=== PATIENT | female | born 1960 | race Hispanic/Latino ===

== ENCOUNTER 2021-04-27 12:52 | Observation (INO) | payer OTHER ==
--- OUTSIDE RECORDS SUMMARY | 2021-04-27 12:55 | XMS REPORT | Continuity of Care Document ---
:1960 Author Organization [facility] t Address [address] [place] [address] Care Team Providers Name Role Phone Asked, Pcp Primary Care Physician Unavailable Gumaro Johnston MD Attending Clinician Pablito MARSH Attending Clinician Problems Condition Condition Condition Status Onset Resolution Last Treating Co mments Source Name Details Category Date Date Treatment Clinician Date Angioedema Angioedema Disease Active 2015-10 [place] 11-03 [facility] 00:00: st 00 Allergic Allergic Disease Active 2015-10 [place] reaction reaction 11-03 Method i 00:00: st 00 Allergies, Adverse Reactions, Alerts Allergy Allergy Status Severity Reaction(s) Onset Inactive Treating Comm ents Source Name Type Date Date Clinician Levoflox Propensi Active Swelling 2015-10 [place] ac[place] ty to 11-03 [facility] adverse 00:00: st reaction 00 s to drug Ciproflo Propensi Active [place] xacin ty to 05-21 [facility] adverse 00:00: st reaction 00 s to drug Social History Social Habit Start Date Stop Date Quantity Comments Source Alcohol intake 2016-12-30 2016-12-30 Current [facility] 00:00:00 00:00:00 non-drinker of alcohol (finding) Sex Ass[birth year] At [birth year] Sree Jessica ethodist 00:00:00 00:00:00 Smoking Status Start Date Stop Date Source Never smoker Sree Methodis t Medications Ordered Filled Start Stop Current Ordering Indication Dosage Frequency Signature Comments Components Source Medication Medication Date Date Medication? Clinician (SIG) Name Name estradiol 2015-10 Yes 2mg QD Take 2 mg [place] (ESTRACE) 1 11-04 by mouth Meth billy MG tablet 16:30: daily. st 22 atorvastati 2015-10 Yes 10mg QD Take 10 mg Balbuena n (LIPITOR) 1-28 by mouth Meth billy 10 MG 16:30: daily. st tablet 22 magnesium 2015-10 Yes 400mg QD Take 400 [place] oxide 1-28 mg by Methodi (MAG-OX) 16:30: mouth st 400 mg 22 daily. tablet sertraline 2015-10 Yes 100mg QD Take 100 [place] (ZOLOFT) 1-28 mg by Methodi 100 MG 16:30: mouth st tablet 22 daily. diphenhydrA 2015-10 Yes 25mg Q6H Take 1 [place] M[place] 1-28 capsule Methodi (BENADRYL) 00:00: ([address] 25 mg 00 total) by capsule mouth every 6 (six) hours as needed for itching for up to 12 doses. diphenhydrA 2015-10 Yes 25mg Q6H Take 1 [place] 1-28 tablet (25 [facility] (BENADRYL) 00:00: mg total) st 25 mg 00 by mouth tablet every 6 (six) hours as needed for sleep for up to 12 doses. diphenhydrA 2015-10 Yes 25mg Q6H Take 1 [place] 1-28 capsule [facility] (DIPHENHIST 00:00: ([address] ) 25 mg 00 total) by capsule mouth every 6 (six) hours as needed for itching for up to 15 doses. glimepiride 2015-10 Yes Maki n (AMARYL) 2 1-25 [facility] MG tablet 00:00: st 00 midodrine 2015-10 Yes Sree (PROAMATINE 0-24 Methodi ) 2.5 MG 00:00: st tablet 00 Procedures This patient has no known procedures. Plan of Care Planned Activity Planned Date Details Comments Source Future Scheduled 2021-05-08 INFLUENZA VACCINE [facility] 00:00:00 [code = INFLUENZA VACCINE] Future Scheduled 2008 BREAST CANCER [facility] Test 00:00:00 SCREENING [code = BREAST CANCER SCREENING] Future Scheduled 2008 COLONOSCOPY SCREENING Ho varsha [facility] 00:00:00 [code = COLONOSCOPY SCREENING] Future Scheduled 2008 SHINGLES VACCINES [facility] 00:00:00 (#1) [code = SHINGLES VACCINES (#1)] Future Scheduled 1979 Screening for [facility] Test 00:00:00 malignant neoplasm of cervix (procedure) [code = 870073325] Future Scheduled 1970 COVID-19 VACCINE (1) Boom diaz [facility] 00:00:00 [code = COVID-19 VACCINE (1)] Encounters Start End Encounter Admission Attending Care Care Encounter Source Date/Time Date/Time Type Type Clinicians Facility Department ID 2021-04-19 2021-04-19 Refill [place], [facility] [id number] 00:00:00 00:00:00 [facility] [id number] [facility] [id number] Professio [phone] [address] 2021-04-19 2021-04-19 Refill [place], [facility] [id number] 00:00:00 00:00:00 [facility] [id number] [place] [id number] Professio [phone] [facility] [address] Building 2021-03-09 2021-03-09 Refill [place], [facility] [id number] 00:00:00 00:00:00 [facility] [id number] [place] [id number] Professio [phone] critical access hospital 220 [facility] Results This patient has no known results.
[2021-04-27 13:48] LABS: Protime INR 1.05
[2021-04-27 13:51] LABS: ALT/SGPT 34 U/L (12-78); AST/SGOT 31 U/L (15-37); Absolute Lymphocytes (CBC) 2.9 K/uL (0.7-4.9); Albumin 3.7 g/dL (3.4-5.0); Alkaline Phosphatase 125 U/L (45-117); BUN Blood Urea Nitrogen 22 mg/dL (7-18); Basophils % 1.1 % (0-1.3); Bicarbonate 27 mmol/L (21-32); Bilirubin Direct 0.1 mg/dL (0-0.2); Bilirubin Total 0.4 mg/dL (0.2-1.0); Glucose Level 92 mg/dL (74-106); Hematocrit 35.5 % (36.0-45.0); Lymphocytes % 34.8 % (15.3-44.8); MPV 7.9 fL (7.6-11.3); Magnesium 2.1 mg/dL (1.8-2.4); NT PRO-BNP 579 pg/mL (<125); Potassium 3.4 mmol/L (3.5-5.1); Protein, Total 7.9 g/dL (6.4-8.2); RBC Red Blood Cell Count 4.52 M/uL (3.86-4.86); Sodium Level 139 mmol/L (136-145); Troponin (Emerg Dept Use Only) < 0.02 ng/mL (0.0-0.045)
[2021-04-27] MEDS ORDERED: NA CHLORIDE 0.9% 1,000 ML ONE (13:53)
[2021-04-27] MEDS ORDERED: ASPIRIN 81 MG CHEWABLE TABLET ONE (13:53)
--- NOTE | 2021-04-27 14:02 | RAD REPORT ---
EXAM DESCRIPTION: CT - Head Brain Wo Cont - 04/27/2021 1:45 pm CLINICAL HISTORY: PAIN COMPARISON: Head Brain Wo Cont dated 09/08/2016; HEAD BRAIN W O CONTRAST dated 04/26/2014 TECHNIQUE: All CT scans are performed using dose optimization technique as appropriate and may inclu de automated exposure control or mA/KV adjustment according to patient size. FINDINGS: No intracranial hemorrhage, hydrocephalus or extra-axial fluid collection.No areas of brai n edema or evidence of midline shift. The paranasal sinuses and mastoids are clear. The calvarium is intact. IMPRESSION: No acute intracranial abnormality.
--- NOTE | 2021-04-27 14:04 | RAD REPORT ---
EXAM DESCRIPTION: RAD - Chest Single View - 04/27/2021 1:42 pm CLINICAL HISTORY: CHEST PAIN COMPARISON: Chest Single View dated 09/08/2016; Chest Single View dated 05/16/2016; CHEST PA AND LAT 2 VIEW dated 08/20/2014; CHEST SINGLE VIEW dated 08/08/2014 FINDINGS: No evidence of edema or pneumonia. The heart size is within normal limits.No acute osseous abnormality. No significant pleural effusions or pneumothorax. IMPRESSION: No acute cardiopulmonary disease.
[2021-04-27] MEDS ORDERED: KETOROLAC 30 MG/ML INJ ONE (14:19)
--- NOTE | 2021-04-27 14:55 | ER ---
Nurse's Notes [facility] Name: Lisa Louis Age: 60 yrs Sex: Female : 1960 Arrival Date: 04/27/2021 Time: 12:53 Bed 5 Private MD: Diagnosis: Chest pain, unspecified Presentation: 04/27 12:58 Chief complaint: Patient states: headache, muscle aches, chest tightness since ca1 yesterday. Denies fever. Denies cough and congestion. Denies N/V/D. Coronavirus screen: Client denies travel out of the [place] in the last 14 days. headache, muscle pain, Client presents with at least one sign or symptom that may indicate coronavirus-19. Standard/surgical mask placed on the client. Provider contacted for isolation considerations. Ebola Screen: Patient negative for fever greater than or equal to 101.5 degrees Fahrenheit, and additional compatible Ebola Virus Disease symptoms Patient denies exposure to infectious person. Patient denies travel to an Ebola-affected area in the 21 days before illness onset. No symptoms or risks identified at this time. Initial Sepsis Screen: Does the patient meet any 2 criteria? No. Patient's initial sepsis screen is negative. Does the patient have a suspected source of infection? No. Patient's initial sepsis screen is negative. Risk Assessment: Do you want to hurt yourself or someone else? Patient reports no desire to harm self or others. Onset of symptoms was April 26, 2021. 12:58 Method Of Arrival: Ambulatory ca1 12:58 Acuity: PATRICE 3 ca1 Historical: - Allergies: 12:59 Cipro; ca1 13:00 Gabapentin; ca1 - PMHx: 12:59 Diabetes - NIDDM; Hyperlipidemia; Hypertension; ca1 - Immunization history:: Client reports receiving the 2nd dose of the Covid vaccine, Client reports receiving the 1st dose of the Covid vaccine, Flu vaccine is up to date. - Social history:: Smoking status: Patient denies any tobacco usage or history of. Patient/guardian denies using alcohol, street drugs, The patient lives with family. - Family history:: not pertinent. Screenin:00 Abuse screen: Denies threats or abuse. Denies injuries from another. Nutritional hb screening: No deficits noted. Tuberculosis screening: No symptoms or risk factors identified. Fall Risk None identified. Assessment: 13:00 General: Appears in no apparent distress. Behavior is calm, cooperative. Pain: Pain hb currently is 10 out of 10 on a pain scale. Neuro: Level of Consciousness is awake, alert, obeys commands, Oriented to person, place, time, situation, Reports headache. Cardiovascular: Reports chest pain, Patient's skin is warm and dry. Respiratory: Respiratory effort is even, unlabored, Respiratory pattern is regular, symmetrical. GI: No signs and/or symptoms were reported involving the gastrointestinal system. : No signs and/or symptoms were reported regarding the genitourinary system. EENT: No signs and/or symptoms were reported regarding the EENT system. Derm: Skin is pink, warm \\T\\ dry. Musculoskeletal: Reports chest pain, body aches, headache. 14:10 Reassessment: Patient appears in no apparent distress at this time. Patient and/or hb family updated on plan of care and expected duration. Pain level reassessed. Patient is alert, oriented x 3, equal unlabored respirations, skin warm/dry/pink. 15:30 Reassessment: Patient appears in no apparent distress at this time. Patient and/or hb family updated on plan of care and expected duration. Pain level reassessed. Patient is alert, oriented x 3, equal unlabored respirations, skin warm/dry/pink. 16:45 Reassessment: Patient appears in no apparent distress at this time. Patient and/or hb family updated on plan of care and expected duration. Pain level reassessed. Patient is alert, oriented x 3, equal unlabored respirations, skin warm/dry/pink. 17:55 Reassessment: Patient appears in no apparent distress at this time. Patient and/or hb family updated on plan of care and expected duration. Pain level reassessed. Patient is alert, oriented x 3, equal unlabored respirations, skin warm/dry/pink. 18:27 Reassessment: Patient appears in no apparent distress at this time. Patient and/or hb family updated on plan of care and expected duration. Pain level reassessed. Patient is alert, oriented x 3, equal unlabored respirations, skin warm/dry/pink. 19:10 Reassessment: Patient and/or family updated on plan of care and expected duration. Pain ad5 level reassessed. Patient is alert, oriented x 3, equal unlabored respirations, skin warm/dry/pink. Pt reports worsening "all over" pain, provided analgesia as ordered. See [email or web address] charting on DEC. Vital Signs: 12:58 BP 137 / 57; Pulse 61; Resp 18 S; Temp 97(TE); Pulse Ox 100% on R/A; Weight 79.38 kg ca1 (R); Height 5 ft. 4 in. (162.56 cm) (R); Pain 10/10; 15:30 BP 126 / 60; Pulse 59; Resp 17; Pulse Ox 99% ; hb 16:45 BP 114 / 58; Pulse 53; Resp 15; Pulse Ox 99% on R/A; hb 17:55 BP 172 / 58; Pulse 52; Resp 14; Pulse Ox 98% ; hb 18:27 BP 150 / 68; Pulse 54; Resp 15; Pulse Ox 98% ; hb 19:43 BP 126 / 54; Pulse 54; Resp 18 S; Pulse Ox 97% on R/A; ad5 12:58 Body Mass Index 30.04 (79.38 kg, 162.56 cm) ca1 ED Course: 12:53 Patient arrived in ED. ds1 12:57 Jarvis Monahan MD is Attending Physician. ma2 12:58 Telma Mercado, ROSENDO is Primary Nurse. hb 12:59 Triage completed. ca1 13:00 Patient has correct armband on for positive identification. Placed in gown. Bed in low hb position. Call light in reach. Side rails up X 1. nuclear monitoring technician on. Pulse ox on. NIBP on. 13:00 Arm band placed on right wrist. ca1 13:00 Patient maintains SpO2 saturation greater than 95% on room air. hb 13:15 Door closed. Noise minimized. Lights dimmed. Warm blanket given. hb 13:42 XRAY Chest (1 view) In Process Unspecified. EDMS 13:44 CT Head Brain wo Cont In Process Unspecified. EDMS 14:54 Neo Daivd DO is Hospitalizing Provider. ma2 16:02 Diet: Patient given water. hb 19:35 No provider procedures requiring assistance completed. Patient admitted, IV remains in ad5 place. Administered Medications: 13:58 Drug: NS 0.9% 1000 ml Route: IV; Rate: 1 bolus; Site: right antecubital; hb 15:03 Follow up: Response: No adverse reaction; IV Status: Completed infusion; IV Intake: hb 1000ml 13:58 Drug: Aspirin Chewable Tablet 324 mg Route: PO; hb 14:40 Follow up: Response: No adverse reaction hb 13:58 Drug: Ketorolac 30 mg Route: IVP; Site: right antecubital; hb 14:40 Follow up: Response: No adverse reaction hb Intake: 15:03 IV: 1000ml; Total: 1000ml. hb Outcome: 14:54 Decision to Hospitalize by Provider. ma2 19:35 Admitted to Med/surg ad5 19:35 Condition: stable 19:35 Instructed on the need for admit. 19:47 Admitted to Med/surg Report called to ROSENDO Finnegan ad5 20:05 Patient left the ED. em Signatures: Dispatcher [employer] Ameya Ruiz RN RN Aarti Lopez Heather, RN RN Jarvis Monahan MD MD ma2 Acob, Cheryl, RN RN [facility] Juan Daniel Victor ad5
--- NOTE | 2021-04-27 14:55 | EDPHYS ---
Physician Documentation [facility] Name: Lisa Louis Age: 60 yrs Sex: Female : 1960 Arrival Date: 04/27/2021 Time: 12:53 Bed 5 Private MD: ED Physician Jarvis Monahan HPI: 04/27 14:14 This 60 yrs old Female presents to ER via Ambulatory with complaints of Chest ma2 Tightness, Headache. 14:14 The patient or guardian reports chest pain that is located primarily in the substernal ma2 area. Onset: gradually. 14:51 Associated signs and symptoms: Pertinent negatives: cough, dizziness, headache, lower ma2 extremity swelling, lightheadedness, nausea, near syncope, shortness of breath, syncope. Severity of pain: At its worst the pain was moderate in the emergency department the pain is unchanged. Historical: - Allergies: 12:59 Cipro; ca1 13:00 Gabapentin; ca1 - PMHx: 12:59 Diabetes - NIDDM; Hyperlipidemia; Hypertension; ca1 - Immunization history:: Client reports receiving the 2nd dose of the Covid vaccine, Client reports receiving the 1st dose of the Covid vaccine, Flu vaccine is up to date. - Social history:: Smoking status: Patient denies any tobacco usage or history of. Patient/guardian denies using alcohol, street drugs, The patient lives with family. - Family history:: not pertinent. ROS: 14:51 Constitutional: Negative for fever, chills, and weight loss. ma2 14:51 All other systems are negative. Exam: 14:51 Constitutional: This is a well developed, well nourished patient who is awake, alert, ma2 and in no acute distress. Head/Face: Normocephalic, atraumatic. Eyes: Pupils equal round and reactive to light, extra-ocular motions intact. Lids and lashes normal. Conjunctiva and sclera are non-icteric and not injected. Cornea within normal limits. Periorbital areas with no swelling, redness, or edema. ENT: Nares patent. No nasal discharge, no septal abnormalities noted. Tympanic membranes are normal and external auditory canals are clear. Oropharynx with no redness, swelling, or masses, exudates, or evidence of obstruction, uvula midline. Mucous membranes moist. Neck: Trachea midline, no thyromegaly or masses palpated, and no cervical lymphadenopathy. Supple, full range of motion without nuchal rigidity, or vertebral point tenderness. No Meningismus. Chest/axilla: Normal chest wall appearance and motion. Nontender with no deformity. No lesions are appreciated. Cardiovascular: Regular rate and rhythm with a normal S1 and S2. No gallops, murmurs, or rubs. Normal PMI, no JVD. No pulse deficits. Respiratory: Lungs have equal breath sounds bilaterally, clear to auscultation and percussion. No rales, rhonchi or wheezes noted. No increased work of breathing, no retractions or nasal flaring. Abdomen/GI: Soft, non-tender, with normal bowel sounds. No distension or tympany. No guarding or rebound. No evidence of tenderness throughout. Skin: Warm, dry with normal turgor. Normal color with no rashes, no lesions, and no evidence of cellulitis. MS/ Extremity: Pulses equal, no cyanosis. Neurovascular intact. Full, normal range of motion. Neuro: Awake and alert, GCS 15, oriented to person, place, time, and situation. Cranial nerves II-XII grossly intact. Motor strength 5/5 in all extremities. Sensory grossly intact. Cerebellar exam normal. Normal gait. Vital Signs: 12:58 BP 137 / 57; Pulse 61; Resp 18 S; Temp 97(TE); Pulse Ox 100% on R/A; Weight 79.38 kg ca1 (R); Height 5 ft. 4 in. (162.56 cm) (R); Pain 10/10; 15:30 BP 126 / 60; Pulse 59; Resp 17; Pulse Ox 99% ; hb 16:45 BP 114 / 58; Pulse 53; Resp 15; Pulse Ox 99% on R/A; hb 17:55 BP 172 / 58; Pulse 52; Resp 14; Pulse Ox 98% ; hb 18:27 BP 150 / 68; Pulse 54; Resp 15; Pulse Ox 98% ; hb 19:43 BP 126 / 54; Pulse 54; Resp 18 S; Pulse Ox 97% on R/A; ad5 12:58 Body Mass Index 30.04 (79.38 kg, 162.56 cm) ca1 MDM: 13:03 Patient medically screened. ma2 14:51 Differential diagnosis: abnormal EKG, anxiety, chest wall pain, gastroesophageal reflux ma2 disease (GERD), pancreatitis, unstable angina. HEART Score: History: Slightly Suspicious (0), ECG: Non specific repolarization disturbance / LBTB / PM (1), Age: > or = 65 years (2), Risk Factors: > or = 3 Risk factors for atherosclerotic disease (2), Troponin: < or = 1 x Normal Limit (0). The patient was given aspirin in the Emergency Department. Data reviewed: vital signs, nurses notes. Counseling: I had a detailed discussion with the patient and/or guardian regarding: the historical points, exam findings, and any diagnostic results supporting the discharge/admit diagnosis, the presence of at least one elevated blood pressure reading (>120/80) during this emergency department visit, the need for outpatient follow up. 04/27 12:57 Order name: Basic Metabolic Panel; Complete Time: 14: mn04/27 12:57 Order name: CBC with Diff; Complete Time: 14: [facility] 04/27 12:57 Order name: LFT's; Complete Time: 14: [facility] 04/27 12:57 Order name: Magnesium; Complete Time: 14: mn04/27 12:57 Order name: NT PRO-BNP; Complete Time: 14: mn04/27 12:57 Order name: PT-INR; Complete Time: 14: mn04/27 12:57 Order name: Troponin (emerg Dept Use Only); Complete Time: 14: mn2 04/27 12:57 Order name: XRAY Chest (1 view); Complete Time: 14: mn2 04/27 13:21 Order name: CT Head Brain wo Cont; Complete Time: 14: mn04/27 17:54 Order name: COVID-19 : Document "Date of Symptom Onset" if Symptomatic. ss 04/27 18:18 Order name: CORONAVIRUS [facility] 04/27 19:15 Order name: SARS-COV-2 RT PCR [facility] 04/27 12:57 Order name: EKG; Complete Time: 12:58 ma2 04/27 12:57 Order name: Cardiac monitoring; Complete Time: 13:27 ma2 04/27 12:57 Order name: EKG - Nurse/Tech; Complete Time: 13:27 mn2 04/27 12:57 Order name: IV Saline Lock; Complete Time: 13:27 ma2 04/27 12:57 Order name: Labs collected and sent; Complete Time: 13:27 [facility] 04/27 12:57 Order name: O2 Per Protocol; Complete Time: 12:59 [facility] 04/27 12:57 Order name: O2 Sat Monitoring; Complete Time: 12:59 [facility] 04/27 16:43 Order name: CONS Physician Consult EDMS Administered Medications: 13:58 Drug: NS 0.9% 1000 ml Route: IV; Rate: 1 bolus; Site: right antecubital; hb 15:03 Follow up: Response: No adverse reaction; IV Status: Completed infusion; IV Intake: hb 1000ml 13:58 Drug: Aspirin Chewable Tablet 324 mg Route: PO; hb 14:40 Follow up: Response: No adverse reaction hb 13:58 Drug: Ketorolac 30 mg Route: IVP; Site: right antecubital; hb 14:40 Follow up: Response: No adverse reaction hb Disposition Summary: 04/27/21 14:54 Hospitalization Ordered Hospitalization Status: Inpatient Admission mn2 Provider: Neo David [facility] Location: Telemetry/MedSurg (observation) ma2 Condition: Stable ma2 Problem: new ma2 Symptoms: are resolved mn2 Bed/Room Type: Standard [facility] Room Assignment: 210(04/27/21 19:27) tl1 Diagnosis - Chest pain, unspecified ma Forms: - Medication Reconciliation Form ma2 - SBAR form mn2 Signatures: Dispatcher [employer] EDMS Zian Hummel RN RN tl1 Telma Mercado RN RN Jarvis Monahan MD MD ma2 Etelvina Cooper RN RN ca1 Corrections: (The following items were deleted from the chart) : 14:54 ma2 tl1
[2021-04-27] MEDS ORDERED: ACETAMINOPHEN 500 MG TAB PO PRN (19:11)
[2021-04-27] MEDS ORDERED: ONDANSETRON 4 MG/2 ML VIAL IV PRN (19:11)
[2021-04-27] MEDS: MORPHINE 2 MG/ML SYR IV PRN (19:15)
--- NOTE | 2021-04-27 19:21 | P.HP ---
Certification for Inpatient Patient admitted to: Observation With expected LOS: <2 Midnights Patient will require the following post-hospital care: None Practitioner: I am a practitioner with admitting privileges, knowledge of patient current condition, hospital course, and medical plan of care. Services: Services provided to patient in accordance with Admission requirements found in Title 42 Section 412.3 of the Code of Federal Regulations Patient History Date of Service: 04/27/21 Primary Care Provider: Dr. Johnston Reason for admission: chest pain History of Present Illness: This is a 60 y/o F with HTN, HLD, IDDM, depression, who presents today for substernal chest pain and muscle aches. Chest pain started suddenly yesterday while she was laying down and pain has been constant. Describes pain as sharp and tightness, denies any radiation. States this chest pain has occurred in the past about a year ago and had a negative stress test. Myalgias and headache started at the same time with no relief from tylenol. Myalgias are worse in the legs. Also c/o SOB and fatigue. Denies any cough, nausea, fever, chills, diarrhea, or fevers. Neg troponin BNP 579 K 3.4 Cr 1.33 CXR: No evidence of edema or pneumonia. The heart size is within normal limits.No acute osseous abnormality. No significant pleural effusions or pneumothorax. IMPRESSION: No acute cardiopulmonary disease. CT: No intracranial hemorrhage, hydrocephalus or extra-axial fluid collection.No areas of brain edema or evidence of midline shift. The paranasal sinuses and mastoids are clear. The calvarium is intact. IMPRESSION: No acute intracranial abnormality. Allergies ciprofloxacin Allergy (Severe, Verified 09/08/16 19:39) Swelling to lips, difficulty swallowing Home Medications: Atorvastatin Calcium [Lipitor*] 10 mg PO BEDTIME 04/25/14 Estradiol 2 mg PO BEDTIME 04/25/14 Glimepiride [Amaryl] 2 mg PO DAILY 04/25/14 Magnesium Oxide [Mag 0X*] 400 mg PO BID 04/25/14 Sertraline HCl 100 mg PO BID 05/16/16 Midodrine HCl 2.5 mg PO TID #90 tablet 09/13/16 - Past Medical/Surgical History Diabetic: Yes -: IDDM -: Htn -: High Cholesterol -: left leg/knee strain -: depression -: Hysterectomy -: Rt carpal tunnel sx -: cholecystectomy Psychosocial/ Personal History: lives at home with and grandkids - Family History Father -: Heart disease, Hypertension mom -: Heart disease, Hypertension Sister -: Cancer (colon) Brother -: Cancer (pancreatic) - Social History Smoking Status: Never smoker Alcohol use: No CD- Drugs: No Caffeine use: Yes Physical Examination - Physical Exam General: Alert, Oriented x3, Cooperative, Mild distress (appears uncomfortable) HEENT: Atraumatic, Normocephalic, EOMI Neck: Supple Respiratory: Clear to auscultation bilaterally, Normal air movement Cardiovascular: No edema, Normal pulses, Normal S1 S2 Capillary refill: <2 Seconds Gastrointestinal: Normal bowel sounds, Soft and benign, Non-distended, No guarding Musculoskeletal: No clubbing, No swelling, No contractures Integumentary: No rashes, No breakdown Neurological: Normal speech, Normal tone, Normal affect Lymphatics: No axilla or inguinal lymphadenopathy - Studies Laboratory Data (last 24 hrs) 04/27/21 13:22: PT 12.1, INR 1.05 04/27/21 13:22: WBC 8.20, Hgb 12.2, Hct 35.5 L, Plt Count 209 04/27/21 13:22: Sodium 139, Potassium 3.4 L, BUN 22 H, Creatinine 1.33 H, Glucose 92, Magnesium 2.1, Total Bilirubin 0.4, AST 31, ALT 34, Alkaline Phosphatase 125 H Assessment and Plan - Plan impression: chest pain IDDM HTN HLD depression plan: chest pain: -pt will be admitted for further observation -initial imaging and labs negative for any acute processes -trend cardiac enzymes -monitor on telemetry -echo ordered -pain control -cardiology has been consulted. await recommendations -anticipate improvement over the next 24h IDDM: accuchecks and SSI. HTN: confirm and restart home meds as appropriate. HLD: confirm and restart home meds as appropriate. depression: confirm and restart home meds as appropriate. VTE: lovenox code: full dispo: anticipate dc home in 24h Discharge Plan: Home Plan to discharge in: 24 Hours - Advance Directives Does patient have a Living Will: No Does patient have a Durable POA for Healthcare: No - Code Status/Comfort Care Code Status Assessed: Yes (full) Time Spent Managing Pts Care (In Minutes): 55
[2021-04-27 20:08] VITALS: BMI 31.6
[2021-04-27] MEDS: INSULIN -REGULAR HUMAN 50 UNIT/0.5 ML ML SQ SCH (21:00)
[2021-04-27 21:08] LABS: CKMB Creatine Kinase MB 1.2 ng/mL (1.0-3.6); Troponin I < 0.02 ng/mL (0.0-0.045)
[2021-04-27] MEDS: TRAMADOL HCL 50 MG TAB PO PRN (21:28)
[2021-04-27 23:49] LABS: Urine Appearance CLOUDY (Clear); Urine Bilirubin NEGATIVE (Negative); Urine Blood TRACE (Negative); Urine Color YELLOW (Yellow); Urine Glucose NEGATIVE (Negative); Urine Protein NEGATIVE (Negative); Urine Urobilinogen 0.2 mg/dL (0.2-1.0)
[2021-04-27 23:51] LABS: Urine Microscopic Reflex ORDER UMIC
[2021-04-28] MEDS: MORPHINE 2 MG/ML SYR IV PRN ×2 (00:22→06:17)
[2021-04-28 01:01] LABS: Urine Bacteria >50 /HPF (<20); Urine RBC <5 /HPF (NONE SEEN); Urine Urothelial Cells <5 /HPF (NONE SEEN)
[2021-04-28 02:10] LABS: CKMB Creatine Kinase MB < 1.0 ng/mL (1.0-3.6); Troponin I < 0.02 ng/mL (0.0-0.045)
--- NOTE | 2021-04-28 06:00 | P.DS ---
Admission Date: 04/27/21 Discharge Date: 04/28/21 Primary Care Provider: Dr. Johnston Disposition: ROUTINE DISCHARGE Discharge Condition: GOOD Reason for Admission: chest pain Consultations: Cardiology-Dr. Angulo Nephrology-Dr. Posada Procedures: COVID: Negative CT Head: COMPARISON: Head Brain Wo Cont dated 09/08/2016; HEAD BRAIN W O CONTRAST dated 04/26/2014 TECHNIQUE: All CT scans are performed using dose optimization technique as appropriate and may include automated exposure control or mA/KV adjustment accor ding to patient size. FINDINGS: No intracranial hemorrhage, hydrocephalus or extra-axial fluid collection.No areas of brain edema or evidence of midline shift. The paranasal sinuses and mastoids are clear. The calvarium is intact. IMPRESSION: No acute intracranial abnormality. CXR: COMPARISON: Chest Single View dated 09/08/2016; Chest Single View dated 05/16/2016; CHEST PA AND LAT 2 VIEW dated 08/20/2014; CHEST SINGLE VIEW dated 08/08/2014 FINDINGS: No evidence of edema or pneumonia. The heart size is within normal limits.No acute osseous abnormality. No significant pleural effusions or pneumothorax. IMPRESSION: No acute cardiopulmonary disease. ECHO 2016: MEASUREMENTS (cm) DIASTOLIC (NORMALS) SYSTOLIC (NORMALS) IVSd 0.9 (0.6-1.2) LA Diam 4.3 (1.9-4.0) LVEF 67% LVIDd 5.1 (3.5-5.7) LVIDs 3.2 (2.0-3.5) %FS 38% LVPWd 0.8 (0.6-1.2) Ao Diam 2.9 (2.0-3.7) 2 DIMENSIONAL ASSESSMENT: RIGHT ATRIUM: DILATED LEFT ATRIUM: DILATED RIGHT VENTRICLE: NORMAL LEFT VENTRICLE: NORMAL TRICUSPID VALVE: NORMAL MITRAL VALVE: NORMAL PULMONIC VALVE: NORMAL AORTIC VALVE: NORMAL PERICARDIAL EFFUSION: NONE AORTIC ROOT: NORMAL LEFT VENTRICULAR WALL MOTION: NORMAL DOPPLER/COLOR FLOW: MILD TRICUSPID REGURGITATION. ESTIMATED RIGHT VENTRICULAR SYSTOLIC PRESSURE 34mmHg ( NORMAL) COMMENTS: NORMAL LEFT VENTRICULAR EJECTION FRACTION. DILATED LEFT AND RIGHT ATRIA. MILD TRICUSPID REGURGITATION. Medical Problem List: Chest pain Chronic renal disease stage III likely related to diabetes Diabetes mellitus type 2 Hyperlipidemia Depression Anemia of chronic disease GERD Sinusitis Cystitis Brief History of Present Illness: 60-year-old female presented with substernal chest pain and muscle aches. She also reported some sinus congestion. Patient was evaluated in the emergency room. Initial cardiac enzymes unremarkable. Patient was admitted for further evaluation and treatment. Hospital Course: Patient presented with chest pain. Cardiac enzymes unremarkable. No significant EKG changes noted. Patient was seen and evaluated by cardiology. No inpatient intervention was required. Cardiology recommends follow-up as an outpatient for cardiac evaluation. Recommend follow-up with cardiology in 1 to 2 weeks to follow-up his hospitalization and to set up cardiac stress test. At discharge patient will continue with aspirin 81 mg daily. Patient with chronic renal disease stage III likely related to diabetes. Nephrology was consulted to establish care. Patient found to have low calcium. Nephrology recommended to continue calcium supplementation. This can be monitored as an outpatient. Future medications would to be renally dosed. Recommend no further nonsteroidal anti-inflammatories. No need for Lasix at this time. Recommend to discontinue Lasix and monitor her urine input and output. Recommend to monitor her weight daily. If she starts gaining weight, noticing increasing edema then Lasix can be used as needed. At discharge patient will continue with vitamin D 5000 units daily. Recommend follow-up with nephrology in 1 to 2 weeks to follow-up hospitalization. Recommend to recheck labBMP and calcium in 1 week to monitor her progress. Patient with cystitis. Urinalysis showed some bacteria. There was also some suspicion for sinusitis. At discharge patient will be sent home with Augmentin 500 mg 1 pill twice daily for 7 days. UTI prevention provided. Education on sinusitis provided. Patient with diabetes mellitus type 2 insulin-dependent. Hemoglobin A1c 8.4. Recommend better control of diabetes. Recommend to maintain blood sugar less than less than 140 fasting or less than 200 after meals. At discharge patient will continue with her Basaglar 40 units daily. If blood sugars remain above 200 she may increase Basaglar by 1 to 2 units for better control. This can be done with the help of her PCP. Recommend to recheck hemoglobin A1c every 3 months to monitor progress. Recommend follow-up with PCP in 1 week to further adjust and monitor her diabetes. Patient with hyperlipidemia. LDL 117. Recommend to recheck fasting lipid panel in 6 to 8 weeks to monitor her progress. If LDL still elevated patient may require medication in the future. This can be further evaluated by her PCP. Patient with depression. At discharge she will continue with her medication Zoloft 50 mg daily. Recommend follow-up with her PCP to further monitor and adjust medication. Patient with GERD. At discharge patient will continue with Protonix 40 mg daily. Patient with anemia of chronic disease. Recommend to continue multivitamin with iron 1 pill daily and Colace 1 pill daily as needed for constipation. Recommend to recheck labCBC in 2 to 4 weeks to monitor progress. Patient would benefit with GI evaluation to further evaluate. Vital Signs/Physical Exam: Temp Pulse Resp BP Pulse Ox 97.5 F 53 16 144/66 H 99 04/27/21 22:18 04/27/21 22:18 04/27/21 22:18 04/27/21 22:18 04/27/21 22:18 General: Alert, In no apparent distress, Oriented x3, Cooperative HEENT: Atraumatic Neck: Supple Respiratory: Clear to auscultation bilaterally, Normal air movement Cardiovascular: Normal pulses, Regular rate/rhythm Gastrointestinal: Normal bowel sounds, No tenderness, No masses, No rebound, No guarding Musculoskeletal: No erythema, No tenderness, No warmth Integumentary: No tenderness/swelling Neurological: Normal speech, Normal strength at 5/5 x4 extr, Normal tone, Normal affect Laboratory Data at Discharge: WBC 8.20 K/uL (4.3-10.9) 04/27/21 13:22 Hgb 12.2 g/dL (12.0-15.0) 04/27/21 13:22 Hct 35.5 % (36.0-45.0) L 04/27/21 13:22 Plt Count 209 K/uL (152-406) 04/27/21 13:22 PT 12.1 SECONDS (9.5-12.5) 04/27/21 13:22 INR 1.05 04/27/21 13:22 Sodium 139 mmol/L (136-145) 04/27/21 13:22 Potassium 3.4 mmol/L (3.5-5.1) L 04/27/21 13:22 BUN 22 mg/dL (7-18) H 04/27/21 13:22 Creatinine 1.33 mg/dL (0.55-1.3) H 04/27/21 13:22 Glucose 92 mg/dL (74-106) 04/27/21 13:22 Magnesium 2.1 mg/dL (1.8-2.4) 04/27/21 13:22 Total Bilirubin 0.4 mg/dL (0.2-1.0) 04/27/21 13:22 AST 31 U/L (15-37) 04/27/21 13:22 ALT 34 U/L (12-78) 04/27/21 13:22 Alkaline Phosphatase 125 U/L (45-117) H 04/27/21 13:22 Troponin I < 0.02 ng/mL (0.0-0.045) 04/28/21 00:52 Home Medications: Sertraline HCl 50 mg PO DAILY 05/16/16 Aspirin [Aspirin EC 81 MG] 81 mg PO DAILY 04/27/21 Insulin Aspart (Niacinamide) [Fiasp 100 Unit/ml Flextouch] 4 - 14 unit SQ TIDWM 04/27/21 Insulin Glargine,Hum.rec.anlog [Basaglar Kwikpen U-100] 40 unit SQ DAILY 04/27/21 Pantoprazole [Protonix Tab*] 40 mg PO DAILY 04/27/21 Amoxicillin/Potassium Clav [Augmentin 500-125 Tablet] 1 each PO BID #14 tablet 04/28/21 Cholecalciferol (Vitamin D3) [Vitamin D 5,000 IU Cap*] 5,000 unit PO DAILY #30 cap 04/28/21 Docusate [Colace Cap*] 100 mg PO DAILY PRN #15 cap 04/28/21 Multivitamin/Iron/Folic Acid [Multi-Day Plus Iron Tablet] 1 each PO DAILY #30 tablet 04/28/21 New Medications: Amoxicillin/Potassium Clav [Augmentin 500-125 Tablet] 1 each PO BID #14 tablet Docusate [Colace Cap*] 100 mg PO DAILY PRN #15 cap PRN Reason: Constipation Multivitamin/Iron/Folic Acid [Multi-Day Plus Iron Tablet] 1 each PO DAILY #30 tablet Cholecalciferol (Vitamin D3) [Vitamin D 5,000 IU Cap*] 5,000 unit PO DAILY #30 cap Physician Discharge Instructions: Patient presented with chest pain. Cardiac enzymes unremarkable. No significant EKG changes noted. Patient was seen and evaluated by cardiology. No inpatient intervention was required. Cardiology recommends follow-up as an outpatient for cardiac evaluation. Recommend follow-up with cardiology in 1 to 2 weeks to follow-up his hospitalization and to set up cardiac stress test. At discharge patient will continue with aspirin 81 mg daily. Patient with chronic renal disease stage III likely related to diabetes. Nephrology was consulted to establish care. Patient found to have low calcium. Nephrology recommended to continue calcium supplementation. This can be monitored as an outpatient. Future medications would to be renally dosed. Recommend no further nonsteroidal anti-inflammatories. No need for Lasix at this time. Recommend to discontinue Lasix and monitor her urine input and output. Recommend to monitor her weight daily. If she starts gaining weight, noticing increasing edema then Lasix can be used as needed. At discharge patient will continue with vitamin D 5000 units daily. Recommend follow-up with nephrology in 1 to 2 weeks to follow-up hospitalization. Recommend to recheck labBMP and calcium in 1 week to monitor her progress. Patient with cystitis. Urinalysis showed some bacteria. There was also some suspicion for sinusitis. At discharge patient will be sent home with Augmentin 500 mg 1 pill twice daily for 7 days. UTI prevention provided. Education on sinusitis provided. Patient with diabetes mellitus type 2 insulin-dependent. Hemoglobin A1c 8.4. Recommend better control of diabetes. Recommend to maintain blood sugar less than less than 140 fasting or less than 200 after meals. At discharge patient will continue with her Basaglar 40 units daily. If blood sugars remain above 200 she may increase Basaglar by 1 to 2 units for better control. This can be done with the help of her PCP. Recommend to recheck hemoglobin A1c every 3 months to monitor progress. Recommend follow-up with PCP in 1 week to further adjust and monitor her diabetes. Patient with hyperlipidemia. LDL 117. Recommend to recheck fasting lipid panel in 6 to 8 weeks to monitor her progress. If LDL still elevated patient may require medication in the future. This can be further evaluated by her PCP. Patient with depression. At discharge she will continue with her medication Zoloft 50 mg daily. Recommend follow-up with her PCP to further monitor and adjust medication. Patient with GERD. At discharge patient will continue with Protonix 40 mg daily. Patient with anemia of chronic disease. Recommend to continue multivitamin with iron 1 pill daily and Colace 1 pill daily as needed for constipation. Recommend to recheck labCBC in 2 to 4 weeks to monitor progress. Patient would benefit with GI evaluation to further evaluate. Diet: ADA Activity: Ad julia Followup: NONE,NONE [Primary Care Provider] - Time spent managing pt's care (in minutes): 55
[2021-04-28 06:32] LABS: Absolute Lymphocytes (CBC) 2.7 K/uL (0.7-4.9); Hematocrit 31.5 % (36.0-45.0); Lymphocytes % 39.3 % (15.3-44.8); MPV 7.7 fL (7.6-11.3); RBC Red Blood Cell Count 3.94 M/uL (3.86-4.86)
[2021-04-28 06:47] LABS: Magnesium 2.1 mg/dL (1.8-2.4); Phosphorus 3.6 mg/dL (2.5-4.9); Potassium 3.5 mmol/L (3.5-5.1)
[2021-04-28 06:48] LABS: Thyroid Stimulating Hormone 4.79 uIU/mL (0.360-3.740)
[2021-04-28] MEDS: INSULIN -REGULAR HUMAN 50 UNIT/0.5 ML ML SQ SCH ×2 (07:30→11:27)
--- NOTE | 2021-04-28 08:54 | P.CNS ---
Date of Consult: 04/28/21 Reason for Consult: CKD/ Hypokalemia Requesting Physician: Neo David Primary Care Provider: Dr. Johnston Chief Complaint: chest pain History of Present Illness: This is a 60 y/o F with HTN, HLD, IDDM, depression, who presents today for substernal chest pain and muscle aches. Chest pain started suddenly yesterday while she was laying down and pain has been constant. Describes pain as sharp and tightness, denies any radiation. States this chest pain has occurred in the past about a year ago and had a negative stress test. Myalgias and headache started at the same time with no relief from tylenol. Myalgias are worse in the legs. Also c/o SOB and fatigue. Denies any cough, nausea, fever, chills, diarrhea, or fevers. 14:14 This 60 yrs old Female presents to ER via Ambulatory with complaints of Chest ma2 Tightness, Headache. 14:14 The patient or guardian reports chest pain that is located primarily in the substernal ma2 area. Onset: gradually. 14:51 Associated signs and symptoms: Pertinent negatives: cough, dizziness, headache, lower ma2 extremity swelling, lightheadedness, nausea, near syncope, shortness of breath, syncope. Severity of pain: At its worst the pain was moderate in the [facility] the pain is unchanged. Allergies ciprofloxacin Allergy (Severe, Verified 09/08/16 19:39) Swelling to lips, difficulty swallowing Home medications list reviewed: Yes Home Medications: Sertraline HCl 50 mg PO DAILY 05/16/16 Aspirin [Aspirin EC 81 MG] 81 mg PO DAILY 04/27/21 Furosemide 40 mg PO DAILY 04/27/21 Insulin Aspart (Niacinamide) [Fiasp 100 Unit/ml Flextouch] 4 - 14 unit SQ TIDWM 04/27/21 Insulin Glargine,Hum.rec.anlog [Basaglar Kwikpen U-100] 40 unit SQ DAILY 04/27/21 Pantoprazole [Protonix Tab] 40 mg PO DAILY 04/27/21 - Past Medical/Surgical History Diabetic: Yes -: IDDM -: Htn -: High Cholesterol -: left leg/knee strain -: depression -: Hysterectomy -: Rt carpal tunnel sx -: cholecystectomy Psychosocial/ Personal History: lives at home with and grandkids - Family History Father Medical History: Heart disease, Hypertension Sister Medical History: Cancer Brother Medical History: Cancer mom Medical History: Heart disease, Hypertension - Social History Smoking Status: Never smoker Alcohol use: No CD- Drugs: No Caffeine use: Yes Place of Residence: Home Review of Systems 10-point ROS is otherwise unremarkable General: Weakness, Malaise Physical Examination Temp Pulse Resp BP Pulse Ox 97.9 F 59 16 119/56 L 96 04/28/21 08:00 04/28/21 08:00 04/28/21 08:00 04/28/21 08:00 04/28/21 08:00 General: Oriented x3, Cooperative HEENT: Atraumatic Neck: Supple Respiratory: Clear to auscultation bilaterally Cardiovascular: No edema, Regular rate/rhythm Gastrointestinal: Soft and benign, Non-distended Musculoskeletal: No clubbing, No contractures Integumentary: No rashes, No cyanosis Neurological: Normal speech Laboratory Data (last 24 hrs) 04/27/21 13:22: PT 12.1, INR 1.05 04/27/21 13:22: WBC 8.20, Hgb 12.2, Hct 35.5 L, Plt Count 209 04/27/21 13:22: Sodium 139, Potassium 3.4 L, BUN 22 H, Creatinine 1.33 H, Glucose 92, Magnesium 2.1, Total Bilirubin 0.4, AST 31, ALT 34, Alkaline Phosphatase 125 H Imagings Data: EXAM DESCRIPTION: RAD - Chest Single View - 04/27/2021 1:42 pm CLINICAL HISTORY: CHEST PAIN COMPARISON: Chest Single View dated 09/08/2016; Chest Single View dated 05/16/2016; CHEST PA AND LAT 2 VIEW dated 08/20/2014; CHEST SINGLE VIEW dated 08/08/2014 FINDINGS: No evidence of edema or pneumonia. The heart size is within normal limits.No acute osseous abnormality. No significant pleural effusions or pneumothorax. IMPRESSION: No acute cardiopulmonary disease. EXAM DESCRIPTION: CT - Head Brain Wo Cont - 04/27/2021 1:45 pm CLINICAL HISTORY: PAIN COMPARISON: Head Brain Wo Cont dated 09/08/2016; HEAD BRAIN W O CONTRAST dated 04/26/2014 TECHNIQUE: All CT scans are performed using dose optimization technique as appropriate and may include automated exposure control or mA/KV adjustment according to patient size. FINDINGS: No intracranial hemorrhage, hydrocephalus or extra-axial fluid collection.No areas of brain edema or evidence of midline shift. The paranasal sinuses and mastoids are clear. The calvarium is intact. IMPRESSION: No acute intracranial abnormality. Conclusions/Impression: CKD III with Proteinuria -No NSAIDs Hypokalemia -Replete with oral potassium Hypocalcemia -Start Vitamin D3 DM II with hyperglycemia & CKD -RISS Anemia in chronic illness -Iron deficiency -Monitor H&H -Start oral iron and colace Acute cystitis -Follow up culture Recommend thyroid supplementation Thank you kindly for the consultation. Case reviewed with Dr. David Critical Care: No
[2021-04-28] MEDS ORDERED: ENOXAPARIN 40 MG/0.4 ML SQ SCH (09:00)
[2021-04-28] MEDS ORDERED: SERTRALINE HCL 100 MG TAB PO SCH (09:00)
[2021-04-28] MEDS ORDERED: ASPIRIN EC 81 MG TAB PO SCH (09:00)
[2021-04-28] MEDS ORDERED: POTASSIUM CL SA 10 MEQ TAB PO ONE (09:00)
--- NOTE | 2021-04-28 11:02 | EKG ---
Test Date: 2021-04-27 Test Time: 13:07:38 [employer] Operator: MEASUREMENT RESULTS: Intervals: Rate: 56 IA: 146 QRSD: 88 QT: 424 QTc: 409 [place]: P: 41 IA: 146 QRS: -11 T: 34 INTERPRETIVE STATEMENTS: Sinus bradycardia Otherwise normal ECG Compared to ECG 09/12/2016 13:25:17 No significant changes Electronically Signed On 04-28-21 10:58:57 CDT by Louie Angulo
[2021-04-28 11:15] VITALS: O2SAT 93
[2021-04-28] MEDS: TRAMADOL HCL 50 MG TAB PO PRN (12:23)
--- NOTE | 2021-04-28 12:31 | RAD REPORT ---
EXAM DESCRIPTION: US - Renal Ultrasound-Complete - 04/28/2021 9:35 am CLINICAL HISTORY: chronic renal disease COMPARISON: Small Bowel Series dated 09/12/2016 FINDINGS: Both renal cortices are thin and echogenic. The right kidney measures 9.6. No hydronephrosis, focal mass or perinephric fluid. The left kidney measures 8.6. No hydronephrosis, focal mass or perinephric fluid. The urinary bladder is incompletely distended without gross abnormality seen. IMPRESSION: Echogenic kidneys bilaterally consistent with medical renal disease. No hydronephrosis.
[2021-04-28 12:36] VITALS: BP 137/64; TEMP 98.7
[2021-04-29] MEDS ORDERED: PANTOPRAZOLE 40MG TABLET PO SCH (07:30)
--- NOTE | 2021-04-29 08:37 | ECHO ---
HEIGHT: 5 ft 4 in WEIGHT: 184 lb 11.2 oz DATE OF STUDY: 04/28/[address]: Grazyna Berrios 2-DIMENSIONAL: YES M.MODE: YES DOPPLER: YES COLOR FLOW: YES TDS: NO PORTABLE: NO DEFINITY: NO BUBBLE STUDY: NO DIAGNOSIS: CHEST PAIN CARDIAC HISTORY: CATHERIZATION: NO SURGERY: NO PROSTHETIC VALVE: NO PACEMAKER: NO MEASUREMENTS (cm) DIASTOLIC (NORMALS) SYSTOLIC (NORMALS) IVSd 1.0 (0.6-1.2) LA Diam 3.5 (1.9-4.0) LVEF 54% LVIDd 4.8 (3.5-5.7) LVIDs 3.4 (2.0-3.5) %FS 28% LVPWd 1.0 (0.6-1.2) Ao Diam 2.9 (2.0-3.7) 2 DIMENSIONAL ASSESSMENT: RIGHT ATRIUM: NORMAL LEFT ATRIUM: NORMAL RIGHT VENTRICLE: NORMAL LEFT VENTRICLE: NORMAL TRICUSPID VALVE: NORMAL MITRAL VALVE: NORMAL PULMONIC VALVE: NORMAL AORTIC VALVE: NORMAL PERICARDIAL EFFUSION: NONE AORTIC ROOT: NORMAL LEFT VENTRICULAR WALL MOTION: NORMAL DOPPLER/COLOR FLOW: NORMAL COMMENTS: NORMAL LEFT VENTRICULAR EJECTION FRACTION 55-60%. NORMAL WALL MOTION. TECHNOLOGIST: Maria Victoria PATEL
[2021-04-29] MEDS ORDERED: VITAMIN D 5,000 UNIT CAP PO SCH (09:00)
[2021-04-29] MEDS ORDERED: FERROUS GLUCONATE 324 MG TAB PO SCH (09:00)
--- NOTE | 2021-04-29 20:17 | CON ---
Date of Consultation: 04/28/2021 Reason For Consultation: Admitted with headache and chest pain on 04/27/[address] David. I saw t he patient on 04/28/2021. History Of Present Illness: Ms. Louis is a 60-year-old woman with history of diabetes, gastroesophag eal reflux disease, dyslipidemia, renal insufficiency, who came in mostly with a headache, had chest pressure in the midepigastric region that has been going on for 2 days without any nausea, vomiting, diaphoresis, PND, orthopnea, pedal edema, palpitation, or syncope. She is already ruled out for CA. Her chest x-ray, BNP, CPKs, MBs and troponin are negative. Her EKG is negative. Allergies: SHE IS ALLERGIC TO CIPRO. Review of Systems: Negative. Social History: Negative. Family History: Noncontributory. Medications: At home include aspirin, Lasix, insulin, Protonix, and sertraline. Physical Examination: Vital Signs: Stable. She was afebrile. HEENT: Negative. Neck: Supple with no bruit. Chest: Clear. Cardiac: Revealed a regular rhythm and rate with S4 gallops. No murmurs or rubs. Abdomen: Benign. Extremities: Revealed no clubbing, cyanosis, or edema. Diagnostic Data: As stated earlier. Also her triglyceride was 295, cholesterol was 205. Impression And Plan: 1.Headache possibly secondary to hypertension. 2.Chest pain possibly secondary to gastroesophageal reflux disease. 3.Diabetes. 4.Dyslipidemia. 5.Gastroesophageal reflux disease. 6.Renal insufficiency. 7.Allergy to Cipro. Her blood pressure controlled. She needs to have her headache treated, maybe g et a CT of her head to make sure we are not missing anything serious. I think her chest pain is very atypical, but she has many risk factors for heart disease and I recommend that we do an outpatient M PI when she goes home, but I am comfortable with her going home whenever it is okay with Dr. David. KING/MARCIEL Voice ID: [id number] Report ID: [id number]
== END 2021-04-28 13:19 | disposition home or self-care (01) ==
LOC: ER 12:52 → ERHOLD 16:32 → 2ND 19:37
PROVIDERS: ADMIT Family Medicine; ATTEND Family Medicine
DX: R07.9 Chest pain, unspecified (principal); I12.9 Hypertensive chronic kidney disease with stage 1 through stage 4 chronic kidney disease, or unspecified chronic kidney disease; E11.65 Type 2 diabetes mellitus with hyperglycemia; E11.22 Type 2 diabetes mellitus with diabetic chronic kidney disease; N18.30 Chronic kidney disease, stage 3 unspecified; D63.1 Anemia in chronic kidney disease; N30.00 Acute cystitis without hematuria; E78.5 Hyperlipidemia, unspecified; E78.00 Pure hypercholesterolemia, unspecified; F32.9 Major depressive disorder, single episode, unspecified; M79.18 Myalgia, other site; K21.9 Gastro-esophageal reflux disease without esophagitis; J32.9 Chronic sinusitis, unspecified; E83.51 Hypocalcemia; E87.6 Hypokalemia; D50.9 Iron deficiency anemia, unspecified; K59.00 Constipation, unspecified; Z20.822 Contact with and (suspected) exposure to COVID-19; Z79.4 Long term (current) use of insulin; Z79.82 Long term (current) use of aspirin; Z79.899 Other long term (current) drug therapy; Z88.3 Allergy status to other anti-infective agents; Z88.6 Allergy status to analgesic agent; Z90.710 Acquired absence of both cervix and uterus; Z90.49 Acquired absence of other specified parts of digestive tract; Z82.49 Family history of ischemic heart disease and other diseases of the circulatory system; Z80.0 Family history of malignant neoplasm of digestive organs
CPT/HCPCS: 96361; 93005; 93306; 87088; 85025 ×2; 87086; 80048 ×2; 36415; 83735 ×2; 82550; 84100; 85610; 80061; 82947 ×3; 80076; 84443; 87077; 87186; 83036; 84484 ×3; 82553 ×2; 84439; 83880; 70450; 71045; 76770; 96374; 99285; U0003; J1650; J2270 ×3; J7030; J2405; G0378 ×3; 81003; 81015

== ENCOUNTER 2023-01-19 14:44 | Inpatient (IN) | payer OTHER ==
--- OUTSIDE RECORDS SUMMARY | 2023-01-19 15:00 | XMS REPORT | Continuity of Care Document ---
:1960 Author Organization [facility] t Address [address] [place] [address] [place] [address] Care Team Providers Name Role Phone Etta Nazario Primary Care Physician Janice Chavarria Attending Clinician Unavailable RUFINA MORA Attending Clinician Unavailable RUFINA MORA Attending Clinician Unavailable CHERIE HUBER Attending Clinician Unavailable CHERIE HUBER Attending Clinician Unavailable ETTA APONTE Attending Clinician Unavailable ERIKA CAMPBELL Attending Clinician Unavailable MARLY RIBEIRO Attending Clinician Unavailable Marly Ribeiro MD Attending Clinician Erika Lott Attending Clinician Marko SANTIAGO, Blanca Attending Clinician Unavailable Margoth Perdue MD Attending Clinician MARGOTH PERDUE Attending Clinician Unavailable CARLOS HORVATH Attending Clinician Unavailable Doctor Unassigned, Fortine Attending Clinician Unavailable Fay CURTIS, Etta Attending Clinician DAVE FERRARO Attending Clinician Unavailable Ronan KENDRICK, Dave Attending Clinician Willy MARSH, Verónica Attending Clinician Matthew Castellanos MD Attending Clinician MATTHEW CASTELLANOS Attending Clinician Unavailable PRAFUL COTA Attending Clinician Unavailable Lionel Adam MD Attending Clinician Antoinette MARSH, Keven Vigil Attending Clinician Praful Cota MD Attending Clinician OGUNFIDENCIO, YUKI A Attending Clinician Unavailable TEODORO WAY Attending Clinician Unavailable Teodoro Way MD Attending Clinician Pool Haas MD Attending Clinician Ainsley Zamudio Attending Clinician Eric VALDIVIA, Yuki A Attending Clinician [phone] KAYLAN KAUR Attending Clinician Unavailable Kaylan Kaur MD Attending Clinician Nurse, [facility] Attending Clinician Unavailable Unknown, Attending Attending Clinician Unavailable Kelli Leija MD Attending Clinician KELLI LEIJA Attending Clinician Unavailable Provider, [facility] Attending Clinician Unavailable UNKNOWN, ATTENDING Attending Clinician Unavailable Lab, Ang - Db Attending Clinician Unavailable Allie MARSH, Aviva Attending Clinician YANNI MARTINEZ Attending Clinician Unavailable Meka Mckeon DO Attending Clinician Nelli Yanez MD Attending Clinician Jeremy MARSH, Gerald Ash Attending Clinician [phone] Julio Gonzalez MD, Nick Attending Clinician [phone] Fidel AMRSH, Nola Longoria Attending Clinician AINSLEY FIGUEROA Attending Clinician Unavailable Zen MARSH, Veronica Galvez Attending Clinician [phone] Graham MARSH, Stan Irene Attending Clinician Sheikh SALMA, Nirmala Attending Clinician Malik Spangler MA Attending Clinician Unavailable Ajith MARSH, Sugey Smith Attending Clinician [phone] Megha Field Attending Clinician Gloira Stevenson Attending Clinician Unavailable NIMA PEDROZA Attending Clinician Unavailable Neil MARSH, Lynn Bertrand Attending Clinician [phone] Sage MARSH, Sena Attending Clinician Gilberto MARSH, Nima Matos Attending Clinician LYNN CUMMINGS Attending Clinician Unavailable Pablito MARSH, Duncan Attending Clinician ISMAEL ROSARIO Attending Clinician Unavailable POOL HAAS Attending Clinician Unavailable DUNCAN KENNEY Attending Clinician Unavailable JACK GUO Attending Clinician Unavailable Jovanna Brewer Attending Clinician Lab, [facility] Pob I Attending Clinician Unavailable Jack uGo MD Attending Clinician Robert Serra MD Attending Clinician Osvaldo He DO Attending Clinician Yash MARSH, Benji Attending Clinician ROBERT SERRA Attending Clinician Unavailable Roxanna Herrmann MD Attending Clinician [phone] KESHIA ROSEN Attending Clinician Unavailable Jewel Hall MD Attending Clinician [phone] Draw, [facility] Lab Attending Clinician Unavailable JEWEL HALL Attending Clinician Unavailable KEVEN CURRY Attending Clinician Unavailable Surinder Jackson MD Attending Clinician Outpt-Denice, Cecilia Attending Clinician Unavailable Nandob, Faustino Lab Main Attending Clinician Unavailable NIMA BANG Attending Clinician Unavailable CHARY KOLB Attending Clinician Unavailable Tyra Curry PA-C Attending Clinician Twin Wilkinson MD Attending Clinician Derian Ott MD Attending Clinician Pee Cummins Attending Clinician MARGOTH PERDUE Admitting Clinician Unavailable Margoth Perdue MD Admitting Clinician DAVE FERRARO Admitting Clinician Unavailable PRAFUL COTA Admitting Clinician Unavailable Praful Cota MD Admitting Clinician MARLY RIBEIRO.HMiguel Admitting Clinician Unavailable KAYLAN KAUR Admitting Clinician Unavailable NELLI YANEZ Admitting Clinician Unavailable NIRMALA KENNEDY Admitting Clinician Unavailable AVIVA KELLEY Admitting Clinician Unavailable NIMA PEDROZA Admitting Clinician Unavailable ISMAEL ROSARIO Admitting Clinician Unavailable Benji Berrios MD Admitting Clinician KEVEN CURRY Admitting Clinician Unavailable BEN STERLING Admitting Clinician Marya vailable CHARY KOLB Admitting Clinician Unavailable Twin Wilkinson MD Admitting Clinician Payers Payer Name Policy Type Policy Number Effective Date Expiration Date S jazmín AETNA O [id number] 2013 00:00:00 AETNA 53 [id number] 2011 [facility] 00:00:00 - [place] AETNA SELECT [id number] 2018 [place] ACCESS 00:00:00 Problems Condition Condition Condition Status Onset Resolution Last Treating Co mments Source Name Details Category Date Date Treatment Clinician Date Morbid Morbid Disease Active 2023-0 Univers obesity obesity 3-16 [place] mass index 00 [place] dical of of Branch 40.0-49.9 40.0-49.9 BRENDA (acute BRENDA (acute Disease Active U [facility] kidney kidney 3-16 ity of injury) injury) 00:00: [place] [facility] Diarrhea, Diarrhea, Disease Active 2021-10 Met hodi unspecifie unspecifie 0-09 st d type d type 00:00: Hospita 00 l Intractabl Intractabl Disease Active M ethodi e e 5-24 st generalize generalize 00:00: Ho spita d d 00 l abdominal abdominal pain pain Unintentio Unintentio Disease Active Overview : Methodi nal weight nal weight 5-[address] loss loss 00:00: g of this Hospita 00 note l might be different from the original. Added automatic ally from request for surgery [id number] Family Family Disease Active Overview: Method i history of history of 5-[address] colon colon 00:00: g of this Hospita cancer cancer 00 note l might be different from the original. Added automatic ally from request for surgery [id number] Non-intrac Non-intrac Disease Active Overview : Methodi table table 5-[address] vomiting vomiting 00:00: g of this Hos maksim 00 note l might be different from the original. Added automatic ally from request for surgery [id number] Hypoglycem Hypoglycem Disease Active M ethodi ia ia 4-14 st 00:00: Hospita 00 l Chest pain Chest pain Disease Active M ethodi 7-27 st 00:00: Hospita 00 l Sinus Sinus Disease Active Univers bradycardi bradycardi 8-15 it y of a a 00:00: [place] [facility] Chest pain Chest pain Disease Active U cole 8-13 ity of 00:00: [place] [facility] Acute Acute Disease Active Methodi exacerbati exacerbati 1-14 st on of CHF on of CHF 00:00: [facility] (congestiv (congestiv 00 l e heart e heart failure) failure) SOB SOB Disease Active Methodi (shortness (shortness 1-14 st of breath) of breath) 00:00: Ho spita 00 l Obesity Obesity Disease Active 2018-10 Univers (BMI (BMI 2-04 ity of 30-39.9) 30-39.9) 00:00: [place] [facility] Other Other Disease Active 2018-10 Univers hyperlipid hyperlipid 2-03 it y of emia emia 00:00: [place] [facility] Stage 3 Stage 3 Disease Active 2018-10 Univers chronic chronic 2-03 ity of kidney kidney 00:00: [place] disease disease 00 Medical Branch Other Other Disease Active 2018-10 Univers chest pain chest pain 2-03 it y of 00:00: [place] [facility] Acute on Acute on Disease Active 2018-10 Metho di chronic chronic 2-03 st diastolic diastolic 00:00: [facility] [place] congestive congestive 00 l heart heart failure failure Essential Essential Disease Active 2018-10 Met hodi hypertensi hypertensi 2- st on on 00:00: Hospita 00 l Dyspnea Dyspnea Disease Active 2018-10 Univers 2-02 ity of 00:00: [place] [facility] Generalize Generalize Disease Active M ethodi d d 911 st abdominal abdominal 00:00: [facility] [place] pain pain 00 l Hypokalemi Hypokalemi Disease Active M ethodi a a 9-11 st 00:00: Hospita 00 l Swelling Swelling Disease Active Unive rs 7-27 ity of 00:00: [place] [facility] Knee pain, Knee pain, Disease Active M ethodi right right 6-01 st anterior anterior 00:00: Hospit a 00 l Angioedema Angioedema Disease Active 2015-[address] 00:00: Hospita 00 l Allergic Allergic Disease Active 2015-10 Metho di reaction reaction 11-03 st 00:00: Hospita 00 l 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 disorder Medical without Center prior episode Allergies, Adverse Reactions, Alerts Allergy Allergy Status Severity Reaction(s) Onset Inactive Treating Comm ents Source Name Type Date Date Clinician Gabapent Propensi Active Swelling Generaliz M ethodi in ty to 05-[address] adverse 00:00: swelling Hospita reaction 00 l s to drug GABAPENT Allergy Active [facility] Gabapent Drug Active Other (See Generaliz C HI [facility] in Allergy Comments), 06-18 [facility] Swelling 00:00: swelling" Medic al 00 blurred Center vision and I walk around like a zombie" GABAPENT DRUG Active High Other-Cmnt Univ ers IN INGREDI 06-18 ity of 00:00: [place] 00 Medical Branch Gabapent Propensi Active Other - See " blurre d Univers in ty to comments 06-18 vision ity of adverse 00:00: and I [place] reaction 00 walk Medical s around Branch like a zombie" LEVOFLOX Allergy Active High Swelling 2015-10 [facility] Levoflox Drug Active Swelling 2015-[address] acin Allergy 11-03 [facility]: swelling Medical 00 Center Levoflox Propensi Active Swelling 2015-10 Generaliz M ethodi acin ty to 11-[address] adverse 00:00: swelling Hospita reaction 00 l s to drug LEVOFLOX DRUG Active High Swelling 2015-10 Univer s ACIN INGREDI 11-03 ity of 00:00: [place] 00 Medical Branch Levoflox Propensi Active Swelling 2015-10 Univ ers acin ty to 11-03 ity of adverse 00:00: [place] reaction 00 Medical s Branch CIPROFLO Allergy Active High Swelling [facility]AC[facility] Ciproflo Drug Active Swelling Generaliz [facility] xacin Allergy 05-21 [facility]: swelling Medical 00 Center Ciproflo Propensi Active Swelling Generaliz M ethodi xacin ty to 05-[address] adverse 00:00: swelling Hospita reaction 00 l s to drug CIPROFLO DRUG Active High Swelling Univer s XACIN INGREDI 05-21 ity of 00:00: [place] 00 Medical Branch Ciproflo Propensi Active Swelling Univ ers xacin ty to 8-14 ity of adverse 00:00: [place] reaction 00 Medical s Branch Family History Family Member Diagnosis Comments Start Date Stop Date Source Natural brother Pancreatic cancer [facility] Natural brother Cancer [facility] Natural father Heart disease [facility] Natural mother Heart disease [facility] Natural mother Stroke [facility] Natural sister Colon cancer [facility] Natural sister Cancer [facility] Natural sister Diabetes [facility] Social History Social Habit Start Date Stop Date Quantity Comments Source History SDOH Social Unive rsity of Connections Get [place] [facility] ical Together Branch History SDOH Social Unive rsity of Connections Religion [place] [facility] History SDOH Social Unive rsity of Connections [place] [facility] Membership [facility] History SDOH Social Unive rsity of Connections [place] [facility] Meet[facility] History of Tobacco [facility] - [facility] Exposure to 2022-12-29 2023-01-08 Not sure University of SARS-CoV-2 (event) 00:00:00 12:55:00 [place] [facility] History SDOH 2022-12-21 2022-12-21 1 University o f Alcohol Frequency 00:00:00 00:00:00 [place] M edical Branch History SDOH 2022-12-21 2022-12-21 0 University o f Alcohol Std Drinks 00:00:00 00:00:00 [place] [facility] History SDOH 2022-12-21 2022-12-21 1 University o f Alcohol Binge 00:00:00 00:00:00 [place] [facility] History SDOH Social 2022-12-21 2022-12-21 5 Unive rsity of Connections Phone 00:00:00 00:00:00 [place] M edical Branch History SDOH Social 2022-12-21 2022-12-21 3 Unive rsity of Connections Living 00:00:00 00:00:00 [place] [facility] History SDOH 2022-12-21 2022-12-21 0 University o f Physical Activity 00:00:00 00:00:00 [place] M edical DPW Branch History SDOH 2022-12-21 2022-12-21 0 University o f Physical Activity 00:00:00 00:00:00 [place] M edical MPS Branch History SDOH 2022-12-21 2022-12-21 4 University o f Financial 00:00:00 00:00:00 [place] [facility] History SDOH Food 2022-12-21 2022-12-21 1 Univers ity of Worry 00:00:00 00:00:00 [place] [facility] History SDOH Food 2022-12-21 2022-12-21 1 Univers ity of Scarcity 00:00:00 00:00:00 [place] [facility] History SDOH 2022-12-21 2022-12-21 2 University o f Transport Med 00:00:00 00:00:00 [place] [facility] al [facility] History SDOH 2022-12-21 2022-12-21 2 University o f Transport Non-Med 00:00:00 00:00:00 [facility] edical Branch Alcohol intake 2022-07-16 2022-07-16 Current [facility] 00:00:00 00:00:00 non-drinker of Hospital alcohol (finding) Tobacco use and 2022-02-20 2022-02-20 Smokeless [facility] exposure 00:00:00 00:00:00 tobacco non-user Hospital Sex Assigned At [birth year] IG[facility]gueta 00:00:00 00:[facility]:00 [facility] Smoking Status Start Date Stop Date Source Never smoked tobacco [facility] Medications Ordered Filled Start Stop Current Ordering Indication Dosage Frequency Signature Comments Components Source Medication Medication Date Date Medication? Clinician (SIG) Name Name amLODIPine Yes [id number] 5mg Take 1 U nivers (NORVASC) 5 3-31 tablet by ity of mg tablet 00[place] the Medical morning. Branch amLODIPine 2022-0 Yes [id number] 5mg Take 1 U nivers (NORVASC) 5 3-31 tablet by ity of mg tablet 00:00[place] the Medical morning. Branch amLODIPine 2022-0 Yes [id number] 5mg Take 1 U nivers (NORVASC) 5 3-31 tablet by ity of mg tablet 00:00[place] the Medical morning. Branch amLODIPine 2022-0 Yes [id number] 5mg Take 1 U nivers (NORVASC) 5 3-31 tablet by ity of mg tablet 00:00[place] the Medical morning. Branch amLODIPine 2022-0 Yes [id number] 5mg Take 1 U nivers (NORVASC) 5 3-31 tablet by ity of mg tablet 00:00[place] the Medical morning. Branch amLODIPine Yes [id number] 5mg Take 1 U nivers (NORVASC) 5 3-31 tablet by ity of mg tablet 00:00[place] the Medical morning. Branch amLODIPine 0 Yes [id number] 5mg Take 1 U nivers (NORVASC) 5 3-31 tablet by ity of mg tablet 00:00[place] the [place] morning. Branch morpHINE (4 2022- No 4mg 4 mg, Slow Univers mg/mL) 01-01 IV Push, ity of injection 4 23:45: 00:02 [place]CE[place] 1 [place] :[place] dose, On Medical Mon [place] [facility] 01/01/23 at 1845, STAT iopamidol 2022- No [id number] 50mL 50 mL, U nivers (ISOVUE 01-01 Intravenou ity o f 370-500 mL) 23:30: 22:45 s, ONCE, 1 [place] injection 00 :00 dose, On Medica l 50 mL [facility] 01/01/23 at 1830, Routine NaCl 0.9% 2022- No 1000mL at 999 Uni vers (NS) bolus 01-01 mL/hr, ity of infusion 22:30: 22:44 1,000 mL, Noel as 1,000 mL 00 :00 IV Medical Infusion, Branch ONCE, 1 dose, On [facility] 01/01/23 at 1730, CHANTALE morpHINE (4 2022- No 4mg 4 mg, Slow Univers mg/mL) 01-01 IV Push, ity of injection 4 22:00: 21:54 [place]CE, 1 [place] mg 00 :[place] dose, On Medical [place] [facility] 01/01/23 at 1700, STAT acetaminoph 2022- Yes [id number] 1{tbl} Take 1 U nivers en-codeine 01-01 tablet by ity of (TYLENOL-CO 00:00: 04:59 [place] DEINE #3) 00 :00 every 4 Medical 300-30 mg (four) Branch tablet hours as needed for Pain (scale 7-10) for up to 5 days. Indication s: acute pain dicyclomine 2022- Yes [id number] 20mg Take 1 Univers 20 mg 3-27 -02 tablet by ity of tablet 00:00: 04:59 mouth 4 [place] 00 :00 (four) Medical times Branch daily for 5 days. acetaminoph 2022- Yes [id number] 1{tbl} Take 1 U nivers en-codeine 3-01 02-02 tablet by ity of (TYLENOL-CO 00:00: 04:59 mouth [place] DEINE #3) 00 :00 every 4 Medical 300-30 mg (four) Branch tablet hours as needed for Pain (scale 7-10) for up to 5 days. Indication s: acute pain dicyclomine 2022- Yes [id number] 20mg Take 1 Univers 20 mg 3-01 02- tablet by ity of tablet 00:00: 04:59 mouth 4 [place] 00 :00 (four) Medical times Branch daily for 5 days. acetaminoph 2022- Yes [id number] 1{tbl} Take 1 U nivers en-codeine 3-01 02-02 tablet by ity of (TYLENOL-CO 00:00: 04:59 mouth [place] DEINE #3) 00 :00 every 4 Medical 300-30 mg (four) Branch tablet hours as needed for Pain (scale 7-10) for up to 5 days. Indication s: acute pain dicyclomine 2022- Yes [id number] 20mg Take 1 Univers 20 mg 3-01 02-02 tablet by ity of tablet 00:00: 04:59 mouth 4 [place] 00 :00 (four) Medical times Branch daily for 5 days. acetaminoph 2022- No [id number] 1{tbl} Take 1 U nivers en-codeine 3-27 -02 tablet by ity of (TYLENOL-CO 00:00: 04:59 mouth [place] DEINE #3) 00 :00 every 4 Medical 300-30 mg (four) Branch tablet hours as needed for Pain (scale 7-10) for up to 5 days. Indication s: acute pain dicyclomine 2022- No [id number] 20mg Take 1 Univers 20 mg 3-27 04-02 tablet by ity of tablet 00:00: 04:59 mouth 4 [place] 00 :00 (four) Medical times Branch daily for 5 days. acetaminoph 2022- No [id number] 1{tbl} Take 1 U nivers en-codeine 01-01 tablet by ity of (TYLENOL-CO 00:00: 04:59 mouth [place] DEINE #3) 00 :00 every 4 Medical 300-30 mg (four) Branch tablet hours as needed for Pain (scale 7-10) for up to 5 days. Indication s: acute pain dicyclomine 2022- No [id number] 20mg Take 1 Univers 20 mg 01-01 tablet by ity of tablet 00:00: 04:59 mouth 4 [place] 00 :00 (four) Medical times Branch daily for 5 days. tc 2022- No [id number] 1mCi 1 Univers 99m-sulfur 12-22 millicurie it y of colloid 19:00: 15:50 , Oral, [place] oral 00 :00 ONCE, 1 Medical solution 1 dose, On Bran h millicurie Sun12/22/22 at 1400, Routine insulin Yes 60U 60 Units, Unive rs glargine 12-22 Subcutaneo ity o f (LANTUS 14:00: us, DAILY, [place] U-100) 00 First dose Medical injection (after Branch 60 Units last modificati on) on Sun12/22/22 at 0900, Until Discontinu ed atorvastati Yes 40mg 40 mg, Univ ers n (LIPITOR) 12-22 Oral, QHS, it y of tablet 40 02:00: First dose [place] mg 00 on [facility] Medical 12/21/22 at Branch 2100, Until Discontinu ed, Routine sucralfate 2022- Yes [id number] 1g Take 1 Univers 1 gram 12-22 tablet by ity of tablet 00:00: 04:59 mouth [place] 00 :00 before Medical meals and Branch at bedtime for 14 days. sucralfate 2022- Yes [id number] 1g Take 1 Univers 1 gram 12-22 tablet by ity of tablet 00:00: 04:59 mouth [place] 00 :00 before Medical meals and Branch at bedtime for 14 days. sucralfate 2022- Yes [id number] 1g Take 1 Univers 1 gram 3-17 04-01 tablet by ity of tablet 00:00: 04:59 mouth [place] 00 :00 before Medical meals and Branch at bedtime for 14 days. sucralfate 2022- Yes [id number] 1g Take 1 Univers 1 gram 3-17 04-01 tablet by ity of tablet 00:00: 04:59 mouth [place] 00 :00 before Medical meals and Branch at bedtime for 14 days. sucralfate 2022- Yes [id number] 1g Take 1 Univers 1 gram 3-17 04-01 tablet by ity of tablet 00:00: 04:59 mouth [place] 00 :00 before Medical meals and Branch at bedtime for 14 days. sucralfate 2022- Yes [id number] 1g Take 1 Univers 1 gram 3-17 04-01 tablet by ity of tablet 00:00: 04:59 mouth [place] 00 :00 before Medical meals and Branch at bedtime for 14 days. sucralfate 2022- Yes [id number] 1g Take 1 Univers 1 gram 3-17 04-01 tablet by ity of tablet 00:00: 04:59 mouth [place] 00 :00 before Medical meals and Branch at bedtime for 14 days. sucralfate 2022- Yes [id number] 1g Take 1 Univers 1 gram 3-17 04-01 tablet by ity of tablet 00:00: 04:59 mouth [place] 00 :00 before Medical meals and Branch at bedtime for 14 days. sucralfate 2022- Yes [id number] 1g Take 1 Univers 1 gram 3-17 04-01 tablet by ity of tablet 00:00: 04:59 mouth [place] 00 :00 before Medical meals and Branch at bedtime for 14 days. sucralfate 2022- Yes [id number] 1g Take 1 Univers 1 gram 3-17 04-01 tablet by ity of tablet 00:00: 04:59 mouth [place] 00 :00 before Medical meals and Branch at bedtime for 14 days. sucralfate 2022- Yes [id number] 1g Take 1 Univers 1 gram 12-22 tablet by ity of tablet 00:00: 04:59 mouth [place] 00 :00 before Medical meals and Branch at bedtime for 14 days. sucralfate 2022- Yes [id number] 1g Take 1 Univers 1 gram 12-22 tablet by ity of tablet 00:00: 04:59 mouth [place] 00 :00 before Medical meals and Branch at bedtime for 14 days. sucralfate 2022- No [id number] 1g Take 1 Univers 1 gram 12-22 tablet by ity of tablet 00:00: 04:59 mouth [place] 00 :00 before Medical meals and Branch at bedtime for 14 days. sucralfate 2022- No [id number] 1g Take 1 Univers 1 gram 12-22 tablet by ity of tablet 00:00: 04:59 mouth [place] 00 :00 before Medical meals and Branch at bedtime for 14 days. morpHINE (4 2022- No 2mg 2 mg, Slow Univers mg/mL) 12-21 03-16 IV Push, ity of injection 2 22:15: 22:25 ONCE, 1 [place] mg 00 :00 dose, On Medical [facility] 12/21/22 at 1715, Routine insulin Yes 10U 10 Units, Unive rs lispro -16 Subcutaneo ity of (human) 17:00: us, TID [place] (HumaLOG 00 MEALS, Medical U-100) First dose Branch injection (after 10 Units last modificati on) on [facility] 12/21/22 at 1200, Until Discontinu ed, Routine Sliding Yes Subcutaneo Univ ers Scale 3-16 us, Q4H, ity of Insulin - 17:00: First dose [place] Lispro 00 (after Medical (HumaLOG) + last Branch Fsbg modificati Testing on) on [facility] 12/21/22 at 1200, Until Discontinu ed, Routine sucralfate 0 Yes 1g 1 g, Oral, U nivers (CARAFATE) 3-16 AC+HS, ity of tablet 1 g 16:30: First dose [place] 00 on [facility] 12/21/22 at Branch 1130, Until Discontinu ed, Routine aspirin EC Yes 81mg 81 mg, Unive rs tablet 81 16 Oral, ity of mg 14:00: DAILY, [place] 00 First dose Medical on [facility] Branch 12/21/22 at 0900, Until Discontinu ed, Routine insulin 2022- No 50U 50 Units, Univ ers glargine 12-21 Subcutaneo ity of (LANTUS 14:00: 14:49 us, DAILY, [place] U-100) 00 :11 First dose Medical injection on [facility] Branch 50 Units 12/21/22 at 0900, Until Discontinu ed pantoprazol Yes 40mg 40 mg, Univ ers e 16 Oral, BID, ity of (PROTONIX) 13:00: First dose [place] EC tablet 00 (after Medical 40 mg last Branch modificati on) on [facility] 12/21/22 at 0800, Until Discontinu ed, Routine dicyclomine Yes 10mg 10 mg, [facility] ers (BENTYL) 16 Oral, QID, ity o f capsule 10 13:00: First dose [place] mg 00 on [facility] Medical 12/21/22 at Branch 0800, Until Discontinu ed, Routine heparin Yes 5000U 5,000 Univers (porcine) 12-21 Units, ity of injection 13:00: Subcutaneo [place] 5,000 Units 00 us, Q12H, Med ical First dose Branch on [facility] 12/21/22 at 0800, Until Discontinu ed, Routine Sliding 2022- No Subcutaneo Uni vers Scale 12-21 us, Q4H, ity of Insulin - 13:00: 13:54 First dose [place] Lispro 00 :20 (after Medical (HumaLOG) + last Branch Fsbg modificati Testing on) on [facility] 12/21/22 at 0800, Until Discontinu ed, Routine dextrose 0 Yes 250mL 250 mL, IV Un ayanna 10% (D10W) 16 Infusion, ity of bolus 08:32: PRN - SEE [place] infusion 28 INSTRUCTIO Medic al 250 mL NS, Branch Administer over 60 Minutes, Other, If blood glucose is < or = 70 mg/dL and patient is unable to swallow or has mental status changes, Starting on Fany 12/21/22 at 0332
If blood glucose is < or = 70 mg/dL and patient is unable to swallow or has mental status changes (Give glucagon order if patient needs fluid restrictio n): IF IV access available: Dextrose 10%. 1. 125 mL (? bag) of D10W IV infusion - equivalent to 12.5 g dextrose 2. Blood glucose - draw blood glucose 15 minutes after D10W Administra tion. 3. If blood glucose is < 80 mg/dL, repeat.
glucagon Yes 1mg 1 mg, [facility] (GLUCAGEN 12-21 Intramuscu ity of DIAGNOSTIC 08:32: lar, PRN, [place] KIT) 25 Starting Medical injection 1 on [place] Branch mg 12/21/22 at 0332, Until Discontinu ed, CHANTALE, Blood Glucose < or = 70 mg/dL and patient is NPO, unable to swallow or has mental changes. lactated 2022- No 500mL at 999 Univ rs ringers IV 12-21-16 mL/hr, 500 it y of infusion 08:15: 08:00 mL, [place] 500 mL 00 :00 Intravenou Medical s, ONCE, 1 Branch dose, On [place] 12/21/22 at 0315, Routine alum-mag Yes 30mL 30 mL, [facility] hydroxide-s 12-21 Oral, ity of imeth 07:26: Q6HPRN, [place] (MAALOX 42 Starting Medical PLUS / on [place] Branch MAG-AL 12/21/22 at PLUS) 0226, 200-200-20 Until mg/5 mL Discontinu suspension ed, 30 mL Routine, Indigestio n acetaminoph 2022- Yes 1{tbl} 1 tablet, [facility] en-codeine 12-2118 Oral, ity of (TYLENOL 07:18: 07:17 Q6HPRN, [place] #3) 300-30 12 :12 Starting Medic al mg tablet 1 on [place] Branch tablet 12/21/22 at 0218, Until 12/23/22 at 0217, Routine, Pain (scale 4-6) acetaminoph Yes 650mg 650 mg, [place] en 12-21 Oral, ity of (TYLENOL) 07:18: Q6HPRN, [place] tablet 650 05 Starting Medic al mg on [place] Branch 12/21/22 at 0218, Until Discontinu ed, Routine, Pain (scale 1-3) morpHINE (4 2022- No 4mg 4 mg, Slow [facility] mg/mL) 12-21 IV Push, ity of injection 4 05:00: 04:54 ONCE, 1 [place] mg 00 :00 dose, On Medical [place] Branch 12/21/22 at 0000, STAT NaCl 0.9% 2022- No 500mL at 999 Univ ers (NS) bolus 12-21 mL/hr, 500 it y of infusion 00:45: 04:37 mL, IV [place] 500 mL 00 :00 Infusion, Medical ONCE, 1 Branch dose, On 12/20/22 at 1945, CHANTALE sodium 2022- No 50meq 50 mEq, Univer s bicarbonate 12-21 Intravenou i ty of 8.4 % (1 00:00: 02:57 s, ONCE, 1 [place] mEq/mL) 00 :00 dose, On Medical injection Wed Branch 50 mEq 12/20/22 at 1900, STAT iopamidol 2022- No [id number] 69mL 69 mL, U nivers (ISOVUE 12-20 Intravenou ity o f 370-500 mL) 21:00: 21:15 s, ONCE, 1 [place] injection 00 :00 dose, On Medica l 69 mL Wed Branch 12/20/22 at 1615, Routine NaCl 0.9% 2022- No 2000mL at 999 Uni vers (NS) bolus 12-20 mL/hr, ity of infusion 20:15: 22:17 2,000 mL, [place] 2,000 mL 00 :00 IV Medical Infusion, Branch ONCE, 1 dose, On 12/20/22 at 1515, CHANTALE morpHINE (4 2022- No 4mg 4 mg, Slow [facility] mg/mL) 12-20 IV Push, ity of injection 4 19:30: 19:49 ONCE, 1 [place] mg 00 :00 dose, On Medical Wed Branch 12/20/22 at 1430, STAT ondansetron 0 2022- No 4mg 4 mg, Slow [facility] (ZOFRAN 12-20 IV Push, ity of (PF)) 19:30: 19:47 ONCE, 1 [place] injection 4 00 :00 dose, On Medi prasanth mg [place] [facility] 12/20/22 at 1430, CHANTALE ASPIRIN 81 2022-0 Yes [id number] TAKE 1 [facility] mg EC 2-20 02 TABLET BY ity of tablet 00:00: MOUTH [place] 00 EVERY DAY Medical Branch ASPIRIN 81 2022-0 Yes [id number] TAKE 1 [facility] mg EC 2-20 02 TABLET BY ity of tablet 00:00: MOUTH [place] 00 EVERY DAY Medical Branch ASPIRIN 81 2022-0 Yes [id number] TAKE 1 [facility] mg EC 2-20 02 TABLET BY ity of tablet 00:00: MOUTH [place] 00 EVERY DAY Medical Branch ASPIRIN 81 2022-0 Yes [id number] TAKE 1 [facility] mg EC 2-20 02 TABLET BY ity of tablet 00:00: MOUTH [place] 00 EVERY DAY Medical Branch ASPIRIN 81 2022-0 Yes [id number] TAKE 1 [facility] mg EC 2-20 02 TABLET BY ity of tablet 00:00: MOUTH [place] 00 EVERY DAY Medical Branch ASPIRIN 81 2022-0 2022- No [id number] TAKE 1 [facility] mg EC 2-20 03-17 02 TABLET BY ity of tablet 00:00: 00:00 MOUTH [place] 00 :00 EVERY DAY Medical Branch MELOXICAM 2022-0 Yes [id number] TAKE 1 Un ay[facility] 7.5 mg 2-16 TABLET BY ity of tablet 00:00: MOUTH [place] 00 EVERY DAY Medical IN THE Branch MORNING MELOXICAM 0 Yes [id number] TAKE 1 [place] 7.5 mg 2-16 TABLET BY ity of tablet 00:00: MOUTH [place] 00 EVERY DAY Medical IN THE Branch MORNING MELOXICAM 0 Yes [id number] TAKE 1 [place] 7.5 mg 2-16 TABLET BY ity of tablet 00:00: MOUTH [place] 00 EVERY DAY Medical IN THE Branch MORNING MELOXICAM 0 Yes [id number] TAKE 1 [place] 7.5 mg 2-16 TABLET BY ity of tablet 00:00: MOUTH [place] 00 EVERY DAY Medical IN THE [place] [facility] MORNING MELOXICAM 0 Yes [id number] TAKE 1 [place] 7.5 mg 2-16 TABLET BY ity of tablet 00:00: MOUTH [place] EVERY DAY Medical IN THE [place] [facility] MORNING MELOXICAM 0 Yes [id number] TAKE 1 [place] 7.5 mg 2-16 TABLET BY ity of tablet 00:00: [facility] EVERY DAY Medical IN THE [place] [facility] MORNING MELOXICAM 2022- No [id number] TAKE 1 U nivers 7.5 mg 2-16 03-17 TABLET BY ity of tablet 00:00: 00:00 MOUTH [place] 00 :00 EVERY DAY Medical IN [facility] MORNING pantoprazol Yes [id number] TAKE 1 Univers e 40 mg EC 1-30 TABLET BY ity of tablet 00:00: [facility] 00 EVERY DAY Medical Branch pantoprazol 0 Yes [id number] TAKE 1 Univers e 40 mg EC 1-30 TABLET BY ity of tablet 00:00: MOUTH [place] 00 EVERY DAY Medical Branch pantoprazol 0 Yes [id number] TAKE 1 Univers e 40 mg EC 1-30 TABLET BY ity of tablet 00:00: MOUTH [place] 00 EVERY DAY Medical Branch pantoprazol 2022-0 Yes [id number] TAKE 1 Univers e 40 mg EC 1-30 TABLET BY ity of tablet 00:00: [facility] 00 EVERY DAY Medical Branch pantoprazol 2022-0 Yes [id number] TAKE 1 Univers e 40 mg EC 1-30 TABLET BY ity of tablet 00:00: MOUTH [place] 00 EVERY DAY Medical Branch pantoprazol 2022-0 Yes [id number] TAKE 1 Univers e 40 mg EC 1-30 TABLET BY ity of tablet 00:00: MOUTH [place] 00 EVERY DAY Medical Branch pantoprazol 2022-0 Yes [id number] TAKE 1 Univers e 40 mg EC 1-30 TABLET BY ity of tablet 00:00: [facility] 00 EVERY DAY Medical Branch pantoprazol 2022-0 Yes [id number] TAKE 1 Univers e 40 mg EC 1-30 TABLET BY ity of tablet 00:00: [facility] 00 EVERY DAY Medical Branch pantoprazol 2022-0 Yes [id number] TAKE 1 Univers e 40 mg EC 1-30 TABLET BY ity of tablet 00:00: MOUTH [place] 00 EVERY DAY Medical Branch pantoprazol 3-0 Yes [id number] TAKE 1 Univers e 40 mg EC 1-30 TABLET BY ity of tablet 00:00: MOUTH [place] 00 EVERY DAY Medical Branch pantoprazol 2022-0 Yes [id number] TAKE 1 Univers e 40 mg EC 1-30 TABLET BY ity of tablet 00:00: [facility] EVERY DAY Medical Branch pantoprazol 2022-0 Yes [id number] TAKE 1 Univers e 40 mg EC 1-30 TABLET BY ity of tablet 00:00: MOUTH [place] 00 EVERY DAY Medical Branch pantoprazol 2022-0 Yes [id number] TAKE 1 Univers e 40 mg EC 1-30 TABLET BY ity of tablet 00:00: [facility] EVERY DAY Medical Branch pantoprazol 2022-0 Yes [id number] TAKE 1 Univers e 40 mg EC 1-30 TABLET BY ity of tablet 00:00: [facility] EVERY DAY Medical Branch pantoprazol 2022-0 Yes [id number] TAKE 1 Univers e 40 mg EC 1-30 TABLET BY ity of tablet 00:00: MOUTH [place] 00 EVERY DAY Medical Branch pantoprazol 2022-0 Yes [id number] TAKE 1 Univers e 40 mg EC 1-30 TABLET BY ity of tablet 00:00: [facility] EVERY DAY Medical Branch pantoprazol 2022-0 Yes [id number] TAKE 1 Univers e 40 mg EC 1-30 TABLET BY ity of tablet 00:00: [facility] EVERY DAY Medical Branch pantoprazol 3-0 Yes [id number] TAKE 1 Univers e 40 mg EC 1-30 TABLET BY ity of tablet 00:00: [facility] 00 EVERY DAY Medical Branch pantoprazol 3-0 Yes [id number] TAKE 1 Univers e 40 mg EC 1-30 TABLET BY ity of tablet 00:00: [facility] 00 EVERY DAY Medical Branch pantoprazol 3-0 Yes [id number] TAKE 1 Univers e 40 mg EC 1-30 TABLET BY ity of tablet 00:00: [facility] EVERY DAY Medical Branch pantoprazol 2022-0 Yes [id number] TAKE 1 Univers e 40 mg EC 1-30 TABLET BY ity of tablet 00:00: [facility] EVERY DAY Medical Branch pantoprazol 2022-0 Yes [id number] TAKE 1 Univers e 40 mg EC 1-30 TABLET BY ity of tablet 00:00: MOUTH [place] 00 EVERY DAY Medical Branch pantoprazol 2022-0 Yes [id number] TAKE 1 Univers e 40 mg EC 1-30 TABLET BY ity of tablet 00:00: MOUTH [place] EVERY DAY Medical Branch pantoprazol 2022-0 Yes [id number] TAKE 1 Univers e 40 mg EC 1-30 TABLET BY ity of tablet 00:00: MOUTH [place] EVERY DAY Medical Branch pantoprazol 2022-0 Yes [id number] TAKE 1 Univers e 40 mg EC 1-30 TABLET BY ity of tablet 00:00: MOUTH [place] 00 EVERY DAY Medical Branch pantoprazol 2022-0 Yes [id number] TAKE 1 Univers e 40 mg EC 1-30 TABLET BY ity of tablet 00:00: MOUTH [place] EVERY DAY Medical Branch pantoprazol 2022-0 Yes [id number] TAKE 1 Univers e 40 mg EC 1-30 TABLET BY ity of tablet 00:00: [facility] EVERY DAY Medical Branch pantoprazol 2022-0 Yes [id number] TAKE 1 Univers e 40 mg EC 1-30 TABLET BY ity of tablet 00:00: MOUTH [place] 00 EVERY DAY Medical Branch pantoprazol 2022-0 Yes [id number] TAKE 1 Univers e 40 mg EC 1-30 TABLET BY ity of tablet 00:00: [facility] 00 EVERY DAY Medical Branch pantoprazol 2022-0 Yes [id number] TAKE 1 Univers e 40 mg EC 1-30 TABLET BY ity of tablet 00:00: [facility] EVERY DAY Medical Branch pantoprazol 2022-0 Yes [id number] TAKE 1 Univers e 40 mg EC 1-30 TABLET BY ity of tablet 00:00: MOUTH [place] 00 EVERY DAY Medical Branch pantoprazol 2022-0 Yes [id number] TAKE 1 Univers e 40 mg EC 1-30 TABLET BY ity of tablet 00:00: [facility] 00 EVERY DAY Medical Branch methylPREDN 2022-0 Yes [id number] Take by Univers ISolone 4 1-25 mouth ity of mg tablets 00:00: SEE-INSTRU [place] 00 CTIONS. Medical follow Branch package directions ondansetron 2022-0 Yes [id number] 4mg Take 1 [facility] 4 mg 1-25 tablet by ity of disintegrat 00:00: mouth [place] ing tablet 00 every 4 Medica l (four) Branch hours as needed for Nausea and Vomiting (N/V). methylPREDN 2023-0 Yes [id number] Take by Univers ISolone 4 1-25 mouth ity of mg tablets 00:00: SEE-INSTRU [place] 00 CTIONS. Medical follow Branch package directions ondansetron 2023-0 Yes [id number] 4mg Take 1 [facility] 4 mg 1-25 tablet by ity of disintegrat 00:00: mouth [place] ing tablet 00 every 4 Medica l (four) Branch hours as needed for Nausea and Vomiting (N/V). methylPREDN 2023-0 Yes [id number] Take by Univers ISolone 4 1-25 mouth ity of mg tablets 00:00: SEE-INSTRU [place] 00 CTIONS. Medical follow Branch package directions ondansetron 2023-0 Yes [id number] 4mg Take 1 [facility] 4 mg 1-25 tablet by ity of disintegrat 00:00: mouth [place] ing tablet 00 every 4 Medica l (four) Branch hours as needed for Nausea and Vomiting (N/V). methylPREDN 2023-0 Yes [id number] Take by Univers ISolone 4 1-25 mouth ity of mg tablets 00:00: SEE-INSTRU [place] 00 CTIONS. Medical follow Branch package directions ondansetron 2023-0 Yes [id number] 4mg Take 1 [facility] 4 mg 1-25 tablet by ity of disintegrat 00:00: mouth [place] ing tablet 00 every 4 Medica l (four) Branch hours as needed for Nausea and Vomiting (N/V). methylPREDN 2023-0 Yes [id number] Take by Univers ISolone 4 1-25 mouth ity of mg tablets 00:00: SEE-INSTRU [place] 00 CTIONS. Medical follow Branch package directions ondansetron 2023-0 Yes [id number] 4mg Take 1 [facility] 4 mg 1-25 tablet by ity of disintegrat 00:00: mouth [place] ing tablet 00 every 4 Medica l (four) Branch hours as needed for Nausea and Vomiting (N/V). methylPREDN 2023-0 Yes [id number] Take by Univers ISolone 4 1-25 mouth ity of mg tablets 00:00: SEE-INSTRU [place] 00 CTIONS. Medical follow Branch package directions ondansetron 2023-0 Yes [id number] 4mg Take 1 [facility] 4 mg 1-25 tablet by ity of disintegrat 00:00: mouth [place] ing tablet 00 every 4 Medica l (four) Branch hours as needed for Nausea and Vomiting (N/V). methylPREDN 2023-0 Yes [id number] Take by Univers ISolone 4 1-25 mouth ity of mg tablets 00:00: SEE-INSTRU [place] 00 CTIONS. Medical follow Branch package directions ondansetron 2023-0 Yes [id number] 4mg Take 1 [facility] 4 mg 1-25 tablet by ity of disintegrat 00:00: mouth [place] ing tablet 00 every 4 Medica l (four) Branch hours as needed for Nausea and Vomiting (N/V). methylPREDN 2023-0 Yes [id number] Take by Univers ISolone 4 1-25 mouth ity of mg tablets 00:00: SEE-INSTRU [place] 00 CTIONS. Medical follow Branch package directions ondansetron 2023-0 Yes [id number] 4mg Take 1 [facility] 4 mg 1-25 tablet by ity of disintegrat 00:00: mouth [place] ing tablet 00 every 4 Medica l (four) Branch hours as needed for Nausea and Vomiting (N/V). ondansetron 2023-0 Yes [id number] 4mg Take 1 [facility] 4 mg 1-25 tablet by ity of disintegrat 00:00: mouth [place] ing tablet 00 every 4 Medica l (four) Branch hours as needed for Nausea and Vomiting (N/V). ondansetron 2023-0 Yes [id number] 4mg Take 1 [facility] 4 mg 1-25 tablet by ity of disintegrat 00:00: mouth [place] ing tablet 00 every 4 Medica l (four) Branch hours as needed for Nausea and Vomiting (N/V). ondansetron 2023-0 Yes [id number] 4mg Take 1 [facility] 4 mg 1-25 tablet by ity of disintegrat 00:00: mouth [place] ing tablet 00 every 4 Medica l (four) Branch hours as needed for Nausea and Vomiting (N/V). ondansetron 2023-0 Yes [id number] 4mg Take 1 [facility] 4 mg 1-25 tablet by ity of disintegrat 00:00: mouth [place] ing tablet 00 every 4 Medica l (four) Branch hours as needed for Nausea and Vomiting (N/V). ondansetron 2023-0 Yes [id number] 4mg Take 1 [facility] 4 mg 1-25 tablet by ity of disintegrat 00:00: mouth [place] ing tablet 00 every 4 Medica l (four) Branch hours as needed for Nausea and Vomiting (N/V). ondansetron 2023-0 Yes [id number] 4mg Take 1 [facility] 4 mg 1-25 tablet by ity of disintegrat 00:00: mouth [place] ing tablet 00 every 4 Medica l (four) Branch hours as needed for Nausea and Vomiting (N/V). ondansetron 2023-0 Yes [id number] 4mg Take 1 [facility] 4 mg 1-25 tablet by ity of disintegrat 00:00: mouth [place] ing tablet 00 every 4 Medica l (four) Branch hours as needed for Nausea and Vomiting (N/V). ondansetron 2023-0 Yes [id number] 4mg Take 1 [facility] 4 mg 1-25 tablet by ity of disintegrat 00:00: mouth [place] ing tablet 00 every 4 Medica l (four) Branch hours as needed for Nausea and Vomiting (N/V). ondansetron 2023-0 Yes [id number] 4mg Take 1 [facility] 4 mg 1-25 tablet by ity of disintegrat 00:00: mouth [place] ing tablet 00 every 4 Medica l (four) Branch hours as needed for Nausea and Vomiting (N/V). ondansetron 2023-0 Yes [id number] 4mg Take 1 [facility] 4 mg 1-25 tablet by ity of disintegrat 00:00: mouth [place] ing tablet 00 every 4 Medica l (four) Branch hours as needed for Nausea and Vomiting (N/V). ondansetron 2023-0 Yes [id number] 4mg Take 1 [facility] 4 mg 1-25 tablet by ity of disintegrat 00:00: mouth [place] ing tablet 00 every 4 Medica l (four) Branch hours as needed for Nausea and Vomiting (N/V). ondansetron 2023-0 Yes [id number] 4mg Take 1 Univers 4 mg 1-25 tablet by ity of disintegrat 00:00: mouth [place] ing tablet 00 every 4 Medica l (four) Branch hours as needed for Nausea and Vomiting (N/V). ondansetron 2023-0 Yes [id number] 4mg Take 1 Univers 4 mg 1-25 tablet by ity of disintegrat 00:00: mouth [place] ing tablet 00 every 4 Medica l (four) Branch hours as needed for Nausea and Vomiting (N/V). ondansetron 2023-0 Yes [id number] 4mg Take 1 [facility] 4 mg 1-25 tablet by ity of disintegrat 00:00: mouth [place] ing tablet 00 every 4 Medica l (four) Branch hours as needed for Nausea and Vomiting (N/V). ondansetron 2023-0 Yes [id number] 4mg Take 1 [facility] 4 mg 1-25 tablet by ity of disintegrat 00:00: mouth [place] ing tablet 00 every 4 Medica l (four) Branch hours as needed for Nausea and Vomiting (N/V). ondansetron 2023-0 Yes [id number] 4mg Take 1 Univers 4 mg 1-25 tablet by ity of disintegrat 00:00: mouth [place] ing tablet 00 every 4 Medica l (four) Branch hours as needed for Nausea and Vomiting (N/V). ondansetron 2023-0 Yes [id number] 4mg Take 1 [facility] 4 mg 1-25 tablet by ity of disintegrat 00:00: mouth [place] ing tablet 00 every 4 Medica l (four) Branch hours as needed for Nausea and Vomiting (N/V). ondansetron 2023-0 Yes [id number] 4mg Take 1 [facility] 4 mg 1-25 tablet by ity of disintegrat 00:00: mouth [place] ing tablet 00 every 4 Medica l (four) Branch hours as needed for Nausea and Vomiting (N/V). ondansetron 2023-0 Yes [id number] 4mg Take 1 [facility] 4 mg 1-25 tablet by ity of disintegrat 00:00: mouth [place] ing tablet 00 every 4 Medica l (four) Branch hours as needed for Nausea and Vomiting (N/V). ondansetron 2023-0 Yes [id number] 4mg Take 1 [facility] 4 mg 1-25 tablet by ity of disintegrat 00:00: mouth [place] ing tablet 00 every 4 Medica l (four) Branch hours as needed for Nausea and Vomiting (N/V). ondansetron 2023-0 Yes [id number] 4mg Take 1 Univers 4 mg 1-25 tablet by ity of disintegrat 00:00: mouth [place] ing tablet 00 every 4 Medica l (four) Branch hours as needed for Nausea and Vomiting (N/V). ondansetron 2023-0 Yes [id number] 4mg Take 1 [facility] 4 mg 1-25 tablet by ity of disintegrat 00:00: mouth [place] ing tablet 00 every 4 Medica l (four) Branch hours as needed for Nausea and Vomiting (N/V). ondansetron 2023-0 Yes [id number] 4mg Take 1 [facility] 4 mg 1-25 tablet by ity of disintegrat 00:00: mouth [place] ing tablet 00 every 4 Medica l (four) Branch hours as needed for Nausea and Vomiting (N/V). ondansetron 2023-0 Yes [id number] 4mg Take 1 [facility] 4 mg 1-25 tablet by ity of disintegrat 00:00: mouth [place] ing tablet 00 every 4 Medica l (four) Branch hours as needed for Nausea and Vomiting (N/V). ondansetron 2023-0 Yes [id number] 4mg Take 1 [facility] 4 mg 1-25 tablet by ity of disintegrat 00:00: mouth [place] ing tablet 00 every 4 Medica l (four) Branch hours as needed for Nausea and Vomiting (N/V). ondansetron 2023-0 Yes [id number] 4mg Take 1 [facility] 4 mg 1-25 tablet by ity of disintegrat 00:00: mouth [place] ing tablet 00 every 4 Medica l (four) Branch hours as needed for Nausea and Vomiting (N/V). ondansetron 2023-0 Yes [id number] 4mg Take 1 [facility] 4 mg 1-25 tablet by ity of disintegrat 00:00: mouth [place] ing tablet 00 every 4 Medica l (four) Branch hours as needed for Nausea and Vomiting (N/V). methylPREDN 2023-0 2023- No [id number] Take by Univers ISolone 4 1-25 02-14 mouth ity of mg tablets 00:00: 00:00 SEE-INSTRU [place] 00 :00 CTIONS. Medical follow Branch package directions methylPREDN 2023-0 3- No [id number] Take by Univers ISolone 4 1-25 02-14 mouth ity of mg tablets 00:00: 00:00 SEE-INSTRU [place] 00 :00 CTIONS. Medical follow Branch package directions HYDROcodone 2022- Yes [id number] 1{tbl} Take 1 U nivers -acetaminop 1-25 02-02 tablet by it y of hen (get2play) 00:00: 05:59 [place] 7.5-325 mg 00 :00 every 8 Medica l per tablet (eight) Branch hours as needed for Pain for up to 7 days. Indication s: acute pain HYDROcodone 2022- Yes [id number] 1{tbl} Take 1 U nivers -acetaminop 1-25 02-02 tablet by it y of hen (get2play) 00:00: 05:59 [place] 7.5-325 mg 00 :00 every 8 Medica l per tablet (eight) Branch hours as needed for Pain for up to 7 days. Indication s: acute pain HYDROcodone 2022- Yes [id number] 1{tbl} Take 1 U nivers -acetaminop 1-25 02-02 tablet by it y of hen (get2play) 00:00: 05:59 mouth [place] 7.5-325 mg 00 :00 every 8 Medica l per tablet (eight) Branch hours as needed for Pain for up to 7 days. Indication s: acute pain HYDROcodone 2022- Yes [id number] 1{tbl} Take 1 U nivers -acetaminop 1-25 02-02 tablet by it y of hen (get2play) 00:00: 05:59 mouth [place] 7.5-325 mg 00 :00 every 8 Medica l per tablet (eight) Branch hours as needed for Pain for up to 7 days. Indication s: acute pain lubiproston Yes [id number] 8ug Take 1 Univers e (AMITIZA) 1-18 capsule by it y of 8 mcg 00:00: mouth [place] capsule 00 daily with Medica l breakfast. Branch lubiproston Yes [id number] 8ug Take 1 Univers e (AMITIZA) 1-18 capsule by it y of 8 mcg 00:00: mouth [place] capsule 00 daily with Medica l breakfast. Branch lubiproston Yes [id number] 8ug Take 1 Univers e (AMITIZA) 1-18 capsule by it y of 8 mcg 00:00: mouth [place] capsule 00 daily with Medica l breakfast. Branch lubiproston Yes [id number] 8ug Take 1 Univers e (AMITIZA) 1-18 capsule by it y of 8 mcg 00:00: mouth [place] capsule 00 daily with Medica l breakfast. Branch lubiproston Yes [id number] 8ug Take 1 Univers e (AMITIZA) 1-18 capsule by it y of 8 mcg 00:00: mouth [place] capsule 00 daily with Medica l breakfast. Branch lubiproston Yes [id number] 8ug Take 1 Univers e (AMITIZA) 1-18 capsule by it y of 8 mcg 00:00: mouth [place] capsule 00 daily with Medica l breakfast. Branch lubiproston Yes [id number] 8ug Take 1 Univers e (AMITIZA) 1-18 capsule by it y of 8 mcg 00:00: mouth [place] capsule 00 daily with Medica l breakfast. Branch lubiproston Yes [id number] 8ug Take 1 Univers e (AMITIZA) 1-18 capsule by it y of 8 mcg 00:00: mouth [place] capsule 00 daily with Medica l breakfast. Branch lubiproston Yes [id number] 8ug Take 1 Univers e (AMITIZA) 1-18 capsule by it y of 8 mcg 00:00: mouth [place] capsule 00 daily with Medica l breakfast. Branch lubiproston Yes [id number] 8ug Take 1 Univers e (AMITIZA) 1-18 capsule by it y of 8 mcg 00:00: mouth [place] capsule 00 daily with Medica l breakfast. Branch lubiproston Yes [id number] 8ug Take 1 Univers e (AMITIZA) 1-18 capsule by it y of 8 mcg 00:00: mouth [place] capsule 00 daily with Medica l breakfast. Branch lubiproston Yes [id number] 8ug Take 1 Univers e (AMITIZA) 1-18 capsule by it y of 8 mcg 00:00: mouth [place] capsule 00 daily with Medica l breakfast. Branch lubiproston Yes [id number] 8ug Take 1 Univers e (AMITIZA) 1-18 capsule by it y of 8 mcg 00:00: mouth [place] capsule 00 daily with Medica l breakfast. Branch lubiproston 2023-0 Yes [id number] 8ug Take 1 Univers e (AMITIZA) 1-18 capsule by it y of 8 mcg 00:00: mouth [place] capsule 00 daily with Medica l breakfast. Branch lubiproston 0 Yes [id number] 8ug Take 1 Univers e (AMITIZA) 1-18 capsule by it y of 8 mcg 00:00: mouth [place] capsule 00 daily with Medica l breakfast. Branch lubiproston 0 Yes [id number] 8ug Take 1 Univers e (AMITIZA) 1-18 capsule by it y of 8 mcg 00:00: mouth [place] capsule 00 daily with Medica l breakfast. Branch lubiproston Yes [id number] 8ug Take 1 Univers e (AMITIZA) 1-18 capsule by it y of 8 mcg 00:00: mouth [place] capsule 00 daily with Medica l breakfast. Branch lubiproston Yes [id number] 8ug Take 1 Univers e (AMITIZA) 1-18 capsule by it y of 8 mcg 00:00: mouth [place] capsule 00 daily with Medica l breakfast. Branch lubiproston Yes [id number] 8ug Take 1 Univers e (AMITIZA) 1-18 capsule by it y of 8 mcg 00:00: mouth [place] capsule 00 daily with Medica l breakfast. Branch lubiproston 0 Yes [id number] 8ug Take 1 Univers e (AMITIZA) 1-18 capsule by it y of 8 mcg 00:00: mouth [place] capsule 00 daily with Medica l breakfast. Branch lubiproston Yes [id number] 8ug Take 1 Univers e (AMITIZA) 1-18 capsule by it y of 8 mcg 00:00: mouth [place] capsule 00 daily with Medica l breakfast. Branch lubiproston 2022- No [id number] 8ug Take 1 Univers e (AMITIZA) 1-18 03-16 capsule by i ty of 8 mcg 00:00: 00:00 mouth [place] capsule 00 :00 daily with Medica l breakfast. Branch Insulin Yes [id number] INJECT Uni vers Glargine -06 UNDER THE ity of (BASAGLAR 00:00: SKIN 60 [place] KWIKPEN 00 UNITS Medical U-100 DAILY Branch INSULIN) 100 unit/mL (3 mL) injection KCL 10 mEq 2023-0 Yes [id number] 10meq Take 1 Univers tablet 1-06 tablet by ity of 00:00: mouth in [place] the Medical morning. Branch Insulin 2022-0 Yes [id number] INJECT Uni vers Glargine 1-06 UNDER THE ity of (BASAGLAR 00:00: SKIN 60 [place] KWIKPEN 00 UNITS Medical U-100 DAILY Branch INSULIN) 100 unit/mL (3 mL) injection KCL 10 mEq 2022-0 Yes [id number] 10meq Take 1 Univers tablet 1-06 tablet by ity of 00:00: mouth in [place] the Medical morning. Branch Insulin 2022-0 Yes [id number] INJECT Uni vers Glargine 1-06 UNDER THE ity of (BASAGLAR 00:00: SKIN 60 [place] KWIKPEN 00 UNITS Medical U-100 DAILY Branch INSULIN) 100 unit/mL (3 mL) injection KCL 10 mEq 2022-0 Yes [id number] 10meq Take 1 Univers tablet 1-06 tablet by ity of 00:00: mouth in [place] the morning. Branch Insulin 2022-0 Yes [id number] INJECT Uni vers Glargine 1-06 UNDER THE ity of (BASAGLAR 00:00: SKIN 60 [place] KWIKPEN 00 UNITS Medical U-100 DAILY Branch INSULIN) 100 unit/mL (3 mL) injection Insulin 2022-0 Yes [id number] INJECT Uni vers Glargine 1-06 UNDER THE ity of (BASAGLAR 00:00: SKIN 60 [place] KWIKPEN 00 UNITS Medical U-100 DAILY Branch INSULIN) 100 unit/mL (3 mL) injection Insulin 2022-0 Yes [id number] INJECT Uni vers Glargine 1-06 UNDER THE ity of (BASAGLAR 00:00: SKIN 60 [place] KWIKPEN 00 UNITS Medical U-100 DAILY Branch INSULIN) 100 unit/mL (3 mL) injection Insulin 2022-0 Yes [id number] INJECT Uni vers Glargine 1-06 UNDER THE ity of ([facility] 00:00: SKIN 60 [place] KWIKPEN 00 UNITS Medical U-100 DAILY Branch INSULIN) 100 unit/mL (3 mL) injection Insulin 2022-0 Yes [id number] INJECT [facility] 1-06 UNDER THE ity of ([facility] 00:00: SKIN 60 [place] KWIKPEN 00 UNITS Medical U-100 DAILY Branch INSULIN) 100 unit/mL (3 mL) injection Insulin 2022-0 Yes [id number] INJECT [facility] [place] 1-06 UNDER THE ity of ([facility] 00:00: SKIN 60 [place] KWIKPEN 00 UNITS Medical U-100 DAILY Branch INSULIN) 100 unit/mL (3 mL) injection Insulin 2022-0 Yes [id number] INJECT [facility] [place] 1-06 UNDER THE ity of ([facility] 00:00: SKIN 60 [place] KWIKPEN 00 UNITS Medical U-100 DAILY Branch INSULIN) 100 unit/mL (3 mL) injection Insulin 2022-0 Yes [id number] INJECT [facility] [place] 1-06 UNDER THE ity of ([facility] 00:00: SKIN 60 [place] KWIKPEN 00 UNITS Medical U-100 DAILY Branch INSULIN) 100 unit/mL (3 mL) injection Insulin 2022-0 Yes [id number] INJECT [facility] [place] 1-06 UNDER THE ity of ([facility] 00:00: SKIN 60 [place] KWIKPEN 00 UNITS Medical U-100 DAILY Branch INSULIN) 100 unit/mL (3 mL) injection Insulin 2022-0 Yes [id number] INJECT [facility] [place] 1-06 UNDER THE ity of ([facility] 00:00: SKIN 60 [place] KWIKPEN 00 UNITS Medical U-100 DAILY Branch INSULIN) 100 unit/mL (3 mL) injection Insulin 2022-0 Yes [id number] INJECT [facility] [place] 1-06 UNDER THE ity of ([facility] 00:00: SKIN 60 [place] KWIKPEN 00 UNITS Medical U-100 DAILY Branch INSULIN) 100 unit/mL (3 mL) injection Insulin 2022-0 Yes [id number] INJECT [facility] [place] 1-06 UNDER THE ity of ([facility] 00:00: SKIN 60 [place] KWIKPEN 00 UNITS Medical U-100 DAILY Branch INSULIN) 100 unit/mL (3 mL) injection Insulin 2022-0 Yes [id number] INJECT [facility] [place] 1-06 UNDER THE ity of ([facility] 00:00: SKIN 60 [place] KWIKPEN 00 UNITS Medical U-100 DAILY Branch INSULIN) 100 unit/mL (3 mL) injection Insulin 2022-0 Yes [id number] INJECT [facility] [place] 1-06 UNDER THE ity of ([facility] 00:00: SKIN 60 [place] KWIKPEN 00 UNITS Medical U-100 DAILY Branch INSULIN) 100 unit/mL (3 mL) injection Insulin 0 Yes [id number] INJECT [facility] [place] 1-06 UNDER THE ity of ([facility] 00:00: SKIN 60 [place] KWIKPEN 00 UNITS Medical U-100 DAILY Branch INSULIN) 100 unit/mL (3 mL) injection Insulin 0 Yes [id number] INJECT [facility] [place] 1-06 UNDER THE ity of ([facility] 00:00: SKIN 60 [place] KWIKPEN 00 UNITS Medical U-100 DAILY Branch INSULIN) 100 unit/mL (3 mL) injection Insulin Yes [id number] INJECT [facility] [place] 1-06 UNDER THE ity of ([facility] 00:00: SKIN 60 [place] KWIKPEN 00 UNITS Medical U-100 DAILY Branch INSULIN) 100 unit/mL (3 mL) injection Insulin 0 Yes [id number] INJECT [facility] [place] 1-06 UNDER THE ity of ([facility] 00:00: SKIN 60 [place] KWIKPEN 00 UNITS Medical U-100 DAILY Branch INSULIN) 100 unit/mL (3 mL) injection Insulin 0 Yes [id number] INJECT [facility] [place] 1-06 UNDER THE ity of ([facility] 00:00: SKIN 60 [place] KWIKPEN 00 UNITS Medical U-100 DAILY Branch INSULIN) 100 unit/mL (3 mL) injection Insulin 2022-0 Yes [id number] INJECT [facility] [place] 1-06 UNDER THE ity of ([facility] 00:00: SKIN 60 [place] KWIKPEN 00 UNITS Medical U-100 DAILY Branch INSULIN) 100 unit/mL (3 mL) injection Insulin 2022-0 Yes [id number] INJECT [facility] [place] 1-06 UNDER THE ity of ([facility] 00:00: SKIN 60 [place] KWIKPEN 00 UNITS Medical U-100 DAILY Branch INSULIN) 100 unit/mL (3 mL) injection Insulin 2022-0 Yes [id number] INJECT [facility] [place] 1-06 UNDER THE ity of ([facility] 00:00: SKIN 60 [place] KWIKPEN 00 UNITS Medical U-100 DAILY Branch INSULIN) 100 unit/mL (3 mL) injection Insulin 2022-0 Yes [id number] INJECT [facility] [place] 1-06 UNDER THE ity of ([facility] 00:00: SKIN 60 [place] KWIKPEN 00 UNITS Medical U-100 DAILY Branch INSULIN) 100 unit/mL (3 mL) injection Insulin 2022-0 Yes [id number] INJECT [facility] [place] 1-06 UNDER THE ity of ([facility] 00:00: SKIN 60 [place] KWIKPEN 00 UNITS Medical U-100 DAILY Branch INSULIN) 100 unit/mL (3 mL) injection Insulin 2022-0 Yes [id number] INJECT [facility] vers [place] 1-06 UNDER THE ity of ([facility] 00:00: SKIN 60 [place] KWIKPEN 00 UNITS Medical U-100 DAILY Branch INSULIN) 100 unit/mL (3 mL) injection Insulin 2022-0 Yes [id number] INJECT [facility] vers [place] 1-06 UNDER THE ity of ([facility] 00:00: SKIN 60 [place] KWIKPEN 00 UNITS Medical U-100 DAILY Branch INSULIN) 100 unit/mL (3 mL) injection Insulin 2022-0 Yes [id number] INJECT [facility] vers [place] 1-06 UNDER THE ity of ([facility] 00:00: SKIN 60 [place] KWIKPEN 00 UNITS Medical U-100 DAILY Branch INSULIN) 100 unit/mL (3 mL) injection Insulin 2022-0 Yes [id number] INJECT [facility] [place] 1-06 UNDER THE ity of ([facility] 00:00: SKIN 60 [place] KWIKPEN 00 UNITS Medical U-100 DAILY Branch INSULIN) 100 unit/mL (3 mL) injection Insulin 2022-0 Yes [id number] INJECT [facility] [place] 1-06 UNDER THE ity of ([facility] 00:00: SKIN 60 [place] KWIKPEN 00 UNITS Medical U-100 DAILY Branch INSULIN) 100 unit/mL (3 mL) injection Insulin 2022-0 Yes [id number] INJECT [facility] vers [place] 1-06 UNDER THE ity of ([facility] 00:00: SKIN 60 [place] KWIKPEN 00 UNITS Medical U-100 DAILY Branch INSULIN) 100 unit/mL (3 mL) injection Insulin 2022-0 Yes [id number] INJECT [facility] vers [place] 1-06 UNDER THE ity of ([facility] 00:00: SKIN 60 [place] KWIKPEN 00 UNITS Medical U-100 DAILY Branch INSULIN) 100 unit/mL (3 mL) injection Insulin 2022-0 Yes [id number] INJECT [facility] vers [place] 1-06 UNDER THE ity of ([facility] 00:00: SKIN 60 [place] KWIKPEN 00 UNITS Medical U-100 DAILY Branch INSULIN) 100 unit/mL (3 mL) injection Insulin 2022-0 Yes [id number] INJECT [facility] [place] 1-06 UNDER THE ity of ([facility] 00:00: SKIN 60 [place] KWIKPEN 00 UNITS Medical U-100 DAILY Branch INSULIN) 100 unit/mL (3 mL) injection Insulin 2022-0 Yes [id number] INJECT [facility] vers [place] 1-06 UNDER THE ity of ([facility] 00:00: SKIN 60 [place] KWIKPEN 00 UNITS Medical U-100 DAILY Branch INSULIN) 100 unit/mL (3 mL) injection Insulin 2022-0 Yes [id number] INJECT [facility] vers [place] 1-06 UNDER THE ity of ([facility] 00:00: SKIN 60 [place] KWIKPEN 00 UNITS Medical U-100 DAILY Branch INSULIN) 100 unit/mL (3 mL) injection Insulin 2022-0 Yes [id number] INJECT [facility] vers [place] 1-06 UNDER THE ity of ([facility] 00:00: SKIN 60 [place] KWIKPEN 00 UNITS Medical U-100 DAILY Branch INSULIN) 100 unit/mL (3 mL) injection Insulin 2022-0 Yes [id number] INJECT [facility] vers [place] 1-06 UNDER THE ity of ([facility] 00:00: SKIN 60 [place] KWIKPEN 00 UNITS Medical U-100 DAILY Branch INSULIN) 100 unit/mL (3 mL) injection Insulin 2022-0 Yes [id number] INJECT [facility] [place] 1-06 UNDER THE ity of ([facility] 00:00: SKIN 60 [place] KWIKPEN 00 UNITS Medical U-100 DAILY Branch INSULIN) 100 unit/mL (3 mL) injection Insulin 2022-0 Yes [id number] INJECT [facility] vers [place] 1-06 UNDER THE ity of ([facility] 00:00: SKIN 60 [place] KWIKPEN 00 UNITS Medical U-100 DAILY Branch INSULIN) 100 unit/mL (3 mL) injection KCL 10 mEq 2022- No [id number] 10meq Take 1 [facility] tablet 10-1324 tablet by ity of 00:00: 00:00 mouth in [place] 00 :00 the Medical morning. Branch KCL 10 mEq 0 2022- No [id number] 10meq Take 1 [facility] tablet 10-1324 tablet by ity of 00:00: 00:00 mouth in [place] 00 :00 the Medical morning. Branch ergocalcife 2021- Yes [id number] Take 1 [facility] rol, 2-08 capsule by ity of vitamin d2, 00:00: mouth [place] 1,250 mcg 00 weekly. Medical (50,000 Branch unit) capsule ergocalcife 2021-10 Yes [id number] Take 1 [facility] rol, 2-08 capsule by ity of vitamin d2, 00:00: mouth [place] 1,250 mcg 00 weekly. Medical (50,000 Branch unit) capsule ergocalcife 2021-10 Yes [id number] Take 1 [facility] rol, 2-08 capsule by ity of vitamin d2, 00:00: mouth [place] 1,250 mcg 00 weekly. Medical (50,000 Branch unit) capsule ergocalcife 2021-10 Yes [id number] Take 1 [facility] rol, 2-08 capsule by ity of vitamin d2, 00:00: mouth [place] 1,250 mcg 00 weekly. Medical (50,000 Branch unit) capsule ergocalcife 2021-10 Yes [id number] Take 1 [facility] rol, 2-08 capsule by ity of vitamin d2, 00:00: mouth [place] 1,250 mcg 00 weekly. Medical (50,000 Branch unit) capsule ergocalcife 2021-10 Yes [id number] Take 1 [facility] rol, 2-08 capsule by ity of vitamin d2, 00:00: mouth [place] 1,250 mcg 00 weekly. Medical (50,000 Branch unit) capsule ergocalcife 2021-10 Yes [id number] Take 1 [facility] rol, 2-08 capsule by ity of vitamin d2, 00:00: mouth [place] 1,250 mcg 00 weekly. Medical (50,000 Branch unit) capsule ergocalcife 2021-10 Yes [id number] Take 1 [facility] rol, 2-08 capsule by ity of vitamin d2, 00:00: mouth [place] 1,250 mcg 00 weekly. Medical (50,000 Branch unit) capsule ergocalcife 2021- Yes [id number] Take 1 [facility] rol, 2-08 capsule by ity of vitamin d2, 00:00: mouth [place] 1,250 mcg 00 weekly. Medical (50,000 Branch unit) capsule ergocalcife 2021- Yes [id number] Take 1 [facility] rol, 2-08 capsule by ity of vitamin d2, 00:00: mouth [place] 1,250 mcg 00 weekly. Medical (50,000 Branch unit) capsule ergocalcife 2021- Yes [id number] Take 1 [facility] rol, 2-08 capsule by ity of vitamin d2, 00:00: mouth [place] 1,250 mcg 00 weekly. Medical (50,000 Branch unit) capsule ergocalcife 2021- Yes [id number] Take 1 [facility] rol, 2-08 capsule by ity of vitamin d2, 00:00: mouth [place] 1,250 mcg 00 weekly. Medical (50,000 Branch unit) capsule ergocalcife 2021- Yes [id number] Take 1 [facility] rol, 2-08 capsule by ity of vitamin d2, 00:00: mouth [place] 1,250 mcg 00 weekly. Medical (50,000 Branch unit) capsule ergocalcife 2021- Yes [id number] Take 1 [facility] rol, 2-08 capsule by ity of vitamin d2, 00:00: mouth [place] 1,250 mcg 00 weekly. Medical (50,000 Branch unit) capsule ergocalcife 2021-1 Yes [id number] Take 1 [facility] rol, 2-08 capsule by ity of vitamin d2, 00:00: mouth [place] 1,250 mcg 00 weekly. Medical (50,000 Branch unit) capsule ergocalcife 2021-1 Yes [id number] Take 1 [facility] rol, 2-08 capsule by ity of vitamin d2, 00:00: mouth [place] 1,250 mcg 00 weekly. Medical (50,000 Branch unit) capsule ergocalcife 2021-1 Yes [id number] Take 1 [facility] rol, 2-08 capsule by ity of vitamin d2, 00:00: mouth [place] 1,250 mcg 00 weekly. Medical (50,000 Branch unit) capsule ergocalcife 2022-1 Yes [id number] Take 1 [facility] rol, 2-08 capsule by ity of vitamin d2, 00:00: mouth [place] 1,250 mcg 00 weekly. Medical (50,000 Branch unit) capsule ergocalcife 2021-10 Yes [id number] Take 1 [facility] rol, 2-08 capsule by ity of vitamin d2, 00:00: mouth [place] 1,250 mcg 00 weekly. Medical (50,000 Branch unit) capsule ergocalcife 2021- Yes [id number] Take 1 [facility] rol, 2-08 capsule by ity of vitamin d2, 00:00: mouth [place] 1,250 mcg 00 weekly. Medical (50,000 Branch unit) capsule ergocalcife 2021- Yes [id number] Take 1 [facility] rol, 2-08 capsule by ity of vitamin d2, 00:00: mouth [place] 1,250 mcg 00 weekly. Medical (50,000 Branch unit) capsule ergocalcife 2021-10 Yes [id number] Take 1 [facility] rol, 2-08 capsule by ity of vitamin d2, 00:00: mouth [place] 1,250 mcg 00 weekly. Medical (50,000 Branch unit) capsule ergocalcife 2021-10 Yes [id number] Take 1 [facility] rol, 2-08 capsule by ity of vitamin d2, 00:00: mouth [place] 1,250 mcg 00 weekly. Medical (50,000 Branch unit) capsule ergocalcife 2021-10 Yes [id number] Take 1 [facility] rol, 2-08 capsule by ity of vitamin d2, 00:00: mouth [place] 1,250 mcg 00 weekly. Medical (50,000 Branch unit) capsule ergocalcife 2021-10 Yes [id number] Take 1 [facility] rol, 2-08 capsule by ity of vitamin d2, 00:00: mouth [place] 1,250 mcg 00 weekly. Medical (50,000 Branch unit) capsule ergocalcife 2021- Yes [id number] Take 1 [facility] rol, 2-08 capsule by ity of vitamin d2, 00:00: mouth [place] 1,250 mcg 00 weekly. Medical (50,000 Branch unit) capsule ergocalcife 2021- Yes [id number] Take 1 [facility] rol, 2-08 capsule by ity of vitamin d2, 00:00: mouth [place] 1,250 mcg 00 weekly. Medical (50,000 Branch unit) capsule ergocalcife 2- Yes [id number] Take 1 [facility] rol, 2-08 capsule by ity of vitamin d2, 00:00: mouth [place] 1,250 mcg 00 weekly. Medical (50,000 Branch unit) capsule ergocalcife 2021- Yes [id number] Take 1 [facility] rol, 2-08 capsule by ity of vitamin d2, 00:00: mouth [place] 1,250 mcg 00 weekly. Medical (50,000 Branch unit) capsule ergocalcife 2021- Yes [id number] Take 1 [facility] rol, 2-08 capsule by ity of vitamin d2, 00:00: mouth [place] 1,250 mcg 00 weekly. Medical (50,000 Branch unit) capsule ergocalcife 2021- Yes [id number] Take 1 [facility] rol, 2-08 capsule by ity of vitamin d2, 00:00: mouth [place] 1,250 mcg 00 weekly. Medical (50,000 Branch unit) capsule ergocalcife 2021- Yes [id number] Take 1 [facility] rol, 2-08 capsule by ity of vitamin d2, 00:00: mouth [place] 1,250 mcg 00 weekly. Medical (50,000 Branch unit) capsule ergocalcife 2021- Yes [id number] Take 1 [facility] rol, 2-08 capsule by ity of vitamin d2, 00:00: mouth [place] 1,250 mcg 00 weekly. Medical (50,000 Branch unit) capsule ergocalcife 2021- Yes [id number] Take 1 [facility] rol, 2-08 capsule by ity of vitamin d2, 00:00: mouth [place] 1,250 mcg 00 weekly. Medical (50,000 Branch unit) capsule ergocalcife 2021- Yes [id number] Take 1 [facility] rol, 2-08 capsule by ity of vitamin d2, 00:00: mouth [place] 1,250 mcg 00 weekly. Medical (50,000 Branch unit) capsule ergocalcife 2-1 Yes [id number] Take 1 [facility] rol, 2-08 capsule by ity of vitamin d2, 00:00: mouth [place] 1,250 mcg 00 weekly. Medical (50,000 Branch unit) capsule ergocalcife 2021-10 Yes [id number] Take 1 [facility] rol, 2-08 capsule by ity of vitamin d2, 00:00: mouth [place] 1,250 mcg 00 weekly. Medical (50,000 Branch unit) capsule ergocalcife 2021-10 Yes [id number] Take 1 [facility] rol, 2-08 capsule by ity of vitamin d2, 00:00: mouth [place] 1,250 mcg 00 weekly. Medical (50,000 Branch unit) capsule ergocalcife 2021-10 Yes [id number] Take 1 [facility] rol, 2-08 capsule by ity of vitamin d2, 00:00: mouth [place] 1,250 mcg 00 weekly. Medical (50,000 Branch unit) capsule ergocalcife 2021-10 Yes [id number] Take 1 [facility] rol, 2-08 capsule by ity of vitamin d2, 00:00: mouth [place] 1,250 mcg 00 weekly. Medical (50,000 Branch unit) capsule ergocalcife 2021-10 Yes [id number] Take 1 [facility] rol, 2-08 capsule by ity of vitamin d2, 00:00: mouth [place] 1,250 mcg 00 weekly. Medical (50,000 Branch unit) capsule ergocalcife 2021-10 Yes [id number] Take 1 [facility] rol, 2-08 capsule by ity of vitamin d2, 00:00: mouth [place] 1,250 mcg 00 weekly. Medical (50,000 Branch unit) capsule ergocalcife 2021-10 Yes [id number] Take 1 [facility] rol, 2-08 capsule by ity of vitamin d2, 00:00: mouth [place] 1,250 mcg 00 weekly. Medical (50,000 Branch unit) capsule metroNIDAZO 2021-10- No [id number] 500mg Take 1 [facility] LE (FLAGYL) 2-08 12-19 tablet by it y of 500 mg 00:00: 05:59 mouth [place] tablet 00 :00 every 12 Medical (twelve) Branch hours for 10 days. lubiproston 2021-10 Yes [id number] 8ug Take 1 [facility] e (AMITIZA) 2-07 capsule by it y of 8 mcg 00:00: mouth [place] capsule 00 daily with Medica l breakfast. Branch lubiproston 2021-10 Yes [id number] 8ug Take 1 [facility] e (AMITIZA) 2-07 capsule by it y of 8 mcg 00:00: mouth [place] capsule 00 daily with Medica l breakfast. Branch lubiproston 2021-10 Yes [id number] 8ug Take 1 [facility] e (AMITIZA) 2-07 capsule by it y of 8 mcg 00:00: mouth [place] capsule 00 daily with Medica l breakfast. Branch lubiproston 2021-10 Yes [id number] 8ug Take 1 [facility] e (AMITIZA) 2-07 capsule by it y of 8 mcg 00:00: mouth [place] capsule 00 daily with Medica l breakfast. Branch lubiproston 2021-10 Yes [id number] 8ug Take 1 [facility] e (AMITIZA) 2-07 capsule by it y of 8 mcg 00:00: mouth [place] capsule 00 daily with Medica l breakfast. [place] [facility] lubiproston 2021-103- No [id number] 8ug Take 1 [facility] e (AMITIZA) 2-07 -18 capsule by i ty of 8 mcg 00:00: 00:00 mouth [place] capsule 00 :00 daily with Medica l breakfast. [place] [facility] lisinopriL 2021-10 Yes [id number] 20mg Take 1 [facility] 20 mg 2-06 tablet by ity of tablet 00:00: mouth in [place] 00 the Medical morning. Branch atorvastati 2021-10 Yes [id number] 40mg Take 1 [facility] n 40 mg 2-06 tablet by ity of tablet 00:00: mouth at [place] 00 bedtime. Medical Branch lisinopriL 2021-10 Yes [id number] 20mg Take 1 [facility] 20 mg 2-06 tablet by ity of tablet 00:00: mouth in [place] 00 the Medical morning. Branch atorvastati 2021-10 Yes [id number] 40mg Take 1 [facility] n 40 mg 2-06 tablet by ity of tablet 00:00: mouth at [place] 00 bedtime. Medical Branch lisinopriL 2021-10 Yes [id number] 20mg Take 1 [facility] 20 mg 2-06 tablet by ity of tablet 00:00: mouth in [place] 00 the Medical morning. Branch atorvastati 2021-10 Yes [id number] 40mg Take 1 [facility] n 40 mg 2-06 tablet by ity of tablet 00:00: mouth at [place] 00 bedtime. Medical Branch lisinopriL 2021-10 Yes [id number] 20mg Take 1 [facility] 20 mg 2-06 tablet by ity of tablet 00:00: mouth in [place] the Medical morning. Branch atorvastati 2021-10 Yes [id number] 40mg Take 1 [facility] n 40 mg 2-06 tablet by ity of tablet 00:00: mouth at [place] [address] bedtime. Medical Branch lisinopriL 2021- Yes [id number] 20mg Take 1 [facility] 20 mg 2-06 tablet by ity of tablet 00:00: mouth in [place] the Medical morning. Branch atorvastati 2021-10 Yes [id number] 40mg Take 1 [facility] n 40 mg 2-06 tablet by ity of tablet 00:00: mouth at [place] 00 bedtime. Medical Branch lisinopriL 2021-10 Yes [id number] 20mg Take 1 [facility] 20 mg 2-06 tablet by ity of tablet 00:00: mouth in [place] the Medical morning. Branch atorvastati 2021-10 Yes [id number] 40mg Take 1 [facility] n 40 mg 2-06 tablet by ity of tablet 00:00: mouth at [place] [address] bedtime. Medical Branch lisinopriL 2021-10 Yes [id number] 20mg Take 1 [facility] 20 mg 2-06 tablet by ity of tablet 00:00: mouth in [place] the Medical morning. Branch atorvastati 2021-10 Yes [id number] 40mg Take 1 [facility] n 40 mg 2-06 tablet by ity of tablet 00:00: mouth at [place] [address] bedtime. Medical Branch lisinopriL 2021- Yes [id number] 20mg Take 1 [facility] 20 mg 2-06 tablet by ity of tablet 00:00: mouth in [place] the Medical morning. Branch atorvastati 2021-10 Yes [id number] 40mg Take 1 [facility] n 40 mg 2-06 tablet by ity of tablet 00:00: mouth at [place] [address] bedtime. Medical Branch lisinopriL 2021-10 Yes [id number] 20mg Take 1 [facility] 20 mg 2-06 tablet by ity of tablet 00:00: mouth in [place] 00 the Medical morning. Branch atorvastati 2021- Yes [id number] 40mg Take 1 [facility] n 40 mg 2-06 tablet by ity of tablet 00:00: mouth at [place] [address] bedtime. Medical Branch lisinopriL 2021-10 Yes [id number] 20mg Take 1 [facility] 20 mg 2-06 tablet by ity of tablet 00:00: mouth in [place] the Medical morning. Branch atorvastati 2021- Yes [id number] 40mg Take 1 [facility] n 40 mg 2-06 tablet by ity of tablet 00:00: mouth at [place] 00 bedtime. Medical Branch lisinopriL 2021- Yes [id number] 20mg Take 1 [facility] 20 mg 2-06 tablet by ity of tablet 00:00: mouth in [place] the Medical morning. Branch atorvastati 2021-10 Yes [id number] 40mg Take 1 [facility] n 40 mg 2-06 tablet by ity of tablet 00:00: mouth at [place] 00 bedtime. Medical Branch lisinopriL 2021- Yes [id number] 20mg Take 1 [facility] 20 mg 2-06 tablet by ity of tablet 00:00: mouth in [place] the Medical morning. Branch atorvastati 2021-10 Yes [id number] 40mg Take 1 [facility] n 40 mg 2-06 tablet by ity of tablet 00:00: mouth at [place] [address] bedtime. Medical Branch lisinopriL 2021-10 Yes [id number] 20mg Take 1 [facility] 20 mg 2-06 tablet by ity of tablet 00:00: mouth in [place] the Medical morning. Branch atorvastati 2021-10 Yes [id number] 40mg Take 1 [facility] n 40 mg 2-06 tablet by ity of tablet 00:00: mouth at [place] [address] bedtime. Medical Branch lisinopriL 2021- Yes [id number] 20mg Take 1 [facility] 20 mg 2-06 tablet by ity of tablet 00:00: mouth in [place] 00 the Medical morning. Branch atorvastati 2021- Yes [id number] 40mg Take 1 [facility] n 40 mg 2-06 tablet by ity of tablet 00:00: mouth at [place] [address] bedtime. Medical Branch lisinopriL 2021- Yes [id number] 20mg Take 1 [facility] 20 mg 2-06 tablet by ity of tablet 00:00: mouth in [place] 00 the Medical morning. Branch atorvastati 2021- Yes [id number] 40mg Take 1 [facility] n 40 mg 2-06 tablet by ity of tablet 00:00: mouth at [place] 00 bedtime. Medical Branch lisinopriL 2021-10 Yes [id number] 20mg Take 1 [facility] 20 mg 2-06 tablet by ity of tablet 00:00: mouth in [place] 00 the Medical morning. Branch atorvastati 2021-10 Yes [id number] 40mg Take 1 [facility] n 40 mg 2-06 tablet by ity of tablet 00:00: mouth at [place] 00 bedtime. Medical Branch lisinopriL 2021-10 Yes [id number] 20mg Take 1 [facility] 20 mg 2-06 tablet by ity of tablet 00:00: mouth in [place] the Medical morning. Branch atorvastati 2021-10 Yes [id number] 40mg Take 1 [facility] n 40 mg 2-06 tablet by ity of tablet 00:00: mouth at [place] 00 bedtime. Medical Branch lisinopriL 2021-10 Yes [id number] 20mg Take 1 [facility] 20 mg 2-06 tablet by ity of tablet 00:00: mouth in [place] the Medical morning. Branch atorvastati 2021-10 Yes [id number] 40mg Take 1 [facility] n 40 mg 2-06 tablet by ity of tablet 00:00: mouth at [place] 00 bedtime. Medical Branch lisinopriL 2021-10 Yes [id number] 20mg Take 1 [facility] 20 mg 2-06 tablet by ity of tablet 00:00: mouth in [place] the Medical morning. Branch atorvastati 2021-10 Yes [id number] 40mg Take 1 [facility] n 40 mg 2-06 tablet by ity of tablet 00:00: mouth at [place] 00 bedtime. Medical Branch lisinopriL 2021-10 Yes [id number] 20mg Take 1 [facility] 20 mg 2-06 tablet by ity of tablet 00:00: mouth in [place] the Medical morning. Branch atorvastati 2021-10 Yes [id number] 40mg Take 1 [facility] n 40 mg 2-06 tablet by ity of tablet 00:00: mouth at [place] [address] bedtime. Medical Branch lisinopriL 2021-10 Yes [id number] 20mg Take 1 [facility] 20 mg 2-06 tablet by ity of tablet 00:00: mouth in [place] 00 the Medical morning. Branch atorvastati 2022-1 Yes [id number] 40mg Take 1 [facility] n 40 mg 2-06 tablet by ity of tablet 00:00: mouth at [place] 00 bedtime. Medical Branch lisinopriL 2021-10 Yes [id number] 20mg Take 1 [facility] 20 mg 2-06 tablet by ity of tablet 00:00: mouth in [place] 00 the Medical morning. Branch atorvastati 2021-10 Yes [id number] 40mg Take 1 [facility] n 40 mg 2-06 tablet by ity of tablet 00:00: mouth at [place] 00 bedtime. Medical Branch lisinopriL 2021-10 Yes [id number] 20mg Take 1 [facility] 20 mg 2-06 tablet by ity of tablet 00:00: mouth in [place] 00 the Medical morning. Branch atorvastati 2021-10 Yes [id number] 40mg Take 1 [facility] n 40 mg 2-06 tablet by ity of tablet 00:00: mouth at [place] 00 bedtime. Medical Branch lisinopriL 2021-10 Yes [id number] 20mg Take 1 [facility] 20 mg 2-06 tablet by ity of tablet 00:00: mouth in [place] the Medical morning. Branch atorvastati 2021-10 Yes [id number] 40mg Take 1 [facility] n 40 mg 2-06 tablet by ity of tablet 00:00: mouth at [place] 00 bedtime. Medical Branch lisinopriL 2021-10 Yes [id number] 20mg Take 1 [facility] 20 mg 2-06 tablet by ity of tablet 00:00: mouth in [place] 00 the Medical morning. Branch atorvastati 2021-10 Yes [id number] 40mg Take 1 [facility] n 40 mg 2-06 tablet by ity of tablet 00:00: mouth at [place] 00 bedtime. Medical Branch lisinopriL 2021-10 Yes [id number] 20mg Take 1 [facility] 20 mg 2-06 tablet by ity of tablet 00:00: mouth in [place] 00 the Medical morning. Branch atorvastati 2021-10 Yes [id number] 40mg Take 1 [facility] n 40 mg 2-06 tablet by ity of tablet 00:00: mouth at [place] 00 bedtime. Medical Branch lisinopriL 2021-10 Yes [id number] 20mg Take 1 [facility] 20 mg 2-06 tablet by ity of tablet 00:00: mouth in [place] 00 the Medical morning. Branch atorvastati 2021-10 Yes [id number] 40mg Take 1 [facility] n 40 mg 2-06 tablet by ity of tablet 00:00: mouth at [place] 00 bedtime. Medical Branch lisinopriL 2021-10 Yes [id number] 20mg Take 1 [facility] 20 mg 2-06 tablet by ity of tablet 00:00: mouth in [place] 00 the Medical morning. Branch atorvastati 2021-10 Yes [id number] 40mg Take 1 [facility] n 40 mg 2-06 tablet by ity of tablet 00:00: mouth at [place] 00 bedtime. Medical Branch lisinopriL 2021-10 Yes [id number] 20mg Take 1 [facility] 20 mg 2-06 tablet by ity of tablet 00:00: mouth in [place] 00 the Medical morning. Branch atorvastati 2021-10 Yes [id number] 40mg Take 1 [facility] n 40 mg 2-06 tablet by ity of tablet 00:00: mouth at [place] 00 bedtime. Medical Branch atorvastati 2021-10 Yes [id number] 40mg Take 1 [facility] n 40 mg 2-06 tablet by ity of tablet 00:00: mouth at [place] 00 bedtime. Medical Branch atorvastati 2021-10 Yes [id number] 40mg Take 1 Univers n 40 mg 2-06 tablet by [facility] tablet 00:00: mouth at [place] 00 bedtime. [facility] Branch atorvastati 2021-10 Yes [id number] 40mg Take 1 [facility] 40 mg 2-06 tablet by [facility] tablet 00:00: mouth at [place] 00 bedtime. [facility] Branch atorvastati 2021-10 Yes [id number] 40mg Take 1 [facility] n 40 mg 2-06 tablet by [facility] of tablet 00:00: mouth at [place] 00 bedtime. [facility] atorvastati 2021-10 Yes [id number] 40mg Take 1 [facility] n 40 mg 2-06 tablet by [facility] of tablet 00:00: mouth at [place] 00 bedtime. [facility] Branch atorvastati 2021-10 Yes [id number] 40mg Take 1 [facility] n 40 mg 2-06 tablet by [facility] of tablet 00:00: mouth at [place] [address] bedtime. [facility] Branch atorvastati 2021-10 Yes [id number] 40mg Take 1 [facility] n 40 mg 2-06 tablet by [facility] of tablet 00:00: mouth at [place] [address] bedtime. Medical Branch atorvasta 2021-10 Yes [id number] 40mg Take 1 [facility] n 40 mg 2-06 tablet by [facility] of tablet 00:00: mouth at [place] [address] bedtime. [facility] Branch atorvasta 2021-10 Yes [id number] 40mg Take 1 [facility] n 40 mg 2-06 tablet by [facility] of tablet 00:00: mouth at [place] [address] bedtime. [facility] Branch atorvasta 2021-10 Yes [id number] 40mg Take 1 [facility] n 40 mg 2-06 tablet by [facility] of tablet 00:00: mouth at [place] [address] bedtime. [facility] Branch atorvasta 2021-10 Yes [id number] 40mg Take 1 [facility] n 40 mg 2-06 tablet by [facility] of tablet 00:00: mouth at [place] [address] bedtime. [facility] Branch atorvasta 2021-10 Yes [id number] 40mg Take 1 [facility] n 40 mg 2-06 tablet by [facility] of tablet 00:00: mouth at [place] [address] bedtime. [facility] Yes [id number] 40mg Take 1 [facility] n 40 mg 2-06 tablet by [facility] of tablet 00:00: mouth at [place] [address] bedtime. [facility] Branch atorvasta 2021-10 Yes [id number] 40mg Take 1 [facility] n 40 mg 2-06 tablet by [facility] of tablet 00:00: mouth at [place] [address] bedtime. [facility] Branch atorvasta 2021-10 Yes [id number] 40mg Take 1 [facility] n 40 mg 2-06 tablet by [facility] of tablet 00:00: mouth at [place] [address] bedtime. [facility] Branch atorvasta 2021-10 Yes [id number] 40mg Take 1 [facility] n 40 mg 2-06 tablet by [facility] of tablet 00:00: mouth at [place] [address] bedtime. [facility] Branch atorvasta 2021-10 Yes [id number] 40mg Take 1 [facility] n 40 mg 2-06 tablet by [facility] of tablet 00:00: mouth at [place] [address] bedtime. [facility] atorvasta 2021-10 Yes [id number] 40mg Take 1 [facility] n 40 mg 2-06 tablet by [facility] of tablet 00:00: mouth at [place] [address] bedtime. [facility] Branch atorvasta 2021-10 Yes [id number] 40mg Take 1 [facility] n 40 mg 11-13 tablet by [facility] of tablet 00:00: mouth at [place] 00 bedtime. [facility] Branch lisinopriL 2021-10- No [id number] 20mg Take 1 [facility] 20 mg 11-13 tablet by [facility] of tablet 00:00: 00:00 mouth in [place] 00 :00 the Medical morning. Branch fluconazole 2021-10- No [id number] 150mg Take 1 [facility] (DIFLUCAN) 11-13 tablet by ity of 150 mg 00:00: 05:59 [place] tablet 00 :00 now for 1 Medical dose. Branch fluconazole 2021-10- No [id number] 150mg Take 1 [facility] (DIFLUCAN) 11-13 tablet by [facility] of 150 mg 00:00: 05:59 mouth [place] tablet 00 :00 now for 1 Medical dose. Branch fluconazole 2021-10- No [id number] 150mg Take 1 [facility] (DIFLUCAN) 11-13 tablet by [facility] of 150 mg 00:00: 05:59 mouth [place] tablet 00 :00 now for 1 Medical dose. Branch fluconazole 2021-10- No [id number] 150mg Take 1 [facility] (DIFLUCAN) 11-13 tablet by [facility]y of 150 mg 00:00: 05:59 mouth [place] tablet 00 :00 now for 1 Medical dose. Branch ASPIRIN 81 2021-10 Yes [id number] TAKE 1 [facility] mg EC 2-05 02 TABLET BY ity of tablet 00:00: MOUTH [place] 00 EVERY DAY Medical Branch ASPIRIN 81 2021-10 Yes [id number] TAKE 1 [facility] mg EC 2-05 02 TABLET BY ity of tablet 00:00: MOUTH [place] 00 EVERY DAY Medical Branch ASPIRIN 81 2021-10 Yes [id number] TAKE 1 [facility] mg EC 2-05 02 TABLET BY ity of tablet 00:00: MOUTH [place] 00 EVERY DAY Medical Branch ASPIRIN 81 2021-10 Yes [id number] TAKE 1 [facility] mg EC 2-05 02 TABLET BY ity of tablet 00:00: MOUTH [place] 00 EVERY DAY Medical Branch ASPIRIN 81 2021-10 Yes [id number] TAKE 1 [facility] mg EC 2-05 02 TABLET BY ity of tablet 00:00: MOUTH [place] 00 EVERY DAY Medical Branch ASPIRIN 81 2021-10 Yes [id number] TAKE 1 [facility] mg EC 2-05 02 TABLET BY ity of tablet 00:00: MOUTH [place] 00 EVERY DAY Medical Branch ASPIRIN 81 2021-10 Yes [id number] TAKE 1 [facility] mg EC 2-05 02 TABLET BY ity of tablet 00:00: MOUTH [place] 00 EVERY DAY Medical Branch ASPIRIN 81 2021-10 Yes [id number] TAKE 1 [facility] mg EC 2-05 02 TABLET BY ity of tablet 00:00: MOUTH [place] 00 EVERY DAY Medical Branch ASPIRIN 81 2021-10 Yes [id number] TAKE 1 [facility] mg EC 2-05 02 TABLET BY ity of tablet 00:00: MOUTH [place] 00 EVERY DAY Medical Branch ASPIRIN 81 2021-10 Yes [id number] TAKE 1 [facility] mg EC 2-05 02 TABLET BY ity of tablet 00:00: MOUTH [place] 00 EVERY DAY Medical Branch ASPIRIN 81 2021-10 Yes [id number] TAKE 1 [facility] mg EC 2-05 02 TABLET BY ity of tablet 00:00: MOUTH [place] 00 EVERY DAY Medical Branch ASPIRIN 81 2021-10 Yes [id number] TAKE 1 [facility] mg EC 2-05 02 TABLET BY ity of tablet 00:00: MOUTH [place] 00 EVERY DAY Medical Branch ASPIRIN 81 2021-10 Yes [id number] TAKE 1 [facility] mg EC 2-05 02 TABLET BY ity of tablet 00:00: MOUTH [place] 00 EVERY DAY Medical Branch ASPIRIN 81 2021-10 Yes [id number] TAKE 1 [facility] mg EC 2-05 02 TABLET BY ity of tablet 00:00: MOUTH [place] 00 EVERY DAY Medical Branch ASPIRIN 81 2021-10 Yes [id number] TAKE 1 [facility] mg EC 2-05 02 TABLET BY ity of tablet 00:00: MOUTH [place] 00 EVERY DAY Medical Branch ASPIRIN 81 2021-10 Yes [id number] TAKE 1 [facility] mg EC 2-05 02 TABLET BY ity of tablet 00:00: MOUTH [place] 00 EVERY DAY Medical Branch ASPIRIN 81 2021-10 Yes [id number] TAKE 1 [facility] mg EC 2-05 02 TABLET BY ity of tablet 00:00: MOUTH [place] 00 EVERY DAY Medical Branch ASPIRIN 81 2021-10 Yes [id number] TAKE 1 [facility] mg EC 2-05 02 TABLET BY ity of tablet 00:00: MOUTH [place] 00 EVERY DAY Medical Branch ASPIRIN 81 2021-10 Yes [id number] TAKE 1 [facility] mg EC 2-05 02 TABLET BY ity of tablet 00:00: MOUTH [place] 00 EVERY DAY Medical Branch ASPIRIN 81 2021-10 Yes [id number] TAKE 1 [facility] mg EC 2-05 02 TABLET BY ity of tablet 00:00: MOUTH [place] 00 EVERY DAY Medical Branch ASPIRIN 81 2021-10 Yes [id number] TAKE 1 [facility] mg EC 2-05 02 TABLET BY ity of tablet 00:00: MOUTH [place] 00 EVERY DAY Medical Branch ASPIRIN 81 2021-10 Yes [id number] TAKE 1 [facility] mg EC 2-05 02 TABLET BY ity of tablet 00:00: MOUTH [place] 00 EVERY DAY Medical Branch ASPIRIN 81 2021-10 Yes [id number] TAKE 1 [facility] mg EC 2-05 02 TABLET BY ity of tablet 00:00: MOUTH [place] 00 EVERY DAY Medical Branch ASPIRIN 81 2021-10 Yes [id number] TAKE 1 [facility] mg EC 2-05 02 TABLET BY ity of tablet 00:00: MOUTH [place] 00 EVERY DAY Medical Branch ASPIRIN 81 2021-10 Yes [id number] TAKE 1 [facility] mg EC 2-05 02 TABLET BY ity of tablet 00:00: MOUTH [place] 00 EVERY DAY Medical Branch ASPIRIN 81 2021-10- No [id number] TAKE 1 [facility] mg EC 2-05 02-20 02 TABLET BY ity of tablet 00:00: 00:00 MOUTH [place] 00 :00 EVERY DAY Medical Branch MELOXICAM 2021-10 Yes [id number] TAKE 1 Un ayanna 7.5 mg 1-29 TABLET BY ity of tablet 00:00: MOUTH [place] 00 EVERY DAY Medical IN THE [place] MORNING MELOXICAM 2021-10 Yes [id number] TAKE 1 Un [place] 7.5 mg 1-29 TABLET BY ity of tablet 00:00: MOUTH [place] 00 EVERY DAY Medical IN THE [place] MORNING MELOXICAM 2021-10 Yes [id number] TAKE 1 Un [place] 7.5 mg 1-29 TABLET BY ity of tablet 00:00: MOUTH [place] 00 EVERY DAY Medical IN THE [place] MORNING MELOXICAM 2021-10 Yes [id number] TAKE 1 Un [place] 7.5 mg 1-29 TABLET BY ity of tablet 00:00: MOUTH [place] 00 EVERY DAY Medical IN THE [place] MORNING MELOXICAM 2021-10 Yes [id number] TAKE 1 Un [place] 7.5 mg 1-29 TABLET BY ity of tablet 00:00: MOUTH [place] 00 EVERY DAY Medical IN THE [facility] MELOXIC 2021-10 Yes [id number] TAKE 1 Un [place] 7.5 mg 1-29 TABLET BY ity of tablet 00:00: MOUTH [place] 00 EVERY DAY Medical IN THE [facility] MELOXIC 2021-10 Yes [id number] TAKE 1 Un [place] 7.5 mg 1-29 TABLET BY ity of tablet 00:00: MOUTH [place] 00 EVERY DAY Medical IN THE [facility] MELOXIC 2021-10 Yes [id number] TAKE 1 Un [place] 7.5 mg 1-29 TABLET BY ity of tablet 00:00: MOUTH [place] 00 EVERY DAY Medical IN THE [facility] MELOXIC 2021-10 Yes [id number] TAKE 1 Un [place] 7.5 mg 1-29 TABLET BY ity of tablet 00:00: MOUTH [place] 00 EVERY DAY Medical IN THE [facility] MELOXIC 2021-10 Yes [id number] TAKE 1 Un [place] 7.5 mg 1-29 TABLET BY ity of tablet 00:00: MOUTH [place] 00 EVERY DAY Medical IN THE [facility] MELOXIC 2021-10 Yes [id number] TAKE 1 Un [place] 7.5 mg 1-29 TABLET BY ity of tablet 00:00: MOUTH [place] 00 EVERY DAY Medical IN THE [facility] MELOXIC 2021-10 Yes [id number] TAKE 1 Un [place] 7.5 mg 1-29 TABLET BY ity of tablet 00:00: MOUTH [place] 00 [facility] [id number] [facility] 1 Un [place] 7.5 mg 1-29 TABLET BY ity of tablet 00:00: MOUTH [place] 00 EVERY DAY Medical IN THE [facility] MELOXIC 2021-10 Yes [id number] TAKE 1 Un [place] 7.5 mg 1-29 TABLET BY ity of tablet 00:00: MOUTH [place] 00 EVERY DAY Medical IN THE [facility] MELOXIC 2021-10 Yes [id number] TAKE 1 Un [place] 7.5 mg 1-29 TABLET BY ity of tablet 00:00: MOUTH [place] 00 EVERY DAY Medical IN THE [facility] MELOXIC 2021-10 Yes [id number] TAKE 1 Un [place] 7.5 mg 1-29 TABLET BY ity of tablet 00:00: MOUTH [place] 00 EVERY DAY Medical IN THE [facility] MELOXICAM 2021-10 Yes [id number] TAKE 1 Un [place] 7.5 mg 1-29 TABLET BY ity of tablet 00:00: MOUTH [place] 00 EVERY DAY Medical IN THE [facility] MELOXICAM 2021-10 Yes [id number] TAKE 1 Un [place] 7.5 mg 1-29 TABLET BY ity of tablet 00:00: MOUTH [place] 00 EVERY DAY Medical IN THE [facility] MELOXICAM 2021-10 Yes [id number] TAKE 1 Un [place] 7.5 mg 1-29 TABLET BY ity of tablet 00:00: MOUTH [place] 00 EVERY DAY Medical IN THE [facility] MELOXICAM 2021-10 Yes [id number] TAKE 1 Un [place] 7.5 mg 1-29 TABLET BY ity of tablet 00:00: MOUTH [place] 00 EVERY DAY Medical IN THE [facility] MELOXICAM 2021-10 Yes [id number] TAKE 1 Un [place] 7.5 mg 1-29 TABLET BY ity of tablet 00:00: MOUTH [place] 00 EVERY DAY Medical IN THE [facility] MELOXIC 2021-10 Yes [id number] TAKE 1 Un [place] 7.5 mg 1-29 TABLET BY ity of tablet 00:00: MOUTH [place] 00 EVERY DAY Medical IN THE [facility] MELOXICAM 2021-10 Yes [id number] TAKE 1 Un [place] 7.5 mg 1-29 TABLET BY ity of tablet 00:00: MOUTH [place] 00 EVERY DAY Medical IN THE [facility] MELOXICAM 2021-10 Yes [id number] TAKE 1 Un [place] 7.5 mg 1-29 TABLET BY ity of tablet 00:00: MOUTH [place] 00 EVERY DAY Medical IN THE [facility] MELOXICAM 2021-10 Yes [id number] TAKE 1 Un [place] 7.5 mg 1-29 TABLET BY ity of tablet 00:00: MOUTH [place] 00 EVERY DAY Medical IN THE [facility] MELOXICAM 2021-10 Yes [id number] TAKE 1 Un [place] 7.5 mg 1-29 TABLET BY ity of tablet 00:00: MOUTH [place] 00 EVERY DAY Medical IN THE [facility] MELOXICAM 2021-10 No [id number] TAKE 1 U nivers 7.5 mg 1-29 02-16 TABLET BY ity of tablet 00:00: 00:00 MOUTH [place] 00 :00 EVERY DAY Medical IN THE [facility] lubiproston 2021-10 Yes [id number] 8ug Take 1 Univers e (AMITIZA) 1-03 capsule by it y of 8 mcg 00:00: mouth [place] capsule 00 daily with Medica l breakfast. Branch lubiproston 2021-10 Yes [id number] 8ug Take 1 Univers e (AMITIZA) 1-03 capsule by it y of 8 mcg 00:00: mouth [place] capsule 00 daily with Medica l breakfast. Branch lubiproston 2021-10 Yes [id number] 8ug Take 1 Univers e (AMITIZA) 1-03 capsule by it y of 8 mcg 00:00: mouth [place] capsule 00 daily with Medica l breakfast. Branch lubiproston 2021-10 Yes [id number] 8ug Take 1 Univers e (AMITIZA) 1-03 capsule by it y of 8 mcg 00:00: mouth [place] capsule 00 daily with Medica l breakfast. Branch lubiproston 2021-10 Yes [id number] 8ug Take 1 Univers e (AMITIZA) 1-03 capsule by it y of 8 mcg 00:00: mouth [place] capsule 00 daily with Medica l breakfast. Branch lubiproston 2021-10- No [id number] 8ug Take 1 Univers e (AMITIZA) 1-03 - capsule by i ty of 8 mcg 00:00: 00:00 mouth [place] capsule 00 :00 daily with Medica l breakfast. Branch lubiproston 2021-10- No [id number] 8ug Take 1 Univers e (AMITIZA) 1-03 09-13 capsule by i ty of 8 mcg 00:00: 00:00 mouth [place] capsule 00 :00 daily with Medica l breakfast. Branch lubiproston 2021-10- No [id number] 8ug Take 1 Univers e (AMITIZA) 1-03 09-13 capsule by i ty of 8 mcg 00:00: 00:00 mouth [place] capsule 00 :00 daily with Medica l breakfast. Branch lisinopriL 2021-10- No 10mg QD Take 10 mg [facility] (PRINIVIL) 0-12 10-[address] 10 mg 20:34: 00:00 [facility]. [facility] tablet 35 :00 l sertraline 2021-10 Yes 150mg QD Take 150 [facility] (ZOLOFT) 50 0-[address] [facility] tablet 20:34: mouth [facility] 32 daily. l aspirin 2021-10 Yes 81mg QD Take 81 mg Meth billy (ECOTRIN) 0-[address] 81 MG 20:34: daily. [facility]ospita enteric 32 l coated tablet atorvastati 2021-10 Yes 80mg QD Take 80 mg [facility] (LIPITOR) 0-[address] 80 MG 20:34: daily. [facility]osp[facility] tablet 32 l blood sugar 2021-10 Yes Three Unive rs diagnostic 0-11 times per ity of (FREESTYLE 00:00: day [place] LITE 00 Medical STRIPS) Branch strip FREESTYLE 2021-10 Yes USE Univer s LITE METER 0-11 INSTRUCTED ity of Kit 00:00: Medical Branch blood sugar 2021-10 Yes Three Unive rs diagnostic 0-11 times per ity of (FREESTYLE 00:00: day [place] LITE 00 Medical STRIPS) Branch strip FREESTYLE 2021-10 Yes USE Univer s LITE METER 0-11 INSTRUCTED ity of Kit 00:00: Medical Branch blood sugar 2021-10 Yes Three Unive rs diagnostic 0-11 times per ity of (FREESTYLE 00:00: day [place] LITE 00 Medical STRIPS) Branch strip FREESTYLE 2021-10 Yes USE Univer s LITE METER 0-11 INSTRUCTED ity of Kit 00:00: Medical Branch blood sugar 2021-10 Yes Three Unive rs diagnostic 0-11 times per ity of (FREESTYLE 00:00: day [place] LITE 00 Medical STRIPS) Branch strip FREESTYLE 2021-10 Yes USE Univer s LITE METER 0-11 INSTRUCTED ity of Kit 00:00: Medical Branch blood sugar 2021-10 Yes Three Unive rs diagnostic 0-11 times per ity of (FREESTYLE 00:00: day [place] LITE 00 Medical STRIPS) Branch strip FREESTYLE 2021-10 Yes USE Univer s LITE METER 0-11 INSTRUCTED ity of Kit 00:00: Medical Branch blood sugar 2021-10 Yes Three Unive rs diagnostic 0-11 times per ity of (FREESTYLE 00:00: day [place] LITE 00 Medical STRIPS) Branch strip FREESTYLE 2021-10 Yes USE Univer s LITE METER 0-11 INSTRUCTED ity of Kit 00:00: [place] 00 Medical Branch blood sugar 2021-10 Yes Three Unive rs diagnostic 0-11 times per ity of (FREESTYLE 00:00: day [place] LITE 00 Medical STRIPS) Branch strip FREESTYLE 2021-10 Yes USE Univer s LITE METER 0-11 INSTRUCTED ity of Kit 00:00: Medical Branch blood sugar 2021-10 Yes Three Unive rs diagnostic 0-11 times per ity of (FREESTYLE 00:00: day [place] LITE 00 Medical STRIPS) Branch strip FREESTYLE 2021-10 Yes USE Univer s LITE METER 0-11 INSTRUCTED ity of Kit 00:00: Medical Branch blood sugar 2021-10 Yes Three Unive rs diagnostic 0-11 times per ity of (FREESTYLE 00:00: day [place] LITE 00 Medical STRIPS) Branch strip FREESTYLE 2021-10 Yes USE Univer s LITE METER 0-11 INSTRUCTED ity of Kit 00:00: Medical Branch blood sugar 2021-10 Yes Three Unive rs diagnostic 0-11 times per ity of (FREESTYLE 00:00: day [place] LITE Medical STRIPS) Branch strip FREESTYLE 2021-10 Yes USE Univer s LITE METER 0-11 INSTRUCTED ity of Kit 00:00: Medical Branch blood sugar 2021-10 Yes Three Unive rs diagnostic 0-11 times per ity of (FREESTYLE 00:00: day [place] LITE 00 Medical STRIPS) Branch strip FREESTYLE 2021-10 Yes USE Univer s LITE METER 0-11 INSTRUCTED ity of Kit 00:00: Medical Branch blood sugar 2021-10 Yes Three Unive rs diagnostic 0-11 times per ity of (FREESTYLE 00:00: day [place] LITE 00 Medical STRIPS) Branch strip FREESTYLE 2021-10 Yes USE Univer s LITE METER 0-11 INSTRUCTED ity of Kit 00:00: Medical Branch blood sugar 2021-10 Yes Three Unive rs diagnostic 0-11 times per ity of (FREESTYLE 00:00: day [place] LITE 00 Medical STRIPS) Branch strip FREESTYLE 2021-10 Yes USE Univer s LITE METER 0-11 INSTRUCTED ity of Kit 00:00: Medical Branch blood sugar 2021-10 Yes Three Unive rs diagnostic 0-11 times per ity of (FREESTYLE 00:00: day [place] LITE 00 Medical STRIPS) Branch strip FREESTYLE 2021-10 Yes USE Univer s LITE METER 0-11 INSTRUCTED ity of Kit 00:00: Medical Branch blood sugar 2021-10 Yes Three Unive rs diagnostic 0-11 times per ity of (FREESTYLE 00:00: day [place] LITE 00 Medical STRIPS) Branch strip FREESTYLE 2021-10 Yes USE Univer s LITE METER 0-11 INSTRUCTED ity of Kit 00:00: Medical Branch blood sugar 2021-10 Yes Three Unive rs diagnostic 0-11 times per ity of (FREESTYLE 00:00: day [place] LITE 00 Medical STRIPS) Branch strip FREESTYLE 2021-10 Yes USE Univer s LITE METER 0-11 INSTRUCTED ity of Kit 00:00: Medical Branch blood sugar 2021-10 Yes Three Unive rs diagnostic 0-11 times per ity of (FREESTYLE 00:00: day [place] LITE 00 Medical STRIPS) Branch strip FREESTYLE 2021-10 Yes USE Univer s LITE METER 0-11 INSTRUCTED ity of Kit 00:00: Medical Branch blood sugar 2021-10 Yes Three Unive rs diagnostic 0-11 times per ity of (FREESTYLE 00:00: day [place] LITE 00 Medical STRIPS) Branch strip FREESTYLE 2021-10 Yes USE Univer s LITE METER 0-11 INSTRUCTED ity of Kit 00:00: Medical Branch blood sugar 2021-10 Yes Three Unive rs diagnostic 0-11 times per ity of (FREESTYLE 00:00: day [place] LITE 00 Medical STRIPS) Branch strip FREESTYLE 2021-10 Yes USE Univer s LITE METER 0-11 INSTRUCTED ity of Kit 00:00: Medical Branch blood sugar 2021-10 Yes Three Unive rs diagnostic 0-11 times per ity of (FREESTYLE 00:00: day [place] LITE 00 Medical STRIPS) Branch strip FREESTYLE 2021-10 Yes USE Univer s LITE METER 0-11 INSTRUCTED ity of Kit 00:00: Medical Branch blood sugar 2021-10 Yes Three Unive rs diagnostic 0-11 times per ity of (FREESTYLE 00:00: day [place] LITE 00 Medical STRIPS) Branch strip FREESTYLE 2021-10 Yes USE Univer s LITE METER 0-11 INSTRUCTED ity of Kit 00:00: 00 Medical Branch blood sugar 2021-10 Yes Three Unive rs diagnostic 0-11 times per ity of (FREESTYLE 00:00: day [place] LITE 00 Medical STRIPS) Branch strip FREESTYLE 2021-10 Yes USE Univer s LITE METER 0-11 INSTRUCTED ity of Kit 00:00: Medical Branch blood sugar 2021-10 Yes Three Unive rs diagnostic 0-11 times per ity of (FREESTYLE 00:00: day [place] LITE 00 Medical STRIPS) Branch strip FREESTYLE 2021-10 Yes USE Univer s LITE METER 0-11 INSTRUCTED ity of Kit 00:00: Medical Branch blood sugar 2021-10 Yes Three Unive rs diagnostic 0-11 times per ity of (FREESTYLE 00:00: day [place] LITE 00 Medical STRIPS) Branch strip FREESTYLE 2021-10 Yes USE Univer s LITE METER 0-11 INSTRUCTED ity of Kit 00:00: Medical Branch blood sugar 2021-10 Yes Three Unive rs diagnostic 0-11 times per ity of (FREESTYLE 00:00: day [place] LITE 00 Medical STRIPS) Branch strip FREESTYLE 2021-10 Yes USE Univer s LITE METER 0-11 INSTRUCTED ity of Kit 00:00: Medical Branch blood sugar 2021-10 Yes Three Unive rs diagnostic 0-11 times per ity of (FREESTYLE 00:00: day [place] LITE 00 Medical STRIPS) Branch strip FREESTYLE 2021-10 Yes USE Univer s LITE METER 0-11 INSTRUCTED ity of Kit 00:00: Medical Branch blood sugar 2021-10 Yes Three Unive rs diagnostic 0-11 times per ity of (FREESTYLE 00:00: day [place] LITE 00 Medical STRIPS) Branch strip FREESTYLE 2021-10 Yes USE Univer s LITE METER 0-11 INSTRUCTED ity of Kit 00:00: Medical Branch blood sugar 2021-10 Yes Three Unive rs diagnostic 0-11 times per ity of (FREESTYLE 00:00: day [place] LITE 00 Medical STRIPS) Branch strip FREESTYLE 2021-10 Yes USE Univer s LITE METER 0-11 INSTRUCTED ity of Kit 00:00: 00 Medical Branch blood sugar 2021-10 Yes Three Unive rs diagnostic 0-11 times per ity of (FREESTYLE 00:00: day [place] LITE 00 Medical STRIPS) Branch strip FREESTYLE 2021-10 Yes USE Univer s LITE METER 0-11 INSTRUCTED ity of Kit 00:00: Medical Branch blood sugar 2021-10 Yes Three Unive rs diagnostic 0-11 times per ity of (FREESTYLE 00:00: day [place] LITE 00 Medical STRIPS) Branch strip FREESTYLE 2021-10 Yes USE Univer s LITE METER 0-11 INSTRUCTED ity of Kit 00:00: Medical Branch blood sugar 2021-10 Yes Three Unive rs diagnostic 0-11 times per ity of (FREESTYLE 00:00: day [place] LITE 00 Medical STRIPS) Branch strip FREESTYLE 2021-10 Yes USE Univer s LITE METER 0-11 INSTRUCTED ity of Kit 00:00: Medical Branch blood sugar 2021-10 Yes Three Unive rs diagnostic 0-11 times per ity of (FREESTYLE 00:00: day [place] LITE 00 Medical STRIPS) Branch strip FREESTYLE 2021-10 Yes USE Univer s LITE METER 0-11 INSTRUCTED ity of Kit 00:00: Medical Branch blood sugar 2021-10 Yes Three Unive rs diagnostic 0-11 times per ity of (FREESTYLE 00:00: day [place] LITE 00 Medical STRIPS) Branch strip FREESTYLE 2021-10 Yes USE Univer s LITE METER 0-11 INSTRUCTED ity of Kit 00:00: Medical Branch blood sugar 2021-10 Yes Three Unive rs diagnostic 0-11 times per ity of (FREESTYLE 00:00: day [place] LITE 00 Medical STRIPS) Branch strip blood sugar 2021-10 Yes Three Unive rs diagnostic 0-11 times per ity of (FREESTYLE 00:00: day [place] LITE 00 Medical STRIPS) Branch strip blood sugar 2021-10 Yes Three Unive rs diagnostic 0-11 times per ity of (FREESTYLE 00:00: day [place] LITE 00 Medical STRIPS) Branch strip blood sugar 2021-10 Yes Three Unive rs diagnostic 0-11 times per ity of (FREESTYLE 00:00: day [place] LITE 00 Medical STRIPS) Branch strip blood sugar 2021-10 Yes Three Unive rs diagnostic 0-11 times per ity of (FREESTYLE 00:00: day [place] LITE 00 Medical STRIPS) Branch strip blood sugar 2021-10 Yes Three Unive rs diagnostic 0-11 times per ity of (FREESTYLE 00:00: day [place] LITE 00 Medical STRIPS) Branch strip blood sugar 2021-10 Yes Three Unive rs diagnostic 0-11 times per ity of (FREESTYLE 00:00: day [place] LITE 00 Medical STRIPS) Branch strip blood sugar 2021-10 Yes Three Unive rs diagnostic 0-11 times per ity of (FREESTYLE 00:00: day [place] LITE 00 Medical STRIPS) Branch strip blood sugar 2021-10 Yes Three Unive rs diagnostic 0-11 times per ity of (FREESTYLE 00:00: day [place] LITE 00 Medical STRIPS) Branch strip insulin 2021-10 Yes 40U QD Inject 0.4 Meth billy GLARGINE 0-11 mL (40 st (Basaglar 00:00: Units [facility] KwikPen 00 total) l U-100 under the Insulin) skin 100 unit/mL daily. injection (pen) insulin 2021-10 Yes 5U [id number] Inject [facility] aspart, 0-11 [id number] 0.05 mL (5 st niacinamide 00:00: 3D Units Hospi ta , (Fiasp 00 total) l FlexTouch under the U-100 skin 3 Insulin) (three) 100 unit/mL times a (3 mL) day. insulin pen blood sugar 2021-10 Yes [id number] Three [facility] diagnostic 0-[address] strips 00:00: day [facility]osp[facility] (FreeStyle 00 l Lite Strips) strip test strips lancets 2021-10 Yes [id number] Three Meth billy (freestyle) 0-[address] 28 gauge 00:00: day [facility]osp[facility] misc 00 l pen needle, 2021-10 Yes 1{appli [id number] 1 [facility] diabetic 0-11 cation} [id number] applicatio st (Comfort EZ 00:00: 3D n 3 Hospit a Pen 00 (three) l [place]) 32 times a gauge x day. 10/11" needle ondansetron 2021-10 Yes 4mg Q8H Take 1 Meth billy ODT 0-11 tablet (4 st (ZOFRAN-ODT 00:00: mg total) H ospita ) 4 MG 00 by mouth l disintegrat every 8 ing tablet (eight) hours as needed for nausea or vomiting. Blood-Gluco 2021-10- No Use as Uni vers se Meter 007-19 instructed ity of Kit 00:00: 04:59 [place] 00 :00 Medical Branch Blood-Gluco 2021-10- No Use as Uni vers se Meter 007-19 instructed ity of Kit 00:00: 04:59 [place] 00 :00 Medical Branch Blood-Gluco 2021-2022- No Use as Uni vers se Meter 007-19 instructed ity of Kit 00:00: 04:59 [place] 00 :00 Medical Branch Blood-Gluco 2021-10- No Use as Uni vers se Meter 007-19 instructed ity of Kit 00:00: 04:59 [place] 00 :00 Medical Branch Blood-Gluco 2021-10- No Use as Uni vers se Meter 007-19 instructed ity of Kit 00:00: 04:59 [place] 00 :00 Medical Branch Blood-Gluco 2021-10- No Use as Uni vers se Meter 007-19 instructed ity of Kit 00:00: 04:59 [place] 00 :00 Medical Branch Blood-Gluco 2021-2022- No Use as Uni vers se Meter 007-19 instructed ity of Kit 00:00: 04:59 [place] 00 :00 Medical Branch Blood-Gluco 2021-2022- No Use as Uni vers se Meter 007-19 instructed ity of Kit 00:00: 04:59 [place] 00 :00 Medical Branch Blood-Gluco 2021-2022- No Use as Uni vers se Meter 011 07-19 instructed ity of Kit 00:00: 04:59 [place] 00 :00 Medical Branch Blood-Gluco 2021-10- No Use as Uni vers se Meter 007-19 instructed ity of Kit 00:00: 04:59 [place] 00 :00 Medical Branch Blood-Gluco 2021-2022- No Use as Uni vers se Meter 007-19 instructed ity of Kit 00:00: 04:59 [place] 00 :00 Medical Branch Blood-Gluco 2021-2022- No Use as Uni vers se Meter 007-19 instructed ity of Kit 00:00: 04:59 [place] 00 :00 Medical Branch Blood-Gluco 2021-2022- No Use as Uni vers se Meter 007-19 instructed ity of Kit 00:00: 04:59 [place] 00 :00 Medical Branch Blood-Gluco 2021-2022- No Use as Uni vers se Meter 007-19 instructed ity of Kit 00:00: 04:59 [place] 00 :00 Medical Branch Blood-Gluco 2021-2022- No Use as Uni vers se Meter 007-19 instructed ity of Kit 00:00: 04:59 [place] 00 :00 Medical Branch Blood-Gluco 2021-10- No Use as Uni vers se Meter 007-19 instructed ity of Kit 00:00: 04:59 [place] 00 :00 Medical Branch Blood-Gluco 2021-10- No Use as Uni vers se Meter 007-19 instructed ity of Kit 00:00: 04:59 [place] 00 :00 Medical Branch Blood-Gluco 2021-10- No Use as Uni vers se Meter 007-19 instructed ity of Kit 00:00: 04:59 [place] 00 :00 Medical Branch Blood-Gluco 2021-2022- No Use as Uni vers se Meter 007-19 instructed ity of Kit 00:00: 04:59 [place] 00 :00 Medical Branch Blood-Gluco 2021-2022- No Use as Uni vers se Meter 007-19 instructed ity of Kit 00:00: 04:59 [place] 00 :00 Medical Branch Blood-Gluco 2021-2022- No Use as Uni vers se Meter 007-19 instructed ity of Kit 00:00: 04:59 [place] 00 :00 Medical Branch Blood-Gluco 2021-2022- No Use as Uni vers se Meter 007-19 instructed ity of Kit 00:00: 04:59 [place] 00 :00 Medical Branch Blood-Gluco 2021-10- No Use as Uni vers se Meter 007-19 instructed ity of Kit 00:00: 04:59 [place] 00 :00 Medical Branch Blood-Gluco 2021-10- No Use as Uni vers se Meter 007-19 instructed ity of Kit 00:00: 04:59 [place] 00 :00 Medical Branch Blood-Gluco 2021-10- No Use as Uni vers se Meter 007-19 instructed ity of Kit 00:00: 04:59 [place] 00 :00 Medical Branch Blood-Gluco 2021-10- No Use as Uni vers se Meter 007-19 instructed ity of Kit 00:00: 04:59 [place] 00 :00 Medical Branch Blood-Gluco 2021-10- No Use as Uni vers se Meter 007-19 instructed ity of Kit 00:00: 04:59 [place] 00 :00 Medical Branch Blood-Gluco 2021-10- No Use as Uni vers se Meter 007-19 instructed ity of Kit 00:00: 04:59 [place] 00 :00 Medical Branch Blood-Gluco 2021-10- No Use as Uni vers se Meter 007-19 instructed ity of Kit 00:00: 04:59 [place] 00 :00 Medical Branch Blood-Gluco 2021-10- No Use as Uni vers se Meter 007-19 instructed ity of Kit 00:00: 04:59 [place] 00 :00 Medical Branch Blood-Gluco 2021-10- No Use as Uni vers se Meter 007-19 instructed ity of Kit 00:00: 04:59 [place] 00 :00 Medical Branch Blood-Gluco 2021-10- No Use as Uni vers se Meter 007-19 instructed ity of Kit 00:00: 04:59 [place] 00 :00 Medical Branch Blood-Gluco 2021-10- No Use as Uni vers se Meter 007-19 instructed ity of Kit 00:00: 04:59 [place] 00 :00 Medical Branch blood-gluco 2021-2022- No [id number] Use as Methodi se meter 07-[address] kit 00:00: 04:59 [facility]osp[facility] 00 :00 l FREESTYLE 2021-10- No USE Unive rs LITE METER 01-05 INSTRUCTED it y of Kit 00:00: 00:00 [place] 00 :00 [facility] Blood-Gluco 2021-10- No Use as Uni vers se Meter 01-05 instructed ity of Kit 00:00: 00:00 [place] 00 :00 Medical Branch FREESTYLE 2021-10- No USE Unive rs LITE METER 01-05 INSTRUCTED it y of Kit 00:00: 00:00 [place] 00 :00 [facility] Blood-Gluco 2021-10- No Use as Uni vers se Meter 01-05 instructed ity of Kit 00:00: 00:00 [place] 00 :00 [facility] Lactobacill 2021-10- No 1{tbl} Q.[id number] Take 1 Methodi us 08-[id number] acidoph-L.b 00:00: 05:59 3D mouth 3 Ho spita ulgar 00 :00 (three) l (FLORANEX) times a 1 million day for 30 cell tablet days. pantoprazol 2021-10 No 40mg QD Take 1 Met hodi e 08-18 tablet (40 st (Protonix) 00:00: 05:59 mg total) H ospita 40 MG EC 00 :00 by mouth l tablet daily for 30 days. acetaminoph 2021-10- No [id number] 1{tbl} Q6H Take 1 Methodi en-codeine 07-[address] (TYLENOL 00:00: 04:59 mouth Hospita WITH 00 :00 every 6 l CODEINE #3) (six) 300-30 mg hours as per tablet needed for severe pain for up to 5 days .acute pain. MELOXICAM 2021-10 Yes [id number] TAKE 1 Un ayanna 7.5 mg 0-06 TABLET BY ity of tablet 00:00: MOUTH [place] 00 EVERY DAY Medical IN THE Branch MORNING MELOXICAM 2021-10 Yes [id number] TAKE 1 Un ayanna 7.5 mg 0-06 TABLET BY ity of tablet 00:00: MOUTH [place] 00 EVERY DAY Medical IN THE [facility] lubiproston 2021-10 Yes [id number] 8ug Take 1 Univers e (AMITIZA) 0-06 capsule by it y of 8 mcg 00:00: mouth [place] capsule 00 daily with Medica l breakfast. [place] [facility] MELOXICAM 2021-10 Yes [id number] TAKE 1 Un ayanna 7.5 mg 0-06 TABLET BY ity of tablet 00:00: MOUTH [place] 00 EVERY DAY Medical IN THE [facility] lubiproston 2021-10 Yes [id number] 8ug Take 1 Univers e (AMITIZA) 0-06 capsule by it y of 8 mcg 00:00: mouth [place] capsule 00 daily with Medica l breakfast. [place] MELOXICAM 2021-10 Yes [id number] TAKE 1 Un ayanna 7.5 mg 0-06 TABLET BY ity of tablet 00:00: MOUTH [place] 00 EVERY DAY Medical IN THE [facility] MELOXICAM 2021-10- No [id number] TAKE 1 U nivers 7.5 mg 0-06 11-29 TABLET BY ity of tablet 00:00: 00:00 MOUTH [place] 00 :00 EVERY DAY Medical IN THE [facility] ondansetron 2021-10- No [id number] 4mg Take 1 Univers (ZOFRAN) 4 0-06 11-06 tablet by ity of mg tablet 00:00: 04:59 mouth [place] 00 :00 every 8 Medical (eight) Branch hours as needed for Nausea and Vomiting (N/V) for up to 30 days. ondansetron 2021-10- No [id number] 4mg Take 1 Univers (ZOFRAN) 4 0-06 11-06 tablet by ity of mg tablet 00:00: 04:59 mouth [place] 00 :00 every 8 Medical (eight) Branch hours as needed for Nausea and Vomiting (N/V) for up to 30 days. ondansetron 2021-10- No [id number] 4mg Take 1 Univers (ZOFRAN) 4 0-06 11-06 tablet by ity of mg tablet 00:00: 04:59 mouth [place] 00 :00 every 8 Medical (eight) Branch hours as needed for Nausea and Vomiting (N/V) for up to 30 days. lubiproston 2021-10- No [id number] 8ug Take 1 Univers e (AMITIZA) 0-06 11- capsule by i ty of 8 mcg 00:00: 00:00 mouth [place] capsule 00 :00 daily with Medica l breakfast. Branch meloxicam Yes [id number] 7.5mg Take 1 U nivers 7.5 mg 8-11 tablet by ity of tablet 00:00: mouth in [place] 00 the Medical morning. Branch meloxicam Yes [id number] 7.5mg Take 1 U nivers 7.5 mg 8-11 tablet by ity of tablet 00:00: mouth in [place] 00 the Medical morning. Branch meloxicam 2021- No [id number] 7.5mg Take 1 Univers 7.5 mg 8-11 - tablet by ity of tablet 00:00: 00:00 mouth in [place] 00 :00 the Medical morning. Branch ASPIRIN 81 0 Yes [id number] TAKE 1 Univers mg EC 8-05 02 TABLET BY ity of tablet 00:00: MOUTH [place] 00 EVERY DAY Medical Branch ASPIRIN 81 0 Yes [id number] TAKE 1 Univers mg EC 8-05 02 TABLET BY ity of tablet 00:00: MOUTH [place] 00 EVERY DAY Medical Branch ASPIRIN 81 2021-0 Yes [id number] TAKE 1 Univers mg EC 8-05 02 TABLET BY ity of tablet 00:00: MOUTH [place] 00 EVERY DAY Medical Branch ASPIRIN 81 2021-0 Yes [id number] TAKE 1 Univers mg EC 8-05 02 TABLET BY ity of tablet 00:00: MOUTH [place] 00 EVERY DAY Medical Branch ASPIRIN 81 2021-0 Yes [id number] TAKE 1 Univers mg EC 8-05 02 TABLET BY ity of tablet 00:00: MOUTH [place] 00 EVERY DAY Medical Branch ASPIRIN 81 2021-0 Yes [id number] TAKE 1 Univers mg EC 8-05 02 TABLET BY ity of tablet 00:00: MOUTH [place] 00 EVERY DAY Medical Branch ASPIRIN 81 2021-0 Yes [id number] TAKE 1 Univers mg EC 8-05 02 TABLET BY ity of tablet 00:00: MOUTH [place] 00 EVERY DAY Medical Branch ASPIRIN 81 2021-0 2021- No [id number] TAKE 1 Univers mg EC 8-05 12-05 02 TABLET BY ity of tablet 00:00: 00:00 MOUTH [place] 00 :00 EVERY DAY Medical Branch flash 0 Yes [id number] 1{each} Q14D 1 each Me thodi glucose 6-[address] sensor 00:00: (fourteen) Hospi ta (FreeStyle 00 days. l Jose 14 Apply new Day Sensor) sensor to kit upper arm once every 14 days Dx: E11.65 nystatin-tr 2022- No [id number] Q.5D Apply Methodi iamcinolone 6- 06-[address] (MYCOLOG) 00:00: 04:59 2 (two) [facility] [place] 100,000-0.1 00 :00 times a l unit/gram-% day. ointment alum-mag Yes 30mL Q.[id number] Take 30 mL Methodi hydroxide-s 5-[id number] mouth [address] imeth 00:00: 3D (three) Hospita (MAALOX 00 times a l PLUS) day as 200-200-20 needed for mg/5 mL heartburn. suspension dicyclomine Yes 20mg Q.40280809 Take 1 Methodi (BENTYL) 20 5-25 [id number] tablet (20 st mg tablet 00:00: 3D mg total) Hos maksim 00 by mouth 3 l (three) times a day as needed (abdominal pain). ondansetron 2021- No 4mg Q8H Take 1 Met hodi (Zofran) 4 5-25 06-25 tablet (4 st MG tablet 00:00: 04:59 mg total) Ho spita 00 :00 by mouth l every 8 (eight) hours as needed for nausea or vomiting for up to 30 days. omeprazole 2021- No 40mg QD Take 1 Meth billy (PriLOSEC) 5-20 07-[address] 40 MG 00:00: 04:59 (40 mg Hospita capsule 00 :00 total) by l mouth daily for 60 days. sodium,pota 2021- No [id number] Drink 1 Methodi ssium,mag 5-17 05-[address] sulfates 00:00: 00:00 dissolved Hos maksim (Suprep 00 :00 in water l Bowel Prep twice a Kit) day as 17.5-3.13-1 directed .6 gram recon soln bisacodyL 2021- No [id number] 20mg Take 4 Methodi (Dulcolax, 02-21-[address] bisacodyl,) 00:00: 04:59 (20 mg Hos maksim 5 mg EC 00 :00 total) by l tablet mouth once for 1 dose. Take at 3 pm day prior to procedure insulin 2021- No Q.[id number] Inject M ethodi aspart, 02-[id number] niacinamide 16:16: 00:00 3D skin 3 Hos maksim , (FIASP 26 :00 (three) l U-100 times a INSULIN day before SUBQ) meals. Use per sliding scale insulin 2021- No 40U QD Inject 40 Meth billy glargine,hu 02-20-[address] .rec.anlog 16:16: 00:00 under the Hospita (BASAGLAR 23 :00 skin every l KWIKPEN morning. U-100 INSULIN SUBQ) furosemide 2021- No 10mg QD Take 0.5 Me thodi (Lasix) 20 02-20-[address] mg tablet 00:00: 00:00 (10 mg Hospi ta 00 :00 total) by l mouth daily. sertraline Yes 150mg Take [address] (ZOLOFT) 4-17 [facility] MG 19:47: mouth. Medical tablet 35 [place] atorvastati Yes 40mg QD Take [address] [facility] [facility] (LIPITOR) 4-17 by mouth Luke [facility] 40 MG 19:47: daily. Medical tablet 35 [place] lisinopriL Yes 10mg QD Take [address] (PRINIVIL,Z 4-17 by mouth Luke s ESTRIL) 10 19:47: daily. Medic al MG tablet 35 [place] furosemide Yes 10mg QD Take [address] (LASIX 4-17 by mouth [facility] ORAL) 19:47: daily. Medical [address] [place] [address] semaglutide 2021- No Inject [facility] (OZEMPIC 4-17 04-17 subcutaneo Luke s SUBQ) 12:23: 00:00 usly. Medical 51 :00 Center insulin 0 2021- No 40U QD Inject [address] glargine -17 04-17 Units [facility] (Basaglar 12:22: 00:00 subcutaneo M edical KwikPen 15 :00 usly Center U-100 daily. Insulin) 100 unit/mL (3 mL) In insulin 2021- No Inject [facility] aspart, -17 04-17 [facility] niacinamide 12:22: 00:00 usly 3 Med ical , (Fiasp 15 :00 (three) Center FlexTouch times U-100 daily as Insulin) needed. 100 unit/mL (3 mL) In semaglutide Yes 1mg Q7D Inject [facility] (Ozempic) 1 -17 0.75 mLs Luke s mg/dose (2 00:00: (1 mg Medica l mg/1.5 mL) 00 total) Center PnIj subcutaneo usly once a week Do NOT take unless blood sugars are persistent ly >160. aspirin 81 2021-0 Yes 81mg Take 1 Unive rs mg EC 3-25 tablet by ity of tablet 00:00: mouth. [address] aspirin 81 2021-0 Yes 81mg Take 1 Unive rs mg EC 3-25 tablet by ity of tablet 00:00: mouth. [address] aspirin 81 2021-0 Yes 81mg Take 1 Unive rs mg EC 3-25 tablet by ity of tablet 00:00: mouth. [address] aspirin 81 2021-0 Yes 81mg Take 1 Unive rs mg EC 3-25 tablet by ity of tablet 00:00: mouth. [address] aspirin 81 2021-0 Yes 81mg Take 1 Unive rs mg EC 3-25 tablet by ity of tablet 00:00: mouth. [address] aspirin 81 2-0 Yes 81mg Take 1 Unive rs mg EC 3-25 tablet by ity of tablet 00:00: mouth. [address] aspirin 81 2-0 Yes 81mg Take 1 Unive rs mg EC 3-25 tablet by ity of tablet 00:00: mouth. [address] aspirin 81 2021-0 Yes 81mg Take 1 Unive rs mg EC 3-25 tablet by ity of tablet 00:00: mouth. [place] [facility] Branch aspirin 81 0 Yes 81mg Take 1 Unive rs mg EC 3-25 tablet by ity of tablet 00:00: mouth. [place] [facility] aspirin 81 2021-0 Yes 81mg Take 1 Unive rs mg EC 3-25 tablet by ity of tablet 00:00: mouth. [place] [facility] aspirin 81 2021-0 Yes 81mg Take 1 Unive rs mg EC 3-25 tablet by ity of tablet 00:00: mouth. [place] [facility] aspirin 81 2021-0 Yes 81mg Take 1 Unive rs mg EC 3-25 tablet by ity of tablet 00:00: mouth. [place] [facility] aspirin 81 2021-0 Yes 81mg Take 1 Unive rs mg EC 3-25 tablet by ity of tablet 00:00: mouth. [place] [facility] Branch aspirin 81 2021-0 Yes 81mg Take 1 Unive rs mg EC 3-25 tablet by ity of tablet 00:00: mouth. [place] [facility] aspirin 81 2021-0 Yes 81mg Take 1 Unive rs mg EC 3-25 tablet by ity of tablet 00:00: mouth. [address] aspirin 81 0 Yes 1{tbl} QD Take [address] MG EC 3-25 tablet by [facility] tablet 00:00: mouth Medical 00 daily. Center potassium Yes 10meq QD Take 10 Meth billy chloride 3-[address] (K-DUR) 10 00:00: mouth Hospit a MEQ CR 00 daily. l tablet with food - Ozempic (1 Ozempic (2021- No Ozempic (1 MG/DOSE) 4 MG/DOSE) 4 3-18 06-16 MG/DOSE) 4 MG/3ML MG/3ML 00:00: 00:00 MG/3ML 00 :00 Ozempic (1 Ozempic (2021- No Ozempic (1 MG/DOSE) 4 MG/DOSE) 4 3-18 06-16 MG/DOSE) 4 MG/3ML MG/3ML 00:00: 00:00 MG/3ML 00 :00 Ozempic 1 2021-2021- No Q7D Inject Metho di mg/dose (4 3-18 05-[address] mg/3 mL) 00:00: 00:00 skin once Hos maksim subcutaneou 00 :00 a week. l s pen PANTOPRAZOL 2021-0 Yes [id number] TAKE 1 Univers E 40 mg EC 2-07 TABLET BY ity of tablet 00:00: MOUTH [place] 00 EVERY DAY Medical Branch PANTOPRAZOL 2021-0 Yes [id number] TAKE 1 Univers E 40 mg EC 2-07 TABLET BY ity of tablet 00:00: MOUTH [place] 00 EVERY DAY Medical Branch PANTOPRAZOL 2021-0 Yes [id number] TAKE 1 Univers E 40 mg EC 2-07 TABLET BY ity of tablet 00:00: MOUTH [place] 00 EVERY DAY Medical Branch PANTOPRAZOL 2021-0 Yes [id number] TAKE 1 Univers E 40 mg EC 2-07 TABLET BY ity of tablet 00:00: MOUTH [place] 00 EVERY DAY Medical Branch PANTOPRAZOL 2021-0 Yes [id number] TAKE 1 Univers E 40 mg EC 2-07 TABLET BY ity of tablet 00:00: MOUTH [place] 00 EVERY DAY Medical Branch PANTOPRAZOL 2021-0 Yes [id number] TAKE 1 Univers E 40 mg EC 2-07 TABLET BY ity of tablet 00:00: MOUTH [place] 00 EVERY DAY Medical Branch PANTOPRAZOL 2021-0 Yes [id number] TAKE 1 Univers E 40 mg EC 2-07 TABLET BY ity of tablet 00:00: MOUTH [place] 00 EVERY DAY Medical Branch PANTOPRAZOL 2021-0 Yes [id number] TAKE 1 Univers E 40 mg EC 2-07 TABLET BY ity of tablet 00:00: MOUTH [place] 00 EVERY DAY Medical Branch PANTOPRAZOL 2021-0 Yes [id number] TAKE 1 Univers E 40 mg EC 2-07 TABLET BY ity of tablet 00:00: MOUTH [place] 00 EVERY DAY Medical Branch PANTOPRAZOL 2021-0 Yes [id number] TAKE 1 Univers E 40 mg EC 2-07 TABLET BY ity of tablet 00:00: MOUTH [place] 00 EVERY DAY Medical Branch PANTOPRAZOL 2021-0 Yes [id number] TAKE 1 Univers E 40 mg EC 2-07 TABLET BY ity of tablet 00:00: MOUTH [place] 00 EVERY DAY Medical Branch PANTOPRAZOL 2021-0 Yes [id number] TAKE 1 Univers E 40 mg EC 2-07 TABLET BY ity of tablet 00:00: MOUTH [place] 00 EVERY DAY Medical Branch PANTOPRAZOL 2022-0 Yes [id number] TAKE 1 Univers E 40 mg EC 2-07 TABLET BY ity of tablet 00:00: MOUTH [place] 00 EVERY DAY Medical Branch PANTOPRAZOL 2021-0 Yes [id number] TAKE 1 Univers E 40 mg EC 2-07 TABLET BY ity of tablet 00:00: MOUTH [place] 00 EVERY DAY Medical Branch PANTOPRAZOL 2021-0 Yes [id number] TAKE 1 Univers E 40 mg EC 2-07 TABLET BY ity of tablet 00:00: MOUTH [place] 00 EVERY DAY Medical Branch PANTOPRAZOL 2021-0 Yes [id number] TAKE 1 Univers E 40 mg EC 2-07 TABLET BY ity of tablet 00:00: MOUTH [place] 00 EVERY DAY Medical Branch PANTOPRAZOL 2021-0 Yes [id number] TAKE 1 Univers E 40 mg EC 2-07 TABLET BY ity of tablet 00:00: MOUTH [place] 00 EVERY DAY Medical Branch PANTOPRAZOL 2021-0 Yes [id number] TAKE 1 Univers E 40 mg EC 2-07 TABLET BY ity of tablet 00:00: MOUTH [place] 00 EVERY DAY Medical Branch PANTOPRAZOL 2021-0 Yes [id number] TAKE 1 Univers E 40 mg EC 2-07 TABLET BY ity of tablet 00:00: MOUTH [place] 00 EVERY DAY Medical Branch PANTOPRAZOL 2021-0 Yes [id number] TAKE 1 Univers E 40 mg EC 2-07 TABLET BY ity of tablet 00:00: MOUTH [place] 00 EVERY DAY Medical Branch PANTOPRAZOL 2021-0 Yes [id number] TAKE 1 Univers E 40 mg EC 2-07 TABLET BY ity of tablet 00:00: MOUTH [place] 00 EVERY DAY Medical Branch PANTOPRAZOL 2-0 Yes [id number] TAKE 1 Univers E 40 mg EC 2-07 TABLET BY ity of tablet 00:00: MOUTH [place] 00 EVERY DAY Medical Branch PANTOPRAZOL 2021-0 Yes [id number] TAKE 1 Univers E 40 mg EC 2-07 TABLET BY ity of tablet 00:00: MOUTH [place] 00 EVERY DAY Medical Branch PANTOPRAZOL 202-0 Yes [id number] TAKE 1 Univers E 40 mg EC 2-07 TABLET BY ity of tablet 00:00: MOUTH [place] 00 EVERY DAY Medical Branch PANTOPRAZOL 2021-0 Yes [id number] TAKE 1 Univers E 40 mg EC 2-07 TABLET BY ity of tablet 00:00: MOUTH [place] 00 EVERY DAY Medical Branch pantoprazol 0 Yes 1{tbl} QD Take [address] e 2-07 tablet by Luis (PROTONIX) 00:00: mouth Medica l 40 MG 00 daily. Center tablet PANTOPRAZOL 0 2023- No [id number] TAKE 1 Univers E 40 mg EC 2-07 01-30 TABLET BY ity of tablet 00:00: 00:00 MOUTH [place] 00 :00 EVERY DAY Medical Branch FREESTYLE 1 Yes [id number] USE 1 KIT Univers JOSE 2 0-04 EVERY 14 ity of SENSOR Kit 00:00: DAY [place] [facility] FREESTYLE 2020-10 Yes [id number] USE 1 KIT Univers JOSE 2 0-04 EVERY 14 ity of SENSOR Kit 00:00: DAY [place] [facility] FREESTYLE 1 Yes [id number] USE 1 KIT Univers JOSE 2 0-04 EVERY 14 ity of SENSOR Kit 00:00: DAY [place] [facility] FREESTYLE 2020-1 Yes [id number] USE 1 KIT Univers JOSE 2 0-04 EVERY 14 ity of SENSOR Kit 00:00: DAY [place] [facility] FREESTYLE 1 Yes [id number] USE 1 KIT Univers JOSE 2 0-04 EVERY 14 ity of SENSOR Kit 00:00: DAY [place] [facility] FREESTYLE 1 Yes [id number] USE 1 KIT Univers JOSE 2 0-04 EVERY 14 ity of SENSOR Kit 00:00: DAY [place] [facility] FREESTYLE 2020-1 Yes [id number] USE 1 KIT Univers JOSE 2 0-04 EVERY 14 ity of SENSOR Kit 00:00: DAY [place] [facility] FREESTYLE 2020-1 Yes [id number] USE 1 KIT Univers JOSE 2 0-04 EVERY 14 ity of SENSOR Kit 00:00: DAY [place] [facility] FREESTYLE 2020-1 Yes [id number] USE 1 KIT Univers JOSE 2 0-04 EVERY 14 ity of SENSOR Kit 00:00: DAY [place] [facility] FREESTYLE 2020-1 Yes [id number] USE 1 KIT Univers JOSE 2 0-04 EVERY 14 ity of SENSOR Kit 00:00: DAY [place] 00 Medical Branch FREESTYLE 2020-10 Yes [id number] USE 1 KIT Univers JOSE 2 0-04 EVERY 14 ity of SENSOR Kit 00:00: DAY Medical Branch FREESTYLE 2020-10 Yes [id number] USE 1 KIT Univers JOSE 2 0-04 EVERY 14 ity of SENSOR Kit 00:00: DAY Medical Branch FREESTYLE 2020-10 Yes [id number] USE 1 KIT Univers JOSE 2 0-04 EVERY 14 ity of SENSOR Kit 00:00: DAY Medical Branch FREESTYLE 2020-10 Yes [id number] USE 1 KIT Univers JOSE 2 0-04 EVERY 14 ity of SENSOR Kit 00:00: DAY [place] [facility] FREESTYLE 2020-10 Yes [id number] USE 1 KIT Univers JOSE 2 0-04 EVERY 14 ity of SENSOR Kit 00:00: DAY [place] [facility] FREESTYLE 2020-2022- No [id number] USE 1 KIT Univers JOSE 2 0-04 01-06 EVERY 14 ity of SENSOR Kit 00:00: 00:00 DAY [place] 00 :00 Medical Branch FREESTYLE 2020-10- No [id number] USE 1 KIT Univers JOSE 2 0-04 01-06 EVERY 14 ity of SENSOR Kit 00:00: 00:00 DAY [place] 00 :00 Medical Branch BASAGLAR 0 Yes [id number] INJECT Un ayanna KWIKPEN 7-14 UNDER THE ity of U-100 00:00: SKIN 40 [place] INSULIN 100 00 UNITS Medical unit/mL (3 DAILY Branch mL) injection BASAGLAR 0 Yes [id number] INJECT Un ayanna KWIKPEN 7-14 UNDER THE ity of U-100 00:00: SKIN 40 [place] INSULIN 100 00 UNITS Medical unit/mL (3 DAILY Branch mL) injection BASAGLAR Yes [id number] INJECT Un ayanna KWIKPEN 7-14 UNDER THE ity of U-100 00:00: SKIN 40 [place] INSULIN 100 00 UNITS Medical unit/mL (3 DAILY Branch mL) injection BASAGLAR Yes [id number] INJECT Un ayanna KWIKPEN 7-14 UNDER THE ity of U-100 00:00: SKIN 40 [place] INSULIN 100 00 UNITS Medical unit/mL (3 DAILY Branch mL) injection BASAGLAR Yes [id number] INJECT Un ayanna KWIKPEN 7-14 UNDER THE ity of U-100 00:00: SKIN 40 [place] INSULIN 100 00 UNITS Medical unit/mL (3 DAILY Branch mL) injection BASAGLAR Yes [id number] INJECT Un ayanna KWIKPEN 7-14 UNDER THE ity of U-100 00:00: SKIN 40 [place] INSULIN 100 00 UNITS Medical unit/mL (3 DAILY Branch mL) injection BASAGLAR Yes [id number] INJECT Un ayanna KWIKPEN 7-14 UNDER THE ity of U-100 00:00: SKIN 40 [place] INSULIN 100 00 UNITS Medical unit/mL (3 DAILY Branch mL) injection BASAGLAR Yes [id number] INJECT Un ayanna KWIKPEN 7-14 UNDER THE ity of U-100 00:00: SKIN 40 [place] INSULIN 100 00 UNITS Medical unit/mL (3 DAILY Branch mL) injection BASAGLAR Yes [id number] INJECT Un ayanna KWIKPEN 7-14 UNDER THE ity of U-100 00:00: SKIN 40 [place] INSULIN 100 00 UNITS Medical unit/mL (3 DAILY Branch mL) injection BASAGLAR Yes [id number] INJECT Un ayanna KWIKPEN 7-14 UNDER THE ity of U-100 00:00: SKIN 40 [place] INSULIN 100 00 UNITS Medical unit/mL (3 DAILY Branch mL) injection BASAGLAR Yes [id number] INJECT Un ayanna KWIKPEN 7-14 UNDER THE ity of U-100 00:00: SKIN 40 [place] INSULIN 100 00 UNITS Medical unit/mL (3 DAILY Branch mL) injection BASAGLAR Yes [id number] INJECT Un ayanna KWIKPEN 7-14 UNDER THE ity of U-100 00:00: SKIN 40 [place] INSULIN 100 00 UNITS Medical unit/mL (3 DAILY Branch mL) injection BASAGLAR Yes [id number] INJECT Un ayanna KWIKPEN 7-14 UNDER THE ity of U-100 00:00: SKIN 40 [place] INSULIN 100 00 UNITS Medical unit/mL (3 DAILY Branch mL) injection BASAGLAR Yes [id number] INJECT Un ayanna KWIKPEN 7-14 UNDER THE ity of U-100 00:00: SKIN 40 [place] INSULIN 100 00 UNITS Medical unit/mL (3 DAILY Branch mL) injection BASAGLAR Yes [id number] INJECT Un ayanna KWIKPEN 7-14 UNDER THE ity of U-100 00:00: SKIN 40 [place] INSULIN 100 00 UNITS Medical unit/mL (3 DAILY Branch mL) injection BASAGLAR 3- No [id number] INJECT U nivers KWIKPEN 7-14 10-13 UNDER THE ity of U-100 00:00: 00:00 SKIN 40 [place] INSULIN 100 00 :00 UNITS Medical unit/mL (3 DAILY Branch mL) injection BASAGLAR 2022- No [id number] INJECT U nivers KWIKPEN 7-14 10-13 UNDER THE ity of U-100 00:00: 00:00 SKIN 40 [place] INSULIN 100 00 :00 UNITS Medical unit/mL (3 DAILY Branch mL) injection FIASP Yes [id number] 4U INJECT Unive rs FLEXTOUCH 6-03 4-14 UNITS ity of U-100 00:00: UNDER THE [place] INSULIN 100 00 SKIN 3 Medica l unit/mL (3 (THREE) Branch mL) InPn TIMES DAILY BEFORE MEALS. FIASP Yes [id number] 4U INJECT Unive rs FLEXTOUCH 6-03 4-14 UNITS ity of U-100 00:00: UNDER THE [place] INSULIN 100 00 SKIN 3 Medica l unit/mL (3 (THREE) Branch mL) InPn TIMES DAILY BEFORE MEALS. FIASP Yes [id number] 4U INJECT Unive rs FLEXTOUCH 6-03 4-14 UNITS ity of U-100 00:00: UNDER THE [place] INSULIN 100 00 SKIN 3 Medica l unit/mL (3 (THREE) Branch mL) InPn TIMES DAILY BEFORE MEALS. FIASP Yes [id number] 4U INJECT Unive rs FLEXTOUCH 6-03 4-14 UNITS ity of U-100 00:00: UNDER THE [place] INSULIN 100 00 SKIN 3 Medica l unit/mL (3 (THREE) Branch mL) InPn TIMES DAILY BEFORE MEALS. FIASP Yes [id number] 4U INJECT Unive rs FLEXTOUCH 6-03 4-14 UNITS ity of U-100 00:00: UNDER THE [place] INSULIN 100 00 SKIN 3 Medica l unit/mL (3 (THREE) Branch mL) InPn TIMES DAILY BEFORE MEALS. FIASP Yes [id number] 4U INJECT Unive rs FLEXTOUCH 6-03 4-14 UNITS ity of U-100 00:00: UNDER THE [place] INSULIN 100 00 SKIN 3 Medica l unit/mL (3 (THREE) Branch mL) InPn TIMES DAILY BEFORE MEALS. FIASP Yes [id number] 4U INJECT Unive rs FLEXTOUCH 6-03 4-14 UNITS ity of U-100 00:00: UNDER THE [place] INSULIN 100 00 SKIN 3 Medica l unit/mL (3 (THREE) Branch mL) InPn TIMES DAILY BEFORE MEALS. FIASP Yes [id number] 4U INJECT Unive rs FLEXTOUCH 6-03 4-14 UNITS ity of U-100 00:00: UNDER THE [place] INSULIN 100 00 SKIN 3 Medica l unit/mL (3 (THREE) Branch mL) InPn TIMES DAILY BEFORE MEALS. FIASP Yes [id number] 4U INJECT Unive rs FLEXTOUCH 6-03 4-14 UNITS ity of U-100 00:00: UNDER THE [place] INSULIN 100 00 SKIN 3 Medica l unit/mL (3 (THREE) Branch mL) InPn TIMES DAILY BEFORE MEALS. FIASP Yes [id number] 4U INJECT Unive rs FLEXTOUCH 6-03 4-14 UNITS ity of U-100 00:00: UNDER THE [place] INSULIN 100 00 SKIN 3 Medica l unit/mL (3 (THREE) Branch mL) InPn TIMES DAILY BEFORE MEALS. FIASP Yes [id number] 4U INJECT Unive rs FLEXTOUCH 6-03 4-14 UNITS ity of U-100 00:00: UNDER THE [place] INSULIN 100 00 SKIN 3 Medica l unit/mL (3 (THREE) Branch mL) InPn TIMES DAILY BEFORE MEALS. FIASP Yes [id number] 4U INJECT Unive rs FLEXTOUCH 6-03 4-14 UNITS ity of U-100 00:00: UNDER THE [place] INSULIN 100 00 SKIN 3 Medica l unit/mL (3 (THREE) Branch mL) InPn TIMES DAILY BEFORE MEALS. FIASP Yes [id number] 4U INJECT Unive rs FLEXTOUCH 6-03 4-14 UNITS ity of U-100 00:00: UNDER THE [place] INSULIN 100 00 SKIN 3 Medica l unit/mL (3 (THREE) Branch mL) InPn TIMES DAILY BEFORE MEALS. FIASP Yes [id number] 4U INJECT Unive rs FLEXTOUCH 6-03 4-14 UNITS ity of U-100 00:00: UNDER THE [place] INSULIN 100 00 SKIN 3 Medica l unit/mL (3 (THREE) Branch mL) InPn TIMES DAILY BEFORE MEALS. FIASP Yes [id number] 4U INJECT Unive rs FLEXTOUCH 6-03 4-14 UNITS ity of U-100 00:00: UNDER THE [place] INSULIN 100 00 SKIN 3 Medica l unit/mL (3 (THREE) Branch mL) InPn TIMES DAILY BEFORE MEALS. FIASP Yes [id number] 4U INJECT Unive rs FLEXTOUCH 6-03 4-14 UNITS ity of U-100 00:00: UNDER THE [place] INSULIN 100 00 SKIN 3 Medica l unit/mL (3 (THREE) Branch mL) InPn TIMES DAILY BEFORE MEALS. FIASP Yes [id number] 4U INJECT Unive rs FLEXTOUCH 6-03 4-14 UNITS ity of U-100 00:00: UNDER THE [place] INSULIN 100 00 SKIN 3 Medica l unit/mL (3 (THREE) Branch mL) InPn TIMES DAILY BEFORE MEALS. FIASP Yes [id number] 4U INJECT Unive rs FLEXTOUCH 6-03 4-14 UNITS ity of U-100 00:00: UNDER THE [place] INSULIN 100 00 SKIN 3 Medica l unit/mL (3 (THREE) Branch mL) InPn TIMES DAILY BEFORE MEALS. FIASP Yes [id number] 4U INJECT Unive rs FLEXTOUCH 6-03 4-14 UNITS ity of U-100 00:00: UNDER THE [place] INSULIN 100 00 SKIN 3 Medica l unit/mL (3 (THREE) Branch mL) InPn TIMES DAILY BEFORE MEALS. FIASP Yes [id number] 4U INJECT Unive rs FLEXTOUCH 6-03 4-14 UNITS ity of U-100 00:00: UNDER THE [place] INSULIN 100 00 SKIN 3 Medica l unit/mL (3 (THREE) Branch mL) InPn TIMES DAILY BEFORE MEALS. FIASP Yes [id number] 4U INJECT Unive rs FLEXTOUCH 6-03 4-14 UNITS ity of U-100 00:00: UNDER THE [place] INSULIN 100 00 SKIN 3 Medica l unit/mL (3 (THREE) Branch mL) InPn TIMES DAILY BEFORE MEALS. FIASP Yes [id number] 4U INJECT Unive rs FLEXTOUCH 6-03 4-14 UNITS ity of U-100 00:00: UNDER THE [place] INSULIN 100 00 SKIN 3 Medica l unit/mL (3 (THREE) Branch mL) InPn TIMES DAILY BEFORE MEALS. FIASP Yes [id number] 4U INJECT Unive rs FLEXTOUCH 6-03 4-14 UNITS ity of U-100 00:00: UNDER THE [place] INSULIN 100 00 SKIN 3 Medica l unit/mL (3 (THREE) Branch mL) InPn TIMES DAILY BEFORE MEALS. FIASP Yes [id number] 4U INJECT Unive rs FLEXTOUCH 6-03 4-14 UNITS ity of U-100 00:00: UNDER THE [place] INSULIN 100 00 SKIN 3 Medica l unit/mL (3 (THREE) Branch mL) InPn TIMES DAILY BEFORE MEALS. FIASP Yes [id number] 4U INJECT Unive rs FLEXTOUCH 6-03 4-14 UNITS ity of U-100 00:00: UNDER THE [place] INSULIN 100 00 SKIN 3 Medica l unit/mL (3 (THREE) Branch mL) InPn TIMES DAILY BEFORE MEALS. FIASP Yes [id number] 4U INJECT Unive rs FLEXTOUCH 6-03 4-14 UNITS ity of U-100 00:00: UNDER THE [place] INSULIN 100 00 SKIN 3 Medica l unit/mL (3 (THREE) Branch mL) InPn TIMES DAILY BEFORE MEALS. FIASP Yes [id number] 4U INJECT Unive rs FLEXTOUCH 6-03 4-14 UNITS ity of U-100 00:00: UNDER THE [place] INSULIN 100 00 SKIN 3 Medica l unit/mL (3 (THREE) Branch mL) InPn TIMES DAILY BEFORE MEALS. FIASP Yes [id number] 4U INJECT Unive rs FLEXTOUCH 6-03 4-14 UNITS ity of U-100 00:00: UNDER THE [place] INSULIN 100 00 SKIN 3 Medica l unit/mL (3 (THREE) Branch mL) InPn TIMES DAILY BEFORE MEALS. FIASP Yes [id number] 4U INJECT Unive rs FLEXTOUCH 6-03 4-14 UNITS ity of U-100 00:00: UNDER THE [place] INSULIN 100 00 SKIN 3 Medica l unit/mL (3 (THREE) Branch mL) InPn TIMES DAILY BEFORE MEALS. FIASP Yes [id number] 4U INJECT Unive rs FLEXTOUCH 6-03 4-14 UNITS ity of U-100 00:00: UNDER THE [place] INSULIN 100 00 SKIN 3 Medica l unit/mL (3 (THREE) Branch mL) InPn TIMES DAILY BEFORE MEALS. FIASP Yes [id number] 4U INJECT Unive rs FLEXTOUCH 6-03 4-14 UNITS ity of U-100 00:00: UNDER THE [place] INSULIN 100 00 SKIN 3 Medica l unit/mL (3 (THREE) Branch mL) InPn TIMES DAILY BEFORE MEALS. FIASP Yes [id number] 4U INJECT Unive rs FLEXTOUCH 6-03 4-14 UNITS ity of U-100 00:00: UNDER THE [place] INSULIN 100 00 SKIN 3 Medica l unit/mL (3 (THREE) Branch mL) InPn TIMES DAILY BEFORE MEALS. FIASP Yes [id number] 4U INJECT Unive rs FLEXTOUCH 6-03 4-14 UNITS ity of U-100 00:00: UNDER THE [place] INSULIN 100 00 SKIN 3 Medica l unit/mL (3 (THREE) Branch mL) InPn TIMES DAILY BEFORE MEALS. FIASP Yes [id number] 4U INJECT Unive rs FLEXTOUCH 6-03 4-14 UNITS ity of U-100 00:00: UNDER THE [place] INSULIN 100 00 SKIN 3 Medica l unit/mL (3 (THREE) Branch mL) InPn TIMES DAILY BEFORE MEALS. FIASP Yes [id number] 4U INJECT Unive rs FLEXTOUCH 6-03 4-14 UNITS ity of U-100 00:00: UNDER THE [place] INSULIN 100 00 SKIN 3 Medica l unit/mL (3 (THREE) Branch mL) InPn TIMES DAILY BEFORE MEALS. FIASP Yes [id number] 4U INJECT Unive rs FLEXTOUCH 6-03 4-14 UNITS ity of U-100 00:00: UNDER THE [place] INSULIN 100 00 SKIN 3 Medica l unit/mL (3 (THREE) Branch mL) InPn TIMES DAILY BEFORE MEALS. FIASP Yes [id number] 4U INJECT Unive rs FLEXTOUCH 6-03 4-14 UNITS ity of U-100 00:00: UNDER THE [place] INSULIN 100 00 SKIN 3 Medica l unit/mL (3 (THREE) Branch mL) InPn TIMES DAILY BEFORE MEALS. FIASP Yes [id number] 4U INJECT Unive rs FLEXTOUCH 6-03 4-14 UNITS ity of U-100 00:00: UNDER THE [place] INSULIN 100 00 SKIN 3 Medica l unit/mL (3 (THREE) Branch mL) InPn TIMES DAILY BEFORE MEALS. FIASP Yes [id number] 4U INJECT Unive rs FLEXTOUCH 6-03 4-14 UNITS ity of U-100 00:00: UNDER THE [place] INSULIN 100 00 SKIN 3 Medica l unit/mL (3 (THREE) Branch mL) InPn TIMES DAILY BEFORE MEALS. FIASP Yes [id number] 4U INJECT Unive rs FLEXTOUCH 6-03 4-14 UNITS ity of U-100 00:00: UNDER THE [place] INSULIN 100 00 SKIN 3 Medica l unit/mL (3 (THREE) Branch mL) InPn TIMES DAILY BEFORE MEALS. FIASP Yes [id number] 4U INJECT Unive rs FLEXTOUCH 6-03 4-14 UNITS ity of U-100 00:00: UNDER THE [place] INSULIN 100 00 SKIN 3 Medica l unit/mL (3 (THREE) Branch mL) InPn TIMES DAILY BEFORE MEALS. FIASP Yes [id number] 4U INJECT Unive rs FLEXTOUCH 6-03 4-14 UNITS ity of U-100 00:00: UNDER THE [place] INSULIN 100 00 SKIN 3 Medica l unit/mL (3 (THREE) Branch mL) InPn TIMES DAILY BEFORE MEALS. FIASP Yes [id number] 4U INJECT Unive rs FLEXTOUCH 6-03 4-14 UNITS ity of U-100 00:00: UNDER THE [place] INSULIN 100 00 SKIN 3 Medica l unit/mL (3 (THREE) Branch mL) InPn TIMES DAILY BEFORE MEALS. FIASP Yes [id number] 4U INJECT Unive rs FLEXTOUCH 6-03 4-14 UNITS ity of U-100 00:00: UNDER THE [place] INSULIN 100 00 SKIN 3 Medica l unit/mL (3 (THREE) Branch mL) InPn TIMES DAILY BEFORE MEALS. FIASP Yes [id number] 4U INJECT Unive rs FLEXTOUCH 6-03 4-14 UNITS ity of U-100 00:00: UNDER THE [place] INSULIN 100 00 SKIN 3 Medica l unit/mL (3 (THREE) Branch mL) InPn TIMES DAILY BEFORE MEALS. FIASP Yes [id number] 4U INJECT Unive rs FLEXTOUCH 6-03 4-14 UNITS ity of U-100 00:00: UNDER THE [place] INSULIN 100 00 SKIN 3 Medica l unit/mL (3 (THREE) Branch mL) InPn TIMES DAILY BEFORE MEALS. FIASP Yes [id number] 4U INJECT Unive rs FLEXTOUCH 6-03 4-14 UNITS ity of U-100 00:00: UNDER THE [place] INSULIN 100 00 SKIN 3 Medica l unit/mL (3 (THREE) Branch mL) InPn TIMES DAILY BEFORE MEALS. FIASP Yes [id number] 4U INJECT Unive rs FLEXTOUCH 6-03 4-14 UNITS ity of U-100 00:00: UNDER THE [place] INSULIN 100 00 SKIN 3 Medica l unit/mL (3 (THREE) Branch mL) InPn TIMES DAILY BEFORE MEALS. FIASP Yes [id number] 4U INJECT Unive rs FLEXTOUCH 6-03 4-14 UNITS ity of U-100 00:00: UNDER THE [place] INSULIN 100 00 SKIN 3 Medica l unit/mL (3 (THREE) Branch mL) InPn TIMES DAILY BEFORE MEALS. FIASP Yes [id number] 4U INJECT Unive rs FLEXTOUCH 6-03 4-14 UNITS ity of U-100 00:00: UNDER THE [place] INSULIN 100 00 SKIN 3 Medica l unit/mL (3 (THREE) Branch mL) InPn TIMES DAILY BEFORE MEALS. FIASP Yes [id number] 4U INJECT Unive rs FLEXTOUCH 6-03 4-14 UNITS ity of U-100 00:00: UNDER THE [place] INSULIN 100 00 SKIN 3 Medica l unit/mL (3 (THREE) Branch mL) InPn TIMES DAILY BEFORE MEALS. FIASP Yes [id number] 4U INJECT Unive rs FLEXTOUCH 6-03 4-14 UNITS ity of U-100 00:00: UNDER THE [place] INSULIN 100 00 SKIN 3 Medica l unit/mL (3 (THREE) Branch mL) InPn TIMES DAILY BEFORE MEALS. FIASP Yes [id number] 4U INJECT Unive rs FLEXTOUCH 6-03 4-14 UNITS ity of U-100 00:00: UNDER THE [place] INSULIN 100 00 SKIN 3 Medica l unit/mL (3 (THREE) Branch mL) InPn TIMES DAILY BEFORE MEALS. FIASP Yes [id number] 4U INJECT Unive rs FLEXTOUCH 6-03 4-14 UNITS ity of U-100 00:00: UNDER THE [place] INSULIN 100 00 SKIN 3 Medica l unit/mL (3 (THREE) Branch mL) InPn TIMES DAILY BEFORE MEALS. FIASP Yes [id number] 4U INJECT Unive rs FLEXTOUCH 6-03 4-14 UNITS ity of U-100 00:00: UNDER THE [place] INSULIN 100 00 SKIN 3 Medica l unit/mL (3 (THREE) Branch mL) InPn TIMES DAILY BEFORE MEALS. FIASP Yes [id number] 4U INJECT Unive rs FLEXTOUCH 6-03 4-14 UNITS ity of U-100 00:00: UNDER THE [place] INSULIN 100 00 SKIN 3 Medica l unit/mL (3 (THREE) Branch mL) InPn TIMES DAILY BEFORE MEALS. FIASP Yes [id number] 4U INJECT Unive rs FLEXTOUCH 6-03 4-14 UNITS ity of U-100 00:00: UNDER THE [place] INSULIN 100 00 SKIN 3 Medica l unit/mL (3 (THREE) Branch mL) InPn TIMES DAILY BEFORE MEALS. KCL 10 mEq Yes [id number] TAKE 1 [facility] tablet 3-29 02 TABLET BY ity of 00:00: MOUTH [place] 00 EVERY DAY Medical Branch KCL 10 mEq 2021-0 Yes [id number] TAKE 1 [facility] tablet 01-03 TABLET BY ity of 00:00: MOUTH [place] 00 EVERY DAY Medical [facility] KCL 10 mEq 2020-0 Yes [id number] TAKE 1 [facility] tablet 01-03 TABLET BY ity of 00:00: MOUTH [place] 00 EVERY DAY Medical [facility] KCL 10 mEq 1-0 Yes [id number] TAKE 1 [facility] tablet 3 TABLET BY ity of 00:00: MOUTH [place] 00 EVERY DAY Medical Branch KCL 10 mEq 1-0 Yes [id number] TAKE 1 [facility] tablet 01-03 TABLET BY ity of 00:00: MOUTH [place] 00 EVERY DAY Medical [facility] KCL 10 mEq 1-0 Yes [id number] TAKE 1 [facility] tablet 01-03 TABLET BY ity of 00:00: MOUTH [place] 00 EVERY DAY Medical [facility] KCL 10 mEq 1-0 Yes [id number] TAKE 1 [facility] tablet 01-03 TABLET BY ity of 00:00: MOUTH [place] 00 EVERY DAY [facility] KCL 10 mEq 1-0 Yes [id number] TAKE 1 [facility] tablet 01-03 TABLET BY ity of 00:00: MOUTH [place] 00 EVERY DAY Medical [facility] KCL 10 mEq 2021-0 2022- No [id number] TAKE 1 [facility] tablet 01-03 TABLET BY ity of 00:00: 00:00 MOUTH [place] 00 :00 EVERY DAY Medical [facility] KCL 10 mEq 2021-0 2022- No [id number] TAKE 1 [facility] tablet 01-03 TABLET BY ity of 00:00: 00:00 MOUTH [place] 00 :00 EVERY DAY Medical [facility] KCL 10 mEq 2021-0 2022- No [id number] TAKE 1 [facility] tablet 01-03 TABLET BY ity of 00:00: 00:00 MOUTH [place] 00 :00 EVERY DAY Medical [facility] KCL 10 mEq 2021-0 2022- No [id number] TAKE 1 [facility] tablet 01-03 TABLET BY ity of 00:00: 00:00 MOUTH [place] 00 :00 EVERY DAY Medical [facility] KCL 10 mEq 2021-0 2022- No [id number] TAKE 1 [facility] tablet 01-03 TABLET BY ity of 00:00: 00:00 MOUTH [place] 00 :00 EVERY DAY [facility] furosemide 2021-0 Yes [id number] 40mg Take 1 [facility] (LASIX) 40 3-11 02 tablet by ity of mg tablet 00:00: mouth [place] 00 daily. [facility] SERTraline Yes [id number] 150mg Take 3 [facility] 50 mg 3-11 tablets by ity of tablet 00:00: mouth [place] 00 daily. [facility] atorvastati Yes [id number] 40mg Take 1 [facility] n 40 mg 3-11 tablet by ity of tablet 00:00: mouth at [place] 00 bedtime. [facility] furosemide Yes [id number] 40mg Take 1 [facility] (LASIX) 40 3-11 02 tablet by ity of mg tablet 00:00: mouth [place] 00 daily. [facility] SERTraline Yes [id number] 150mg Take 3 [facility] 50 mg 3-11 tablets by ity of tablet 00:00: mouth [place] 00 daily. [facility] atorvastati Yes [id number] 40mg Take 1 [facility] n 40 mg 3-11 tablet by ity of tablet 00:00: mouth at [place] 00 bedtime. [facility] furosemide Yes [id number] 40mg Take 1 [facility] (LASIX) 40 3-11 02 tablet by ity of mg tablet 00:00: mouth [place] 00 daily. [facility] SERTraline Yes [id number] 150mg Take 3 [facility] 50 mg 3-11 tablets by ity of tablet 00:00: mouth [place] 00 daily. [facility] atorvastati Yes [id number] 40mg Take 1 [facility] n 40 mg 3-11 tablet by ity of tablet 00:00: mouth at [place] 00 bedtime. [facility] furosemide Yes [id number] 40mg Take 1 [facility] (LASIX) 40 3-11 02 tablet by ity of mg tablet 00:00: mouth [place] 00 daily. [facility] SERTraline Yes [id number] 150mg Take 3 [facility] 50 mg 3-11 tablets by ity of tablet 00:00: mouth [place] 00 daily. [facility] atorvastati Yes [id number] 40mg Take 1 [facility] n 40 mg 3-11 tablet by ity of tablet 00:00: mouth at [place] 00 bedtime. [facility] furosemide Yes [id number] 40mg Take 1 [facility] (LASIX) 40 3-11 02 tablet by ity of mg tablet 00:00: mouth [place] 00 daily. [facility] SERTraline Yes [id number] 150mg Take 3 [facility] 50 mg 3-11 tablets by ity of tablet 00:00: mouth [place] 00 daily. [facility] atorvastati Yes [id number] 40mg Take 1 [facility] n 40 mg 3-11 tablet by ity of tablet 00:00: mouth at [place] 00 bedtime. [facility] furosemide Yes [id number] 40mg Take 1 [facility] (LASIX) 40 3-11 02 tablet by ity of mg tablet 00:00: mouth [place] 00 daily. [facility] SERTraline Yes [id number] 150mg Take 3 [facility] 50 mg 3-11 tablets by ity of tablet 00:00: mouth [place] 00 daily. [facility] atorvastati Yes [id number] 40mg Take 1 [facility] n 40 mg 3-11 tablet by ity of tablet 00:00: mouth at [place] 00 bedtime. [facility] furosemide Yes [id number] 40mg Take 1 [facility] (LASIX) 40 3-11 02 tablet by ity of mg tablet 00:00: mouth [place] 00 daily. [facility] SERTraline Yes [id number] 150mg Take 3 [facility] 50 mg 3-11 tablets by ity of tablet 00:00: mouth [place] 00 daily. [facility] atorvastati Yes [id number] 40mg Take 1 [facility] n 40 mg 3-11 tablet by ity of tablet 00:00: mouth at [place] 00 bedtime. [facility] furosemide Yes [id number] 40mg Take 1 [facility] (LASIX) 40 3-11 02 tablet by ity of mg tablet 00:00: mouth [place] 00 daily. [facility] SERTraline Yes [id number] 150mg Take 3 [facility] 50 mg 3-11 tablets by ity of tablet 00:00: mouth [place] 00 daily. [facility] atorvastati Yes [id number] 40mg Take 1 [facility] n 40 mg 3-11 tablet by ity of tablet 00:00: mouth at [place] 00 bedtime. [facility] SERTraline Yes [id number] 150mg Take 3 [facility] 50 mg 3-11 tablets by ity of tablet 00:00: mouth [place] 00 daily. [facility] SERTraline 0 Yes [id number] 150mg Take 3 [facility] 50 mg 3-11 tablets by ity of tablet 00:00: mouth [place] 00 daily. [facility] SERTraline 0 Yes [id number] 150mg Take 3 [facility] 50 mg 3-11 tablets by ity of tablet 00:00: mouth [place] 00 daily. [facility] SERTraline 0 Yes [id number] 150mg Take 3 [facility] 50 mg 3-11 tablets by ity of tablet 00:00: mouth [place] 00 daily. [facility] SERTraline 0 Yes [id number] 150mg Take 3 [facility] 50 mg 3-11 tablets by ity of tablet 00:00: mouth [place] 00 daily. [facility] SERTraline 0 Yes [id number] 150mg Take 3 [facility] 50 mg 3-11 tablets by ity of tablet 00:00: mouth [place] 00 daily. [facility] SERTraline 0 Yes [id number] 150mg Take 3 [facility] 50 mg 3-11 tablets by ity of tablet 00:00: mouth [place] 00 daily. [facility] SERTraline 0 Yes [id number] 150mg Take 3 [facility] 50 mg 3-11 tablets by ity of tablet 00:00: mouth [place] 00 daily. [facility] SERTraline 0 Yes [id number] 150mg Take 3 [facility] 50 mg 3-11 tablets by ity of tablet 00:00: mouth [place] 00 daily. [facility] SERTraline 0 Yes [id number] 150mg Take 3 [facility] 50 mg 3-11 tablets by ity of tablet 00:00: mouth [place] 00 daily. [facility] SERTraline 0 Yes [id number] 150mg Take 3 [facility] 50 mg 3-11 tablets by ity of tablet 00:00: mouth [place] 00 daily. [facility] SERTraline 0 Yes [id number] 150mg Take 3 [facility] 50 mg 3-11 tablets by ity of tablet 00:00: mouth [place] 00 daily. [facility] SERTraline 0 Yes [id number] 150mg Take 3 [facility] 50 mg 3-11 tablets by ity of tablet 00:00: mouth [place] 00 daily. [facility] SERTraline 0 Yes [id number] 150mg Take 3 [facility] 50 mg 3-11 tablets by ity of tablet 00:00: mouth [place] 00 daily. [facility] SERTraline 2020-0 Yes [id number] 150mg Take 3 [facility] 50 mg 3-11 tablets by ity of tablet 00:00: mouth [place] 00 daily. [facility] SERTraline 2020-0 Yes [id number] 150mg Take 3 [facility] 50 mg 3-11 tablets by ity of tablet 00:00: mouth [place] 00 daily. [facility] SERTraline 0 Yes [id number] 150mg Take 3 [facility] 50 mg 3-11 tablets by ity of tablet 00:00: mouth [place] 00 daily. [facility] SERTraline 0 Yes [id number] 150mg Take 3 [facility] 50 mg 3-11 tablets by ity of tablet 00:00: mouth [place] 00 daily. [facility] SERTraline 0 Yes [id number] 150mg Take 3 [facility] 50 mg 3-11 tablets by ity of tablet 00:00: mouth [place] 00 daily. [facility] SERTraline 0 Yes [id number] 150mg Take 3 [facility] 50 mg 3-11 tablets by ity of tablet 00:00: mouth [place] 00 daily. [facility] SERTraline 0 Yes [id number] 150mg Take 3 [facility] 50 mg 3-11 tablets by ity of tablet 00:00: mouth [place] 00 daily. [facility] SERTraline 0 Yes [id number] 150mg Take 3 [facility] 50 mg 3-11 tablets by ity of tablet 00:00: mouth [place] 00 daily. [facility] SERTraline 0 Yes [id number] 150mg Take 3 [facility] 50 mg 3-11 tablets by ity of tablet 00:00: mouth [place] 00 daily. [facility] SERTraline 0 Yes [id number] 150mg Take 3 [facility] 50 mg 3-11 tablets by ity of tablet 00:00: mouth [place] 00 daily. [facility] SERTraline 2020-0 Yes [id number] 150mg Take 3 [facility] 50 mg 3-11 tablets by ity of tablet 00:00: mouth [place] 00 daily. [facility] SERTraline 2020-0 Yes [id number] 150mg Take 3 [facility] 50 mg 3-11 tablets by ity of tablet 00:00: mouth [place] 00 daily. [facility] SERTraline 2020-0 Yes [id number] 150mg Take 3 [facility] 50 mg 3-11 tablets by ity of tablet 00:00: mouth [place] 00 daily. [facility] SERTraline Yes [id number] 150mg Take 3 [facility] 50 mg 3-11 tablets by ity of tablet 00:00: mouth [place] 00 daily. [facility] SERTraline Yes [id number] 150mg Take 3 [facility] 50 mg 3-11 tablets by ity of tablet 00:00: mouth [place] 00 daily. [facility] SERTraline Yes [id number] 150mg Take 3 [facility] 50 mg 3-11 tablets by ity of tablet 00:00: mouth [place] 00 daily. [facility] SERTraline 2022- No [id number] 150mg Take 3 [facility] 50 mg 3-11 03-16 tablets by ity of tablet 00:00: 00:00 mouth [place] 00 :00 daily. [facility] furosemide 2021- No [id number] 40mg Take 1 [facility] (LASIX) 40 -09-12 02 tablet by ity of mg tablet 00:00: 00:00 mouth [place] 00 :00 daily. [facility] atorvastati 2021- No [id number] 40mg Take 1 [facility] n 40 mg -09-12 tablet by ity of tablet 00:00: 00:00 mouth at [place] 00 :00 bedtime. [facility] furosemide 2021- No [id number] 40mg Take 1 [facility] (LASIX) 40 -09-12 02 tablet by ity of mg tablet 00:00: 00:00 mouth [place] 00 :00 daily. [facility] atorvastati 2021- No [id number] 40mg Take 1 [facility] n 40 mg -08 19-06 tablet by ity of tablet 00:00: 00:00 mouth at [place] 00 :00 bedtime. [facility] furosemide 2021- No [id number] 40mg Take 1 [facility] (LASIX) 40 -09-12 02 tablet by ity of mg tablet 00:00: 00:00 mouth [place] 00 :00 daily. [facility] atorvastati 2021- No [id number] 40mg Take 1 [facility] n 40 mg 3-11 -06 tablet by ity of tablet 00:00: 00:00 mouth at [place] 00 :00 bedtime. [facility] furosemide 2021- No [id number] 40mg Take 1 [facility] (LASIX) 40 3-11 12- 02 tablet by ity of mg tablet 00:00: 00:00 mouth [place] 00 :00 daily. [facility] atorvastati 2021- No [id number] 40mg Take 1 [facility] n 40 mg 3-11 12-06 tablet by ity of tablet 00:00: 00:00 mouth at [place] 00 :00 bedtime. [facility] furosemide 2021- No [id number] 40mg Take 1 [facility] (LASIX) 40 3-11 12- 02 tablet by ity of mg tablet 00:00: 00:00 mouth [place] 00 :00 daily. [facility] atorvastati 2021- No [id number] 40mg Take 1 [facility] n 40 mg 3-08 19-06 tablet by ity of tablet 00:00: 00:00 mouth at [place] 00 :00 bedtime. [facility] furosemide 2021- No 1{tbl} QD Take 1 [facility] (LASIX) [facility] 3- 05-[address] mg tablet 00:00: [facility] :[facility] daily. l FREESTYLE 2020-1 Yes [id number] 1{each} 1 Each [facility] JOSE 2 2-01 daily. ity of READER Misc 00:00: [place] 00 [facility] FREESTYLE 2020-1 Yes [id number] 1{each} 1 Each [facility] JOSE 2 2-01 daily. ity of READER Misc 00:00: [place] [facility] FREESTYLE 2020-1 Yes [id number] 1{each} 1 Each [facility] JOSE 2 2-01 daily. ity of READER Misc 00:00: [place] 00 [facility] FREESTYLE 2020-1 Yes [id number] 1{each} 1 Each [facility] JOSE 2 2-01 daily. ity of READER Misc 00:00: [place] 00 [facility] FREESTYLE 2020-1 Yes [id number] 1{each} 1 Each [facility] JOSE 2 2-01 daily. ity of READER Misc 00:00: [place] 00 [facility] FREESTYLE 2020-1 Yes [id number] 1{each} 1 Each [facility] JOSE 2 2-01 daily. ity of READER Misc 00:00: [place] 00 [facility] FREESTYLE 2020- Yes [id number] 1{each} 1 Each [facility] JOSE 2 2- daily. ity of READER Misc 00:00: [place] 00 [facility] FREESTYLE 2020- Yes [id number] 1{each} 1 Each [facility] JOSE 2 2- daily. ity of READER Misc 00:00: [place] 00 [facility] FREESTYLE 2020-2021- No [id number] 1{each} 1 Each [facility] JOSE 2 2- 12-06 daily. ity of READER Misc 00:00: 00:00 [place] 00 :00 Medical Branch FREESTYLE 2020-2021- No [id number] 1{each} 1 Each [facility] JOSE 2 2- 12- daily. ity of READER Misc 00:00: 00:00 [place] 00 :00 Medical Branch FREESTYLE 2020-2021- No [id number] 1{each} 1 Each [facility] JOSE 2 2- 12- daily. ity of READER Misc 00:00: 00:00 [place] 00 :00 Medical Branch FREESTYLE 2019-2021- No [id number] 1{each} 1 Each [facility] JOSE 2 - 12- daily. ity of READER Misc 00:00: 00:00 [place] 00 :00 Medical Branch FREESTYLE 2019-2021- No [id number] 1{each} 1 Each [facility] JOSE 2 - 12- daily. ity of READER Misc 00:00: 00:00 [place] 00 :00 Medical Branch flash 2019-2021- No 1{each} 1 each by [facility] glucose - [address] scanning 00:00: 00:00 route. Hospit a reader 00 :00 l (FreeStyle Jose 2 Mcdonald) misc Pantoprazol Pantoprazol No Pantoprazo e Sodium 40 e Sodium 40 le Sodium MG MG 40 MG FreeStyle FreeStyle No FreeStyle Jose 2 Jose 2 Jose 2 Sensor - Sensor - Sensor - Fiasp Fiasp No Fiasp FlexTouch FlexTouch FlexTouch 100 UNIT/ML 100 UNIT/ML 100 UNIT/ML Basaglar Basaglar No QD Basaglar KwikPen 100 KwikPen 100 KwikPen UNIT/ML UNIT/ML 100 UNIT/ML Lisinopril Lisinopril No Lisinopril 10 MG 10 MG 10 MG Lasix 40 MG Lasix 40 MG No 1{table QD Lasix 40 t} MG Atorvastati Atorvastati No 1{table QD Atorvastat n Calcium n Calcium t} in Calcium 80 MG 80 MG 80 MG Aspirin 81 Aspirin 81 No 1{table QD Aspirin 81 81 MG 81 MG t} 81 MG Lisinopril Lisinopril No 1{table QD Lisinopril 10 MG 10 MG t} 10 MG Sertraline Sertraline No 3{table QD Sertraline HCl 50 MG HCl 50 MG t} HCl 50 MG Pantoprazol Pantoprazol No Pantoprazo e Sodium 40 e Sodium 40 le Sodium MG MG 40 MG FreeStyle FreeStyle No FreeStyle Jose 2 Jose 2 Jose 2 Sensor - Sensor - Sensor - Fiasp Fiasp No Fiasp FlexTouch FlexTouch FlexTouch 100 UNIT/ML 100 UNIT/ML 100 UNIT/ML Basaglar Basaglar No QD Basaglar KwikPen 100 KwikPen 100 KwikPen UNIT/ML UNIT/ML 100 UNIT/ML Lisinopril Lisinopril No Lisinopril 10 MG 10 MG 10 MG Lasix 40 MG Lasix 40 MG No 1{table QD Lasix 40 t} MG Atorvastati Atorvastati No 1{table QD Atorvastat n Calcium n Calcium t} in Calcium 80 MG 80 MG 80 MG Aspirin 81 Aspirin 81 No 1{table QD Aspirin 81 81 MG 81 MG t} 81 MG Lisinopril Lisinopril No 1{table QD Lisinopril 10 MG 10 MG t} 10 MG Sertraline Sertraline No 3{table QD Sertraline HCl 50 MG HCl 50 MG t} HCl 50 MG FreeStyle FreeStyle No FreeStyle Jose 2 Jose 2 Jose 2 Sensor - Sensor - Sensor - Aspirin 81 Aspirin 81 No 1{table QD Aspirin 81 81 MG 81 MG t} 81 MG Atorvastati Atorvastati No 1{table QD Atorvastat n Calcium n Calcium t} in Calcium 80 MG 80 MG 80 MG Lasix 40 MG Lasix 40 MG No 1{table QD Lasix 40 t} MG Ozempic (1 Ozempic (1 No Ozempic (1 MG/DOSE) 4 MG/DOSE) 4 MG/DOSE) 4 MG/3ML MG/3ML MG/3ML Potassium Potassium No 1{table QD Potassium Chloride Chloride t_with_ Chloride [place] [facility] 10 [place] [facility] 10 food} [place] [facility] 10 MEQ MEQ MEQ Pantoprazol Pantoprazol No Pantoprazo e Sodium 40 e Sodium 40 le Sodium MG MG 40 MG Lisinopril Lisinopril No 1{table QD Lisinopril 10 MG 10 MG t} 10 MG Sertraline Sertraline No 3{table QD Sertraline HCl 50 MG HCl 50 MG t} HCl 50 MG Potassium Potassium No 1{table QD Potassium Chloride Chloride 06-21 t_with_ Chloride [place] [facility] 10 [place] ER 10 00:00 food} [place] [facility] 10 MEQ MEQ :00 MEQ Potassium Potassium No 1{table QD Potassium Chloride Chloride 06-21 t_with_ Chloride [place] [facility] 10 [place] ER 10 00:00 food} [place] [facility] 10 MEQ MEQ :00 MEQ Immunizations Ordered Filled Immunization Date Status Comments Sourc e Immunization Name Name Pneumococcal 2022-09-12 Completed [facility] Con[facility]ate, PCV20 00:00:00 [facility] dical (Prevnar 20) Branch SARS-COV-2 COVID-19 2022-09-12 Completed Unive rsity of VACCINE 12 YRS+, 00:00:00 [place] [facility] BIVALENT 0.5ML, IM, Branc h (MODERNA BOOSTER) Pneumococcal 2022-09-12 Completed [facility] Conjugate, PCV20 00:00:00 [facility] dical (Prevnar 20) Branch SARS-COV-2 COVID-19 2022-09-12 Completed [facility]ive rsity of VACCINE 12 YRS+, 00:00:00 [place] [facility] BIVALENT 0.5ML, IM, Branc h (MODERNA BOOSTER) Pneumococcal 20 2022-09-12 Completed [facility] Conjugate, PCV20 00:00:00 [place] [facility] (Prevnar 20) Branch SARS-COV-2 COVID-19 2022-09-12 Completed [facility] of VACCINE 12 YRS+, 00:00:00 [place] [facility] BIVALENT 0.5ML, IM, Branc h (MODERNA BOOSTER) Pneumococcal 20 2022-09-12 Completed [facility] Conjugate, PCV20 00:00:00 [place] [facility] (Prevnar 20) Branch SARS-COV-2 COVID-19 2022-09-12 Completed [facility] of VACCINE 12 YRS+, 00:00:00 [place] [facility] BIVALENT 0.5ML, IM, Branc h (MODERNA BOOSTER) Pneumococcal 20 2022-09-12 Completed [facility] Conjugate, PCV20 00:00:00 [place] [facility] (Prevnar 20) Branch SARS-COV-2 COVID-19 2022-09-12 Completed [facility] of VACCINE 12 YRS+, 00:00:00 [place] [facility] BIVALENT 0.5ML, IM, Branc h (MODERNA BOOSTER) Pneumococcal 20 2022-09-12 Completed [facility] Conjugate, PCV20 00:00:00 [place] [facility] (Prevnar 20) Branch SARS-COV-2 COVID-19 2022-09-12 Completed [facility] of VACCINE 12 YRS+, 00:00:00 [place] [facility] BIVALENT 0.5ML, IM, Branc h (MODERNA BOOSTER) Pneumococcal 20 2022-09-12 Completed [facility] Conjugate, PCV20 00:00:00 [place] [facility] (Prevnar 20) Branch SARS-COV-2 COVID-19 2022-09-12 Completed [facility] of VACCINE 12 YRS+, 00:00:00 [place] [facility] BIVALENT 0.5ML, IM, Branc h (MODERNA BOOSTER) Pneumococcal 20 2022-09-12 Completed [facility] Conjugate, PCV20 00:00:00 [place] [facility] (Prevnar 20) Branch SARS-COV-2 COVID-19 2022-09-12 Completed [facility] of VACCINE 12 YRS+, 00:00:00 [place] [facility] BIVALENT 0.5ML, IM, Branc h (MODERNA BOOSTER) Pneumococcal 20 2022-09-12 Completed [facility] Conjugate, PCV20 00:00:00 [place] [facility] (Prevnar 20) Branch SARS-COV-2 COVID-19 2022-09-12 Completed [facility] of VACCINE 12 YRS+, 00:00:00 [place] [facility] BIVALENT 0.5ML, IM, Branc h (MODERNA BOOSTER) Pneumococcal 20 2022-09-12 Completed [facility] Conjugate, PCV20 00:00:00 [place] [facility] (Prevnar 20) Branch SARS-COV-2 COVID-19 2022-09-12 Completed [facility] of VACCINE 12 YRS+, 00:00:00 [place] [facility] BIVALENT 0.5ML, IM, Branc h (MODERNA BOOSTER) Pneumococcal 20 2022-09-12 Completed [facility] Conjugate, PCV20 00:00:00 [place] [facility] (Prevnar 20) Branch SARS-COV-2 COVID-19 2022-09-12 Completed [facility] of VACCINE 12 YRS+, 00:00:00 [place] [facility] BIVALENT 0.5ML, IM, Branc h (MODERNA BOOSTER) Pneumococcal 20 2022-09-12 Completed [facility] Conjugate, PCV20 00:00:00 [place] [facility] (Prevnar 20) Branch SARS-COV-2 COVID-19 2022-09-12 Completed [facility] of VACCINE 12 YRS+, 00:00:00 [place] [facility] BIVALENT 0.5ML, IM, Branc h (MODERNA BOOSTER) Pneumococcal 20 2022-09-12 Completed [facility] Conjugate, PCV20 00:00:00 [place] [facility] (Prevnar 20) Branch SARS-COV-2 COVID-19 2022-09-12 Completed [facility] of VACCINE 12 YRS+, 00:00:00 [place] [facility] BIVALENT 0.5ML, IM, Branc h (MODERNA BOOSTER) Pneumococcal 20 2022-09-12 Completed [facility] Conjugate, PCV20 00:00:00 [place] [facility] (Prevnar 20) Branch SARS-COV-2 COVID-19 2022-09-12 Completed [facility] of VACCINE 12 YRS+, 00:00:00 [place] [facility] BIVALENT 0.5ML, IM, Branc h (MODERNA BOOSTER) Pneumococcal 20 2022-09-12 Completed [facility] Conjugate, PCV20 00:00:00 [place] [facility] (Prevnar 20) Branch SARS-COV-2 COVID-19 2022-09-12 Completed [facility] of VACCINE 12 YRS+, 00:00:00 [place] [facility] BIVALENT 0.5ML, IM, Branc h (MODERNA BOOSTER) Pneumococcal 20 2022-09-12 Completed [facility] Conjugate, PCV20 00:00:[facility] [place] [facility] [facility] (Pre[facility] 20) Branch SARS-COV-2 COVID-19 2022-09-12 Completed [facility] of VACCINE 12 YRS+, 00:00:00 [place] [facility] BIVALENT 0.5ML, IM, Branc h (MODERNA BOOSTER) Pneumococcal 20 2022-09-12 Completed [facility] Conjugate, PCV20 00:00:00 [place] [facility] (Prevnar 20) Branch SARS-COV-2 COVID-19 2022-09-12 Completed [facility] of VACCINE 12 YRS+, 00:00:00 [place] [facility] BIVALENT 0.5ML, IM, Branc h (MODERNA BOOSTER) Pneumococcal 20 2022-09-12 Completed [facility] Conjugate, PCV20 00:00:00 [place] [facility] (Prevnar 20) Branch SARS-COV-2 COVID-19 2022-09-12 Completed [facility] of VACCINE 12 YRS+, 00:00:00 [place] [facility] BIVALENT 0.5ML, IM, Branc h (MODERNA BOOSTER) Pneumococcal 20 2022-09-12 Completed [facility] Conjugate, PCV20 00:00:00 [place] [facility] [facility] (Pre[facility] 20) Branch SARS-COV-2 COVID-19 2022-09-12 Completed [facility] of VACCINE 12 YRS+, 00:00:00 [place] [facility] BIVALENT 0.5ML, IM, Branc h (MODERNA BOOSTER) Pneumococcal 20 2022-09-12 Completed [facility] Conjugate, PCV20 00:00:00 [place] [facility] (Prevnar 20) Branch SARS-COV-2 COVID-19 2022-09-12 Completed [facility] of VACCINE 12 YRS+, 00:00:00 [place] [facility] BIVALENT 0.5ML, IM, Branc h (MODERNA BOOSTER) Pneumococcal 20 2022-09-12 Completed [facility] Conjugate, PCV20 00:00:00 [place] [facility] (Prevnar 20) Branch SARS-COV-2 COVID-19 2022-09-12 Completed [facility] of VACCINE 12 YRS+, 00:00:00 [place] [facility] BIVALENT 0.5ML, IM, Branc h (MODERNA BOOSTER) Pneumococcal 20 2022-09-12 Completed [facility] Conjugate, PCV20 00:00:00 [place] [facility] [facility] (Prevn[facility] 20) Branch SARS-COV-2 COVID-19 2022-09-12 Completed [facility] of VACCINE 12 YRS+, 00:00:00 [place] [facility] BIVALENT 0.5ML, IM, Branc h (MODERNA BOOSTER) Pneumococcal 20 2022-09-12 Completed [facility] Conjugate, PCV20 00:00:00 [place] [facility] (Prevnar 20) Branch SARS-COV-2 COVID-19 2022-09-12 Completed [facility] of VACCINE 12 YRS+, 00:00:00 [place] [facility] BIVALENT 0.5ML, IM, Branc h (MODERNA BOOSTER) Pneumococcal 20 2022-09-12 Completed [facility] Conjugate, PCV20 00:00:00 [place] [facility] (Prevnar 20) Branch SARS-COV-2 COVID-19 2022-09-12 Completed [facility] of VACCINE 12 YRS+, 00:00:00 [place] [facility] BIVALENT 0.5ML, IM, Branc h (MODERNA BOOSTER) Pneumococcal 20 2022-09-12 Completed [facility] Conjugate, PCV20 00:00:00 [place] [facility] (Prevnar 20) Branch SARS-COV-2 COVID-19 2022-09-12 Completed [facility] rs[facility] of VACCINE 12 YRS+, 00:00:00 [place] [facility] BIVALENT 0.5ML, IM, Branc h (MODERNA BOOSTER) Pneumococcal 20 2022-09-12 Completed [facility] Conjugate, PCV20 00:00:00 [place] [facility] (Prevnar 20) Branch SARS-COV-2 COVID-19 2022-09-12 Completed [facility]ive rsity of VACCINE 12 YRS+, 00:00:00 [place] [facility] BIVALENT 0.5ML, IM, Branc h (MODERNA BOOSTER) Pneumococcal 20 2022-09-12 Completed [facility] Conjugate, PCV20 00:00:00 [place] [facility] (Prevnar 20) Branch SARS-COV-2 COVID-19 2022-09-12 Completed [facility] of VACCINE 12 YRS+, 00:00:00 [place] [facility] BIVALENT 0.5ML, IM, Branc h (MODERNA BOOSTER) Pneumococcal 20 2022-09-12 Completed [facility] Conjugate, PCV20 00:00:00 [place] [facility] (Prevnar 20) Branch SARS-COV-2 COVID-19 2022-09-12 Completed [facility] rs[facility] of VACCINE 12 YRS+, 00:00:00 [place] [facility] BIVALENT 0.5ML, IM, Branc h (MODERNA BOOSTER) Pneumococcal 20 2022-09-12 Completed [facility] Conjugate, PCV20 00:00:00 [place] [facility] (Prevnar 20) Branch SARS-COV-2 COVID-19 2022-09-12 Completed [facility] rs[facility] of VACCINE 12 YRS+, 00:00:00 [place] [facility] BIVALENT 0.5ML, IM, Branc h (MODERNA BOOSTER) Pneumococcal 20 2022-09-12 Completed [facility] Conjugate, PCV20 00:00:00 [place] [facility] (Prevnar 20) Branch SARS-COV-2 COVID-19 2022-09-12 Completed [facility] of VACCINE 12 YRS+, 00:00:00 [place] [facility] BIVALENT 0.5ML, IM, Branc h (MODERNA BOOSTER) Pneumococcal 20 2022-09-12 Completed [facility] Conjugate, PCV20 00:00:00 [place] [facility] (Prevnar 20) Branch SARS-COV-2 COVID-19 2022-09-12 Completed [facility] of VACCINE 12 YRS+, 00:00:00 [place] [facility] BIVALENT 0.5ML, IM, Branc h (MODERNA BOOSTER) Pneumococcal 20 2022-09-12 Completed [facility] Conjugate, PCV20 00:00:00 [place] [facility] (Prevnar 20) Branch SARS-COV-2 COVID-19 2022-09-12 Completed [facility] of VACCINE 12 YRS+, 00:00:00 [place] [facility] BIVALENT 0.5ML, IM, Branc h (MODERNA BOOSTER) Pneumococcal 20 2022-09-12 Completed [facility] Conjugate, PCV20 00:00:00 [place] [facility] (Prevnar 20) Branch SARS-COV-2 COVID-19 2022-09-12 Completed [facility] rs[facility] of VACCINE 12 YRS+, 00:00:00 [place] [facility] BIVALENT 0.5ML, IM, Branc h (MODERNA BOOSTER) Pneumococcal 20 2022-09-12 Completed [facility] Conjugate, PCV20 00:00:00 [place] [facility] (Prevnar 20) Branch SARS-COV-2 COVID-19 2022-09-12 Completed [facility] rs[facility] of VACCINE 12 YRS+, 00:00:00 [place] [facility] BIVALENT 0.5ML, IM, Branc h (MODERNA BOOSTER) Pneumococcal 20 2022-09-12 Completed [facility] Conjugate, PCV20 00:00:00 [place] [facility] (Prevnar 20) Branch SARS-COV-2 COVID-19 2022-09-12 Completed [facility] rs[facility] of VACCINE 12 YRS+, 00:00:00 [place] [facility] BIVALENT 0.5ML, IM, Branc h (MODERNA BOOSTER) Pneumococcal 20 2022-09-12 Completed [facility] Conjugate, PCV20 00:00:00 [place] [facility] (Prevnar 20) Branch SARS-COV-2 COVID-19 2022-09-12 Completed [facility] rs[facility] of VACCINE 12 YRS+, 00:00:00 [place] [facility] BIVALENT 0.5ML, IM, Branc h (MODERNA BOOSTER) Pneumococcal 20 2022-09-12 Completed [facility] Conjugate, PCV20 00:00:00 [place] [facility] (Prevnar 20) Branch SARS-COV-2 COVID-19 2022-09-12 Completed [facility]ive rsity of VACCINE 12 YRS+, 00:00:00 [place] [facility] BIVALENT 0.5ML, IM, Branc h (MODERNA BOOSTER) Pneumococcal 20 2022-09-12 Completed [facility] Conjugate, PCV20 00:00:00 [place] [facility] (Prevnar 20) Branch SARS-COV-2 COVID-19 2022-09-12 Completed [facility] rs[facility] of VACCINE 12 YRS+, 00:00:00 [place] [facility] BIVALENT 0.5ML, IM, Branc h (MODERNA BOOSTER) Pneumococcal 20 2022-09-12 Completed [facility] Conjugate, PCV20 00:00:00 [place] [facility] (Prevnar 20) Branch SARS-COV-2 COVID-19 2022-09-12 Completed [facility] rs[facility] of VACCINE 12 YRS+, 00:00:00 [place] [facility] BIVALENT 0.5ML, IM, Branc h (MODERNA BOOSTER) Pneumococcal 20 2022-09-12 Completed [facility] Conjugate, PCV20 00:00:00 [place] [facility] (Prevnar 20) Branch SARS-COV-2 COVID-19 2022-09-12 Completed [facility] of VACCINE 12 YRS+, 00:00:00 [place] [facility] BIVALENT 0.5ML, IM, Branc h (MODERNA BOOSTER) Pneumococcal 20 2022-09-12 Completed [facility] Conjugate, PCV20 00:00:00 [place] [facility] (Prevnar 20) Branch SARS-COV-2 COVID-19 2022-09-12 Completed [facility] of VACCINE 12 YRS+, 00:00:00 [place] [facility] BIVALENT 0.5ML, IM, Branc h (MODERNA BOOSTER) Pneumococcal 20 2022-09-12 Completed [facility] Conjugate, PCV20 00:00:00 [place] [facility] (Prevnar 20) Branch SARS-COV-2 COVID-19 2022-09-12 Completed [facility] of VACCINE 12 YRS+, 00:00:00 [place] [facility] BIVALENT 0.5ML, IM, Branc h (MODERNA BOOSTER) Pneumococcal 20 2022-09-12 Completed [facility] Conjugate, PCV20 00:00:00 [place] [facility] (Prevnar 20) Branch SARS-COV-2 COVID-19 2022-09-12 Completed [facility] of VACCINE 12 YRS+, 00:00:00 [place] [facility] BIVALENT 0.5ML, IM, Branc h (MODERNA BOOSTER) Pneumococcal 20 2022-09-12 Completed [facility] Conjugate, PCV20 00:00:00 [place] [facility] (Prevnar 20) Branch SARS-COV-2 COVID-19 2022-09-12 Completed [facility] of VACCINE 12 YRS+, 00:00:00 [place] [facility] BIVALENT 0.5ML, IM, Branc h (MODERNA BOOSTER) Pneumococcal 20 2022-09-12 Completed [facility] Conjugate, PCV20 00:00:00 [place] [facility] (Prevnar 20) Branch SARS-COV-2 COVID-19 2022-09-12 Completed [facility] of VACCINE 12 YRS+, 00:00:00 [place] [facility] BIVALENT 0.5ML, IM, Branc h (MODERNA BOOSTER) Pneumococcal 20 2022-09-12 Completed [facility] Conjugate, PCV20 00:00:00 [place] [facility] (Prevnar 20) Branch SARS-COV-2 COVID-19 2022-09-12 Completed [facility] of VACCINE 12 YRS+, 00:00:00 [place] [facility] BIVALENT 0.5ML, IM, Branc h (MODERNA BOOSTER) Pneumococcal 20 2022-09-12 Completed [facility] Conjugate, PCV20 00:00:00 [place] [facility] (Prevnar 20) Branch SARS-COV-2 COVID-19 2022-09-12 Completed [facility] of VACCINE 12 YRS+, 00:00:00 [place] [facility] BIVALENT 0.5ML, IM, Branc h (MODERNA BOOSTER) Pneumococcal 20 2022-09-12 Completed [facility] Conjugate, PCV20 00:00:00 [place] [facility] (Prevnar 20) Branch SARS-COV-2 COVID-19 2022-09-12 Completed [facility] of VACCINE 12 YRS+, 00:00:00 [place] [facility] BIVALENT 0.5ML, IM, Branc h (MODERNA BOOSTER) Influenza Virus 2022-07-18 Completed [facility] Vaccine Quad IM, 00:00:00 [place] [facility] Preserv and ABX Branch Free 6 MO-64 YRS Influenza Virus 2022-07-18 Completed [facility] Vaccine Quad IM, 00:00:00 [place] [facility] Preserv and ABX Branch Free 6 MO-64 YRS Influenza Virus 2022-07-18 Completed [facility] Vaccine Quad IM, 00:00:00 [place] [facility] Preserv and ABX Branch Free 6 MO-64 YRS Influenza Virus 2022-07-18 Completed [facility] Vaccine Quad IM, 00:00:00 [place] [facility] Preserv and ABX Branch Free 6 MO-64 YRS Influenza Virus 2022-07-18 Completed [facility] Vaccine Quad IM, 00:00:00 [place] [facility] Preserv and ABX Branch Free 6 MO-64 YRS Influenza Virus 2022-07-18 Completed [facility] Vaccine Quad IM, 00:00:00 [place] [facility] Preserv and ABX Branch Free 6 MO-64 YRS Influenza Virus 2022-07-18 Completed [facility] Vaccine Quad IM, 00:00:00 [place] [facility] Preserv and ABX Branch Free 6 MO-64 YRS Influenza Virus 2022-07-18 Completed [facility] Vaccine Quad IM, 00:00:00 [place] [facility] Preserv and ABX Branch Free 6 MO-64 YRS Influenza Virus 2022-07-18 Completed [facility] Vaccine Quad IM, 00:00:00 [place] [facility] Preserv and ABX Branch Free 6 MO-64 YRS Influenza Virus 2022-07-18 Completed [facility] Vaccine Quad IM, 00:00:00 [place] [facility] Preserv and ABX Branch Free 6 MO-64 YRS Influenza Virus 2022-07-18 Completed [facility] Vaccine Quad IM, 00:00:00 [place] [facility] Preserv and ABX Branch Free 6 MO-64 YRS Influenza Virus 2022-07-18 Completed [facility] Vaccine Quad IM, 00:00:00 [place] [facility] Preserv and ABX Branch Free 6 MO-64 YRS Influenza Virus 2022-07-18 Completed [facility] Vaccine Quad IM, 00:00:00 [place] [facility] Preserv and ABX Branch Free 6 MO-64 YRS Influenza Virus 2022-07-18 Completed [facility] Vaccine Quad IM, 00:00:00 [place] [facility] Preserv and ABX Branch Free 6 MO-64 YRS Influenza Virus 2022-07-18 Completed [facility] Vaccine Quad IM, 00:00:00 [place] [facility] Preserv and ABX Branch Free 6 MO-64 YRS Influenza Virus 2022-07-18 Completed [facility] Vaccine Quad IM, 00:00:00 [place] [facility] Preserv and ABX Branch Free 6 MO-64 YRS Influenza Virus 2022-07-18 Completed [facility] Vaccine Quad IM, 00:00:00 [place] [facility] Preserv and ABX Branch Free 6 MO-64 YRS Influenza Virus 2022-07-18 Completed [facility] Vaccine Quad IM, 00:00:00 [place] [facility] Preserv and ABX Branch Free 6 MO-64 YRS Influenza Virus 2022-07-18 Completed [facility] Vaccine Quad IM, 00:00:00 [place] [facility] Preserv and ABX Branch Free 6 MO-64 YRS Influenza Virus 2022-07-18 Completed [facility] Vaccine Quad IM, 00:00:00 [place] [facility] Preserv and ABX Branch Free 6 MO-64 YRS Influenza Virus 2022-07-18 Completed [facility] Vaccine Quad IM, 00:00:00 [place] [facility] Preserv and ABX Branch Free 6 MO-64 YRS Influenza Virus 2022-07-18 Completed [facility] Vaccine Quad IM, 00:00:00 [place] [facility] Preserv and ABX Branch Free 6 MO-64 YRS Influenza Virus 2022-07-18 Completed [facility] Vaccine Quad IM, 00:00:00 [place] [facility] Preserv and ABX Branch Free 6 MO-64 YRS Influenza Virus 2022-07-18 Completed [facility] Vaccine Quad IM, 00:00:00 [place] [facility] Preserv and ABX Branch Free 6 MO-64 YRS Influenza Virus 2022-07-18 Completed [facility] Vaccine Quad IM, 00:00:00 [place] [facility] Preserv and ABX Branch Free 6 MO-64 YRS Influenza Virus 2022-07-18 Completed [facility] Vaccine Quad IM, 00:00:00 [place] [facility] Preserv and ABX Branch Free 6 MO-64 YRS Influenza Virus 2022-07-18 Completed [facility] Vaccine Quad IM, 00:00:00 [place] [facility] Preserv and ABX Branch Free 6 MO-64 YRS Influenza Virus 2022-07-18 Completed [facility] Vaccine Quad IM, 00:00:00 [place] [facility] Preserv and ABX Branch Free 6 MO-64 YRS Influenza Virus 2022-07-18 Completed [facility] Vaccine Quad IM, 00:00:00 [place] [facility] Preserv and ABX Branch Free 6 MO-64 YRS Influenza Virus 2022-07-18 Completed [facility] Vaccine Quad IM, 00:00:00 [place] [facility] Preserv and ABX Branch Free 6 MO-64 YRS Influenza Virus 2022-07-18 Completed [facility] Vaccine Quad IM, 00:00:00 [place] [facility] Preserv and ABX Branch Free 6 MO-64 YRS Influenza Virus 2022-07-18 Completed [facility] Vaccine Quad IM, 00:00:00 [place] [facility] Preserv and ABX Branch Free 6 MO-64 YRS Influenza Virus 2022-07-18 Completed [facility] Vaccine Quad IM, 00:00:00 [place] [facility] Preserv and ABX Branch Free 6 MO-64 YRS Influenza Virus 2022-07-18 Completed [facility] Vaccine Quad IM, 00:00:00 [place] [facility] Preserv and ABX Branch Free 6 MO-64 YRS Influenza Virus 2022-07-18 Completed [facility] Vaccine Quad IM, 00:00:00 [place] [facility] Preserv and ABX Branch Free 6 MO-64 YRS Influenza Virus 2022-07-18 Completed [facility] Vaccine Quad IM, 00:00:00 [place] [facility] Preserv and ABX Branch Free 6 MO-64 YRS Influenza Virus 2022-07-18 Completed [facility] Vaccine Quad IM, 00:00:00 [place] [facility] Preserv and ABX Branch Free 6 MO-64 YRS Influenza Virus 2022-07-18 Completed [facility] Vaccine Quad IM, 00:00:00 [place] [facility] Preserv and ABX Branch Free 6 MO-64 YRS Influenza Virus 2022-07-18 Completed [facility] Vaccine Quad IM, 00:00:00 [place] [facility] Preserv and ABX Branch Free 6 MO-64 YRS Influenza Virus 2022-07-18 Completed [facility] Vaccine Quad IM, 00:00:00 [place] [facility] Preserv and ABX Branch Free 6 MO-64 YRS Influenza Virus 2022-07-18 Completed [facility] Vaccine Quad IM, 00:00:00 [place] [facility] Preserv and ABX Branch Free 6 MO-64 YRS Influenza Virus 2022-07-18 Completed [facility] Vaccine Quad IM, 00:00:00 [place] [facility] Preserv and ABX Branch Free 6 MO-64 YRS FLUCELVAX QUAD PF 2022-07-[address] 00:00:00 [facility] MODERNA COVID-19 2021-09-09 Completed [facility] MRNA VACCINATION 00:00:00 [facility] Flucelvax - Flucelvax - 2021-07-12 Completed [facility] - multidose vial multidose vial 15:17:00 [facility] Flucelvax - Flucelvax - 2021-07-12 Completed [facility] - multidose vial multidose vial 15:17:00 [facility] Flucelvax - Flucelvax - 2021-07-12 Completed [facility] - multidose vial multidose vial 15:17:00 [facility] Influenza High Dose 2021-07-12 Completed [facility] of 00:00:00 [facility] Influenza High Dose 2021-07-12 Completed [facility] of 00:00:00 [facility] Influenza High Dose 2021-07-12 Completed [facility] of 00:00:00 [facility] Influenza High Dose 2021-07-12 Completed [facility] of 00:00:00 [facility] Influenza High Dose 2021-07-12 Completed [facility] of 00:00:00 [facility] Influenza High Dose 2021-07-12 Completed [facility] of 00:00:00 [facility] Influenza High Dose 2021-07-12 Completed [facility] of 00:00:00 [facility] Influenza High Dose 2021-07-12 Completed [facility] of 00:00:00 [facility] Influenza High Dose 2021-07-12 Completed [facility] of 00:00:00 [facility] Influenza High Dose 2021-07-12 Completed [facility] of 00:00:00 [facility] Influenza High Dose 2021-07-12 Completed [facility] of 00:00:00 [facility] Influenza High Dose 2021-07-12 Completed [facility] of 00:00:00 [facility] Influenza High Dose 2021-07-12 Completed [facility] of 00:00:00 [facility] Influenza High Dose 2021-07-12 Completed [facility] of 00:00:00 [facility] Influenza High Dose 2021-07-12 Completed [facility] of 00:00:00 [facility] Influenza High Dose 2021-07-12 Completed [facility] of 00:00:00 [facility] Influenza High Dose 2021-07-12 Completed [facility] of 00:00:00 [facility] Influenza High Dose 2021-07-12 Completed [facility] of 00:00:00 [facility] Influenza High Dose 2021-07-12 Completed [facility] of 00:00:00 [facility] Influenza High Dose 2021-07-12 Completed [facility] of 00:00:00 [facility] Influenza High Dose 2021-07-12 Completed [facility] of 00:00:00 [facility] Influenza High Dose 2021-07-12 Completed [facility] of 00:00:00 [facility] Influenza High Dose 2021-07-12 Completed [facility] of 00:00:00 [facility] Influenza High Dose 2021-07-12 Completed [facility] of 00:00:00 [facility] Influenza High Dose 2021-07-12 Completed [facility] of 00:00:00 [facility] Influenza High Dose 2021-07-12 Completed [facility] of 00:00:00 [facility] Influenza High Dose 2021-07-12 Completed [facility] of 00:00:00 [facility] Influenza High Dose 2021-07-12 Completed [facility] of 00:00:00 [facility] Influenza High Dose 2021-07-12 Completed [facility] of 00:00:00 [facility] Influenza High Dose 2021-07-12 Completed [facility] of 00:00:00 [facility] Influenza High Dose 2021-07-12 Completed [facility] of 00:00:00 [facility] Influenza High Dose 2021-07-12 Completed [facility] of 00:00:00 [facility] Influenza High Dose 2021-07-12 Completed [facility] of 00:00:00 [facility] Influenza High Dose 2021-07-12 Completed [facility] of 00:00:00 [facility] Influenza High Dose 2021-07-12 Completed [facility] of 00:00:00 [facility] Influenza High Dose 2021-07-12 Completed [facility] of 00:00:00 [facility] Influenza High Dose 2021-07-12 Completed [facility] of 00:00:00 [facility] Influenza High Dose 2021-07-12 Completed [facility] of 00:00:00 [facility] Influenza High Dose 2021-07-12 Completed [facility] of 00:00:00 [facility] Influenza High Dose 2021-07-12 Completed [facility] of 00:00:00 [facility] Influenza High Dose 2021-07-12 Completed [facility] of 00:00:00 [facility] Influenza High Dose 2021-07-12 Completed [facility] of 00:00:00 [facility] Influenza High Dose 2021-07-12 Completed [facility] of 00:00:00 [facility] Influenza High Dose 2021-07-12 Completed [facility] of 00:00:00 [facility] Influenza High Dose 2021-07-12 Completed [facility] of 00:00:00 [facility] Influenza High Dose 2021-07-12 Completed [facility] of 00:00:00 [facility] Influenza High Dose 2021-07-12 Completed [facility] 00:00:00 [facility] Influenza High Dose 2021-07-12 Completed [facility] 00:00:00 [facility] Influenza High Dose 2021-07-12 Completed [facility] 00:00:00 [facility] FLUZONE HIGH-DOSE 2021-07-[address] [facility] 00:00:00 [facility] Influenza Virus 2021-07-11 Completed [facility] Vaccine (3[facility] yrs) 00:00:00 [facility] Influenza Virus 2021-07-11 Completed [facility] Vaccine (3+ yrs) 00:00:00 [facility] Influenza Virus 2021-07-11 Completed [facility] Vaccine (3+ yrs) 00:00:00 [facility] Influenza Virus 2021-07-11 Completed [facility] Vaccine (3+ yrs) 00:00:00 [facility] Influenza Virus 2021-07-11 Completed [facility] (3[facility] yrs) 00:00:00 [facility] Influenza Virus 2021-07-11 Completed [facility] Vaccine (3+ yrs) 00:00:00 [facility] Influenza Virus 2021-07-11 Completed [facility] Vaccine (3+ yrs) 00:00:00 [facility] Influenza Virus 2021-07-11 Completed [facility] Vaccine (3+ yrs) 00:00:00 [facility] Influenza Virus 2021-07-11 Completed [facility] Vaccine 00:00:00 [facility] Influenza Virus 2021-07-11 Completed [facility] Vaccine (3+ yrs) 00:00:00 [facility] Influenza Virus 2021-07-11 Completed [facility] Vaccine 00:00:00 [facility] Influenza Virus 2021-07-11 Completed [facility] Vaccine (3+ yrs) 00:00:00 [facility] Influenza Virus 2021-07-11 Completed [facility] Vaccine 00:00:00 [facility] Influenza Virus 2021-07-11 Completed [facility] Vaccine (3+ yrs) 00:00:00 [facility] Influenza Virus 2021-07-11 Completed [facility] Vaccine 00:00:00 [facility] Influenza Virus 2021-07-11 Completed [facility] Vaccine (3+ yrs) 00:00:00 [facility] Influenza Virus 2021-07-11 Completed [facility] Vaccine 00:00:00 [facility] Influenza Virus 2021-07-11 Completed [facility] Vaccine (3+ yrs) 00:00:00 [facility] Influenza Virus 2021-07-11 Completed [facility] Vaccine 00:00:00 [facility] Influenza Virus 2021-07-11 Completed [facility] Vaccine (3+ yrs) 00:00:00 [facility] Influenza Virus 2021-07-11 Completed [facility] Vaccine 00:00:00 [facility] Influenza Virus 2021-07-11 Completed [facility] Vaccine (3+ yrs) 00:00:00 [facility] Influenza Virus 2021-07-11 Completed [facility] Vaccine 00:00:00 [facility] Influenza Virus 2021-07-11 Completed [facility] Vaccine (3+ yrs) 00:00:00 [facility] Influenza Virus 2021-07-11 Completed [facility] Vaccine 00:00:00 [facility] Influenza Virus 2021-07-11 Completed [facility] Vaccine (3+ yrs) 00:00:00 [facility] Influenza Virus 2021-07-11 Completed [facility] Vaccine 00:00:00 [facility] Influenza Virus 2021-07-11 Completed [facility] Vaccine (3+ yrs) 00:00:00 [facility] Influenza Virus 2021-07-11 Completed [facility] Vaccine 00:00:00 [facility] Influenza Virus 2021-07-11 Completed [facility] Vaccine (3+ yrs) 00:00:00 [facility] Influenza Virus 2021-07-11 Completed [facility] Vaccine 00:00:00 [facility] Influenza Virus 2021-07-11 Completed [facility] Vaccine (3+ yrs) 00:00:00 [facility] Influenza Virus 2021-07-11 Completed [facility] Vaccine 00:00:00 [facility] Influenza Virus 2021-07-11 Completed [facility] Vaccine (3+ yrs) 00:00:00 [facility] Influenza Virus 2021-07-11 Completed [facility] Vaccine 00:00:00 [facility] Influenza Virus 2021-07-11 Completed [facility] Vaccine (3+ yrs) 00:00:00 [facility] Influenza Virus 2021-07-11 Completed [facility] Vaccine 00:00:00 [facility] Influenza Virus 2021-07-11 Completed [facility] Vaccine (3+ yrs) 00:00:00 [facility] Influenza Virus 2021-07-11 Completed [facility] Vaccine 00:00:00 [facility] Influenza Virus 2021-07-11 Completed [facility] Vaccine (3+ yrs) 00:00:00 [facility] Influenza Virus 2021-07-11 Completed [facility] Vaccine 00:00:00 [facility] Influenza Virus 2021-07-11 Completed [facility] Vaccine (3+ yrs) 00:00:00 [facility] Influenza Virus 2021-07-11 Completed [facility] Vaccine 00:00:00 [facility] Influenza Virus 2021-07-11 Completed [facility] Vaccine (3+ yrs) 00:00:00 [facility] Influenza Virus 2021-07-11 Completed [facility] Vaccine 00:00:00 [facility] Influenza Virus 2021-07-11 Completed [facility] Vaccine (3+ yrs) 00:00:00 [facility] Influenza Virus 2021-07-11 Completed [facility] Vaccine 00:00:00 [facility] Influenza Virus 2021-07-11 Completed [facility] Vaccine (3+ yrs) 00:00:00 [facility] Influenza Virus 2021-07-11 Completed [facility] Vaccine 00:00:00 [facility] Influenza Virus 2021-07-11 Completed [facility] Vaccine (3+ yrs) 00:00:00 [facility] Influenza Virus 2021-07-11 Completed [facility] Vaccine 00:00:00 [facility] Influenza Virus 2021-07-11 Completed [facility] Vaccine (3+ yrs) 00:00:00 [facility] Influenza Virus 2021-07-11 Completed [facility] Vaccine 00:00:00 [facility] Influenza Virus 2021-07-11 Completed [facility] Vaccine (3+ yrs) 00:00:00 [facility] Influenza Virus 2021-07-11 Completed [facility] Vaccine 00:00:00 [facility] Influenza Virus 2021-07-11 Completed [facility] Vaccine (3+ yrs) 00:00:00 [facility] Influenza Virus 2021-07-11 Completed [facility] Vaccine 00:00:00 [facility] Influenza Virus 2021-07-11 Completed [facility] Vaccine (3+ yrs) 00:00:00 [facility] Influenza Virus 2021-07-11 Completed [facility] Vaccine 00:00:00 [facility] Influenza Virus 2021-07-11 Completed [facility] Vaccine (3+ yrs) 00:00:00 [facility] Influenza Virus 2021-07-11 Completed [facility] Vaccine 00:00:00 [facility] Influenza Virus 2021-07-11 Completed [facility] Vaccine (3+ yrs) 00:00:00 [facility] Influenza Virus 2021-07-11 Completed [facility] Vaccine 00:00:00 [facility] Influenza Virus 2021-07-11 Completed [facility] Vaccine (3+ yrs) 00:00:00 [facility] Influenza Virus 2021-07-11 Completed [facility] Vaccine 00:00:00 [facility] Influenza Virus 2021-07-11 Completed [facility] Vaccine (3+ yrs) 00:00:00 [facility] Influenza Virus 2021-07-11 Completed [facility] Vaccine 00:00:00 [facility] Influenza Virus 2021-07-11 Completed [facility] Vaccine (3+ yrs) 00:00:00 [facility] Influenza Virus 2021-07-11 Completed [facility] Vaccine 00:00:00 [facility] Influenza Virus 2021-07-11 Completed [facility] Vaccine (3+ yrs) 00:00:00 [facility] Influenza Virus 2021-07-11 Completed [facility] Vaccine 00:00:00 [facility] Influenza Virus 2021-07-11 Completed [facility] Vaccine (3+ yrs) 00:00:00 [facility] Influenza Virus 2021-07-11 Completed [facility] Vaccine 00:00:00 [facility] Influenza Virus 2021-07-11 Completed [facility] Vaccine (3+ yrs) 00:00:00 [facility] Influenza Virus 2021-07-11 Completed [facility] Vaccine 00:00:00 [facility] Influenza Virus 2021-07-11 Completed [facility] Vaccine (3+ yrs) 00:00:00 [facility] Influenza Virus 2021-07-11 Completed [facility] Vaccine 00:00:00 [facility] Influenza Virus 2021-07-11 Completed [facility] Vaccine (3+ yrs) 00:00:00 [facility] Influenza Virus 2021-07-11 Completed [facility] Vaccine 00:00:00 [facility] Influenza Virus 2021-07-11 Completed [facility] Vaccine (3+ yrs) 00:00:00 [facility] Influenza Virus 2021-07-11 Completed [facility] Vaccine 00:00:00 [facility] Influenza Virus 2021-07-11 Completed [facility] Vaccine (3+ yrs) 00:00:00 [facility] Influenza Virus 2021-07-11 Completed [facility] Vaccine 00:00:00 [facility] Influenza Virus 2021-07-11 Completed [facility] Vaccine (3+ yrs) 00:00:00 [facility] Influenza Virus 2021-07-11 Completed [facility] Vaccine 00:00:00 [facility] Influenza Virus 2021-07-11 Completed [facility] Vaccine (3+ yrs) 00:00:00 [facility] Influenza Virus 2021-07-11 Completed [facility] Vaccine 00:00:00 [facility] Influenza Virus 2021-07-11 Completed [facility] Vaccine (3+ yrs) 00:00:00 [facility] Influenza Virus 2021-07-11 Completed [facility] Vaccine 00:00:00 [facility] Influenza Virus 2021-07-11 Completed [facility] Vaccine (3+ yrs) 00:00:00 [facility] Influenza Virus 2021-07-11 Completed [facility] Vaccine 00:00:00 [facility] FLUCELVAX QUAD PF 2021-07-[address] 00:00:00 [facility] SARS-COV-2 COVID-19 2021-02-04 Completed [facility] PFIZER VACCINE 00:00:00 [facility] SARS-COV-2 COVID-19 2021-02-04 Completed [facility] of PFIZER VACCINE 00:00:00 [facility] SARS-COV-2 COVID-19 2021-02-04 Completed [facility] of PFIZER VACCINE 00:00:00 [facility] SARS-COV-2 COVID-19 2021-02-04 Completed [facility] of PFIZER VACCINE 00:00:00 [facility] SARS-COV-2 COVID-19 2021-02-04 Completed [facility] of PFIZER VACCINE 00:00:00 [facility] SARS-COV-2 COVID-19 2021-02-04 Completed [facility] of PFIZER VACCINE 00:00:00 [facility] SARS-COV-2 COVID-19 2021-02-04 Completed [facility] of PFIZER VACCINE 00:00:00 [facility] SARS-COV-2 COVID-19 2021-02-04 Completed [facility] of PFIZER VACCINE 00:00:00 [facility] SARS-COV-2 COVID-19 2021-02-04 Completed [facility] of PFIZER VACCINE 00:00:00 [facility] SARS-COV-2 COVID-19 2021-02-04 Completed [facility] of PFIZER VACCINE 00:00:00 [facility] SARS-COV-2 COVID-19 2021-02-04 Completed [facility] of PFIZER VACCINE 00:00:00 [facility] SARS-COV-2 COVID-19 2021-02-04 Completed [facility] of PFIZER VACCINE 00:00:00 [facility] SARS-COV-2 COVID-19 2021-02-04 Completed [facility] of PFIZER VACCINE 00:00:00 [facility] SARS-COV-2 COVID-19 2021-02-04 Completed [facility] of PFIZER VACCINE 00:00:00 [facility] SARS-COV-2 COVID-19 2021-02-04 Completed [facility] of PFIZER VACCINE 00:00:00 [facility] SARS-COV-2 COVID-19 2021-02-04 Completed [facility] of PFIZER VACCINE 00:00:00 [facility] SARS-COV-2 COVID-19 2021-02-04 Completed [facility] of PFIZER VACCINE 00:00:00 [facility] SARS-COV-2 COVID-19 2021-02-04 Completed [facility] PFIZER VACCINE 00:00:00 [facility] SARS-COV-2 COVID-19 2021-02-04 Completed [facility] of PFIZER VACCINE 00:00:00 [facility] SARS-COV-2 COVID-19 2021-02-04 Completed [facility] PFIZER VACCINE 00:00:00 [facility] SARS-COV-2 COVID-19 2021-02-04 Completed [facility] PFIZER VACCINE 00:00:00 [facility] SARS-COV-2 COVID-19 2021-02-04 Completed [facility] of PFIZER VACCINE 00:00:00 [facility] SARS-COV-2 COVID-19 2021-02-04 Completed [facility] of PFIZER VACCINE 00:00:00 [facility] SARS-COV-2 COVID-19 2021-02-04 Completed [facility] of PFIZER VACCINE 00:00:00 [facility] SARS-COV-2 COVID-19 2021-02-04 Completed [facility] of PFIZER VACCINE 00:00:00 [facility] SARS-COV-2 COVID-19 2021-02-04 Completed [facility] of PFIZER VACCINE 00:00:00 [facility] SARS-COV-2 COVID-19 2021-02-04 Completed [facility] of PFIZER VACCINE 00:00:00 [facility] SARS-COV-2 COVID-19 2021-02-04 Completed [facility] PFIZER VACCINE 00:00:00 [facility] SARS-COV-2 COVID-19 2021-02-04 Completed [facility] PFIZER VACCINE 00:00:00 [facility] SARS-COV-2 COVID-19 2021-02-04 Completed [facility] of PFIZER VACCINE 00:00:00 [facility] SARS-COV-2 COVID-19 2021-02-04 Completed [facility] of PFIZER VACCINE 00:00:00 [facility] SARS-COV-2 COVID-19 2021-02-04 Completed [facility] PFIZER VACCINE 00:00:00 [facility] SARS-COV-2 COVID-19 2021-02-04 Completed [facility] PFIZER VACCINE 00:00:00 [facility] SARS-COV-2 COVID-19 2021-02-04 Completed [facility] PFIZER VACCINE 00:00:00 [facility] SARS-COV-2 COVID-19 2021-02-04 Completed [facility] of PFIZER VACCINE 00:00:00 [facility] SARS-COV-2 COVID-19 2021-02-04 Completed [facility] PFIZER VACCINE 00:00:00 [facility] SARS-COV-2 COVID-19 2021-02-04 Completed [facility] PFIZER VACCINE 00:00:00 [facility] SARS-COV-2 COVID-19 2021-02-04 Completed [facility] PFIZER VACCINE 00:00:00 [facility] SARS-COV-2 COVID-19 2021-02-04 Completed [facility] PFIZER VACCINE 00:00:00 [facility] SARS-COV-2 COVID-19 2021-02-04 Completed [facility] of PFIZER VACCINE 00:00:00 [facility] SARS-COV-2 COVID-19 2021-02-04 Completed [facility] PFIZER VACCINE 00:00:00 [facility] SARS-COV-2 COVID-19 2021-02-04 Completed [facility] PFIZER VACCINE 00:00:00 [facility] PFIZER COVID-19 2021-02-04 Completed [facility] VACCINATION 00:00:00 [facility] SARS-COV-2 COVID-19 2021-01-14 Completed [facility] of PFIZER VACCINE 00:00:00 [facility] SARS-COV-2 COVID-19 2021-01-14 Completed [facility] PFIZER VACCINE 00:00:00 [facility] SARS-COV-2 COVID-19 2021-01-14 Completed [facility] PFIZER VACCINE 00:00:00 [facility] SARS-COV-2 COVID-19 2021-01-14 Completed [facility] PFIZER VACCINE 00:00:00 [facility] SARS-COV-2 COVID-19 2021-01-14 Completed [facility] PFIZER VACCINE 00:00:00 [facility] SARS-COV-2 COVID-19 2021-01-14 Completed [facility] PFIZER VACCINE 00:00:00 [facility] SARS-COV-2 COVID-19 2021-01-14 Completed [facility] of PFIZER VACCINE 00:00:00 [facility] SARS-COV-2 COVID-19 2021-01-14 Completed [facility] of PFIZER VACCINE 00:00:00 [facility] SARS-COV-2 COVID-19 2021-01-14 Completed [facility] of PFIZER VACCINE 00:00:00 [facility] SARS-COV-2 COVID-19 2021-01-14 Completed [facility] of PFIZER VACCINE 00:00:00 [facility] SARS-COV-2 COVID-19 2021-01-14 Completed [facility] PFIZER VACCINE 00:00:00 [facility] SARS-COV-2 COVID-19 2021-01-14 Completed [facility] of PFIZER VACCINE 00:00:00 [facility] SARS-COV-2 COVID-19 2021-01-14 Completed [facility] of PFIZER VACCINE 00:00:00 [facility] SARS-COV-2 COVID-19 2021-01-14 Completed [facility] of PFIZER VACCINE 00:00:00 [facility] SARS-COV-2 COVID-19 2021-01-14 Completed [facility] PFIZER VACCINE 00:00:00 [facility] SARS-COV-2 COVID-19 2021-01-14 Completed [facility] PFIZER VACCINE 00:00:00 [facility] SARS-COV-2 COVID-19 2021-01-14 Completed [facility] of PFIZER VACCINE 00:00:00 [facility] SARS-COV-2 COVID-19 2021-01-14 Completed [facility] of PFIZER VACCINE 00:00:00 [facility] SARS-COV-2 COVID-19 2021-01-14 Completed [facility] PFIZER VACCINE 00:00:00 [facility] SARS-COV-2 COVID-19 2021-01-14 Completed [facility] of PFIZER VACCINE 00:00:00 [facility] SARS-COV-2 COVID-19 2021-01-14 Completed [facility] of PFIZER VACCINE 00:00:00 [facility] SARS-COV-2 COVID-19 2021-01-14 Completed [facility] of PFIZER VACCINE 00:00:00 [facility] SARS-COV-2 COVID-19 2021-01-14 Completed [facility] of PFIZER VACCINE 00:00:00 [facility] SARS-COV-2 COVID-19 2021-01-14 Completed [facility] of PFIZER VACCINE 00:00:00 [facility] SARS-COV-2 COVID-19 2021-01-14 Completed [facility] of PFIZER VACCINE 00:00:00 [facility] SARS-COV-2 COVID-19 2021-01-14 Completed [facility] of PFIZER VACCINE 00:00:00 [facility] SARS-COV-2 COVID-19 2021-01-14 Completed [facility] of PFIZER VACCINE 00:00:00 [facility] SARS-COV-2 COVID-19 2021-01-14 Completed [facility] PFIZER VACCINE 00:00:00 [facility] SARS-COV-2 COVID-19 2021-01-14 Completed [facility] PFIZER VACCINE 00:00:00 [facility] SARS-COV-2 COVID-19 2021-01-14 Completed [facility] PFIZER VACCINE 00:00:00 [facility] SARS-COV-2 COVID-19 2021-01-14 Completed [facility] of PFIZER VACCINE 00:00:00 [facility] SARS-COV-2 COVID-19 2021-01-14 Completed [facility] of PFIZER VACCINE 00:00:00 [facility] SARS-COV-2 COVID-19 2021-01-14 Completed [facility] of PFIZER VACCINE 00:00:00 [facility] SARS-COV-2 COVID-19 2021-01-14 Completed [facility] PFIZER VACCINE 00:00:00 [facility] SARS-COV-2 COVID-19 2021-01-14 Completed [facility] PFIZER VACCINE 00:00:00 [facility] SARS-COV-2 COVID-19 2021-01-14 Completed [facility] PFIZER VACCINE 00:00:00 [facility] SARS-COV-2 COVID-19 2021-01-14 Completed [facility] PFIZER VACCINE 00:00:00 [facility] SARS-COV-2 COVID-19 2021-01-14 Completed [facility] PFIZER VACCINE 00:00:00 [facility] SARS-COV-2 COVID-19 2021-01-14 Completed [facility] PFIZER VACCINE 00:00:00 [facility] SARS-COV-2 COVID-19 2021-01-14 Completed [facility] PFIZER VACCINE 00:00:00 [facility] SARS-COV-2 COVID-19 2021-01-14 Completed [facility] PFIZER VACCINE 00:00:00 [facility] SARS-COV-2 COVID-19 2021-01-14 Completed [facility] PFIZER VACCINE 00:00:00 [facility] PFIZER COVID-19 2021-01-14 Completed [facility] VACCINATION 00:00:00 [facility] Influenza Virus 2020-07-22 Completed [facility] Vaccine 00:00:00 [facility] Influenza Virus 2020-07-22 Completed [facility] Vaccine 00:00:00 [facility] Influenza Virus 2020-07-22 Completed [facility] Vaccine 00:00:00 [facility] Influenza Virus 2020-07-22 Completed [facility] Vaccine 00:00:00 [facility] Influenza Virus 2020-07-22 Completed [facility] Vaccine 00:00:00 [facility] Influenza Virus 2020-07-22 Completed [facility] Vaccine 00:00:00 [facility] Influenza Virus 2020-07-22 Completed [facility] Vaccine 00:00:00 [facility] Influenza Virus 2020-07-22 Completed [facility] Vaccine 00:00:00 [facility] Influenza Virus 2020-07-22 Completed [facility] Vaccine 00:00:00 [facility] Influenza Virus 2020-07-22 Completed [facility] Vaccine 00:00:00 [facility] Influenza Virus 2020-07-22 Completed [facility] Vaccine 00:00:00 [facility] Influenza Virus 2020-07-22 Completed [facility] Vaccine 00:00:00 [facility] Influenza Virus 2020-07-22 Completed [facility] Vaccine 00:00:00 [facility] Influenza Virus 2020-07-22 Completed [facility] Vaccine 00:00:00 [facility] Influenza Virus 2020-07-22 Completed [facility] Vaccine 00:00:00 [facility] Influenza Virus 2020-07-22 Completed [facility] Vaccine 00:00:00 [facility] Influenza Virus 2020-07-22 Completed [facility] Vaccine 00:00:00 [facility] Influenza Virus 2020-07-22 Completed [facility] Vaccine 00:00:00 [facility] Influenza Virus 2020-07-22 Completed [facility] Vaccine 00:00:00 [facility] Influenza Virus 2020-07-22 Completed [facility] Vaccine 00:00:00 [facility] Influenza Virus 2020-07-22 Completed [facility] Vaccine 00:00:00 [facility] Influenza Virus 2020-07-22 Completed [facility] Vaccine 00:00:00 [facility] Influenza Virus 2020-07-22 Completed [facility] Vaccine 00:00:00 [facility] Influenza Virus 2020-07-22 Completed [facility] Vaccine 00:00:00 [facility] Influenza Virus 2020-07-22 Completed [facility] Vaccine 00:00:00 [facility] Influenza Virus 2020-07-22 Completed [facility] Vaccine 00:00:00 [facility] Influenza Virus 2020-07-22 Completed [facility] Vaccine 00:00:00 [facility] Influenza Virus 2020-07-22 Completed [facility] Vaccine 00:00:00 [facility] Influenza Virus 2020-07-22 Completed [facility] Vaccine 00:00:00 [facility] Influenza Virus 2020-07-22 Completed [facility] Vaccine 00:00:00 [facility] Influenza Virus 2020-07-22 Completed [facility] Vaccine 00:00:00 [facility] Influenza Virus 2020-07-22 Completed [facility] Vaccine 00:00:00 [facility] Influenza Virus 2020-07-22 Completed [facility] Vaccine 00:00:00 [facility] Influenza Virus 2020-07-22 Completed [facility] Vaccine 00:00:00 [facility] Influenza Virus 2020-07-22 Completed [facility] Vaccine 00:00:00 [facility] Influenza Virus 2020-07-22 Completed [facility] Vaccine 00:00:00 [facility] Influenza Virus 2020-07-22 Completed [facility] Vaccine 00:00:00 [facility] Influenza Virus 2020-07-22 Completed [facility] Vaccine 00:00:00 [facility] Influenza Virus 2020-07-22 Completed [facility] Vaccine 00:00:00 [facility] Influenza Virus 2020-07-22 Completed [facility] Vaccine 00:00:00 [facility] Influenza Virus 2020-07-22 Completed [facility] Vaccine 00:00:00 [facility] Influenza Virus 2020-07-22 Completed [facility] Vaccine 00:00:00 [facility] Influenza Virus 2020-07-22 Completed [facility] Vaccine 00:00:00 [facility] Influenza Virus 2020-07-22 Completed [facility] Vaccine 00:00:00 [facility] Influenza Virus 2020-07-22 Completed [facility] Vaccine 00:00:00 [facility] Influenza Virus 2020-07-22 Completed [facility] Vaccine 00:00:00 [facility] Influenza Virus 2020-07-22 Completed [facility] Vaccine 00:00:00 [facility] Influenza Virus 2020-07-22 Completed [facility] Vaccine 00:00:00 [facility] Influenza Virus 2020-07-22 Completed [facility] Vaccine 00:00:00 [facility] Influenza Virus 2020-07-22 Completed [facility] Vaccine 00:00:00 [facility] Influenza Virus 2020-07-22 Completed [facility] Vaccine 00:00:00 [facility] Influenza Virus 2020-07-22 Completed [facility] Vaccine 00:00:00 [facility] Influenza Virus 2020-07-22 Completed [facility] Vaccine 00:00:00 [facility] Influenza Virus 2020-07-22 Completed [facility] Vaccine 00:00:00 [facility] Influenza Virus 2020-07-22 Completed [facility] Vaccine 00:00:00 [facility] Influenza Virus 2020-07-22 Completed [facility] Vaccine 00:00:00 [facility] Influenza Virus 2020-07-22 Completed [facility] Vaccine 00:00:00 [facility] Influenza, 2020-07-22 Completed [facility] Un[facility] 00:00:00 [facility] Influenza Virus 2019-07-15 Completed [facility] Vaccine Quad .5 mL 00:00:00 [facility] [place] [facility] Influenza Virus 2019-07-15 Completed [facility] Vaccine Quad .5 mL 00:00:00 [facility] IM [facility] Influenza Virus 2019-07-15 Completed [facility] .5 mL 00:00:00 [facility] Influenza Virus 2019-07-15 Completed [facility] .5 mL 00:00:00 [facility] Influenza Virus 2019-07-15 Completed [facility] .5 mL 00:00:00 [facility] Influenza Virus 2019-07-15 Completed [facility] .5 mL 00:00:00 [facility] Influenza Virus 2019-07-15 Completed [facility] .5 mL 00:00:00 [facility] Influenza Virus 2019-07-15 Completed [facility] .5 mL 00:00:00 [facility] Influenza Virus 2019-07-15 Completed [facility] .5 mL 00:00:00 [facility] Influenza Virus 2019-07-15 Completed [facility] .5 mL 00:00:00 [facility] Influenza Virus 2019-07-15 Completed [facility] .5 mL 00:00:00 [facility] Influenza Virus 2019-07-15 Completed [facility] .5 mL 00:00:00 [facility] Influenza Virus 2019-07-15 Completed [facility] .5 mL 00:00:00 [facility] Influenza Virus 2019-07-15 Completed [facility] .5 mL 00:00:00 [facility] Influenza Virus 2019-07-15 Completed [facility] .5 mL 00:00:00 [facility] Influenza Virus 2019-07-15 Completed [facility] .5 mL 00:00:00 [facility] Influenza Virus 2019-07-15 Completed [facility] .5 mL 00:00:00 [facility] Influenza Virus 2019-07-15 Completed [facility] .5 mL 00:00:00 [facility] Influenza Virus 2019-07-15 Completed [facility] .5 mL 00:00:00 [facility] Influenza Virus 2019-07-15 Completed [facility] .5 mL 00:00:00 [facility] Influenza Virus 2019-07-15 Completed [facility] .5 mL 00:00:00 [facility] Influenza Virus 2019-07-15 Completed [facility] .5 mL 00:00:00 [facility] Influenza Virus 2019-07-15 Completed [facility] .5 mL 00:00:00 [facility] Influenza Virus 2019-07-15 Completed [facility] .5 mL 00:00:00 [facility] Influenza Virus 2019-07-15 Completed [facility] .5 mL 00:00:00 [facility] Influenza Virus 2019-07-15 Completed [facility] .5 mL 00:00:00 [facility] Influenza Virus 2019-07-15 Completed [facility] .5 mL 00:00:00 [facility] Influenza Virus 2019-07-15 Completed [facility] .5 mL 00:00:00 [facility] Influenza Virus 2019-07-15 Completed [facility] .5 mL 00:00:00 [facility] Influenza Virus 2019-07-15 Completed [facility] .5 mL 00:00:00 [facility] Influenza Virus 2019-07-15 Completed [facility] .5 mL 00:00:00 [facility] Influenza Virus 2019-07-15 Completed [facility] .5 mL 00:00:00 [facility] Influenza Virus 2019-07-15 Completed [facility] .5 mL 00:00:00 [facility] Influenza Virus 2019-07-15 Completed [facility] .5 mL 00:00:00 [facility] Influenza Virus 2019-07-15 Completed [facility] .5 mL 00:00:00 [facility] Influenza Virus 2019-07-15 Completed [facility] .5 mL 00:00:00 [facility] Influenza Virus 2019-07-15 Completed [facility] .5 mL 00:00:00 [facility] Influenza Virus 2019-07-15 Completed [facility] .5 mL 00:00:00 [facility] Influenza Virus 2019-07-15 Completed [facility] .5 mL 00:00:00 [facility] Influenza Virus 2019-07-15 Completed [facility] .5 mL 00:00:00 [facility] Influenza Virus 2019-07-15 Completed [facility] .5 mL 00:00:00 [facility] Influenza Virus 2019-07-15 Completed [facility] .5 mL 00:00:00 [facility] Influenza Virus 2019-07-15 Completed [facility] .5 mL 00:00:00 [facility] Influenza Virus 2019-07-15 Completed [facility] .5 mL 00:00:00 [facility] Influenza Virus 2019-07-15 Completed [facility] .5 mL 00:00:00 [facility] Influenza Virus 2019-07-15 Completed [facility] .5 mL 00:00:00 [facility] Influenza Virus 2019-07-15 Completed [facility] .5 mL 00:00:00 [facility] Influenza Virus 2019-07-15 Completed [facility] .5 mL 00:00:00 [facility] Influenza Virus 2019-07-15 Completed [facility] .5 mL 00:00:00 [facility] Influenza Virus 2019-07-15 Completed [facility] .5 mL 00:00:00 [facility] Influenza Virus 2019-07-15 Completed [facility] .5 mL 00:00:00 [facility] Influenza Virus 2019-07-15 Completed [facility] .5 mL 00:00:00 [facility] Influenza Virus 2019-07-15 Completed [facility] .5 mL 00:00:00 [facility] Influenza Virus 2019-07-15 Completed [facility] .5 mL 00:00:00 [facility] Influenza Virus 2019-07-15 Completed [facility] .5 mL 00:00:00 [facility] Influenza Virus 2019-07-15 Completed [facility] .5 mL 00:00:00 [facility] Influenza Virus 2019-07-15 Completed [facility] .5 mL 00:00:00 [facility] 6[facility] MO [facility] FLUZONE QUAD PF 2019-07-15 Completed [facility] 00:00:00 [facility] TDAP 2017-08-12 Completed [facility] 00:00:00 [facility] Influenza Virus 2017-08-12 Completed [facility] IM 3+ 00:00:00 [facility] TDAP 2017-08-12 Completed [facility] 00:00:00 [facility] Influenza Virus 2017-08-12 Completed [facility] IM 3+ 00:00:00 [facility] TDAP 2017-08-12 Completed [facility] 00:00:00 [facility] Influenza Virus 2017-08-12 Completed [facility] IM 3+ 00:00:00 [facility] TDAP 2017-08-12 Completed [facility] 00:00:00 [facility] Influenza Virus 2017-08-12 Completed [facility] IM 3+ 00:00:00 [facility] TDAP 2017-08-12 Completed [facility] 00:00:00 [facility] Influenza Virus 2017-08-12 Completed [facility] IM 3+ 00:00:00 [facility] TDAP 2017-08-12 Completed [facility] 00:00:00 [facility] Influenza Virus 2017-08-12 Completed [facility] IM 3+ 00:00:00 [facility] TDAP 2017-08-12 Completed [facility] 00:00:00 [facility] Influenza Virus 2017-08-12 Completed [facility] IM 3+ 00:00:00 [facility] TDAP 2017-08-12 Completed [facility] of 00:00:00 [facility] Influenza Virus 2017-08-12 Completed [facility] IM 3+ 00:00:00 [facility] TDAP 2017-08-12 Completed [facility] 00:00:00 [facility] Influenza Virus 2017-08-12 Completed [facility] IM 3+ 00:00:00 [facility] TDAP 2017-08-12 Completed [facility] 00:00:00 [facility] Influenza Virus 2017-08-12 Completed [facility] IM 3+ 00:00:00 [facility] TDAP 2017-08-12 Completed [facility] 00:00:00 [facility] Influenza Virus 2017-08-12 Completed [facility] IM 3+ 00:00:00 [facility] TDAP 2017-08-12 Completed [facility] 00:00:00 [facility] Influenza Virus 2017-08-12 Completed [facility] IM 3+ 00:00:00 [facility] TDAP 2017-08-12 Completed [facility] 00:00:00 [facility] Influenza Virus 2017-08-12 Completed [facility] IM 3+ 00:00:00 [facility] TDAP 2017-08-12 Completed [facility] 00:00:00 [facility] Influenza Virus 2017-08-12 Completed [facility] IM 3+ 00:00:00 [facility] TDAP 2017-08-12 Completed [facility] 00:00:00 [facility] Influenza Virus 2017-08-12 Completed [facility] IM 3+ 00:00:00 [facility] TDAP 2017-08-12 Completed [facility] 00:00:00 [facility] Influenza Virus 2017-08-12 Completed [facility] IM 3+ 00:00:00 [facility] TDAP 2017-08-12 Completed [facility] of 00:00:00 [facility] Influenza Virus 2017-08-12 Completed [facility] IM 3+ 00:00:00 [facility] TDAP 2017-08-12 Completed [facility] of 00:00:00 [facility] Influenza Virus 2017-08-12 Completed [facility] IM 3+ 00:00:00 [facility] TDAP 2017-08-12 Completed [facility] of 00:00:00 [facility] Influenza Virus 2017-08-12 Completed [facility] IM 3+ 00:00:00 [facility] TDAP 2017-08-12 Completed [facility] 00:00:00 [facility] Influenza Virus 2017-08-12 Completed [facility] IM 3+ 00:00:00 [facility] TDAP 2017-08-12 Completed [facility] of 00:00:00 [facility] Influenza Virus 2017-08-12 Completed [facility] IM 3+ 00:00:00 [facility] TDAP 2017-08-12 Completed [facility] of 00:00:00 [facility] Influenza Virus 2017-08-12 Completed [facility] IM 3+ 00:00:00 [facility] TDAP 2017-08-12 Completed [facility] of 00:00:00 [facility] Influenza Virus 2017-08-12 Completed [facility] IM 3+ 00:00:00 [facility] TDAP 2017-08-12 Completed [facility] 00:00:00 [facility] Influenza Virus 2017-08-12 Completed [facility] IM 3+ 00:00:00 [facility] TDAP 2017-08-12 Completed [facility] 00:00:00 [facility] Influenza Virus 2017-08-12 Completed [facility] IM 3+ 00:00:00 [facility] TDAP 2017-08-12 Completed [facility] 00:00:00 [facility] Influenza Virus 2017-08-12 Completed [facility] IM 3+ 00:00:00 [facility] TDAP 2017-08-12 Completed [facility] of 00:00:00 [facility] Influenza Virus 2017-08-12 Completed [facility] IM 3+ 00:00:00 [facility] TDAP 2017-08-12 Completed [facility] 00:00:00 [facility] Influenza Virus 2017-08-12 Completed [facility] IM 3+ 00:00:00 [facility] TDAP 2017-08-12 Completed [facility] 00:00:00 [facility] Influenza Virus 2017-08-12 Completed [facility] IM 3+ 00:00:00 [facility] TDAP 2017-08-12 Completed [facility] of 00:00:00 [facility] Influenza Virus 2017-08-12 Completed [facility] IM 3+ 00:00:00 [facility] TDAP 2017-08-12 Completed [facility] of 00:00:00 [facility] Influenza Virus 2017-08-12 Completed [facility] IM 3+ 00:00:00 [facility] TDAP 2017-08-12 Completed [facility] of 00:00:00 [facility] Influenza Virus 2017-08-12 Completed [facility] IM 3+ 00:00:00 [facility] TDAP 2017-08-12 Completed [facility] 00:00:00 [facility] Influenza Virus 2017-08-12 Completed [facility] IM 3+ 00:00:00 [facility] TDAP 2017-08-12 Completed [facility] of 00:00:00 [facility] Influenza Virus 2017-08-12 Completed [facility] IM 3+ 00:00:00 [facility] TDAP 2017-08-12 Completed [facility] of 00:00:00 [facility] Influenza Virus 2017-08-12 Completed [facility] IM 3+ 00:00:00 [facility] TDAP 2017-08-12 Completed [facility] of 00:00:00 [facility] Influenza Virus 2017-08-12 Completed [facility] IM 3+ 00:00:00 [facility] TDAP 2017-08-12 Completed [facility] of 00:00:00 [facility] Influenza Virus 2017-08-12 Completed [facility] IM 3+ 00:00:00 [facility] TDAP 2017-08-12 Completed [facility] of 00:00:00 [facility] Influenza Virus 2017-08-12 Completed [facility] IM 3+ 00:00:00 [facility] TDAP 2017-08-12 Completed [facility] of 00:00:00 [facility] Influenza Virus 2017-08-12 Completed [facility] IM 3+ 00:00:00 [facility] TDAP 2017-08-12 Completed [facility] of 00:00:00 [facility] Influenza Virus 2017-08-12 Completed [facility] IM 3+ 00:00:00 [facility] TDAP 2017-08-12 Completed [facility] of 00:00:00 [facility] Influenza Virus 2017-08-12 Completed [facility] IM 3+ 00:00:00 [facility] TDAP 2017-08-12 Completed [facility] 00:00:00 [facility] Influenza Virus 2017-08-12 Completed [facility] IM 3+ 00:00:00 [facility] TDAP 2017-08-12 Completed [facility] 00:00:00 [facility] Influenza Virus 2017-08-12 Completed [facility] IM 3+ 00:00:00 [facility] TDAP 2017-08-12 Completed [facility] 00:00:00 [facility] Influenza Virus 2017-08-12 Completed [facility] IM 3+ 00:00:00 [facility] TDAP 2017-08-12 Completed [facility] 00:00:00 [facility] Influenza Virus 2017-08-12 Completed [facility] IM 3+ 00:00:00 [facility] TDAP 2017-08-12 Completed [facility] 00:00:00 [facility] Influenza Virus 2017-08-12 Completed [facility] IM 3+ 00:00:00 [facility] TDAP 2017-08-12 Completed [facility] 00:00:00 [facility] Influenza Virus 2017-08-12 Completed [facility] IM 3+ 00:00:00 [facility] TDAP 2017-08-12 Completed [facility] 00:00:00 [facility] Influenza Virus 2017-08-12 Completed [facility] IM 3+ 00:00:00 [facility] TDAP 2017-08-12 Completed [facility] 00:00:00 [facility] Influenza Virus 2017-08-12 Completed [facility] IM 3+ 00:00:00 [facility] TDAP 2017-08-12 Completed [facility] of 00:00:00 [facility] Influenza Virus 2017-08-12 Completed [facility] IM 3+ 00:00:00 [facility] TDAP 2017-08-12 Completed [facility] 00:00:00 [facility] Influenza Virus 2017-08-12 Completed [facility] IM 3+ 00:00:00 [facility] TDAP 2017-08-12 Completed [facility] of 00:00:00 [facility] Influenza Virus 2017-08-12 Completed [facility] IM 3+ 00:00:00 [facility] TDAP 2017-08-12 Completed [facility] of 00:00:00 [facility] Influenza Virus 2017-08-12 Completed [facility] IM 3+ 00:00:00 [facility] TDAP 2017-08-12 Completed [facility] of 00:00:00 [facility] Influenza Virus 2017-08-12 Completed [facility] IM 3+ 00:00:00 [facility] TDAP 2017-08-12 Completed [facility] of 00:00:00 [facility] Influenza Virus 2017-08-12 Completed [facility] IM 3+ 00:00:00 [facility] TDAP 2017-08-12 Completed [facility] 00:00:00 [facility] Influenza Virus 2017-08-12 Completed [facility] IM 3+ 00:00:00 [facility] TDAP 2017-08-12 Completed [facility] of 00:00:00 [facility] Influenza Virus 2017-08-12 Completed [facility] IM 3+ 00:00:00 [facility] FLUZONE QUAD PF 2017-08-12 Completed [facility]00 [facility] Tdap 2017-08-12 Completed [facility] 00:[facility]00 [facility] Vital Signs Vital Name Observation Time Observation Value Comments Source Systolic blood 2023-01-08 19:13:00 140 mm[Hg] Univer [facility]ity of pressure [facility] Diastolic blood 2023-01-08 19:13:00 63 mm[Hg] Unive rsity of [facility] Heart rate 2023-01-08 19:13:00 60 /min [facility] Respiratory rate 2023-01-08 19:13:00 18 /min [facility] 2023-01-08 19:13:00 100 /min [facility] Arterial blood by [facility] Pulse oximetry Branch Body temperature 2023-01-08 18:43:00 36.28 Janet [facility] Body height 2023-01-08 18:04:00 162.6 cm [facility] Body weight 2023-01-08 18:04:00 79.289 kg [facility] BMI 2023-01-08 18:04:00 30.00 kg/m2 [facility] Systolic blood 2023-01-08 19:13:00 140 mm[Hg] Univer sity of pressure [facility] Diastolic blood 2023-01-08 19:13:00 63 mm[Hg] Unive rsity of pressure [facility] Heart rate 2023-01-08 19:13:00 60 /min [facility] Respiratory rate 2023-01-08 19:13:00 18 /min [facility] 2023-01-08 19:13:00 100 /min [facility] Arterial blood by [facility] Pulse oximetry [facility] Body temperature 2023-01-08 18:43:00 36.28 Janet [facility] Body height 2023-01-08 18:04:00 162.6 cm [facility] Body weight 2023-01-08 18:04:00 79.289 kg [facility] BMI 2023-01-08 18:04:00 30.00 kg/m2 [facility] Systolic blood 2023-01-05 16:17:00 169 mm[Hg] [facility]iver [facility]ity of pressure [facility] Diastolic blood 2023-01-05 16:17:00 74 mm[Hg] Un[facility]ity of pressure [facility] Heart rate 2023-01-05 16:10:00 65 /min [facility] Body height 2023-01-05 16:10:00 162.6 cm [facility] Body weight 2023-01-05 16:10:00 80.559 kg [facility] BMI 2023-01-05 16:10:00 30.48 kg/m2 [facility] Oxygen saturation in 2023-01-05 16:10:00 99 /min [facility] Arterial blood by [facility] Pulse oximetry [facility] Systolic blood 2023-01-01 22:52:00 155 mm[Hg] Univer [facility]ity of pressure [facility] Diastolic blood 2023-01-01 22:52:00 72 mm[Hg] [facility] rsity of pressure [facility] Heart rate 2023-01-01 22:52:00 66 /min [facility] Respiratory rate 2023-01-01 22:52:00 17 /min Univ ers[facility] Oxygen saturation in 2023-01-01 22:52:00 100 /min [facility] of Arterial blood by [facility] Pulse oximetry Branch Body temperature 2023-01-01 20:39:00 36.39 Janet [facility] Body height 2023-01-01 20:38:00 162.6 cm [facility] Body weight 2023-01-01 20:38:00 76.204 kg [facility] BMI 2023-01-01 20:38:00 28.84 kg/m2 [facility] Systolic blood 2023-01-01 19:24:00 142 mm[Hg] [facility]ity of pressure [facility] Diastolic blood 2023-01-01 19:24:00 81 mm[Hg] [facility] rsity of pressure [facility] Heart rate 2023-01-01 19:24:00 76 /min [facility] Body temperature 2023-01-01 19:24:00 35.17 Janet [facility] Body height 2023-01-01 19:24:00 162.6 cm [facility] Body weight 2023-01-01 19:24:00 76.204 kg [facility] BMI 2023-01-01 19:24:00 28.84 kg/m2 [facility] Oxygen saturation in 2023-01-01 19:24:00 93 /min [facility] Arterial blood by [facility] Pulse oximetry [facility] Systolic blood 2022-12-22 21:36:00 134 mm[Hg] Univer sity of pressure [facility] Diastolic blood 2022-12-22 21:36:00 74 mm[Hg] Unive rsity of pressure [facility] Heart rate 2022-12-22 21:36:00 65 /min [facility] Body temperature 2022-12-22 21:36:00 36.78 Janet [facility] Respiratory rate 2022-12-22 21:36:00 20 /min Univ ers[facility] Oxygen saturation in 2022-12-22 21:36:00 97 /min [facility] of Arterial blood by [facility] Pulse oximetry Branch Body height 2022-12-21 07:41:00 162 cm [facility] Body weight 2022-12-21 07:41:00 81.194 kg [facility] BMI 2022-12-21 07:41:00 30.94 kg/m2 [facility] Systolic blood 2022-12-08 17:17:00 131 mm[Hg] Un[facility]ity of pressure [facility] Diastolic blood 2022-12-08 17:17:00 79 mm[Hg] Unive rsity of pressure [facility] Heart rate 2022-12-08 17:17:00 93 /min [facility] Body height 2022-12-08 17:17:00 137.2 cm [facility] Body weight 2022-12-08 17:17:00 81.375 kg [facility] BMI 2022-12-08 17:17:00 43.26 kg/m2 [facility] Systolic blood 2022-11-20 22:26:00 162 mm[Hg] [facility]ity of pressure [facility] Diastolic blood 2022-11-20 22:26:00 75 mm[Hg] Unive rsity of pressure [facility] Heart rate 2022-11-20 22:19:00 86 /min [facility] Body weight 2022-11-20 22:19:00 78.608 kg [facility] BMI 2022-11-20 22:19:00 29.75 kg/m2 [facility] Oxygen saturation in 2022-11-20 22:19:00 98 /min [facility] Arterial blood by [facility] Pulse oximetry Branch Body temperature 2022-11-14 21:43:00 36.61 Janet [facility] Body weight 2022-11-14 21:43:00 76.613 kg [facility] BMI 2022-11-14 21:43:00 28.99 kg/m2 [facility] Systolic blood 2022-11-01 18:41:00 134 mm[Hg] Un[facility]ity of pressure [facility] Diastolic blood 2022-11-01 18:41:00 70 mm[Hg] Unive rsity of pressure [facility] Heart rate 2022-11-01 18:41:00 72 /min [facility] Body temperature 2022-11-01 18:41:00 36.83 Janet [facility] Respiratory rate 2022-11-01 18:41:00 16 /min Univ [facility] Oxygen saturation in 2022-11-01 18:41:00 98 /min [facility] Arterial blood by [facility] Pulse oximetry Branch Body weight 2022-11-01 16:30:00 78.019 kg [facility] BMI 2022-11-01 16:30:00 29.52 kg/m2 [facility] Systolic blood 2022-11-01 15:50:00 148 mm[Hg] Un[facility]ity of pressure [facility] Diastolic blood 2022-11-01 15:50:00 74 mm[Hg] Unive rsity of pressure [facility] Respiratory rate 2022-11-01 15:50:00 20 /min Univ ers[facility] Body height 2022-11-01 15:50:00 162.6 cm [facility] Body weight 2022-11-01 15:50:00 78.019 kg [facility] BMI 2022-11-01 15:50:00 29.52 kg/m2 [facility] Systolic blood 2022-11-01 15:52:00 136 mm[Hg] Univer sity of pressure [facility] Diastolic blood 2022-11-01 15:52:00 80 mm[Hg] Unive rsity of pressure [facility] Heart rate 2022-11-01 15:52:00 75 /min [facility] Body temperature 2022-11-01 15:52:00 36.78 Janet Univ ersity of [facility] Respiratory rate 2022-11-01 15:52:00 16 /min Univ ersity of [facility] Body height 2022-11-01 15:52:00 162.6 cm [facility] Body weight 2022-11-01 15:52:00 78.019 kg [facility] BMI 2022-11-01 15:52:00 29.52 kg/m2 [facility] Oxygen saturation in 2022-11-01 15:52:00 98 /min University Arterial blood by [facility] Pulse oximetry Branch Systolic blood 2022-10-31 15:04:00 163 mm[Hg] Univer sity of pressure [facility] Diastolic blood 2022-10-31 15:04:00 78 mm[Hg] Unive rsity of pressure [facility] Heart rate 2022-10-31 15:04:00 58 /min [facility] Body height 2022-10-31 15:04:00 162.6 cm [facility] Body weight 2022-10-31 15:04:00 79.969 kg [facility] BMI 2022-10-31 15:04:00 30.26 kg/m2 [facility] Oxygen saturation in 2022-10-31 15:04:00 97 /min [facility] of [facility] P[facility]xim[facility] Body temperature 2022-10-31 15:01:00 36.67 Janet Univ ers[facility] Systolic blood 2022-10-13 21:01:00 134 mm[Hg] Univer sity of [facility] Diastolic blood 2022-10-13 21:01:00 71 mm[Hg] Unive rsity of pressure [facility] Heart rate 2022-10-13 20:55:00 75 /min [facility] Body height 2022-10-13 20:55:00 162.6 cm [facility] Body weight 2022-10-13 20:55:00 77.61 kg [facility] BMI 2022-10-13 20:55:00 29.37 kg/m2 [facility] Oxygen saturation in 2022-10-13 20:55:00 97 /min University of [facility]ial blood by [facility] P[facility]xim[facility] Branch Systolic blood 2022-09-12 20:04:00 174 mm[Hg] Univer sity of pressure [facility] Diastolic blood 2022-09-12 20:04:00 78 mm[Hg] Unive rsity of [facility] Heart rate 2022-09-12 19:55:00 78 /min [facility] Body height 2022-09-12 19:55:00 162.6 cm [facility] Body weight 2022-09-12 19:55:00 78.019 kg [facility] BMI 2022-09-12 19:55:00 29.52 kg/m2 [facility] Oxygen saturation in 2022-09-12 19:55:00 99 /min University of [facility]terial blood by [facility] Systolic blood 2022-07-13 18:03:00 118 mm[Hg] Univer sity of [facility] Diastolic blood 2022-07-13 18:03:00 72 mm[Hg] Unive rsity of pressure [facility] Heart rate 2022-07-13 18:03:00 104 /min [facility] Body height 2022-07-13 18:03:00 162.6 cm [facility] Body weight 2022-07-13 18:03:00 74.753 kg [facility] BMI 2022-07-13 18:03:00 28.29 kg/m2 Universi ty of [facility] Oxygen saturation in 2022-07-13 18:03:00 98 /min University of Arterial blood by [facility] P[facility] oxim[facility] Branch Systolic blood 2022-05-25 20:52:00 136 mm[Hg] Univer sity of pressure [facility] Diastolic blood 2022-05-25 20:52:00 74 mm[Hg] Unive rsity of pressure [facility] Heart rate 2022-05-25 20:52:00 60 /min Universi ty of [facility] Body height 2022-05-25 20:52:00 162.6 cm [facility] Body weight 2022-05-25 20:52:00 76.204 kg [facility] BMI 2022-05-25 20:52:00 28.84 kg/m2 Universi ty of [facility] Oxygen saturation in 2022-05-25 20:52:00 98 /min University of Arterial blood by [facility] Branch WEIGHT 2022-01-19 08:30:00 77.656 kg HEIGHT 2022-01-19 08:30:00 162.6 cm WEIGHT 2022-01-19 08:30:00 77.656 kg HEIGHT 2022-01-19 08:30:00 162.6 cm WEIGHT 2022-01-19 08:30:00 77.656 kg HEIGHT 2022-01-19 08:30:00 162.6 cm height 2021-12-23 14:20:00 64 [in_i] [facility] weight 2021-12-23 14:20:00 177 [lb_av] [facility] temperature 2021-12-23 14:20:00 97.3 [degF] [facility] bmi 2021-12-23 14:20:00 30.38 kg/m2 [facility] oximetry 2021-12-23 14:20:00 97 % [facility] respiratory rate 2021-12-23 14:20:00 16 /min [facility] blood pressure 2021-12-23 14:20:00 122 mm[Hg] [facility] [place] blood pressure 2021-12-23 14:20:00 58 mm[Hg] [facility] - diastolic [place] Systolic blood 2022-07-20 00:14:09 121 mm[Hg] [facility] pressure Diastolic blood 2022-07-20 00:14:09 61 mm[Hg] [facility] pressure Heart rate 2022-07-20 00:14:09 67 /min [facility] Body temperature 2022-07-20 00:14:[address] [facility] Respiratory rate 2022-07-20 00:14:09 16 /min [facility] Oxygen saturation in 2022-07-20 00:14:09 99 /min [facility] Arterial blood by Pulse oximetry Body weight 2022-07-19 08:02:22 74.753 kg [facility] BMI 2022-07-19 08:02:22 28.29 kg/m2 [facility] Body height 2022-07-17 04:55:00 162.6 cm [facility] Systolic blood 2022-01-22 11:51:00 146 mm[Hg] [facility] Diastolic blood 2022-01-22 11:51:00 72 mm[Hg] [facility] Heart rate 2022-01-22 11:51:00 69 /min [facility] Body temperature 2022-01-22 11:51:00 35.83 Janet [facility] Respiratory rate 2022-01-22 11:51:00 18 /min [facility] Oxygen saturation in 2022-01-22 11:51:00 100 /min [facility] Arterial blood by Medical Ce nter Pulse oximetry Body height 2022-01-19 08:30:00 162.6 cm [facility] Body weight 2022-01-19 08:30:00 77.656 kg [facility] BMI 2022-01-19 08:30:00 29.39 kg/m2 [facility] Procedures Procedure Date / Time Performing Clinician Source Performed EGD (ENDO) 2023-01-08 [facility] of 18:16:54 [facility] EGD (ENDO) 2023-01-08 [facility] of 18:16:54 [facility] ESOPHAGOGASTRODUODENOSCOPY 2023-01-08 Margoth Perdue [facility] rsity of 18:12:00 [facility] POCT GLUCOSE (AUTOMATED) 2023-01-08 Margoth Perdue [facility] ity of 18:06:00 [facility] ASSIGNMENT OF BENEFITS 2023-01-08 Doctor Tiffanie [facility] sity of 17:44:46 [facility] DISCLOSURE AND CONSENT, MEDICAL 2023-01-02 Doctor Julissa friedman, [facility] AND SURGICAL PROCEDURES 05:01:00 [facility] DISCLOSURE AND CONSENT, [facility] 2023-01-02 Doctor Julissa friedman, [facility] AND SURGICAL PROCEDURES 05:01:00 [facility] CT ABDOMEN PELVIS W CONTRAST 2023-01-01 Dave Ferraro Uni versity of 22:50:07 [facility] URINALYSIS 2023-01-01 Kaila Grider [place] of 21:54:00 [facility] LIPASE 2023-01-01 Cheo Kaila [place] of 21:38:00 [facility] COMP. METABOLIC PANEL (73077) 2023-01-01 Kaila Grider U niversity of 21:38:00 [facility] CBC WITH DIFF 2023-01-01 Kaila Grider [place] of 21:38:00 [facility] LACTIC ACID WHOLE BLOOD 2023-01-01 Dave Ferraroi ty of 21:38:00 [facility] CONSENT/REFUSAL FOR DIAGNOSIS AND 2023-01-01 Doctor Bobby candelaria [place] of [facility] 20:09:57 [facility] POCT GLUCOSE (AUTOMATED) 2022-12-22 Praful Cota Un iversity of 21:40:00 [facility] POCT GLUCOSE (AUTOMATED) 2022-12-22 [place] [place] Un iversity of 13:27:00 [facility] MAGNESIUM 2022-12-22 [facility] of 08:32:00 [facility] BASIC METABOLIC PANEL (NA, K, CL, 2022-12-22 [facility] of CO2, GLUCOSE, BUN, CREATININE, 08:32:00 [facility]) Branch CBC WITH DIFF 2022-12-22 [facility] of 08:32:00 [facility] POCT GLUCOSE (AUTOMATED) 2022-12-22 [place] [place] Un iversity of 05:02:00 [facility] POCT GLUCOSE (AUTOMATED) 2022-12-22 [place] [place] Un iversity of 01:34:00 [facility] POCT GLUCOSE (AUTOMATED) 2022-12-21 [place] [place] Un iversity of 22:41:00 [facility] POCT GLUCOSE (AUTOMATED) 2022-12-21 [place] [place] Un iversity of 18:29:00 [facility] POCT GLUCOSE (AUTOMATED) 2022-12-21 [place] Un iversity of 13:25:00 [facility] MAGNESIUM 2022-12-21 Cory [facility] of 07:54:00 [facility] BASIC METABOLIC PANEL (NA, K, CL, 2022-12-21 [facility] of CO2, GLUCOSE, BUN, CREATININE, 07:54:00 T [facility]) Branch CBC WITH DIFF 2022-12-21 Cory [facility] of 07:54:00 [facility] GLYCOSYLATED HEMOGLOBIN (A1C) 2022-12-21 Lidia Ray Un iversity of 07:54:00 [facility] ACUTE CARE ARTERIAL BLOOD GAS 2022-12-21 Keven Curry U niversity of 03:58:00 [facility] PROTEIN CREAT RATIO URINE RANDOM 2022-12-21 Cory [facility] of 02:12:00 [facility] SODIUM, URINE RANDOM 2022-12-21 ScottLidia rangel of 02:12:00 [facility] ACUTE CARE VENOUS BLOOD GAS 2022-12-[address] [facility] of 23:35:00 [facility] URINALYSIS 2022-12-20 [facility] of 21:51:[address] [facility] [address] ABDOMEN PELVIS W CONTRAST 2022-12-20 Lionel Adam Un iversity of 21:02:00 [facility] ACUTE CARE VENOUS BLOOD GAS 2022-12-20 Kia, Lionel Uni versity of 20:36:00 [facility] XR CHEST 1 VW 2022-12-20 [facility] of 20:27:23 [facility] HB ECG ROUTINE & RHYTHM STRIP 2022-12-20 Lionel Adam U niversity of 19:57:16 [facility] LACTIC ACID WHOLE BLOOD 2022-12-20 Kia [facility] ity of 19:36:00 [facility] PHOSPHORUS 2022-12-20 [facility] of 19:34:00 [facility] CREATINE KINASE 2022-12-20 Kia [facility] of 19:34:00 [facility] LIPASE 2022-12-20 [facility] of 19:34:00 [facility] MAGNESIUM 2022-12-[address] [facility] of 19:34:00 [facility] TROPONIN I 2022-12-20 [facility] of 19:34:00 [facility] THYROID STIMULATING HORMONE 2022-12-20 [facility] versity of 19:34:00 [facility] COMP. METABOLIC PANEL ([id number]) 2022-12-20 Lionel Adam U niversity of 19:34:00 [facility] CBC WITH DIFF 2022-12-20 Kia [facility] of 19:34:00 [facility] RAPID INFLUENZA A/B 2022-12-20 Kia, [facility] of 19:34:00 [facility] N-TERMINAL PRO-BNP 2022-12-20 [facility] o f 19:34:00 [facility] COVID-19 (ID NOW RAPID TESTING) 2022-12-20 Kia [facility] of 19:34:00 [facility] LAB ONLY COVID INTERPRETATION 2022-12-20 Lionel Adam U niversity of 19:34:00 [facility] CONSENT/REFUSAL FOR DIAGNOSIS AND 2022-12-20 Doctor Bobby candelaria [facility] 18:37:12 [place] HOSPITAL ADMISSION 2022-12-20 Doctor Moreno [place] of 05:01:00 [place] [facility] PATIENT FINANCIAL POLICY 2022-12-08 Doctor Maryassrobert [place] of 17:09:28 [facility] XR ANKLE 3+ VW LEFT 2022-11-14 Yuki Reyes [facility] ity of 22:01:38 A [facility] XR HIPS 2 VW RIGHT 2022-11-01 Kaylan Kaur [place] of 17:33:41 [facility] CONSENT/REFUSAL FOR DIAGNOSIS AND 2022-11-01 Doctor Bobby candelaria [facility] 16:26:11 [place] POCT HEMOGLOBIN A1C TEST 2022-10-13 Etta Aponte ity of 00:00:00 [facility] THYROID STIMULATING HORMONE 2022-09-14 Etta Aponte [facility] ersity of 15:13:00 [facility] LIPID PANEL ([id number])(TOTAL 2022-09-14 Etta Aponte [facility] sity of CHOLESTEROL, TRIGLYCERIDES, HDL) 15:13:00 [facility] GLYCOSYLATED HEMOGLOBIN (A1C) 2022-09-14 Etta Aponte iversity of 15:13:00 [facility] VITAMIN D, 25-OH 2022-09-14 [facility] of 15:13:00 [facility] COMP. METABOLIC PANEL ([id number]) 2022-09-14 Etta Aponte iversity of 15:13:00 [facility] CBC WITH DIFF 2022-09-14 Etta Aponte [place] of 15:13:00 [facility] URINE CULTURE 2022-09-12 [facility] 20:57:00 [facility] GALV ONLY - VAGINAL PATHOGENS BY 2022-09-12 [facility] of NUCLEIC ACID TESTING 20:57:00 [facility] SARS-COV-2 COVID-19 VACCINE 12 2022-09-12 Etta Aponte U niversity of YRS+, BIVALENT 0.5ML, IM (MODERNA 20:47:31 [facility]) Branch PNEUMOCOCCAL 20 CONJUGATE 2022-09-12 Etta Aponte [facility] of (PREVNAR 20) VACCINE 20:41:25 [facility] POCT URINALYSIS 2022-09-12 Etta Aponte [facility] 20:00:00 [facility] POC GLUCOSE 2022-07-19 Laeeq, Nola Long[facility] 22:14:00 Hospital POC GLUCOSE 2022-07-19 Laeeq, Nola [facility] 18:09:00 Hospital POC GLUCOSE 2022-07-19 Laeeq, Nola [facility] 13:20:00 Hospital CBC WITH PLATELET AND 2022-07-19 Laeeq, Nola wSansonis t DIFFERENTIAL 09:49:00 Hospital COMPREHENSIVE METABOLIC PANEL 2022-07-19 Laeeq, Nolaalex Longoria [facility] 09:49:00 Hospital MAGNESIUM LEVEL 2022-07-19 Laeeq, Nola [facility] 09:49:00 Hospital PHOSPHORUS LEVEL 2022-07-19 Laeeq, Nola [facility] 09:49:00 Hospital ESTIMATED GFR 2022-07-19 Laeeq, Nola [facility] 09:49:00 Hospital POC GLUCOSE 2022-07-19 Laeeq, Nola [facility] 00:05:00 Hospital POC GLUCOSE 2022-07-18 Laeeq, Nola [facility] 21:30:00 Hospital POC GLUCOSE 2022-07-18 Laeeq, Nola [facility] 17:08:00 Hospital POC GLUCOSE 2022-07-18 Laeeq, Nolaalex Daniela [facility] 13:05:00 Hospital CBC WITH PLATELET AND 2022-07-18 [facility] DIFFERENTIAL 09:30:00 [facility] COMPREHENSIVE METABOLIC PANEL 2022-07-18 [facility] Tejeda 09:30:00 [facility] ESTIMATED GFR 2022-07-18 Marcy Corcoran 09:30:00 [facility] POC GLUCOSE 2022-07-17 Marcy Corcoran 21:18:00 [facility] ENTERIC BACTERIAL PANEL 2022-07-17 Gerald Luna t 21:16:00 [facility] ENTERIC VIRAL PANEL 2022-07-17 Gerald Luna 21:16:00 [facility] POC GLUCOSE 2022-07-17 [facility] 16:28:00 [facility] POC [facility]COSE 2022-07-17 [facility] Gonzalez 12:47:00 [facility] URINE CULTURE 2022-07-17 Gerald Luna 09:10:00 [facility] CBC WITH PLATELET AND 2022-07-17 Gerald Luna DIFFERENTIAL 09:10:00 [facility] COMPREHENSIVE METABOLIC PANEL 2022-07-17 Gerald Luna Me thodist 09:10:00 [facility] URINALYSIS SCREEN AND MICROSCOPY, 2022-07-17 Shad Luna WITH REFLEX TO CULTURE 09:10:00 [facility] ESTIMATED GFR 2022-07-17 Gerald Lunaist 09:10:00 [facility] VENOUS BLOOD GAS 2022-07-17 Gerald Luna [facility] 07:30:00 [facility] PROCALCITONIN 2022-07-17 Gerald Luna [facility] 05:33:00 [facility] HEMOGLOBIN A1C 2022-07-17 Gerald Lunaist 05:33:00 [facility] CREATINE KINASE, TOTAL (CPK) 2022-07-17 Gerald Luna hodist 05:33:00 [facility] LACTIC ACID LEVEL 2022-07-17 Gerald Luna [facility] 05:33:00 [facility] BETA HYDROXYBUTYRATE 2022-07-17 Gerald Luna [facility] 05:33:00 [facility] POC GLUCOSE 2022-07-17 Gerald Luna [facility] 02:04:00 [facility] POC GLUCOSE 2022-07-17 Gerald Luna 00:39:00 [facility] COVID-19 QUALITATIVE RT-PCR 2022-07-16 Meka Mckeon Meth odist 23:50:[address] [facility] [address] ABDOMEN PELVIS WO CONTRAST 2022-07-16 Meka Mckeon Me thodist 23:27:00 [facility] CBC WITH PLATELET AND 2022-07-16 Meka Mckeon [facility] DIFFERENTIAL 22:46:00 Hospital COMPREHENSIVE METABOLIC PANEL 2022-07-16 Mantena, Meka Me thodist 22:46:00 Hospital ESTIMATED GFR 2022-07-16 Meka Mckeon [facility] 22:46:00 Hospital MRI ABDOMEN W WO CONTRAST 2022-03-01 Hussein Garibay ist 22:28:31 [facility] CANCER ANTIGEN 19-9 2022-03-01 Hussein Garibayist 17:45:00 [facility] CBC WITH PLATELET AND 2022-03-01 Nirmala Kennedy [facility] DIFFERENTIAL 10:06:00 Hospital COMPREHENSIVE METABOLIC PANEL 2022-03-01 Nirmala Kennedy Nj thodist 10:06:00 Hospital LIPASE LEVEL 2022-03-01 KennedyNirmala [facility] 10:06:00 Hospital LIPID PANEL 2022-03-01 Nirmala Kennedy [facility] 10:06:00 Hospital ESTIMATED GFR 2022-03-01 Nirmala Kennedy [facility] 10:06:00 Hospital LACTIC ACID LEVEL 2022-03-01 KennedyNirmala [facility] 03:39:00 Hospital COVID-19 QUALITATIVE RT-PCR 2022-03-01 Stan Stevenson 00:18:00 Hospital LACTIC ACID LEVEL, SEPSIS - NOW 2022-03-01 Stan Stevenson AND REPEAT 2X EVERY 3 HOURS 00:18:00 Hosp ital URINE CULTURE 2022-02-28 Stan Stevenson 20:42:00 [facility] URINALYSIS SCREEN AND MICROSCOPY, 2022-02-28 Helena Stevenson WITH REFLEX TO CULTURE 20:42:[address] ABDOMEN PELVIS WO CONTRAST 2022-02-28 Stan Stevenson 20:38:36 [facility] CBC WITH PLATELET AND 2022-02-28 Stan Stevenson ist DIFFERENTIAL 20:26:00 Hospital COMPREHENSIVE METABOLIC PANEL 2022-02-28 Stan Stevenson 20:26:00 Hospital MAGNESIUM LEVEL 2022-02-28 Stan Stevenson 20:26:00 Hospital LACTIC ACID LEVEL, SEPSIS - NOW 2022-02-28 Stan Stevenson AND REPEAT 2X EVERY 3 HOURS 20:26:00 Hosp [facility] ESTIMATED GFR 2022-02-28 Stan Stevenson 20:26:00 Hospital SURGICAL PATHOLOGY REQUEST 2022-02-24 Allie, Aviva [facility] dist 19:37:00 Hospital ESOPHAGOGASTRODUODENOSCOPY (EGD) 2022-02-24 Universal, Aviva [facility] 16:47:00 Hospital COLONOSCOPY 2022-02-24 Allie, Aviva [facility] 16:47:00 Hospital POC GLUCOSE 2022-02-24 Universal, Aviva [facility] 16:29:00 [facility] INSULIN, RANDOM 2022-02-20 Veronica Zaldivar 21:38:00 [facility] HEMOGLOBIN A1C 2022-02-20 Veronica Zaldivar 21:38:00 [facility] COMPREHENSIVE METABOLIC PANEL 2022-02-20 Veronica Zaldivar thodist 21:38:00 [facility] ESTIMATED GFR 2022-02-20 Veronica Zaldivar 21:38:00 [facility] POCT-GLUCOSE METER 2022-01-22 Gilberto, Nima [facility] 12[facility] POCT-GLUCOSE METER 2022-01-22 Gilberto, Ahmed [facility] 07:04:00 [facility] BASIC METABOLIC PANEL 2022-01-22 Gilberto, Carsonmed Nasif [facility] 05:07:00 Medical Center POCT-GLUCOSE METER 2022-01-22 Gilberto, Ahmed [facility] 05:01:00 [facility] POCT-GLUCOSE METER 2022-01-22 Gilberto, Ahmed [facility] 01:03:00 [facility] Center POCT-GLUCOSE METER 2022-01-21 Gilberto, Ahmed [facility] 20:37:00 [facility] Center POCT-GLUCOSE METER 2022-01-21 Gilberto, Ahmed [facility] 17:01:00 [facility] Center POCT-GLUCOSE METER 2022-01-21 Gilberto, Ahmed [facility] 12:10:00 Medical Center POCT-GLUCOSE METER 2022-01-21 Gilberto, Ahmed [facility] 07:06:00 Medical Center POCT-GLUCOSE METER 2022-01-21 Gilberto, Ahmed [facility] 05:23:00 [facility] BASIC METABOLIC PANEL 2022-01-21 Gilberto, Carsonmed Nasif [facility] 05:22:00 [facility] POCT-GLUCOSE METER 2022-01-20 Gilberto, Carsonmed Baljinderif [facility] 22:59:00 [facility] POCT-GLUCOSE METER 2022-01-20 Gilberto, med Nasif [facility] 17:18:00 [facility] Center URINALYSIS W/ MICROSCOPIC 2022-01-20 Gilberto, Nima [facility]if [facility] 16:39:00 [facility] POCT-GLUCOSE METER 2022-01-20 Haj-Ismail, Sena [facility] 07:17:00 [facility] CBC W/PLT COUNT & AUTO 2022-01-20 Haj-Ismail, Sena [facility] DIFFERENTIAL 05:11:00 [facility] BASIC METABOLIC PANEL 2022-01-20 Haj-Ismail, Sena [facility] 05:11:00 [facility] MAGNESIUM 2022-01-20 Haj-Ismail, Sena [facility] 05:11:00 [facility] PHOSPHORUS 2022-01-20 Haj-Ismail, Sena [facility] 05:11:00 Medical Center CBC W/PLT COUNT & AUTO 2022-01-20 Haj-Ismail, Sena [facility] DIFFERENTIAL 05:11:00 [facility] POCT-GLUCOSE METER 2022-01-20 Haj-Ismail, [facility]a [facility] 02:18:00 Medical Center URINALYSIS W/ MICROSCOPIC 2022-01-19 Haj-Ismail, Sena [facility] 22:15:00 Medical Center SODIUM, RANDOM URINE 2022-01-19 Haj-Ismail, [facility] 22:15:00 [facility] Center CREATININE, RANDOM URINE 2022-01-19 [facility]aj[facility] 22:15[facility] UREA NITROGEN, RANDOM URINE 2022-01-19 Haj-Ismail, Sena [facility] 22:15:00 Medical Center CHLORIDE, RANDOM URINE 2022-01-19 Haj-Ismail, Sena [facility] 22:15:00 Medical Center PROTEIN, RANDOM URINE 2022-01-19 Haj-Ismail, Sena [facility] 22:15:00 Medical Center POCT-GLUCOSE METER 2022-01-19 Haj-Ismail, [facility]a [facility] 22:10:00 Medical Center POCT-GLUCOSE METER 2022-01-19 Haj-Ismail, Sena [facility] 17:37:00 Medical Center POCT-GLUCOSE METER 2022-01-19 Haj-Ismail, Sena [facility] 12:24:00 Medical Center POCT-GLUCOSE METER 2022-01-19 Haj-Ismail, Sena [facility] 11:34:00 [facility] HEMOGLOBIN A1C 2022-01-19 Haj-Ismail, Sena [facility] 09:46:00 [facility] MAGNESIUM 2022-01-19 Haj-Ismail, Sena [facility] 09:46:00 Medical Center PHOSPHORUS 2022-01-19 Haj-Ismail, Sena [facility] 09:46:00 [facility] COMPREHENSIVE METABOLIC PANEL 2022-01-19 Haj-Ismail, Sena [facility] 09:46:00 [facility] POCT-GLUCOSE METER 2022-01-[address] [facility] 08:16:00 [facility] Plan of Care Planned Activity Planned Date Details Comments Source Future Scheduled 2027-08-12 DTAP/TDAP/TD VACCINES [facility] 00:00:00 (2 - Td or Tdap) [code Medic tn Center = DTAP/TDAP/TD VACCINES (2 - Td or Tdap)] Future Scheduled 2024-05-[address] [facility] 00:00:00 (procedure) [code = Medical Center [id number]] Future Scheduled 2023-06-[address] [facility] Test 00:00:00 (Season Ended) [code = [facility] INFLUENZA VACCINE (Season Ended)] Future Scheduled 2023-01-19 Pneumococcal Vaccine: [facility] Test 11:24:56 Pediatrics (0 to 5 Years) and At-Risk Patients (6 to 64 Years) (1 - PCV) [code = Pneumococcal Vaccine: Pediatrics (0 to 5 Years) and At-Risk Patients (6 to 64 Years) (1 - PCV)] Future Scheduled 2023-01-19 DIABETES: RETINAL EYE [facility] Test 11:24:56 EXAM [code = DIABETES: RETINAL EYE EXAM] Future Scheduled 2023-01-19 DIABETIC FOOT EXAM [facility] Test 11:24:56 [code = DIABETIC FOOT EXAM] Future Scheduled 2023-01-19 Hepatitis C screening [facility] Test 11:24:56 (procedure) [code = 868222050] Future Scheduled 2023-01-19 SHINGLES VACCINES (1 Met [facility] Test 11:24:56 of 2) [code = SHINGLES VACCINES (1 of 2)] Future Scheduled 2023-01-19 Screening for [facility] Test 11:24:56 malignant neoplasm of cervix (procedure) [code = 319192262] Future Scheduled 2023-01-19 BREAST CANCER [facility] Test 11:24:56 SCREENING [code = BREAST CANCER SCREENING] Future Scheduled 2023-01-19 COLONOSCOPY SCREENING [facility] Test 11:24:56 [code = COLONOSCOPY SCREENING] Future Scheduled 2023-01-19 COVID-19 VACCINE (4 - [facility] Test 11:24:56 Booster for Pfizer series) [code = COVID-19 VACCINE (4 - Booster for Pfizer series)] Future Scheduled 2023-01-19 INFLUENZA VACCINE [facility] Test 11:24:56 [code = INFLUENZA VACCINE] Future Scheduled 2023-01-[address] [facility] Test 00:00:00 Counseling and Medical Cente r Screening (12+) [code = Tobacco Cessation Counseling and Screening (12+)] Future Scheduled 2022-01-[address] [facility] Test 00:00:00 [facility] Center (procedure) [code = 48417099] Future Scheduled 2021-04-01 COVID-19 VACCINE (3 - [facility] Test 00:00:00 Booster for Pfizer Medical C enter series) [code = COVID-19 VACCINE (3 - Booster for Pfizer series)] Future Scheduled 2008 SHINGLES VACCINES ([address] [facility] Test 00:00:00 of 2) [code = SHINGLES Medic al Center VACCINES (1 of 2)] Future Scheduled [address] [facility] Test 00:00:00 malignant neoplasm of Medica l Center cervix (procedure) [code = 513234086] Future Scheduled 1976 HEPATITIS C SCREENING [facility] Test 00:00:00 [code = HEPATITIS C Medical Center SCREENING] Future Scheduled 1968 DIABETIC EYE EXAM [facility] Test 00:00:00 [code = DIABETIC EYE Medical Center EXAM] Future Scheduled [address] [facility] Test 00:00:00 examination Medical Center (regime/therapy) [code = 485429954] Future Scheduled 1968 Urine screening for [facility] Test 00:00:00 protein (procedure) Medical Center [code = 119455528] Future Scheduled [address] [facility] Test 00:00:00 0-64 YRS (1 - PCV) Medical C enter [code = PNEUMOCOCCAL VACCINE 0-64 YRS (1 - PCV)] Future Scheduled [address] [facility] Test 00:00:00 malignant neoplasm of Medica l Center breast (procedure) [code = 786577882] Future Scheduled [address] [facility] Test 00:00:00 (combo) [code = CT Medical C enter Colonography (combo)] Future Scheduled [address] [facility] Test 00:00:00 malignant neoplasm of Medica l Center colon (procedure) [code = 564566598] Future Scheduled [address] [facility] Test 00:00:00 malignant neoplasm of Medica l Center colon (procedure) [code = 349348412] Future Scheduled [address] [facility] Test 00:00:00 malignant neoplasm of Medica l Center colon (procedure) [code = 500970742] Future Scheduled [address] [facility] Test 00:00:00 malignant neoplasm of Medica l Center colon (procedure) [code = 602717148] Future Scheduled 1960 Sigmoidoscopy [code = [facility] Test 00:[facility] Sigmoidoscopy] Medical Cente r Encounters Start End Encounter Admission Attending Care Care Encounter Source Date/Time Date/Time Type Type Clinicians Facility Department ID 2021-12-23 Outpatient GABRIELA Chavarria STLMLC [id number] Common 14:34:00 Janice [id number] [facility] 2021-08-06 Emergency [facility] [id number] Univers 12:00:58 ity [facility] 2021-08-05 Emergency [facility] [id number] Univers 12:21:04 ity [facility] 2023-03-28 2023-03-28 Outpatient R RUFINA MORA [facility] [id number] Univers 13:30:00 13:30:00 RUFINA MORA ity [facility] 2023-02-05 2023-02-05 Outpatient [facility] [id number] Univers 16:00:00 16:00:00 [facility] 2023-01-25 2023-01-25 [facility]patient [facility] [id number] Univers 13:30:00 13:30:00 ERIKA itsofia [facility] 2023-01-22 2023-01-22 Outpatient [facility] [id number] Univers 15:45:00 15:45:00 [facility] 2023-01-19 2023-01-19 [facility]phone [facility] 1.2.446.812 [id number] Univers 00:00:00 00:00:00 Marly CROWLEY 350.1.13.10 ity of [place] 4.2.7.2.686 [facility] PROFESSIO [phone] [place] 918229 [facility] 2023-01-18 2023-01-18 Telephone [facility] 1.2.840.114 [id number] Univers 00:00:00 00:00:00 Erika MATHEWPEC 350.1.13.10 ity of IAL[place] 4.2.7.2.686 [facility] [place]ANE [place] [phone] Daniel rader AND ST[facility] [address] [facility] 2023-01-17 2023-01-17 Telephone Marko 1.2.840.1 [id number] Methodi 00:00:00 00:00:[address] 3.430.2.7 Hospit a .3.563130 l .8 2023-01-12 2023-01-12 [facility] 1.2.840.114 1 [id number] Univers 00:00:00 00:00:00 Margoth Y HEALTH 350.1.13.10 i ty of [place] CLINICS [place].2.7.2.[place] [id number] [facility] [address] 2023-01-08 2023-01-08 Surgery [facility] 1.2.840.114 101 [id number] Univers 14:15:00 14:45:00 Margoth ICAL 350.1.13.10 it y of MayaSnapAppointments 4.2.7.2.686 Noel as BLDG [phone] [facility] [address] 2023-01-08 2023-01-08 Outpatient [facility] [id number] Univers 12:51:00 14:45:00 MARGOTH itsofia [facility] 2023-01-08 2023-01-08 Hospital [facility] 1.2.840.114 10 [id number] Univers 12:51:00 14:45:00 Encounter Margoth CHAMPIONL 350.1.13.10 ity of [place] 4.2.7.2.686 Noel as BLDG [id number] [facility] [address] 2023-01-08 2023-01-08 Orders Doctor GONZALEZ 1.2.840.114 [id number] Univers 00:00:00 00:00:00 Only Unassigned, JOY 350.1.13.10 ity of [place] [facility] 4.2.7.2.686 Noel as [id number] [facility] [address] 2023-01-05 2023-01-05 Outpatient [facility] [id number] Univers 11:00:00 11:34:45 ETTA chandler [facility] 2023-01-05 2023-01-05 Office [facility] 1.2.840.114 [id number] Univers 11:00:00 11:34:45 Visit [facility] 350.1.13.10 it y of [place] 4.2.7.2.686 Noel as KJ?BLEA [phone] Nj gómez BRADEN [address] [place] [address] MEDICAL OFFICE BUILDING 2023-01-01 2023-01-01 Emergency X RONAN [facility] ERT [id number] Univers 15:42:00 20:07:00 DAVE chandler [facility] 2023-01-01 2023-01-01 Emergency [facility] 1.2.878.292 [id number] Univers 15:42:00 20:07:00 Dave HEALTH 350.1.13.10 it y of [place].2.7.2.686 [place] [facility] [phone] [address] ([facility]) 2023-01-01 2023-01-01 Office Verónica Aguilera [facility] 1.2.840.114 1 [id number] Univers 14:30:00 15:00:00 Visit Matthew Castellanos SPECIALTY 350.1.13 .10 ity of C[place] 4.2.7.2.686 [place] CENTER AT [phone] Nj gómez DOHERTY [address] [place] [address] 2023-01-01 2023-01-01 Outpatient R JASMIN [facility] [id number] Univers 14:30:00 14:30:00 MATTHEW [facility] 2023-01-01 2023-01-01 Outpatient R GEMA [facility] [id number] Univers 14:00:00 14:00:00 SENDIL [facility] 2023-01-01 2023-01-01 Telephone Willy SCVERN 1.2.089.356 [id number] Univers 00:00:00 00:00:00 Verónica SPECIALTY 350.1.13.10 ity of C[place] 4.2.7.2.686 [place] CENTER AT [phone] Nj gómez DOHERTY [address] [place] [address] 2022-12-31 2022-12-31 Telephone ROBI Huber 1.2.840.114 10 [id number] Univers 00:00:00 00:00:00 Cherie Sofia HEALTH 350.1.13.10 i ty of CLINICS 4.2.7.2.[place] [phone] [address] 2022-12-282022-12-28 Telephone [facility] 1.2.990.976 [id number] Univers 00:00:00 00:00:00 Etta HEALTH 350.1.13.10 it y of [place] 4.2.7.2.686 Noel as KJ?BLEA [phone] [address] MEDICAL OFFICE [facility] 2022-12-20 2022-12-22 Outpatient [facility] [id number] Univers 13:43:00 19:40:00 PRAFUL ity [facility] 2022-12-20 2022-12-22 Emergency Lionel Adam 1.2.840 .114 [id number] Univers 13:43:00 19:40:00 Keven Curry 350.1.13.10 ity of [facility] 4.2.7.2.68 6 [place] [phone] [place] [address] 2022-12-20 2022-12-20 Patient [facility] 1.2.840.114 [id number] Univers 00:00:00 00:00:00 Secure Msg Etta CROWLEY 350.1.13.10 ity of [place] 4.2.7.2.686 Noela s ESSIO [phone] Nj josé miguel[address] 2022-12-15 2022-12-15 Outpatient R [facility] [id number] Univers 15:30:00 15:30:00 [facility]A [facility] 2022-12-12 2022-12-12 Outpatient R OGYASMIN [facility] [id number] Univers 16:45:00 16:45:00 YUKI ity [facility] 2022-12-08 2022-12-08 Outpatient [facility] [id number] Univers 11:25:00 23:59:00 TEODORO ity [facility] 2022-12-08 2022-12-08 Office [facility] 1.2.444.836 [id number] Univers 11:15:00 12:39:18 Visit Teodoro GUERRERO 350.1.13.10 it y of [place] 4.2.7.2.686 Noel as KJ?BLEA [phone] Me dical ASIYA [address] MEDICAL OFFICE [facility] 2022-12-08 2022-12-08 Orders Doctor CARLOS 1.2.840.114 [id number] Univers 00:00:00 00:00:00 Only Unassigned, JOY 350.1.13.10 ity of [place] [facility] 4.2.7.2.686 Noel as [phone] [address] 2022-11-27 2022-11-27 Outpatient R [facility] [id number] Univers 16:00:00 16:00:00 ETTA y [facility] 2022-11-25 2022-11-25 Refjuancarlos HaasPRESBYTERIAN [facility] 1.2.840.114 [id number] Univers 00:00:00 00:00:00 Pool [facility] 350.1.13.10 it y [facility] 4.2.7.2.686 [place] CHUCK [phone] Nj dicdenzel [address] 2022-11-23 2022-11-23 Refselect [facility] 1.2.840.114 [id number] Univers 00:00:00 00:00:00 Ainsley S [facility] 350.1.13.10 it y of [place] 4.2.7.2.686 Noel as KJ?BLEA [phone] Me dicdenzel BRADEN [address] MEDICAL OFFICE [facility] 2022-11-20 2022-11-20 Outpatient R RUFINA MORA [facility] [id number] Univers 16:30:00 17:20:58 RUFINA MORA ity [facility] 2022-11-20 2022-11-20 Office Avani [facility] 1.2.840.114 [id number] Univers 16:30:00 17:20:58 Visit HEALTH 350.1.13.10 it y of [place] 4.2.7.2.686 Noel as KJ?BLEA [phone] Me dical ASIYA [address] MEDICAL OFFICE [facility] 2022-11-14 2022-11-14 [facility] 1.2.840.114 [id number] Univers 15:50:42 23:59:00 Encounter Yuki PRIMARY 350.1.13.10 ity of A CARE 4.2.7.2.686 [place] PAV[place] [phone] Nj dical [address] 2022-11-14 2022-11-14 Outpatient [facility] [id number] Univers 15:30:00 16:17:35 YUKI ity of [facility] 2022-11-14 2022-11-14 Office [facility] 1.2.398.979 [id number] Univers 15:30:00 16:17:35 Visit Yuki PRIMARY 350.1.13.10 ity of A CARE 4.2.7.2.686 [place]AV[place] [id number] Nj dical [address] 2022-11-14 2022-11-14 Paul [facility]PRESBYTER[facility] 1.2.972.996 [id number] [id number] Univers 00:00:00 00:00:00 Sendil Bernadette CROWLEY 350.1.13.10 ity of [place] 4.2.7.2.686 [place] PROFESS[place] [phone] Nj dical NAL 059 [facility] 2022-11-13 2022-11-13 Outpatient R FAY [facility] [id number] Univers 15:30:00 15:30:00 ETTA ity [facility] 2022-11-09 2022-11-09 Outpatient [facility] [id number] Univers 14:40:16 23:59:00 SENDIL ity of [facility] 2022-11-04 2022-11-04 Srikanth [facility] 1.2.840.114 [id number] Univers 00:00:00 00:00:00 Pool PRIMARY 350.1.13.10 it y of [place] CARE 4.2.7.2.686 [place]AV[place] [phone] Nj dical [address] 2022-11-01 2022-11-01 Emergency X [facility] ERT [id number] Univers 10:32:00 12:45:00 KAYLAN ity of [facility] 2022-11-01 2022-11-01 Emergency [facility] 1.2.023.805 [id number] Univers 10:32:00 12:45:00 Kaylan [place] 350.1.13.10 i ty dieter [place] 4.2.7.2.686 [place] [facility] [id number] [facility] [address] 2022-11-01 2022-11-01 Outpatient R RUFINA MORA [facility] [id number] Univers 12:30:00 12:30:00 [facility] 2022-11-01 2022-11-01 Nurse Nurse, [facility] 1.2.840.114 [id number] Univers 10:00:00 10:20:00 Visit Unknown, Attending [facility] 350.1.13.10 [facility] Heladio Kelli [place] 4.2.7.2.686 [place] KJ?BLEA [phone] Nj gómez BRADEN [address] [facility] OFFICE [facility] 2022-11-01 2022-11-01 Outpatient R HELADIO [facility] [id number] Univers 10:00:00 10:00:00 KELLI [facility] 2022-11-01 2022-11-01 Urgent Provider, [facility] 1.2.840.114 [id number] Univers 09:40:00 10:00:00 Care Unknown, [facility] 350.1.13.10 [facility] 4.2.7.2.686 Noel as KJ?BLEA [phone] Nj gómez BRADEN [address] MEDICAL OFFICE [facility] 2022-11-01 2022-11-01 Outpatient R SHIRLEY, [facility] [id number] Univers 09:40:00 09:40:00 ATTENDING [facility] 2022-11-01 2022-11-01 Patient Fay [facility] 1.2.840.114 [id number] Univers 00:00:00 00:00:00 [facility] 350.1.13.10 [facility] 4.2.7.2.686 Noel as KJ?BLEA [phone] Nj gómez ESQUEDA [address] [facility] OFFICE [facility] 2022-10-31 2022-10-31 Outpatient R [facility] [id number] Univers 09:00:00 09:19:46 SENDIL itsofia [facility] 2022-10-31 2022-10-31 Office [facility] 1.2.840.114 [id number] Univers 09:00:00 09:19:46 Visit aMrly Fleming KEO 350.1.13.10 ity of [place].2.7.2.686 [place] [phone] Nj dical NAL 059 [facility] 2022-10-25 2022-10-25 Refill [facility] 1.2.840.114 [id number] Univers 00:00:00 00:00:00 Etta HEALTH 350.1.13.10 it y of [place] 4.2.7.2.686 Noel as KJ?BLEA [phone] [facility] [address] [facility] OFFICE [facility] 2022-10-20 2022-10-20 Outpatient R [facility] RAD [id number] Univers 10:40:00 10:40:00 ETTA chandler [facility] 2022-10-13 2022-10-13 Outpatient [facility] [id number] Univers 15:48:39 23:59:00 ETTAJUSTIN chandler [facility] 2022-10-13 2022-10-13 Office [facility] 1.2.840.114 [id number] Univers 15:00:00 15:39:33 [facility] 350.1.13.10 it y of [place] 4.2.7.2.686 Noel as KJ?BLEA [id number] Nj dicdenzel BRADEN [address] [facility] OFFICE [facility] 2022-09-14 2022-09-14 Insurance Auditor Lab, Ang - Db [facility] 1.2.840.1 14 [id number] Univers 09:00:00 09:48:04 Visit Etta Aponte HEALTH 350.1.13.10 ity of [place] 4.2.7.2.686 Noel as KJ?BLEA [id number] Nj dical DHEERAJEY [address] [facility] OFFICE [facility] 2022-09-14 2022-09-14 Outpatient R ANENE, [facility] [id number] Univers 09:00:00 09:00:00 ETTA chandler [facility] 2022-09-12 2022-09-12 Outpatient [facility] [id number] Univers 14:00:00 15:09:26 ETTA chandler [facility] 2022-09-12 2022-09-12 Office [facility] 1.2.840.114 [id number] Univers 14:00:00 15:09:26 Visit Etta [facility] 350.1.13.10 it y of [place] 4.2.7.2.686 Noel as KJ?BLEA [id number] [address] OFFICE [facility] 2022-09-11 2022-09-11 Refill [facility] Kelley 1.2.840.1 [id number] [id number] Methodi 00:00:00 00:00:[address] 3.430.2.7 Hospit a .3.310655 l .8 2022-09-11 2022-09-11 Refill Samina [facility] 1.2.840.114 [id number] Univers 00:00:00 00:00:00 Pool PRIMARY 350.1.13.10 it y of [place] CARE 4.2.7.2.686 [place] ALEXEION [id number] [address] 2022-09-11 2022-09-11 Refjuancarlos ApontePRESBYTERIAN [facility] 1.2.840.114 [id number] Univers 00:00:00 00:00:00 Etta HEALTH 350.1.13.10 it y of [place] 4.2.7.2.686 Noel as KJ?BLEA [id number] [facility] [address] [facility] OFFICE [facility] 2022-09-05 2022-09-05 Refjuancarlos Figueroa [facility] 1.2.840.114 [id number] Univers 00:00:00 00:00:00 Ainsley S HEALTH 350.1.13.10 it y of [place] 4.2.7.2.686 Noel as KJ?BLEA [id number] [facility] [address] MEDICAL OFFICE [facility] 2022-08-10 2022-08-10 Refill Fay [facility] 1.2.840.114 [id number] 05 Univers 00:00:00 00:00:00 [facility] 350.1.13.10 it y of [place] 4.2.7.2.686 Noel as KJ?BLEA [id number] [address] OFFICE [facility] 2022-07-16 2022-07-19 [facility] 1.2.840.1 [id number] Methodi 16:53:00 20:34:00 Encounter AshleyNelli 75032.1.1 040 [facility] 3.430.2.7 [facility] Galeano .3.780399 l LaeNola guevara .8 2022-07-16 2022-07-19 Inpatient [facility] 064 [id number] 46 [place] 00:00:00 00:00:00 [place] [address] 2022-07-18 2022-07-18 Refill [facility] Kelley 1.2.840.1 [id number] 690 [id number] Methodi 00:00:00 00:00:[address] 3.430.2.7 Hospit a .3.631119 l .8 2022-07-16 2022-07-16 Travel 1.2.840.1 1.2.336.833 9957 [id number] Methodi 00:00:00 00:00:[address] 3.430.2.7 0.2.7.3.698 Ho spita .3.601857 084.8 l .8 2022-07-13 2022-07-13 Office Fay [facility] 1.2.840.114 [id number] Univers 13:00:00 13:30:00 Visit Etta IEMO 350.1.13.10 it y of [place] 4.2.7.2.686 Noel as KJ?BLEA [id number] [address] OFFICE [facility] 2022-07-13 2022-07-13 Outpatient R FAY [facility] [id number] Univers 13:00:00 13:00:00 ETTA chandler [facility] 2022-07-13 2022-07-13 Refill [facility] 1.2.840.114 [id number] Univers 00:00:00 00:00:00 [facility] 350.1.13.10 it y of [place] 4.2.7.2.686 Noel as KJ?BLEA [id number] Nj gómez BRADEN [address] [facility] OFFICE [facility] 2022-05-25 2022-05-25 Office [facility] 1.2.840.114 [id number] Univers 16:00:00 16:15:00 Visit [facility] 350.1.13.10 it y of [place] 4.2.7.2.686 Noel as KJ?BLEA [phone] Nj gómez BRADEN 198 [facility] 2022-05-25 2022-05-25 Outpatient Marj [facility] [id number] Univers 16:00:00 16:00:00 AINSLEY sofia [facility] 2022-05-18 2022-05-18 Insurance Auditor Lab, [facility] 1.2.840.1 14 [id number] Univers 16:30:00 16:45:00 Visit Ainsley Figueroa [facility] 350.1.13.10 ity of [place] 4.2.7.2.686 Noel as KJ?BLEA [phone] Nj josé migueldenzel BRADEN 353 [facility] 2022-05-18 2022-05-18 Outpatient Marj FIGUEROA [facility] [id number] Univers 16:00:00 16:32:13 AINSLEY sofia [facility] 2022-05-18 2022-05-18 Office [facility] 1.2.840.114 [id number] Univers 16:00:00 16:30:00 Visit [facility] 350.1.13.10 it y of [place] 4.2.7.2.686 Noel as KJ?BLEA [phone] Nj josé migueldenzel BRADEN 198 [facility] 2022-05-18 2022-05-18 Outpatient Marj [facility] [id number] Univers 16:00:00 16:00:00 AINSLEY dianesofia [facility] 2022-05-18 2022-05-18 Refill Allie, [facility] 1.2.840.1 [id number] [id number] Methodi 00:00:00 00:00:[address] 3.430.2.7 Hospit a .3.850622 l .8 2022-05-11 2022-05-11 Refill Universal, [facility] 1.2.840.1 [id number] 471 [id number] Methodi 00:00:00 00:00:[address] 3.430.2.7 Hospit a .3.284662 l .8 2022-05-11 2022-05-11 Refill [facility] 1.2.840.114 [id number] 059 Univers 00:00:00 00:00:00 Pool PRIMARY 350.1.13.10 it y of [place].2.[place] 259.4186835 Nj dical [address] 2022-04-21 2022-04-21 Refill Universal, [facility] 1.2.840.1 [id number] 556 [id number] Methodi 00:00:00 00:00:[address] 3.430.2.7 Hospit a .3.417966 l .8 2022-03-28 2022-03-28 Refill [facility] 1.2.840.114 00565 888 Univers 00:00:00 00:00:00 Pool PRIMARY 350.1.13.10 [place] 494.7555092 [place] [address] 2022-03-19 2022-03-19 Refill [facility], [facility] 1.2.840.1 [id number] 828 [id number] Methodi 00:00:00 00:00:[address] 3.430.2.7 Hospit a .3.078664 l .8 2022-03-09 2022-03-09 Office Zen, 1.2.840.1 [id number] 407925 5872 Methodi 08:30:00 08:59:06 Visit Veronica 28825.1.[address] [place] 3.430.2.7 Hospit a .3.724961 l .8 2022-03-09 2022-03-09 Outpatient [facility] [id number] [address] [place] 00:00:00 00:00:[address] VERONICA [address] 2022-03-09 2022-03-09 Travel 1.2.840.1 1.2.604.612 7387 [id number] Methodi 00:00:00 00:00:[address] 3.430.2.7 0.2.7.3.698 Ho spita .3.090732 084.8 l .8 2022-02-28 2022-03-01 Emergency Stan Stevenson 1.2.840.1 10 [id number] Methodi 14:50:00 20:23:00 Nirmala Kennedy 44367.1.[address] 3.430.2.7 Hospit a .3.262215 l .8 2022-02-28 2022-03-01 Outpatient [facility] 680 [id number] [address] [place] 00:00:00 00:00:00 NIRMALA [address] 2022-02-27 2022-02-27 Telephone Aníbal 1.2.840.1 [id number] 645 [id number] Methodi 00:00:00 00:00:[address] 3.430.2.7 Hospit a .3.603127 l .8 2022-02-24 2022-02-24 [facility] Kelley 1.2.840.1 [id number] 21 [id number] Methodi 11:14:00 13:23:[address] 3.430.2.7 Hospit a .3.863785 l .8 2022-02-24 2022-02-24 Anesthesia Sugey Canseco 1.2.840. 1 [id number] Methodi 11:50:00 12:32:00 Event Megha Urrutia 87759.1.[address] 3.430.2.7 Hospit a .3.155648 l .8 2022-02-24 2022-02-24 Surgery Allie, [facility] 1.2.840.1 [id number] 825 [id number] Methodi 11:19:00 11:59:[address] 3.430.2.7 Hospit a .3.683043 l .8 2022-02-24 2022-02-24 Outpatient ALLIE, [facility] 2099 [id number] [place] 00:00:00 00:00:[address] 2022-02-23 2022-02-23 Travel 1.2.840.1 1.2.256.149 9137 [id number] Methodi 00:00:00 00:00:[address] 3.430.2.7 0.2.7.3.698 Ho spita .3.060810 084.8 l .8 2022-02-21 2022-02-21 Hospital [facility] 1.2.840.1 [id number] 21 [id number] Methodi 14:02:40 23:59:[address] 3.430.2.7 Hospit a .3.456839 l .8 2022-02-21 2022-02-21 Office Allie, [facility] 1.2.840.1 [id number] Methodi 10:00:00 11:13:[address] 3.430.2.7 Hospit a .3.804450 l .8 2022-02-21 2022-02-21 Outpatient ALLIE, AVIVA [facility] 2100 [id number] [place] 00:00:00 00:00:[address] 2022-02-21 2022-02-21 [facility] 20[facility] [id number] [place] 00:00:00 00:00:[address] 2022-02-21 2022-02-21 Telephone Zen, 1.2.840.1 [id number] 2100 782411 Methodi 00:00:00 00:00:[address] [place] 3.430.2.7 Hospit a .3.657292 l .8 2022-02-21 2022-02-21 Prep for Graham, 1.2.840.1 [id number] 150 1034183 Methodi 00:00:00 00:00:00 Surgery Gloria M 13257.1.1 279 s t 3.430.2.7 Hospit a .3.207304 l .8 2022-02-21 2022-02-21 Orders Zen, 1.2.840.1 [id number] 082161 0780 Methodi 00:00:00 00:00:00 Only Quintondejayat 58463.1.[address] [place] 3.430.2.7 Hospit a .3.172652 l .8 2022-02-20 2022-02-20 Lab Zen, 1.2.840.1 [id number] 645033 9225 Methodi 16:30:00 16:35:[address] [place] 3.430.2.7 Hospit a .3.717780 l .8 2022-02-20 2022-02-20 Office Zen, 1.2.840.1 [id number] 864668 7852 Methodi 15:45:00 16:23:49 Visit Rudejayat 60667.1.[address] [place] 3.430.2.7 Hospit a .3.451971 l .8 2022-02-20 2022-02-20 Outpatient ZEN, [facility] [id number] 772 [place] 00:00:00 00:00:00 MARIOYAT [address] 2022-02-20 2022-02-20 Outpatient RACHEALNIRAV, [facility] [id number] 274 [place] 00:00:00 00:00:[address] RU[address] 2022-02-20 2022-02-20 Travel 1.2.840.1 1.2.589.593 3859 174091 Methodi 00:00:00 00:00:[address] 3.430.2.7 0.2.7.3.698 Ho spita .3.105129 084.8 l .8 2022-02-14 2022-02-14 (TEL) [facility] [id number] [place] 00:00:00 00:00:00 [facility] 2022-01-19 2022-01-22 Inpatient ER [facility] [id number] [facility] 07:55:00 18:47:00 [facility] 2022-01-19 2022-01-22 [facility] [id number] [facility] 07:55:00 18:47:00 Encounter Sena Cazares [facility], [facility] 2022-01-19 2022-01-19 Travel [facility] [id number] [facility] 00:[facility] 00:00:00 [facility] 2022-01-02 2022-01-02 (TEL) [facility] [id number] Co mmon 00:00:00 00:00:00 [facility] 2021-12-30 2021-12-30 Refill [facility] [place] [facility] 1.2.840.114 [id number] Univers 00:00:00 00:00:00 [facility] 350.1.13.10 it y of Edward CARE 4.2.7.2.686 Ruben WOODS [phone] Nj dical [address] 2021-12-23 2021-12-23 OFFICE [facility] [id number] Co mmon 00:00:00 00:00:00 VISIT EST Spir it PT LEVEL 3 - [facility] 2021-11-14 2021-11-14 Refill [facility] [place] [facility] 1.2.840.114 [id number] 484 Univers 00:00:00 00:00:00 [facility] 350.1.13.10 it y of [place] 4.2.7.2.686 Noel as PROFESSIO [phone] Nj dical NAL [address] OFFICE BUILDING ONE 2021-09-21 2021-09-21 Refjuancarlos Haas, [facility] 1.2.840.114 [id number] 509 Univers 00:00:00 00:00:00 Pool PRIMARY 350.1.13.10 it y of Edward [facility] 4.2.7.2.[place] [phone] Nj dical [address] 2021-09-21 2021-09-21 Refill Pablito, [facility] 1.2.840.114 [id number] 08 Univers 00:00:00 00:00:00 Savanahong [facility] 350.1.13.10 i ty of [facility] 4.2.7.2.[place] PROFESS[place] [phone] Nj dical NAL 220 [facility] 2021-09-19 2021-09-19 Refjuancarlos Kenney, [facility] 1.2.840.114 [id number] 72 Univers 00:00:00 00:00:00 Savanahong SUSSEX 350.1.13.10 i ty of [facility] 4.2.7.2.[place] PROFESS[place] [phone] Nj dical NAL [address] [facility] 2021-08-10 2021-08-10 Refjuancarlos Kenney, [facility] 1.2.840.114 [id number] 16 Univers 00:00:00 00:00:00 Savanahong SUSSEX 350.1.13.10 i ty of [facility] 4.2.7.2.686 [place] PROFESS[place] [phone] Nj dical NAL [address] [facility] 2021-07-06 2021-07-06 Refill Pablito, [facility] 1.2.840.114 [id number] 01 Univers 00:00:00 00:00:00 Wentong [place] 350.1.13.10 i ty [place] 4.2.7.2.[place] [phone] Nj dical nal [address] [facility] 2021-05-03 2021-05-05 Outpatient BLUFF[facility] [id number] 199 [place] 00:00:00 00:00:[address] [facility] 2021-05-03 2021-05-03 Outpatient FORCE, [facility] [id number] 235 [place] 00:00:00 00:00:[address] [facility] 2021-04-19 2021-04-19 [facility] 1.2.840.114 [id number] 820 Univers 00:00:00 00:00:00 [facility] 350.1.13.10 it y of [place] 4.2.7.2.686 Noel as Professio [phone] [address] Office [facility] One 2021-04-19 2021-04-19 [facility] 1.2.840.[id number] [place] [address] 00:00:00 00:00:00 Savanahong [place] 350.1.13.10 [place] 4.2.7.2.[place] [phone] [address] 2021-04-19 2021-04-19 [facility] 1.2.840.114 [id number] 820 00:00:00 00:00:00 [facility] 350.1.13.10 [place] 4.2.7.2.686 Professio [phone] [place] [address] Office [facility] 2021-04-19 2021-04-19 [facility] 1.2.840.114 [id number] 17 00:00:00 00:00:00 Savanahong [place] 350.1.13.10 [place] 4.2.7.2.686 Professio [phone] [address] 2021-03-21 2021-03-21 Outpatient R SAMINA [facility] [id number] Univers 13:00:00 13:00:00 POOL chandler [facility] 2021-03-09 2021-03-09 Srikanth Kenney [facility] 1.2.840.114 [id number] 97 Univers 00:00:00 00:00:00 Savanahong [place] 350.1.13.10 i [place] 4.2.7.2.686 [place] [phone] [address] 2021-03-09 2021-03-09 Refill Kenney, [facility] 1.2.840.114 [id number] 97 00:00:00 00:00:00 Duncan [place] 350.1.13.10 [place] 4.2.7.2.686 Professio [phone] critical access hospital 220 [facility] 2021-01-07 2021-01-07 Refill Pablito, [facility] 1.2.840.114 [id number] 78 Univers 00:00:00 00:00:00 Savanahcl [place] 350.1.13.10 i ty [place] 4.2.7.2.686 [place] Profess[place] [phone] [facility] 220 [facility] 2021-01-04 2021-01-04 Office Pablito, [facility] 1.2.840.114 [id number] 81 Univers 14:31:51 15:12:03 Visit Duncan Saraviaton 350.1.13.10 i ty [place] 4.2.7.2.686 [place] [phone] [address] 2021-01-04 2021-01-04 Outpatient R PABLITO [facility] [id number] Univers 14:30:00 14:30:00 DUNCAN chandler [facility] 2021-01-03 2021-01-03 Refill Samina, [facility] 1.2.840.114 [id number] 767 Univers 00:00:00 00:00:00 Pool PRIMARY 350.1.13.10 it y of [facility] 4.2.7.2.686 [place] [phone] [address] 2020-12-20 2020-12-20 Refill Pablito, [facility] 1.2.840.114 [id number] 90 Univers 00:00:00 00:00:00 Duncan [place] 350.1.13.10 i [place] 4.2.7.2.686 [place] [phone] [facility] 220 [facility] 2020-12-15 2020-12-15 Refill Pablito, [facility] 1.2.840.114 [id number] 84 Univers 00:00:00 00:00:00 Duncan Crowley 350.1.13.10 i ty of [place] 4.2.7.2.686 [place] [phone] Nj dical nal 220 [facility] 2020-12-15 2020-12-15 Refill Pablito, [facility] 1.2.840.114 [id number] 20 Univers 00:00:00 00:00:00 Duncan Crowley 350.1.13.10 i ty of [place] 4.2.7.2.686 [place] [phone] Nj dical nal 220 [facility] 2020-12-15 2020-12-15 Refill Doctor [facility] 1.2.840.114 [id number] 65 Univers 00:00:00 00:00:00 Unassigned, PRIMARY 350.1.13.10 ity of [place] CARE 4.2.7.2.686 [place] [phone] Nj dical [address] 2020-12-15 2020-12-15 Refill Doctor [facility] 1.2.840.114 [id number] 66 Univers 00:00:00 00:00:00 Unassigned, PRIMARY 350.1.13.10 ity of [place] CARE 4.2.7.2.686 [place] [phone] Nj dical [address] 2020-12-15 2020-12-15 Refill [facility] [place] [facility] 1.2.840.114 [id number] 967 Univers 00:00:00 00:00:00 Pool PRIMARY 350.1.13.10 it y of [place] CARE 4.2.7.2.686 [place] [phone] Nj dical [address] 2020-12-14 2020-12-14 [facility] 1.2.069.435 1110 0626 Univers 13:38:27 23:59:00 Encounter Pool Crowley 350.1.13.10 ity of [place] 4.2.7.2.686 [place] [phone] [facility] [address] 2020-12-14 2020-12-14 Office [facility] [place] [facility] 1.2.840.114 [id number] Univers 12:50:34 13:25:00 Visit [facility] 350.1.13.10 it y of [place] 4.2.7.2.686 Noel as Professio [phone] [address] Office [facility] One 2020-12-14 2020-12-14 Outpatient R [facility] [id number] Univers 13:00:00 13:00:00 POOL ity of [facility] 2020-12-14 2020-12-14 Orders Doctor CARLOS 1.2.840.114 [id number] Univers 00:00:00 00:00:00 Only Unassigned, JOY 350.1.13.10 ity of [place] [facility] 4.2.7.2.686 Noel as [phone] [address] 2020-12-14 2020-12-14 Telephone [facility] [place] [facility] 1.2.840.114 [id number] Univers 00:00:00 00:00:00 [facility] 350.1.13.10 it y of [place] 4.2.7.2.686 Noel as Professio [phone] [address] One 2020-12-08 2020-12-08 Outpatient R NINA [facility] [id number] Univers 11:00:00 11:00:00 JACK ity o f [facility] 2020-12-04 2020-12-04 Outpatient [facility] [id number] Univers 10:00:00 10:00:00 ity of [facility] 2020-11-19 2020-11-19 [facility] 1.2.840.114 [id number] 696 Univers 00:00:00 00:00:00 [facility] 350.1.13.10 it y of [place] 4.2.7.2.686 Noel as Professio [phone] [address] One 2020-11-09 2020-11-09 [facility] 1.2.840.114 [id number] 181 Univers 00:00:00 00:00:00 [facility] 350.1.13.10 it y of [place] 4.2.7.2.686 Noel as Professio [phone] Nj dical nal [address] Office Building One 2020-10-13 2020-10-13 [facility] 1.2.840.114 [id number] 128 Univers 00:00:00 00:00:00 [facility] 350.1.13.10 it y of [place] 4.2.7.2.686 Noel as Professio [phone] Nj dical nal [address] Office Building One 2020-10-05 2020-10-05 Refill Doctor [facility] 1.2.840.114 [id number] 77 Univers 00:00:00 00:00:00 Unassigned, PRIMARY 350.1.13.10 ity of [place] C[place] 4.2.7.2.[place] [phone] [facility] [address] 2020-09-23 2020-09-23 Emergency [facility] 1.2.452.960 4061 1926 Univers 18:51:00 21:46:00 Jovanna R [place] 350.1.13.10 i ty [place] 4.2.7.2.686 [place] [phone] [facility] [address] 2020-09-23 2020-09-23 Outpatient R [facility] [id number] Univers 16:40:00 16:40:00 ity of [facility] 2020-09-23 2020-09-23 Telephone [facility] [place] [facility] 1.2.840.114 [id number] Univers 00:00:00 00:00:00 [facility] 350.1.13.10 it y of [place] 4.2.7.2.686 Noel as Professio [phone] Nj dical nal [address] Building One 2020-09-21 2020-09-21 Insurance Auditor Lab, Adc Fam Pob I [facility] 1.2. 840.114 [id number] Univers 15:29:16 15:49:16 Visit Pool Haas [facility] 350.1.13 .10 ity of [place] 4.2.7.2.686 Noel as Professio [phone] Nj dical nal [address] Office Building One 2020-09-21 2020-09-21 Office [facility] 1.2.840.114 [id number] 723 Univers 15:08:59 15:23:59 Visit [facility] 350.1.13.10 it y of [place] 4.2.7.2.686 Noel as Professio [phone] Nj dical nal 044 [facility] One 2020-09-21 2020-09-21 Outpatient R SAMINA [facility] [id number] Univers 15:00:00 15:00:00 POOL ity [facility] 2020-09-07 2020-09-07 Office [facility] 1.2.840.114 [id number] 52 Univers 14:39:20 17:19:46 Visit Duncan [place] 350.1.13.10 i ty [place] 4[place]2.7.2.[place] [phone] Nj dical nal 220 [facility] 2020-09-07 2020-09-07 Outpatient R PABLITO [facility] [id number] Univers 14:30:00 14:30:00 DUNCAN ity [facility] 2020-08-10 2020-08-10 Office [facility] 1.2.840.114 [id number] Univers 10:00:15 10:42:32 Visit Jack [place] 350.1.13.10 it[place] of [place] 4.2.7.2.[place] [phone] Nj dical nal 059 [facility] 2020-08-10 2020-08-10 Outpatient R NINA [facility] [id number] Univers 10:00:00 10:00:00 JACK chandler o f [facility] 2020-08-06 2020-08-06 Orders Doctor CARLOS 1.2.840.114 [id number] Univers 00:00:00 00:00:00 Only Unassigned, JOY 350.1.13.10 ity of [place] [facility] 4.2.7.2.686 Noel as [phone] [address] 2020-07-28 2020-07-28 Telephone [facility] 1.2.840.114 [id number] Univers 00:00:00 00:00:00 [facility] 350.1.13.10 it y of [place] 4.2.7.2.686 Noel as Professio [phone] Nj dictn nal [address] Office [facility] One 2020-07-27 2020-07-27 Orders Doctor CARLOS 1.2.840.114 [id number] Univers 00:00:00 00:00:00 Only Unassigned, JOY 350.1.13.10 ity of [place] HOSPITAL 4.2.7.2.686 Noel as [phone] [address] 2020-07-19 2020-07-19 [facility] 1.2.840.114 [id number] 986 Univers 00:00:00 00:00:00 Pool PRIMARY 350.1.13.10 it y of [place] CARE 4.2.7.2.[place] [phone] [facility] [address] 2020-07-13 2020-07-13 Outpatient R [facility] [id number] Univers 13:40:00 13:40:00 JACK chandler o f [facility] 2020-07-05 2020-07-05 Orders Doctor CARLOS 1.2.840.114 [id number] Univers 00:00:00 00:00:00 Only Unassigned, JOY 350.1.13.10 ity of [place] HOSPITAL 4.2.7.2.686 Noel as [phone] [address] 2020-06-28 2020-06-28 [facility] Robert Serra [facility] 1.2.840.114 [id number] Univers 00:00:00 00:00:00 Sesung PRIMARY 350.1.13.10 it y of CARE 4.2.7.2.[place] [phone] [facility] [address] 2020-06-08 2020-06-08 Office [facility] 1.2.840.114 [id number] Univers 15:20:56 15:46:59 Visit Pool Keo 350.1.13.10 i ty of [place] 4.2.7.2.686 [place] [phone] Nj dictn nal 044 [facility] 2020-06-08 2020-06-08 Outpatient R [facility] [id number] Univers 15:30:00 15:30:00 POOL ity [facility] 2020-05-20 2020-05-22 Emergency Osvaldo He [facility] 1.2.840. 114 [id number] Univers 13:37:00 13:43:00 Benji Berrios 350.1.13.10 ity of [place].2.686 [place] [phone] [address] 2020-05-18 2020-05-18 Outpatient R SHIRLEY [facility] [id number] Univers 13:30:00 13:30:00 ATTENDING ity [facility] 2020-04-23 2020-04-23 RefRobert Champagne [facility] 1.2.840.114 [id number] Univers 00:00:00 00:00:00 Sesung PRIMARY 350.1.13.10 it y of CARE 4.2.7.2.686 [place] [phone] Nj dical [address] 2020-04-01 2020-04-01 Refill Doctor [facility] 1.2.840.114 [id number] Univers 00:00:00 00:00:00 Unassigned, PRIMARY 350.1.13.10 ity of [place] CARE 4.2.7.2.[place] [phone] Nj dical [address] 2020-03-30 2020-03-30 Outpatient R MARYSE ROBERT [facility] [id number] Univers 15:10:00 15:10:00 ity [facility] 2020-03-02 2020-03-02 Telephone Montez [facility] 1.2.840.114 [id number] Univers 00:00:00 00:00:00 Roxanna PRIMARY 350.1.13.10 it y of [place] CARE 4.2.7.2.686 [place] [phone] Nj dical [address] 2020-03-02 2020-03-02 Orders Doctor CARLOS 1.2.840.114 [id number] Univers 00:00:00 00:00:00 Only Unassigned, JOY 350.1.13.10 ity of [place] HOSPITAL 4.2.7.2.686 Noel as [phone] [facility] [address] 2019-12-30 2020-02-24 Telemedici Roxanna Herrmann [facility] 1.2.840.114 [id number] Univers 13:31:28 13:21:55 ne Visit Unknown, Attending PRIMARY 350.1.13.1 0 ity of Robert Serra CARE 4.2.7.2.686 [place] PAVILLION [phone] [facility] [address] 2020-02-23 2020-02-23 Outpatient R SILAS [facility] [id number] Univers 10:00:00 10:00:00 KESHIA [facility] 2020-02-20 2020-02-20 Telephone Montez [facility] 1.2.840.114 [id number] Univers 00:00:00 00:00:00 Roxanna PRIMARY 350.1.13.10 it y of [place] C[place] 4.2.7.2.[place] [phone] [facility] [address] 2020-02-10 2020-02-10 [facility]medici [facility] 1.2.840.114 [id number] Univers 08:55:31 16:51:57 ne Visit [facility] 350.1.13.10 i ty of [place]2.7.2.[place] [phone] [facility] [address] Office Building 2020-02-10 2020-02-10 Insurance Auditor Draw, Clc-Bls Lab [facility] 1.2.8 40.114 [id number] Univers 15:01:27 15:16:27 Visit HarpreetjackelineAlfonzo vanmaritza [facility] 350.1. 13.10 ity of [place] 4.2.7.2.686 [place] [phone] [facility] [address] Office Building 2020-02-10 2020-02-10 Outpatient R RAFAEL [facility] [id number] Univers 15:00:00 15:00:00 [facility] 2020-02-04 2020-02-04 Telephone [facility] 1.2.840.114 [id number] Univers 00:00:00 00:00:00 Roxanna PRIMARY 350.1.13.10 it y of [place] CARE 4.2.7.2.[place] [phone] Nj dical [address] 2020-01-28 2020-01-28 [facility] 1.2.840.114 [id number] Univers 00:00:00 00:00:00 Roxanna PRIMARY 350.1.13.10 it y of [place] CARE 4.2.7.2.[place] [phone] Nj dical [address] 2019-12-30 2019-12-30 Outpatient R [facility] [id number] Univers 16:20:00 16:20:00 ATTENDING ity [facility] 2019-12-24 2019-12-24 Emergency X [facility] ERT [id number] Univers 19:33:43 23:11:00 WAJULIALI ity [facility] 2019-12-24 2019-12-24 Emergency Critical access hospital 1.2.185.757 [id number] Univers 19:33:43 23:11:00 Keven Saraviaton 350.1.13.10 ity of [place] 4.2.7.2.686 [place] [phone] [facility] [address] 2019-12-23 2019-12-23 Outpatient R [facility] [id number] Univers 16:30:00 16:30:00 [facility] ity [facility] 2019-12-22 2019-12-22 Telephone ROBI Hall 1.2.840.114 [id number] Univers 00:00:00 00:00:00 [facility] 350.1.13.10 i ty of [facility] 4.2.7.2.686 [place] [phone] [facility] [address] 2019-11-25 2019-11-25 [facility] 1 .2.840.114 [id number] Univers 06:47:00 23:59:00 Encounter Surinder Jackson 350.1.1 3.10 ity of [facility] 4.2.7.2.686 [place] [phone] [address] 2019-11-18 2019-11-18 Insurance Auditor Ray, Adc Lab Main [facility] 1.2.8 40.114 [id number] Univers 16:26:17 16:41:17 Visit Jewel Hall [place] 350.1 .13.10 ity of [place] 4.2.7.2.686 [place] Profess[place] [phone] Nj dical nal 353 [facility] 2019-11-18 2019-11-18 Telephone Aretha Hall 1.2.840.114 [id number] Univers 00:00:00 00:00:00 Wissam Joy 350.1.13.10 it y of [facility] 4.2.7.2.686 Noel as [phone] [address] 2019-11-12 2019-11-12 Telephone Montez [facility] 1.2.840.114 [id number] Univers 00:00:00 00:00:00 Roxanna PRIMARY 350.1.13.10 it y of [place] CARE 4.2.7.2.[place] [phone] Nj dical [address] 2019-11-12 2019-11-12 Telephone Aretha [facility] 1.2.840.114 [id number] Univers 00:00:00 00:00:00 Alfonzosam [place] 350.1.13.10 it y of [facility] 4.2.7.2.686 Noel as [phone] [address] 2019-11-12 2019-11-12 Telephone Aretha Hall 1.2.840.114 [id number] Univers 00:00:00 00:00:00 Alfonzosam Joy 350.1.13.10 it y of [facility] 4.2.7.2.686 Noel as [phone] [address] 2019-11-11 2019-11-11 Office Rafael [facility] 1.2.840.114 [id number] Univers 15:56:31 17:14:23 Visit [facility] 350.1.13.10 it y of [facility] 4.2.7.2.[place] [phone] [facility] [address] Office Building 2019-11-10 2019-11-10 Telephone Rafael [facility] 1.2.840.114 [id number] Univers 00:00:00 00:00:00 [facility] 350.1.13.10 it [facility] 4.2.7.2.686 [facility] [phone] [facility] Primary & [address] Specialty Care 2019-10-21 2019-10-24 Outpatient X [facility] [id number] Univers 16:06:56 12:00:00 NIMA ity of [facility] 2019-10-21 2019-10-22 Office Roxanna Herrmann [facility] 1.2.840.114 [id number] Univers 14:39:43 22:59:04 Visit Unknown, Attending PRIMARY 350.1.13.10 ity of [facility] 4.2.7.2.686 [facility] [phone] [place] [address] [address] 2019-10-21 2019-10-21 Outpatient R ROBERT SERRA [facility] [id number] Univers 14:30:00 14:30:00 ity of [facility] 2019-09-29 2019-09-29 Orders Doctor GONZALEZ 1.2.840.114 [id number] Univers 00:00:00 00:00:00 Only Unassigned, JOY 350.1.13.10 ity of [place] [facility] 4.2.7.2.686 Noel as [phone] [place] [address] Branch 2019-09-08 2019-09-10 Inpatient X ESTELITAANALISA [facility] [id number] Univers 16:52:03 12:30:00 MERCY ity of [facility] 2019-06-26 2019-06-26 Orders Doctor GONZALEZ 1.2.840.114 [id number] Univers 00:00:00 00:00:00 Only Unassigned, JOY 350.1.13.10 ity of [place] [facility] 4.2.7.2.686 Noel as [phone] [place] [address] Branch 2019-06-18 2019-06-19 Emergency Tyra Curry [facility] 1.2.840. 114 [id number] Univers 01:00:22 18:25:00 [place] 350.1.13.10 [place] [phone] [facility] 081 Branch 2019-06-03 2019-06-03 Patient Doctor [facility] 1.2.840.114 [id number] Univers 00:00:00 00:00:00 Secure Msg Unassigned, PRIMARY [id number] ity [place] [phone] [place] Branch 2019-06-01 2019-06-01 Urgent TruDerian [facility] 1.2.840.11 [id number] Univers 12:10:02 12:25:02 Care Unknown, Attending Health [id number] ity of Surgical 4.2.7.2.686 Noel as Specialti [phone] [place] 370 [facility] 2019-05-13 2019-05-13 Hospital Robert Serra 1.2.840.114 [id number] Univers 14:41:40 23:59:00 Encounter [facility] 350.1.13.10 ity [place] [id number] [facility] 800 Branch 2019-05-06 2019-05-11 Office Roxanna Herrmann [facility] 1.2.840.114 [id number] Univers 15:04:24 05:37:23 Visit Unknown, Attending PRIMARY [id number] ity of Robert Serra CARE 4.2.7.2.686 [place] [facility] [id number] [place] Branch 2019-05-05 2019-05-05 Patient Christians, [facility] 1.2.840.114 [id number] Univers 00:00:00 00:00:00 Secure Msg Roxanna PRIMARY [id number] ity [place] [phone] [place] 388 Branch 2019-04-29 2019-05-01 Office Roxanna Herrmann [facility] 1.2.840.114 [id number] [facility] 16:14:15 15:40:09 Visit Unknown, Attending PRIMARY 350.1.13.10 ity of Maryse Robert Saeed CARE 4.2.7.2.686 [place] [facility] [phone] [place]ical [address] 2019-04-29 2019-04-29 Office [place], [facility] [id number] Univers 13:51:38 14:38:07 Visit Pee PRIMARY 350.1.13.10 it [place] [facility] [phone] [place]ical [address] 2019-04-29 2019-04-29 [facility].2.[facility]114 [id number] Univers 00:00:00 00:00:00 [place] PRIMARY 350.1.13.10 it y of [place] 4[place] [facility] [phone] [facility] [address] Results Test Description Test Time Test Comments Results Result Comments Source POCT GLUCOSE (AUTOMATED) 2023-01-08 20:15:49 Test Item Value Reference Range Interpretation Comme nts POCT GLU (test code = 2053054778) 140 mg/dL 70-110 H Lab Interpretation (test code = 97872-3) Abnormal [facility]. METABOLIC PANEL (39140)2023-01-01 22:34:45 Test Item Value Reference Range Interpretation Comments NA (test code = 138 mmol/L 135-145 1491691531) K (test code = 3.4 mmol/L 3.5-5.0 L 9912658397) CL (test code = 106 mmol/L 98-108 2742076279) CO2 TOTAL (test code = 21 mmol/L 23-31 L 4029051712) AGAP (test code = 11 2-16 6380858478) BUN (test code = 29 mg/dL 7-23 H 7498329834) GLUCOSE (test code = 95 mg/dL 70-110 8530884575) CREATININE (test code = 1.70 mg/dL 0.50-1.04 H 9629805046) TOTAL BILI (test code = 0.7 mg/dL 0.1-1.3 5295652955) CALCIUM (test code = 9.6 mg/dL 8.6-10.6 2802688183) T PROTEIN (test code = 8.2 g/dL 6.3-8.2 9975730211) ALBUMIN (test code = 4.7 g/dL 3.5-5.0 1282774590) ALK PHOS (test code = 79 U/L 34-122 3181811959) ALTv (test code = 20 U/L 5-35 1742-6) AST(SGOT) (test code = 27 U/L 13-40 1415267825) eGFR (test code = 30.3 mL/min/1.73m2 7350960990) TYLER (test code = TYLER) Association of Glomerular Filtration Rate (GFR) and Staging of Kidney Disease* + --+ --+ ------+| GFR (mL/min/1.73 m2) ?| With Kidney Damage ?| ?Without Kidney Damage+ --------+ --------+ +| ?>90 ?| ?Stage one ?| ? Normal ?+ ---+ ---+ -------+| ?60-89 ?| ?Stage two ?| ? Decreased GFR ? + --+ --+ ------+| ?30-59 ?| ?Stage three ?| ? Stage three ? + --+ --+ ------+| ?15-29 ?| ?Stage four ? | ? Stage four ?+ ---+ ---+ -------+| ?<15 (or dialysis) ? ?| ?Stage five ? | ? Stage five ?+ ---+ ---+ -------+ *Each stage assumes the associated GFR level has been in effect for at least three months. ?Stages 1 to 5, with or without kidney disease, indicate chronic kidney disease. Notes: Determination of stages one and two (with eGFR >59mL/min/1.73 m2) requires estimation of kidney damage for at least three months as defined by structural or functional abnormalities of the kidney, manifested by either:Pathological abnormalities or Markers of kidney damage (including abnormalities in the composition of the blood or urine or abnormalities in imaging tests). Lab Interpretation Abnormal (test code = 18285-4) [facility] 22[facility]32[facility]06 Test Item Value Reference Range Interpretation Comments LIPASE (test code = 4777694950) 133 U/L 0-220 Lab Interpretation (test code = Normal 85806-4) [facility] WITH [id number] 21:46:54 Test Item Value Reference Range Interpretation Comments WBC (test code = 9.18 See_Comment [Automated 6690-2) message] The sy stem which generated this result transmitted reference range : 4.30 - 11.10 10*3/?L. The reference range was not used to interpret this result as normal/abnormal . RBC (test code = 5.08 See_Comment [Automated 789-8) message] The sy stem which generated this result transmitted reference range : 3.93 - 5.25 10*6/?L. The reference range was not used to interpret this result as normal/abnormal . HGB (test code = 13.3 g/dL 11.6-15.0 718-7) HCT (test code = 40.7 % 35.7-45.2 4544-3) MCV (test code = 80.1 fL 80.6-95.5 L 787-2) MCH (test code = 26.2 pg 25.9-32.8 785-6) MCHC (test code = 32.7 g/dL 31.6-35.1 786-4) RDW-SD (test code = 38.7 fL 39.0-49.9 L 85873-1) RDW-CV (test code = 13.3 % 12.0-15.5 788-0) PLT (test code = 202 See_Comment [Automated 777-3) message] The sy stem which generated this result transmitted reference range : 166 - 358 10*3/ ?L. The reference r mazin was not used to interpret this result as normal/abnormal . MPV (test code = 9.4 fL 9.5-12.9 L 69349-2) NRBC/100 WBC (test 0.0 See_Comment [Automat ed code = 5720924489) message] The system which generated this result transmitted reference range : 0.0 - 10.0 /100 WBCs. The refer ence range was not u sed to interpret th is result as normal/abnormal . NRBC x10^3 (test code See_Comment [Auto mated = 8892731158) message] The s m0um0utem which generated this result transmitted reference range : 10*3/?L. The reference range was not used to interpret this result as normal/abnormal . GRAN MAT (NEUT) % 57.9 % (test code = 770-8) IMM GRAN % (test code 0.20 % = 5807177966) LYMPH % (test code = 34.6 % 736-9) MONO % (test code = 4.4 % 5905-5) EOS % (test code = 2.2 % 713-8) BASO % (test code = 0.7 % 706-2) GRAN MAT x10^3(ANC) 5.32 10*3/uL 1.88-7.09 (test code = 5144331026) IMM GRAN x10^3 (test 0.00-0.06 code = 6745233723) LYMPH x10^3 (test code 3.18 10*3/uL 1.32-3.29 = 731-0) MONO x10^3 (test code 0.40 10*3/uL 0.33-0.92 = 742-7) EOS x10^3 (test code = 0.20 10*3/uL 0.03-0.39 711-2) BASO x10^3 (test code 0.06 10*3/uL 0.01-0.07 = 704-7) Lab Interpretation Abnormal (test code = 58574-1) [facility] Whole [id number] 21:46:49 Test Item Value Reference Range Interpretation Comments LACTIC ACID (test code = 0.88 mmol/L 0.50-2.20 5491836843) Lab Interpretation (test code = Normal 63410-4) [facility] GLUCOSE (AUTOMATED)2022-12-22 21:42:11 Test Item Value Reference Range Interpretation Comments POCT GLU (test code = 3231095805) 177 mg/dL 70-110 H Lab Interpretation (test code = Abnormal 82895-3) [facility] GLUCOSE (AUTOMATED)2022-12-22 13:28:24 Test Item Value Reference Range Interpretation Comments POCT GLU (test code = 4470272969) 227 mg/dL 70-110 H Lab Interpretation (test code = Abnormal 93524-3) [facility] GLUCOSE (AUTOMATED)2022-12-22 05:05:14 Test Item Value Reference Range Interpretation Comments POCT GLU (test code = 2671472642) 219 mg/dL 70-110 H Lab Interpretation (test code = Abnormal 68195-9) [facility] GLUCOSE (AUTOMATED)2022-12-22 01:35:53 Test Item Value Reference Range Interpretation Comments POCT GLU (test code = 0017507316) 210 mg/dL 70-110 H Lab Interpretation (test code = Abnormal 72924-7) [facility] GLUCOSE (AUTOMATED)2022-12-21 22:42:12 Test Item Value Reference Range Interpretation Comments POCT GLU (test code = 2212657797) 116 mg/dL 70-110 H Lab Interpretation (test code = Abnormal 16017-4) [facility] GLUCOSE (AUTOMATED)2022-12-21 18:30:32 Test Item Value Reference Range Interpretation Comments POCT GLU (test code = 8966417485) 388 mg/dL 70-110 H Lab Interpretation (test code = Abnormal 87274-6) [facility] GLUCOSE (AUTOMATED)2022-12-21 13:26:28 Test Item Value Reference Range Interpretation Comments POCT GLU (test code = 2748656866) 475 mg/dL 70-110 HH Lab Interpretation (test code = Abnormal 58076-7) [facility] VENOUS BLOOD [id number] 23:51:35 Test Item Value Reference Range Interpretation Comments PH (test code = 7.24 7.32-7.42 L 1883726793) PCO2 NIMCO (test code = 41 See_Comment [Auto mated message] 5939355120) The system [employer] generated this result transmitted ref erence range: 41 - 51 mmHg. The reference r mazin was not used to interpret this result as normal/abnor mal. PO2 NIMCO (test code = 22 See_Comment L [Autom ated message] 0502973154) The system [employer] generated this result transmitted ref erence range: 25 - 40 mmHg. The reference r mazin was not used to interpret this result as normal/abnor mal. HCO3 NIMCO (test code = 17 See_Comment L [Auto mated message] 5360663301) The system [employer] generated this result transmitted ref erence range: 24 - 28 mEq/L. The reference r mazin was not used to interpret this result as normal/abnor mal. AC VBE(BEAKER) (test -9.5 mEq/L code = 2695550216) Lab Interpretation (test Abnormal code = 86699-6) [facility]CREAT[facility] [id number] 21:31:24 Test Item Value Reference Range Interpretation Comments CK (test code = 5027597822) 111 U/L 33-194 Lab Interpretation (test code = Normal 32952-1) [facility] CenterTHYROID STIMULATING [id number] 20:55:03 Test Item Value Reference Range Interpretation Comments TSH (test code = 4.24 See_Comment [Automated message] 1917972524) The system [employer] generated this result transmitted ref erence range: 0.45 - 4 .70 mIU/L. The refe rence range was not u sed to interpret this result as normal/abnor mal. Lab Interpretation (test Normal code = 45255-9) [facility] CARE VENOUS BLOOD [id number] 20:46:27 Test Item Value Reference Range Interpretation Comments PH (test code = 7.23 7.32-7.42 L 8836722574) PCO2 NIMCO (test code = 45 See_Comment [Auto mated message] 4722876500) The system [employer] generated this result transmitted ref erence range: 41 - 51 mmHg. The reference r mazin was not used to interpret this result as normal/abnor mal. PO2 NIMCO (test code = 34 See_Comment [Autom ated message] 2852838941) The system [employer] generated this result transmitted ref erence range: 25 - 40 mmHg. The reference r mazin was not used to interpret this result as normal/abnor mal. HCO3 NIMCO (test code = 19 See_Comment L [Auto mated message] 2442154020) The system [employer] generated this result transmitted ref erence range: 24 - 28 mEq/L. The reference r mazin was not used to interpret this result as normal/abnor mal. AC VBE(BEAKER) (test -8.8 mEq/L code = 9017404677) Lab Interpretation (test Abnormal code = 74024-4) [facility] CenterTROP[facility]IN [id number] 20:36:38 Test Item Value Reference Range Interpretation Comments TROPONIN I (test code = 0.010 ng/mL <=0.034 5002846260) TYLER (test code = TYLER) Reference (Normal) Range (defined by the 99th percentile reference limit): <= 0.034 ng/mL Note: Cardiac troponin begins to rise 3-4 hours after the onset of ischemia. Repeat in 4-6 hours if the sample was drawn within 3-4 hours of the onset of the symptom and found normal. Diagnosis of myocardial injury is made with acute changes in cTn concentrations with at least one serial sample above the 99th percentile upper reference limit (URL), taken together with the patient's clinical presentation. Biotin has been reported to cause a negative bias, interpret results relative to patient's use of biotin. Lab Interpretation Normal (test code = 20831-1) [facility] CenterN-TERMINAL [id number] 20:36:02 Test Item Value Reference Range Interpretation Comments NT-proBNP (test code = 416 pg/mL <=125 H 0979986777) TYLER (test code = TYLER) Biotin has been reported to cause a negative bias, interpret results relative to patient's use of biotin. Lab Interpretation (test Abnormal code = 50200-5) [facility] CenterMAGNESIUM2023-03-15 20:24:34 Test Item Value Reference Range Interpretation Comments MAGNESIUM (test code = 1190084612) 1.9 mg/dL 1.7-2.4 Lab Interpretation (test code = Normal 17176-1) [facility] CenterCOMP. METABOLIC PANEL (61554)2022-12-20 20:24:33 Test Item Value Reference Range Interpretation Comments NA (test code = 136 mmol/L 135-145 6381891867) K (test code = 4.3 mmol/L 3.5-5.0 2319488143) CL (test code = 99 mmol/L 98-108 5312617872) CO2 TOTAL (test code = 19 mmol/L 23-31 L 4639273185) AGAP (test code = 18 2-16 H 6783072800) BUN (test code = 52 mg/dL 7-23 H 6565563561) GLUCOSE (test code = 137 mg/dL 70-110 H 8622573519) CREATININE (test code = 2.68 mg/dL 0.50-1.04 H 8348595886) TOTAL BILI (test code = 0.7 mg/dL 0.1-1.0 8541792084) CALCIUM (test code = 10.2 mg/dL 8.6-10.6 7572710436) T PROTEIN (test code = 9.1 g/dL 6.3-8.2 H 9085694715) ALBUMIN (test code = 5.3 g/dL 3.5-5.0 H 4598291537) ALK PHOS (test code = 98 U/L 34-122 0700945267) ALTv (test code = 19 U/L 5-35 1742-6) AST(SGOT) (test code = 21 U/L 13-40 0456278437) eGFR (test code = 17.9 mL/min/1.73m2 4504692532) TYLER (test code = TYLER) Association of Glomerular Filtration Rate (GFR) and Staging of Kidney Disease* + --+ --+ ------+| GFR (mL/min/1.73 m2) ?| With Kidney Damage ?| ?Without Kidney Damage+ --------+ --------+ +| ?>90 ?| ?Stage one ?| ? Normal ?+ ---+ ---+ -------+| ?60-89 ?| ?Stage two ?| ? Decreased GFR ? + --+ --+ ------+| ?30-59 ?| ?Stage three ?| ? Stage three ? + --+ --+ ------+| ?15-29 ?| ?Stage four ? | ? Stage four ?+ ---+ ---+ -------+| ?<15 (or dialysis) ? ?| ?Stage five ? | ? Stage five ?+ ---+ ---+ -------+ *Each stage assumes the associated GFR level has been in effect for at least three months. ?Stages 1 to 5, with or without kidney disease, indicate chronic kidney disease. Notes: Determination of stages one and two (with eGFR >59mL/min/1.73 m2) requires estimation of kidney damage for at least three months as defined by structural or functional abnormalities of the kidney, manifested by either:Pathological abnormalities or Markers of kidney damage (including abnormalities in the composition of the blood or urine or abnormalities in imaging tests). Lab Interpretation Abnormal (test code = 85556-1) [facility] 20:24:13 Test Item Value Reference Range Interpretation Comments LIPASE (test code = 9382552353) 331 U/L 0-220 H Lab Interpretation (test code = Abnormal 73194-0) [facility] CenterPHOSPHORUS2023-03-15 20:24:13 Test Item Value Reference Range Interpretation Comments PHOSPHORUS (test code = 2877096797) 4.1 mg/dL 2.5-5.0 Lab Interpretation (test code = Normal 30490-6) [facility] CenterCB WITH [id number] 20:11:11 Test Item Value Reference Range Interpretation Comments WBC (test code = 17.38 See_Comment H [Automated 8232-2) message] The system which generated this result transmit papo reference range : 4.30 - 11.10 10*3/?L. The reference range was not used to interpret this result as normal/abnormal . RBC (test code = 5.63 See_Comment H [Automated 497-8) message] The system which generated this result transmit papo reference range : 3.93 - 5.25 10*6/?L. The reference range was not used to interpret this result as normal/abnormal . HGB (test code = 14.9 g/dL 11.6-15.0 718-7) HCT (test code = 43.4 % 35.7-45.2 4544-3) MCV (test code = 77.1 fL 80.6-95.5 L 787-2) MCH (test code = 26.5 pg 25.9-32.8 785-6) MCHC (test code = 34.3 g/dL 31.6-35.1 786-4) RDW-SD (test code = 36.9 fL 39.0-49.9 L 59290-3) RDW-CV (test code = 13.2 % 12.0-15.5 788-0) PLT (test code = 336 See_Comment [Automated 707-3) message] The system which generated this result transmit papo reference range : 166 - 358 10*3/ ?L. The reference range was not u sed to interpret th is result as normal/abnormal . MPV (test code = 10.0 fL 9.5-12.9 31887-7) NRBC/100 WBC (test 0.0 See_Comment [Automat ed code = 9982217764) message] The system which generated this result transmit papo reference range : 0.0 - 10.0 /100 WBCs. The reference range was not used to interpret this result as normal/abnormal . NRBC x10^3 (test code See_Comment [Auto mated = 1007132214) message] The system which generated this result transmit papo reference range : 10*3/?L. The reference range was not used to interpret this result as normal/abnormal . GRAN MAT (NEUT) % 73.5 % (test code = 770-8) IMM GRAN % (test code 0.60 % = 5102344821) LYMPH % (test code = 19.1 % 736-9) MONO % (test code = 5.5 % 5905-5) EOS % (test code = 0.6 % 713-8) BASO % (test code = 0.7 % 706-2) GRAN MAT x10^3(ANC) 12.76 10*3/uL 1.88-7.09 H (test code = 9668367077) IMM GRAN x10^3 (test 0.11 10*3/uL 0.00-0.06 H code = 6268743535) LYMPH x10^3 (test code 3.32 10*3/uL 1.32-3.29 H = 731-0) MONO x10^3 (test code 0.95 10*3/uL 0.33-0.92 H = 742-7) EOS x10^3 (test code = 0.11 10*3/uL 0.03-0.39 711-2) BASO x10^3 (test code 0.13 10*3/uL 0.01-0.07 H = 704-7) Lab Interpretation Abnormal (test code = 13419-7) [facility] CenterL[facility] Acid Whole [id number] 19:43:36 Test Item Value Reference Range Interpretation Comments LACTIC ACID (test code = 1.60 mmol/L 0.50-2.20 1507422117) Lab Interpretation (test code = Normal 34236-1) [facility] HEMOGLOBIN A1C [id number] 21:24:00 Test Item Value Reference Range Interpretation Comments POCT HBA1C (test code = 4548-4) 11.2 % 4-6 A Lab Interpretation (test code = Abnormal 38613-8) [facility] HEMOGLOBIN A1C [id number] 21:24:00 Test Item Value Reference Range Interpretation Comments POCT HBA1C (test code = 4548-4) 11.2 % 4-6 A Lab Interpretation (test code = Abnormal 19196-9) [facility] CenterVITAMIN D, [id number] 22:17:08 Test Item Value Reference Range Interpretation Comments VIT D 25OH (test code = 17 ng/mL 25-80 L 73271-2) TYLER (test code = TYLER) Deficiency: <20 ng/mLInsufficiency: 20-24 ng/mLOptimal: 25-80 ng/mL Lab Interpretation (test Abnormal code = 28783-8) [facility] CenterGLYCOSYLATED HEMOGLOBIN (A1C)2022-09-14 21:17:28 Test Item Value Reference Range Interpretation Comments HGB A1C (test code = 11.1 % 4.0-5.7 H 4548-4) TYLER (test code = TYLER) Reference RangesNormal: <5.7%Prediabetes: 5.7 - 6.4%Diabetes: > 6.5% Lab Interpretation (test Abnormal code = 72914-2) [facility] CenterTHYROID STIMULATING [id number] 21:11:17 Test Item Value Reference Range Interpretation Comments TSH (test code = See_Comment [Automated message] 6067681834) The system [employer] generated this result transmitted ref erence range: 0.45 - 4 .70 mIU/L. The refe rence range was not u sed to interpret this result as normal/abnor mal. Lab Interpretation (test Normal code = 07434-6) [facility] CenterLIPID PANEL (23087)(TOTAL CHOLESTEROL, TRIGLYCERIDES, HDL)2022-09-14 20:54:14 Test Item Value Reference Range Interpretation Comments CHOL (test code = 283 mg/dL 120-200 H 2541077828) HDL (test code = 42 mg/dL See_Comment L [Automated message] 0657852760) The system [employer] generated this result transmit papo reference range : >=50. The refer ence range was not u sed to interpret th is result as normal/abnormal . HDLC RATIO (test code = See_Comment H [Au tomated message] 5471127766) The system [employer] generated this result transmit papo reference range : <=4.5. The refe rence range was not u sed to interpret th is result as normal/abnormal . TRIG (test code = 241 mg/dL 30-170 H 1002364469) LDL CHOL (test code = 193 mg/dL See_Comment H [Auto mated message] 55007-9) The system [employer] generated this result transmit papo reference range : <=160. The refe rence range was not u sed to interpret th is result as normal/abnormal . VLDL (test code = 48 mg/dL 5-60 6597859938) Lab Interpretation (test Abnormal code = 41453-9) [facility]. METABOLIC PANEL (04866)2022-09-14 20:54:14 Test Item Value Reference Range Interpretation Comments NA (test code = 140 mmol/L 135-145 2898263531) K (test code = 4.1 mmol/L 3.5-5.0 1079541048) CL (test code = 106 mmol/L 98-108 4576676307) CO2 TOTAL (test code = 26 mmol/L 23-31 6486141106) AGAP (test code = 2-16 9077944178) BUN (test code = 21 mg/dL 7-23 6101750409) GLUCOSE (test code = 212 mg/dL 70-110 H 5502064464) CREATININE (test code = 1.51 mg/dL 0.50-1.04 H 0179624835) TOTAL BILI (test code = 0.5 mg/dL 0.1-1.1 9645443382) CALCIUM (test code = 9.3 mg/dL 8.6-10.6 9874035869) T PROTEIN (test code = 7.3 g/dL 6.3-8.2 2394076463) ALBUMIN (test code = 4.2 g/dL 3.5-5.0 1538556950) ALK PHOS (test code = 106 U/L 34-122 6168664452) ALTv (test code = 18 U/L 1742-6) AST(SGOT) (test code = 21 U/L 13-40 3306934961) eGFR (test code = mL/min/1.73m2 2931016240) TYLER (test code = TYLER) Association of Glomerular Filtration Rate (GFR) and Staging of Kidney Disease* + --+ --+ ------+| GFR (mL/min/1.73 m2) ?| With Kidney Damage ?| ?Without Kidney Damage+ --------+ --------+ +| ?>90 ?| ?Stage one ?| ? Normal ?+ ---+ ---+ -------+| ?60-89 ?| ?Stage two ?| ? Decreased GFR ? + --+ --+ ------+| ?30-59 ?| ?Stage three ?| ? Stage three ? + --+ --+ ------+| ?15-29 ?| ?Stage four ? | ? Stage four ?+ ---+ ---+ -------+| ?<15 (or dialysis) ? ?| ?Stage five ? | ? Stage five ?+ ---+ ---+ -------+ *Each stage assumes the associated GFR level has been in effect for at least three months. ?Stages 1 to 5, with or without kidney disease, indicate chronic kidney disease. Notes: Determination of stages one and two (with eGFR >59mL/min/1.73 m2) requires estimation of kidney damage for at least three months as defined by structural or functional abnormalities of the kidney, manifested by either:Pathological abnormalities or Markers of kidney damage (including abnormalities in the composition of the blood or urine or abnormalities in imaging tests). Lab Interpretation Abnormal (test code = 31033-8) [facility] WITH [id number] 20:24:06 Test Item Value Reference Range Interpretation Comments WBC (test code = See_Comment [Automated 2390-2) message] The sy stem which generated this result transmitted reference range : 4.30 - 11.10 10*3/?L. The reference range was not used to interpret this result as normal/abnormal . RBC (test code = See_Comment [Automated 749-8) message] The sy stem which generated this result transmitted reference range : 3.93 - 5.25 10*6/?L. The reference range was not used to interpret this result as normal/abnormal . HGB (test code = 10.8 g/dL 11.6-15.0 L 718-7) HCT (test code = 33.1 % 35.7-45.2 L 4544-3) MCV (test code = 82.3 fL 80.6-95.5 787-2) MCH (test code = 26.9 pg 25.9-32.8 785-6) MCHC (test code = 32.6 g/dL 31.6-35.1 786-4) RDW-SD (test code = 40.0 fL 39.0-49.9 11983-9) RDW-CV (test code = 13.4 % 12.0-15.5 788-0) PLT (test code = See_Comment [Automated 777-3) message] The sy stem which generated this result transmitted reference range : 166 - 358 10*3/ ?L. The reference r mazin was not used to interpret this result as normal/abnormal . MPV (test code = 10.6 fL 9.5-12.9 76606-9) NRBC/100 WBC (test See_Comment [Automat ed code = 7595539527) message] The system which generated this result transmitted reference range : 0.0 - 10.0 /100 WBCs. The refer ence range was not u sed to interpret th is result as normal/abnormal . NRBC x10^3 (test code See_Comment [Auto mated = 7523102596) message] The s ystem which generated this result transmitted reference range : 10*3/?L. The reference range was not used to interpret this result as normal/abnormal . GRAN MAT (NEUT) % 68.1 % (test code = 770-8) IMM GRAN % (test code 0.30 % = 8355312079) LYMPH % (test code = 21.0 % 736-9) MONO % (test code = 4.8 % 5905-5) EOS % (test code = 5.3 % 713-8) BASO % (test code = 0.5 % 706-2) GRAN MAT x10^3(ANC) 4.97 10*3/uL 1.88-7.09 (test code = 5170693944) IMM GRAN x10^3 (test 0.00-0.06 code = 8237581882) LYMPH x10^3 (test code 1.53 10*3/uL 1.32-3.29 = 731-0) MONO x10^3 (test code 0.35 10*3/uL 0.33-0.92 = 742-7) EOS x10^3 (test code = 0.39 10*3/uL 0.03-0.39 711-2) BASO x10^3 (test code 0.04 10*3/uL 0.01-0.07 = 704-7) Lab Interpretation Abnormal (test code = 77477-1) [facility] URINALYSIS W SPECIFIC [id number] 20:12:00 Test Item Value Reference Range Interpretation Comments POCT U SP GRAV (test code = 1.015 mg/dl 1.005-1.025 3255) POCT PH U (test code = 3254) 5 mg/dl 5-8 POCT U LEUK EST (test code = Negative Negative - Negative 3) POCT U NIT (test code = Negative Negative - Negative 2) POCT U PROT (test code = Negative Negative - Negative 9) POCT U GLU (test code = Negative - Negative 6) POCT U KETONE (test code = Negative Negative - Negative 8) POCT U UROBILI (test code = Normal 0.2-1 0) POCT U BILI (test code = Negative Negative - Negative 1) POCT U BLD (test code = Negative Negative - Negative 7) POCT U COLOR (test code = Light Yellow 6) POCT U APPEAR (test code = Clear 7) [facility] URINALYSIS W SPECIFIC [id number] 20:12:00 Test Item Value Reference Range Interpretation Comments POCT U SP GRAV (test code = 1.015 mg/dl 1.005-1.025 3255) POCT PH U (test code = 3254) 5 mg/dl 5-8 POCT U LEUK EST (test code = Negative Negative - Negative 3263) POCT U NIT (test code = Negative Negative - Negative 3262) POCT U PROT (test code = Negative Negative - Negative 3259) POCT U GLU (test code = Negative - Negative 3256) POCT U KETONE (test code = Negative Negative - Negative 3258) POCT U UROBILI (test code = Normal 0.2-1 3260) POCT U BILI (test code = Negative Negative - Negative 3261) POCT U BLD (test code = Negative Negative - Negative 3257) POCT U COLOR (test code = Light Yellow 3266) POCT U APPEAR (test code = Clear 3267) [facility] URINALYSIS W SPECIFIC [id number] 20:12:00 Test Item Value Reference Range Interpretation Comments POCT U SP GRAV (test code = 1.015 mg/dl 1.005-1.025 3255) POCT PH U (test code = 3254) 5 mg/dl 5-8 POCT U LEUK EST (test code = Negative Negative - Negative 3263) POCT U NIT (test code = Negative Negative - Negative 3262) POCT U PROT (test code = Negative Negative - Negative 3258) POCT U GLU (test code = Negative - Negative 6) POCT U KETONE (test code = Negative Negative - Negative 3258) POCT U UROBILI (test code = Normal 0.2-1 3260) POCT U BILI (test code = Negative Negative - Negative 1) POCT U BLD (test code = Negative Negative - Negative 3257) POCT U COLOR (test code = Light Yellow 3266) POCT U APPEAR (test code = Clear 3267) [facility] URINALYSIS W SPECIFIC [id number] 20:12:00 Test Item Value Reference Range Interpretation Comments POCT U SP GRAV (test code = 1.015 mg/dl 1.005-1.025 3255) POCT PH U (test code = 3254) 5 mg/dl 5-8 POCT U LEUK EST (test code = Negative Negative - Negative 3263) POCT U NIT (test code = Negative Negative - Negative 3262) POCT U PROT (test code = Negative Negative - Negative 3259) POCT U GLU (test code = Negative - Negative 3256) POCT U KETONE (test code = Negative Negative - Negative 3258) POCT U UROBILI (test code = Normal 0.2-1 3260) POCT U BILI (test code = Negative Negative - Negative 3261) POCT U BLD (test code = Negative Negative - Negative 3257) POCT U COLOR (test code = Light Yellow 3266) POCT U APPEAR (test code = Clear 3267) [facility] [id number] 22:15:00 Test Item Value Reference Range Interpretation Comments POC glucose (test code 167 mg/dL 65-99 H Opera tor Name: = [id number]) Frieda Caldwell ID : [id number] able: RN Notified Lab Interpretation Abnormal (test code = 84742-9) [facility] [id number] 10:54:00 Test Item Value Reference Range Interpretation Comments Urine culture (test SEE COMMENT Bacteriu faustina screen code = 8004112) negative. [facility] RNA [Presence] in Respiratory specimen by LORIE with probe [id number] 19:17:25 Test Item Value Reference Range Interpretation Comments SARS-CoV-2 (COVID-19) RNA Not detected [Presence] in Respiratory specimen by LORIE with probe detection (test code = 13169-1) Whether patient is employed in a Unknown healthcare setting (test code = 89958-1) Whether the patient has symptoms Unknown related to condition of interest (test code = 64413-1) Whether the patient was Unknown hospitalized for condition of interest (test code = 20323-9) Whether the patient was admitted Unknown to intensive care unit (ICU) for condition of interest (test code = 91961-5) Whether patient resides in a Unknown congregate care setting (test code = 34215-8) status (test code = Unknown 72359-2) Date and time of symptom onset Unknown (test code = 07679-1) [facility] RNA [Presence] in Respiratory specimen by LORIE with probe [id number] 00:53:08 Test Item Value Reference Range Interpretation Comments SARS-CoV-2 (COVID-19) RNA Not detected [Presence] in Respiratory specimen by LORIE with probe detection (test code = 14180-1) Whether patient is employed in a Unknown healthcare setting (test code = 41113-5) Whether the patient has symptoms Unknown related to condition of interest (test code = 39918-3) Whether the patient was Unknown hospitalized for condition of interest (test code = 54159-8) Whether the patient was admitted Unknown to intensive care unit (ICU) for condition of interest (test code = 09843-7) Whether patient resides in a Unknown congregate care setting (test code = 39005-7) status (test code = Unknown 55112-9) Date and time of symptom onset Unknown (test code = 08417-0) [facility] [id number] 22:19:52 Test Item Value Reference Range Interpretation Comments Case number (test code = [id number]) Surgical pathology See link below for report (test code = PDF Lab Report 2255) Result status (test code This is Final Report = [id number]) [id number] [facility] [id number] 12:29:49 Test Item Value Reference Range Interpretation Comments POC-Glucose Meter (test 162 mg/dL 70-110 H : No tified RN/MD: code = 1538) Pt. refused rpt tst: TESTED AT [place] [address] 30: Engraver Letter/Techni paresh ID = [id number] for SrinivasKelli mcleod Lab Interpretation (test Abnormal code = 07760-0) [facility] [id number] 12:29:49 Test Item Value Reference Range Interpretation Comments POC-GLUCOSE METER 162 mg/dL 70-110 H : Notified RN/MD: Pt. (GERALD) (test code = refuse d rpt tst: TESTED 1538) AT [place] [address]: Engraver Letter/Techni paresh ID = [id number] for Pe rry, Kelli POCT-GLUCOSE [id number] 07:15:15 Test Item Value Reference Range Interpretation Comments POC-GLUCOSE METER 135 mg/dL 70-110 H : Notified RN/MD: Pt. (GERALD) (test code = refuse d rpt tst: TESTED 1538) AT [place] [address]: Engraver Letter/Techni paresh ID = [id number] for Pe rry, Kelli BASIC METABOLIC [id number] 06:23:00 Test Item Value Reference Range Interpretation Comments SODIUM (BEAKER) (test 140 meq/L 136-145 code = 381) POTASSIUM (BEAKER) 3.8 meq/L 3.5-5.1 (test code = 379) CHLORIDE (BEAKER) 110 meq/L 98-107 H (test code = 382) CO2 (BEAKER) (test 23 meq/L 22-29 code = 355) BLOOD UREA NITROGEN 16 mg/dL 7-21 (BEAKER) (test code = 354) CREATININE (BEAKER) 1.21 mg/dL 0.57-1.25 (test code = 358) GLUCOSE RANDOM 110 mg/dL 70-105 H (BEAKER) (test code = 652) CALCIUM (BEAKER) 8.7 mg/dL 8.4-10.2 (test code = 697) EGFR (BEAKER) (test INSUFFIC IENT CLINICAL code = 1092) DATA TO CALCULA TE ESTIMATED GFR. Engraver Letter ID - JESSICA GPOCT-GLUCOSE [id number] 05:12:39 Test Item Value Reference Range Interpretation Comments POC-GLUCOSE METER 100 mg/dL 70-110 : TESTED A T [facility] 6720 (BEAKER) (test code = [facility], 1538) [address]: Engraver Letter/Techni paresh ID = [id number] for An calvin, Danny POCT-GLUCOSE [id number] 01:14:46 Test Item Value Reference Range Interpretation Comments POC-GLUCOSE METER 72 mg/dL 70-110 : [facility] T [facility] 67[facility] (test code = [facility], 1538) [address]: Engraver Letter/Techni paresh ID = [id number] for Anek e, Danny POCT-GLUCOSE [id number] 20:48:23 Test Item Value Reference Range Interpretation Comments POC-GLUCOSE METER 154 mg/dL 70-110 H : TESTED A T [facility] 6720 (BEAKER) (test code = [facility], 1538) [address]: Engraver Letter/Techni paresh ID = [id number] for An calvin, Danny POCT-GLUCOSE [id number] 17:13:02 Test Item Value Reference Range Interpretation Comments POC-GLUCOSE METER 152 mg/dL 70-110 H : Notified RN/MD: [facility] (test code = refuse d rpt tst: TESTED 1538) AT [place] [address] [facility], 770 30: Engraver Letter/Techni paresh ID = [id number] for Pe rry, Kelli POCT-GLUCOSE [id number] 12:22:09 Test Item Value Reference Range Interpretation Comments POC-GLUCOSE METER 135 mg/dL 70-110 H : Notified RN/MD: Pt. (GERALD) (test code = refuse d rpt tst: TESTED 1538) [place] [address] [facility], 770 30: Engraver Letter/Techni paresh ID = [id number] for Pe rry, Kelli POCT-GLUCOSE [id number] 07:18:15 Test Item Value Reference Range Interpretation Comments POC-GLUCOSE METER 146 mg/dL 70-110 H : Notified RN/MD: Pt. (GERALD) (test code = refuse d rpt tst: TESTED 1538) AT [place] [address] [facility], 770 30: Engraver Letter/Techni paresh ID = [id number] for Pe rry, Kelli BASIC METABOLIC [id number] 06:06:17 Test Item Value Reference Range Interpretation Comments SODIUM (BEAKER) (test 141 meq/L 136-145 code = 381) POTASSIUM (BEAKER) 3.8 meq/L 3.5-5.1 (test code = 379) CHLORIDE (BEAKER) 110 meq/L 98-107 H (test code = 382) CO2 (BEAKER) (test 24 meq/L 22-29 code = 355) BLOOD UREA NITROGEN 19 mg/dL 7-21 (BEAKER) (test code = 354) CREATININE (BEAKER) 1.34 mg/dL 0.57-1.25 H (test code = 358) GLUCOSE RANDOM 135 mg/dL 70-105 H (BEAKER) (test code = 652) CALCIUM (BEAKER) 8.8 mg/dL 8.4-10.2 (test code = 697) EGFR (BEAKER) (test INSUFFIC IENT CLINICAL code = 1092) DATA TO CALCULA TE ESTIMATED GFR. Engraver Letter ID - MILLA MPOCT-GLUCOSE [id number] 05:35:19 Test Item Value Reference Range Interpretation Comments POC-GLUCOSE METER 124 mg/dL 70-110 H : TESTED A T [facility] 6720 (BEAKER) (test code = [facility], 1538) [address]: Engraver Letter/Techni paresh ID = [id number] for An calvin, Danny POCT-GLUCOSE [id number] 23:11:21 Test Item Value Reference Range Interpretation Comments POC-GLUCOSE METER 140 mg/dL 70-110 H : TESTED A T [facility] (BEAKER) (test code = [facility], 1538) [address]: Engraver Letter/Techni paresh ID = [id number] for An calvin, Danny Urinalysis w/[id number] 18:45:43 Test Item Value Reference Range Interpretation Comments Color, UA (test code = Yellow 5778-6) Clarity, UA (test code = Clear 5767-9) Specific [place], UA 1.015 1.005-1.030 (test code = 5811-5) pH, UA (test code = 6.0 5.0-9.0 5803-2) Protein, UA (test code = Negative Negative 74956-4) Glucose, UA (test code = 500 mg/dL Negative A 365) Ketones, UA (test code = Negative Negative 2514-8) Bilirubin, UA (test code Negative Negative = 60859-2) Blood, UA (test code = Negative Negative 63155-2) Nitrite, UA (test code = Negative Negative 5802-4) Leukocytes, UA (test Negative Negative code = 5799-2) Urobilinogen, UA (test 0.2 mg/dL 0.2-1.0 code = 87661-8) RBC, UA (test code = See_Comment [Autom ated message] 48544-3) The system [employer] generated this result transmit papo reference range : /HPF. The refer ence range was not u sed to interpret th is result as normal/abnormal . WBC, UA (test code = See_Comment [Autom ated message] 5821-4) The system [employer] generated this result transmit papo reference range : /HPF. The refer ence range was not u sed to interpret th is result as normal/abnormal . Bacteria, UA (test code Rare = 15374-9) Specimen Source (test code = 2795) Lab Interpretation (test Abnormal code = 03606-3) [facility] [id number] 18:45:43 Test Item Value Reference Range Interpretation Comments COLOR (BEAKER) (test code = 470) Yellow CLARITY (BEAKER) (test code = 469) Clear SPECIFIC GRAVITY UA (BEAKER) (test 1.015 1.005-1.030 code = 468) PH UA (BEAKER) (test code = 467) 6.0 5.0-9.0 PROTEIN UA (BEAKER) (test code = Negative Negative 464) GLUCOSE UA (BEAKER) (test code = 500 mg/dL Negative A 365) KETONES UA (BEAKER) (test code = Negative Negative 371) BILIRUBIN UA (BEAKER) (test code = Negative Negative 462) BLOOD UA (BEAKER) (test code = 461) Negative Negative NITRITE UA (BEAKER) (test code = Negative Negative 465) LEUKOCYTE ESTERASE UA (BEAKER) Negative Negative (test code = 466) UROBILINOGEN UA (BEAKER) (test code 0.2 mg/dL 0.2-1.0 = 463) RBC UA (BEAKER) (test code = 519) < /HPF WBC UA (BEAKER) (test code = 520) < /HPF BACTERIA (BEAKER) (test code = 517) Rare SOURCE(BEAKER) (test code = 2795) POCT-GLUCOSE [id number] 17:29:52 Test Item Value Reference Range Interpretation Comments POC-GLUCOSE METER 85 mg/dL 70-110 : Notified RN/MD: Pt. (BEAKER) (test code = refuse d rpt tst: TESTED 1538) AT [facility] [address] [facility], [facility] 30: Engraver Letter/Techni paresh ID = [id number] for Kelli Ruiz URINALYSIS W/ [id number] 15:02:54 Test Item Value Reference Range Interpretation Comments COLOR (BEAKER) (test Light Yellow Recolle ction code = 470) requested.This is a corrected resul t. Previous result was Light Yellow on 01/20/2022 at 01 05 CDT CLARITY (BEAKER) Clear Recollectio n (test code = 469) requested. This is a corrected resul t. Previous result was Clear on 022 at 0105 CDT SPECIFIC GRAVITY UA 1.012 1.001-1.035 Recollec tion (BEAKER) (test code = reques papo.This is a 468) corrected resul t. Previous result was 1.012 on 022 at 0105 CDT PH UA (BEAKER) (test 5.5 5.0-8.0 Recolle ction code = 467) requested.This is a corrected resul t. Previous result was 5.5 on 2 at 0105 CDT PROTEIN UA (BEAKER) Negative Negative Recollec tion (test code = 464) requested. This is a corrected resul t. Previous result was Negative on 01/20/2022 at 01 05 CDT GLUCOSE UA (BEAKER) 100 mg/dL Negative A Recollec tion (test code = 365) requested. This is a corrected resul t. Previous result was 100 mg/dL on 01/20/2022 at 01 05 CDT KETONES UA (BEAKER) Negative Negative Recollec tion (test code = 371) requested. This is a corrected resul t. Previous result was Negative on 01/20/2022 at 01 05 CDT BILIRUBIN UA (BEAKER) Negative Negative Recoll ection (test code = 462) requested. This is a corrected resul t. Previous result was Negative on 01/20/2022 at 01 05 CDT BLOOD UA (BEAKER) Negative Negative Recollecti on (test code = 461) requested. This is a corrected resul t. Previous result was Negative on 01/20/2022 at 01 05 CDT NITRITE UA (BEAKER) Negative Negative Recollec tion (test code = 465) requested. This is a corrected resul t. Previous result was Negative on 01/20/2022 at 01 05 CDT LEUKOCYTE ESTERASE UA Negative Negative Recoll ection (BEAKER) (test code = reques papo.This is a 466) corrected resul t. Previous result was Negative on 01/20/2022 at 01 05 CDT UROBILINOGEN UA 0.2 mg/dL 0.2-1.0 Recollection (BEAKER) (test code = reques papo.This is a 463) corrected resul t. Previous result was 0.2 mg/dL on 01/20/2022 at 01 05 CDT RBC UA (BEAKER) (test 1 /HPF Recoll ection code = 519) requested.This is a corrected resul t. Previous result was 1 /HPF on 2021 at 0105 CDT WBC UA (BEAKER) (test 4 /HPF Recoll ection code = 520) requested.This is a corrected resul t. Previous result was 4 /HPF on 2021 at 0105 CDT BACTERIA (BEAKER) None Seen This is a corrected (test code = 517) result. Pr evious result was None Seen on 01/20/2022 at 0105 CDT SQUAMOUS EPITHELIAL 1 /HPF This is a corrected (BEAKER) (test code = result . Previous 516) result was 1 /H PF on 01/20/2022 at 01 05 CDT CRYSTALS, URINE None Seen This is a co rrected (BEAKER) (test code = result . Previous 1521) result was None Seen on 01/20/2022 at 0105 CDT AMORPHOUS CRYSTALS Rare This is a corrected (BEAKER) (test code = result . Previous 1584) result was Rare on 01/20/2022 at 01 05 CDT SOURCE(BEAKER) (test code = 2795) Dr. Santillan communicated with the nurse.Engraver Letter ID - [auto]Engraver Letter ID - techPOCT- GLUCOSE [id number] 07:28:13 Test Item Value Reference Range Interpretation Comments POC-GLUCOSE METER 124 mg/dL 70-110 H : Notified RN/MD: Pt. (BEAKER) (test code = refuse d rpt tst: TESTED 1538) AT [facility] [address] [facility], [address]: Engraver Letter/Techni paresh ID = [id number] for Kelli Vega BASIC METABOLIC [id number] 06:08:48 Test Item Value Reference Range Interpretation Comments SODIUM (BEAKER) (test 141 meq/L 136-145 code = 381) POTASSIUM (BEAKER) 3.9 meq/L 3.5-5.1 (test code = 379) CHLORIDE (BEAKER) 109 meq/L 98-107 H (test code = 382) CO2 (BEAKER) (test 26 meq/L 22-29 code = 355) BLOOD UREA NITROGEN 25 mg/dL 7-21 H (BEAKER) (test code = 354) CREATININE (BEAKER) 1.68 mg/dL 0.57-1.25 H (test code = 358) GLUCOSE RANDOM 123 mg/dL 70-105 H (BEAKER) (test code = 652) CALCIUM (BEAKER) 8.9 mg/dL 8.4-10.2 (test code = 697) EGFR (BEAKER) (test INSUFFIC IENT CLINICAL code = 1092) DATA TO CALCULA TE ESTIMATED GFR. Engraver Letter ID - AGAPITO [id number] 06:01:17 Test Item Value Reference Range Interpretation Comments MAGNESIUM (BEAKER) (test code = 1.7 mg/dL 1.6-2.6 627) Engraver Letter ID - AGAPITO [id number] 06:01:17 Test Item Value Reference Range Interpretation Comments PHOSPHORUS (BEAKER) (test code = 2.7 mg/dL 2.3-4.7 604) Engraver Letter ID Cristi ALTMAN LCBC W/PLT COUNT & AUTO [id number] 05:39:54 Test Item Value Reference Range Interpretation Comments WHITE BLOOD CELL COUNT (BEAKER) 5.5 K/ L 3.5-10.5 (test code = 775) RED BLOOD CELL COUNT (BEAKER) 3.78 M/ L 3.93-5.22 L (test code = 761) HEMOGLOBIN (BEAKER) (test code = 9.9 GM/DL 11.2-15.7 L 410) HEMATOCRIT (BEAKER) (test code = 30.7 % 34.1-44.9 L 411) MEAN CORPUSCULAR VOLUME (BEAKER) 81.2 fL 79.4-94.8 (test code = 753) MEAN CORPUSCULAR HEMOGLOBIN 26.2 pg 25.6-32.2 (BEAKER) (test code = 751) MEAN CORPUSCULAR HEMOGLOBIN CONC 32.2 GM/DL 32.2-35.5 (BEAKER) (test code = 752) RED CELL DISTRIBUTION WIDTH 13.2 % 11.7-14.4 (BEAKER) (test code = 412) PLATELET COUNT (BEAKER) (test 151 K/CU MM 150-450 code = 756) MEAN PLATELET VOLUME (BEAKER) 9.9 fL 9.4-12.3 (test code = 754) NUCLEATED RED BLOOD CELLS 0 /100 WBC 0-0 (BEAKER) (test code = 413) NEUTROPHILS RELATIVE PERCENT 42 % (BEAKER) (test code = 429) LYMPHOCYTES RELATIVE PERCENT 44 % (BEAKER) (test code = 430) MONOCYTES RELATIVE PERCENT 7 % (BEAKER) (test code = 431) EOSINOPHILS RELATIVE PERCENT 6 % (BEAKER) (test code = 432) BASOPHILS RELATIVE PERCENT 1 % (BEAKER) (test code = 437) NEUTROPHILS ABSOLUTE COUNT 2.35 K/ L 1.56-6.13 (BEAKER) (test code = 670) LYMPHOCYTES ABSOLUTE COUNT 2.43 K/ L 1.18-3.74 (BEAKER) (test code = 414) MONOCYTES ABSOLUTE COUNT (BEAKER) 0.36 K/ L 0.24-0.36 (test code = 415) EOSINOPHILS ABSOLUTE COUNT 0.35 K/ L 0.04-0.36 (BEAKER) (test code = 416) BASOPHILS ABSOLUTE COUNT (BEAKER) 0.04 K/ L 0.01-0.08 (test code = 417) IMMATURE GRANULOCYTES-RELATIVE 0 % 0-1 PERCENT (BEAKER) (test code = 2801) POCT-GLUCOSE [id number] 02:30:51 Test Item Value Reference Range Interpretation Comments POC-GLUCOSE METER 116 mg/dL 70-110 H : TESTED A T [facility] (BEAKER) (test code = JANNETMIKE Mcmahan [facility], 1538) [address]: Engraver Letter/Techni paresh ID = [id number] for ORO BRADFORD Sodium, random [id number] 00:31:12 Test Item Value Reference Range Interpretation Comments Sodium Urine (test 33 meq/L code = 2955-3) TYLER (test code = Reference Range: No TYLER) NormalsOperator ID - BS [facility] ValleyUrea Nitrogen, random [id number] 00:31:12 Test Item Value Reference Range Interpretation Comments Urea Nitrogen, Ur 506 mg/dL (test code = 3095-7) TYLER (test code = Reference Range: No TYLER) NormalsOperator ID - BS [facility]IUM, RANDOM [id number] 00:31:12 Test Item Value Reference Range Interpretation Comments SODIUM URINE (BEAKER) (test code = 33 meq/L 243) Reference Range: No NormalsOperator ID - BSUREA NITROGEN, RANDOM [id number] 00:31:12 Test Item Value Reference Range Interpretation Comments UREA NITROGEN URINE (BEAKER) (test 506 mg/dL code = 538) Reference Range: No NormalsOperator ID - BSProtein, random [id number] 00:31:11 Test Item Value Reference Range Interpretation Comments Protein, Urine (test code = 7 mg/dL 0-14 2888-6) TYLER (test code = TYLER) Engraver Letter ID - BS Lab Interpretation (test Normal code = 68458-1) [facility] ValleyPROTEIN, RANDOM [id number] 00:31:11 Test Item Value Reference Range Interpretation Comments PROTEIN, URINE (BEAKER) (test code = 7 mg/dL 0-14 1569) Engraver Letter ID - BSCreatinine, random [id number] 00:31:06 Test Item Value Reference Range Interpretation Comments Creatinine, Ur 97.8 mg/dL (test code = 2161-8) TYLER (test code = Reference Range: No TYLER) NormalsOperator ID - BS [facility] ValleyCREATININE, RANDOM [id number] 00:31:06 Test Item Value Reference Range Interpretation Comments CREATININE URINE (BEAKER) (test 97.8 mg/dL code = 375) Reference Range: No NormalsOperator ID - BSChloride, random [id number] 00:31:05 Test Item Value Reference Range Interpretation Comments Chloride, Urine 24 meq/L (test code = 23944-5) TYLER (test code = Reference Range: No TYLER) NormalsOperator ID - BS [facility] ValleyCHLORIDE, RANDOM [id number] 00:31:05 Test Item Value Reference Range Interpretation Comments CHLORIDE URINE (BEAKER) (test code = 24 meq/L 682) Reference Range: No NormalsOperator ID - BSPOCT-GLUCOSE [id number] 22:22:26 Test Item Value Reference Range Interpretation Comments POC-GLUCOSE METER 102 mg/dL 70-110 : TESTED A T [facility] 6720 (BEAKER) (test code = RAJ RAUSCH, 1538) [address]: Engraver Letter/Techni paresh ID = [id number] for ORONORIS BORDENCA POCT-GLUCOSE [id number] 17:49:27 Test Item Value Reference Range Interpretation Comments POC-GLUCOSE METER 100 mg/dL 70-110 : TESTED A T [facility] 6720 (BEAKER) (test code = [facility], 1538) [address]: Engraver Letter/Techni paresh ID = [id number] for AMANDA VERGARA POCT-GLUCOSE [id number] 12:36:24 Test Item Value Reference Range Interpretation Comments POC-GLUCOSE METER 158 mg/dL 70-110 H : TESTED A T [facility] 6720 (BEAKER) (test code = [facility], 1538) [address]: Engraver Letter/Techni paresh ID = [id number] for AAMNDA VERGARA POCT-GLUCOSE [id number] 11:45:40 Test Item Value Reference Range Interpretation Comments POC-GLUCOSE METER 164 mg/dL 70-110 H : TESTED A T [facility] 6720 (BEAKER) (test code = [facility], 1538) [address]: Engraver Letter/Techni paresh ID = [id number] for Rasheed Morgan COMPREHENSIVE METABOLIC [id number] 11:38:31 Test Item Value Reference Range Interpretation Comments TOTAL PROTEIN 7.0 gm/dL 6.0-8.3 (BEAKER) (test code = 770) ALBUMIN (BEAKER) 3.8 g/dL 3.5-5.0 (test code = 1145) ALKALINE PHOSPHATASE 111 U/L 40-150 (BEAKER) (test code = 346) BILIRUBIN TOTAL 0.4 mg/dL 0.2-1.2 (BEAKER) (test code = 377) SODIUM (BEAKER) (test 138 meq/L 136-145 code = 381) POTASSIUM (BEAKER) 3.4 meq/L 3.5-5.1 L (test code = 379) CHLORIDE (BEAKER) 104 meq/L 98-107 (test code = 382) CO2 (BEAKER) (test 25 meq/L 22-29 code = 355) BLOOD UREA NITROGEN 24 mg/dL 7-21 H (BEAKER) (test code = 354) CREATININE (BEAKER) 2.06 mg/dL 0.57-1.25 H (test code = 358) GLUCOSE RANDOM 131 mg/dL 70-105 H (BEAKER) (test code = 652) CALCIUM (BEAKER) 9.0 mg/dL 8.4-10.2 (test code = 697) AST (SGOT) (BEAKER) 19 U/L 5-34 (test code = 353) ALT (SGPT) (GERALD) 12 U/L 6-55 (test code = 347) EGFR ([facility]) (test INSUFFIC IENT CLINICAL code = 1092) DATA TO CALCULA TE ESTIMATED GFR. Engraver Letter ID - ADMINHEMOGLOBIN [id number] 11:21:12 Test Item Value Reference Range Interpretation Comments HEMOGLOBIN A1C 7.3 % See_Comment H [Automated m essage] ELECTROPHORESIS (GERALD) The system which (test code = 3811) generated this result transmitted ref erence range: <=5.6%. The reference range was not used to int erpret this result as normal/abnormal . "The A1c is measured using a NGSP-certified method. HbA1c value equal to or greater than 6.5% as thediagnosis cutoff for diabetes. An HbA1c value of 5.7- 6.4% indicates increased risk for diabetes (prediabetes)."Engraver Letter ID - ADM [id number] 10:20:46 Test Item Value Reference Range Interpretation Comments PHOSPHORUS (GERALD) (test code = 2.5 mg/dL 2.3-4.7 604) Engraver Letter ID - [id number] 10:20:45 Test Item Value Reference Range Interpretation Comments MAGNESIUM (GERALD) (test code = 1.6 mg/dL 1.6-2.6 627) Engraver Letter ID - BSPOCT-GLUCOSE [id number] 08:27:37 Test Item Value Reference Range Interpretation Comments POC-GLUCOSE METER 118 mg/dL 70-110 H : TESTED A T [facility] 6720 (IZABELA) (test code = RAJ [place], 1538) [address]: Engraver Letter/Techni paresh ID = [id number] for AMANDA VERGARA HEMOGLOBIN [id number] 00:00:00 Test Item Value Reference Range Interpretation Comments A1C (test code = 4548-4) 7.9
[2023-01-19] MEDS ORDERED: FAMOTIDINE 20 MG/2 ML VIAL IV ONE (15:30)
[2023-01-19] MEDS ORDERED: MORPHINE 2 MG/ML SYR ONE ×2 (15:30→16:35)
[2023-01-19] MEDS ORDERED: ONDANSETRON 4 MG/2 ML VIAL ONE (15:30)
[2023-01-19 15:32] LABS: Protime INR 0.87
[2023-01-19 15:38] LABS: Absolute Lymphocytes (CBC) 2.6 K/uL (0.7-4.9); Hematocrit 34.2 % (36.0-45.0); Lymphocytes % 36.4 % (15.3-44.8); MCV 78.4 fL (80-100); MPV 7.6 fL (7.6-11.3); RBC Red Blood Cell Count 4.36 M/uL (3.86-4.86)
[2023-01-19 15:47] LABS: Albumin 3.6 g/dL (3.4-5.0); Bilirubin Direct 0.1 mg/dL (0-0.2); Bilirubin Total 0.4 mg/dL (0.2-1.0); Magnesium 1.7 mg/dL (1.6-2.4); Potassium 3.5 mEq/L (3.5-5.1); Protein, Total 7.7 g/dL (6.4-8.2); Troponin High Sensitivity 7.9 pg/mL (<58.9)
--- NOTE | 2023-01-19 15:57 | RAD REPORT ---
EXAM DESCRIPTION: RAD - Chest Single View - 01/19/2023 3:46 pm CLINICAL HISTORY: CHEST PAIN COMPARISON: Chest Single View dated 01/18/2022; Chest Single View dated 04/27/2021; Chest Single View dated 09/08/2016; Chest Single View dated 05/16/2016 FINDINGS: Lines: None. Lungs: No evidence of edema or pneumonia. Pleural: No significant pleural effusions or pneumothorax. Cardiac: The heart size is within normal limits. Mediastinum: Within normal limits. Bones: No acute fractures. Other: None IMPRESSION: No acute cardiopulmonary disease.
[2023-01-19] MEDS ORDERED: NITROGLYCERIN 1 GM PKT TD ONE (16:34)
[2023-01-19] MEDS ORDERED: ASPIRIN 81 MG CHEWABLE TABLET ONE (16:34)
[2023-01-19] MEDS ORDERED: NA CHLORIDE 0.9% 1,000 ML ONE (16:35)
[2023-01-19] MEDS ORDERED: NITROGLYCERIN 0.4 MG/TAB SL PRN (17:13)
--- NOTE | 2023-01-19 17:19 | EDPHYS ---
Physician Documentation [facility] Name: Lisa Louis Age: 62 yrs Sex: Female : 1960 Arrival Date: 01/19/2023 Time: 14:44 Bed 7 Private MD: ED Physician Nicolas Llanos HPI: 01/19 15:00 This 62 yrs old Female presents to ER via Ambulatory with complaints of Chest cp Pain. 15:00 The patient or guardian reports chest pain that is located primarily in the substernal cp area. Onset: yesterday. The pain does not radiate. Associated signs and symptoms: Pertinent negatives: abdominal pain, cough, lower extremity pain, lower extremity swelling, shortness of breath, syncope, vomiting. The chest pain is described as a pressure, intermittent, like someone stepping on chest. Duration: The patient or guardian reports multiple episodes, that are intermittent, that wax and wane, with no pattern. Severity of pain: in the emergency department the pain is unchanged despite home interventions. Historical: - Allergies: 14:45 Cipro; iw 14:45 GABAPENTIN; iw 14:45 Levaquin; iw - PMHx: 14:45 Diabetes - NIDDM; Hyperlipidemia; Hypertension; iw - Immunization history:: Adult Immunizations up to date. - Social history:: Smoking status: Patient denies any tobacco usage or history of. ROS: 15:05 Constitutional: Negative for body aches, chills, fever, poor PO intake. cp 15:05 Cardiovascular: Positive for chest pain, of the sternal, Negative for edema, cp palpitations. 15:05 Eyes: Negative for injury, pain, redness, and discharge. cp 15:05 ENT: Negative for drainage from ear(s), ear pain, sore throat, difficulty swallowing, difficulty handling secretions. 15:05 Respiratory: Negative for cough, shortness of breath, wheezing. 15:05 Abdomen/GI: Negative for abdominal pain, vomiting, diarrhea, constipation. 15:05 Back: Negative for pain at rest, pain with movement, radiated pain. 15:05 Skin: Negative for rash. 15:05 Neuro: Negative for altered mental status, dizziness, headache, numbness, syncope, weakness. 15:05 All other systems are negative. Exam: 15:03 ECG was reviewed by the Attending Physician. cp 15:10 Constitutional: The patient appears in no acute distress, alert, awake, cp non-diaphoretic, non-toxic, well developed, well nourished, overweight 15:10 Head/Face: Normocephalic, atraumatic. cp 15:10 Eyes: Periorbital structures: appear normal, Conjunctiva: normal, no exudate, no injection, Sclera: no appreciated abnormality, Lids and lashes: appear normal, bilaterally. 15:10 ENT: External ear(s): are unremarkable, Nose: is normal, Mouth: Lips: moist, Oral mucosa: pink and intact, moist, Posterior pharynx: is normal, airway is patent, no erythema, no exudate. 15:10 Neck: ROM/movement: is normal, is supple, without pain, no range of motions limitations, no nuchal rigidity. 15:10 Chest/axilla: Inspection: normal. 15:10 Cardiovascular: Rate: normal, Rhythm: regular, Edema: is not appreciated, JVD: is not appreciated. 15:10 Respiratory: the patient does not display signs of respiratory distress, Respirations: normal, no use of accessory muscles, no retractions, labored breathing, is not present, Breath sounds: are clear throughout, no decreased breath sounds, no stridor, no wheezing. 15:10 Abdomen/GI: Inspection: abdomen appears normal, Bowel sounds: active, all quadrants, Palpation: abdomen is soft and non-tender, in all quadrants. 15:10 Back: pain, is absent, ROM is normal. 15:10 Neuro: Orientation: to person, place \T\ time. Mentation: is normal, Motor: moves all fours, strength is normal, Sensation: is normal. Vital Signs: 14:45 BP 137 / 70; Pulse 71; Resp 16; Temp 97.8; Pulse Ox 100% on R/A; Weight 76.2 kg; Height iw 5 ft. 4 in. ; Pain 10/10; 15:56 BP 138 / 56; Pulse 67; Resp 18; Pulse Ox 100% on R/A; Pain 8/10; hb 16:42 BP 129 / 63; Pulse 62; Resp 17; Pulse Ox 97% on R/A; Pain 8/10; hb 17:58 BP 129 / 63; Pulse 62; Resp 15; Pulse Ox 100% on R/A; hb 14:45 Body Mass Index 28.84 (76.20 kg, 162.56 cm) iw 14:45 Pain Scale: Adult iw 15:56 Pain Scale: Adult hb 16:42 Pain Scale: Adult hb MDM: 14:51 Patient medically screened. cp 17:15 The patient was given aspirin in the Emergency Department. cp 17:15 Differential diagnosis: abnormal EKG, acute myocardial infarction, pulmonary embolus, cp stable angina, thoracic aortic disection, unstable angina. Data reviewed: vital signs, nurses notes, lab test result(s), EKG, radiologic studies, plain films. Consideration of Admission/Observation Patient was admitted/placed on observation. Management of patient was discussed with the following: Hospitalist: DR Santos will admit patient after discussion of today's tests. Independent interpretation of the following test(s) in the Emergency Department EKG: See my EKG interpretation above X-Ray: My interpretation is chest image negative for infiltrates. Test considered but Not performed: CT: chest. Care significantly affected by the following chronic conditions: Diabetes, Hypertension, Obesity. Counseling: I had a detailed discussion with the patient and/or guardian regarding: the historical points, exam findings, and any diagnostic results supporting the discharge/admit diagnosis, lab results, radiology results. Response to treatment: the patient's symptoms have mildly improved after treatment, and as a result, I will admit patient. 01/19 14:55 Order name: Basic Metabolic Panel; Complete Time: 15:58 cp 01/19 15:58 Interpretation: Normal except: ANION GAP 4.5; GLUC 114; BUN 23; CRE 1.40; GFR 42. cp 01/19 14:55 Order name: CBC with Diff; Complete Time: 15:58 cp 01/19 15:58 Interpretation: Normal except: HGB 11.6; HCT 34.2; MCV 78.4; MCH 26.6. cp 01/19 14:55 Order name: LFT's; Complete Time: 15:58 cp 01/19 14:55 Order name: Magnesium; Complete Time: 15:58 cp 01/19 14:55 Order name: NT PRO-BNP; Complete Time: 15:58 cp 01/19 14:55 Order name: PT-INR; Complete Time: 15:58 cp 01/19 14:55 Order name: Troponin HS; Complete Time: 15:58 cp 01/19 15:58 Interpretation: Troponin HS 7.9; Reviewed. cp 01/19 14:55 Order name: Lipase; Complete Time: 15:58 cp 01/19 17:19 Order name: Basic Metabolic Panel [facility] 01/19 17:19 Order name: CBC with Automated Diff [facility] 01/19 17:19 Order name: Lipid Profile [facility] 01/19 17:19 Order name: Lipid Profile [facility] 01/19 17:19 Order name: Troponin High Sensitivity [facility] 01/19 17:19 Order name: Troponin High Sensitivity [facility] 01/19 17:19 Order name: Troponin High Sensitivity [facility] 01/19 17:19 Order name: Troponin High Sensitivity [facility] 01/19 17:19 Order name: Troponin High Sensitivity [facility] 01/19 20:04 Order name: Glucose, Ancillary Testing [facility] 01/19 14:55 Order name: XRAY Chest (1 view); Complete Time: 15:58 cp 01/19 14:55 Order name: EKG; Complete Time: 14:56 cp 01/19 17:19 Order name: CONS Physician Consult [facility] 01/19 17:19 Order name: Heart Healthy [facility] 01/19 14:55 Order name: Cardiac monitoring; Complete Time: 15:10 cp 01/19 14:55 Order name: EKG - Nurse/Tech; Complete Time: 15:10 cp 01/19 14:55 Order name: IV Saline Lock; Complete Time: 15:10 cp 01/19 14:55 Order name: Labs collected and sent; Complete Time: 15:10 cp 01/19 14:55 Order name: O2 Per Protocol; Complete Time: 15:10 cp 01/19 14:55 Order name: O2 Sat Monitoring; Complete Time: 15:10 cp EC:03 Rate is 70 beats/min. Rhythm is regular. [place] interval is normal. QRS interval is normal. cp QT interval is normal. T waves are Inverted in lead aVR. Interpreted by me. Reviewed by me. Administered Medications: 15:30 Drug: morphine IVP or IV 2 mg Route: IVP; Infused Over: 4 mins; Site: right antecubital;hb 16:15 Follow up: Response: No adverse reaction hb 15:30 Drug: Famotidine IVP 20 mg Route: IVP; Site: right antecubital; hb 16:10 Follow up: Response: No adverse reaction hb 15:30 Drug: Ondansetron IVP 4 mg Route: IVP; Site: right antecubital; hb 16:10 Follow up: Response: No adverse reaction hb 16:39 Drug: morphine IVP or IV 2 mg Route: IVP; Infused Over: 4 mins; Site: right antecubital;hb 17:10 Follow up: Response: No adverse reaction hb 16:39 Drug: Nitroglycerin Transdermal Ointment 2 % 0.5 inches Route: Transdermal; Site: hb anterior chest wall; 17:15 Follow up: Response: No adverse reaction hb 16:39 Drug: NS 0.9% IV 500 ml Route: IV; Rate: bolus; Site: right antecubital; hb 17:10 Follow up: Response: No adverse reaction; IV Status: Completed infusion; IV Intake: hb 500ml 16:39 Drug: NS 0.9% IV 500 ml Route: IV; Rate: 100 ml/hr; Site: right antecubital; hb 20:37 Follow up: Response: No adverse reaction; IV Status: Completed infusion; IV Intake: as6 500ml 16:39 Drug: Aspirin PO Chewable Tablet 324 mg Route: PO; hb 18:10 Follow up: Response: No adverse reaction hb Disposition Summary: 01/19/23 17:18 Hospitalization Ordered Hospitalization Status: Observation cp Provider: Gunner Santos cp [facility] cp Condition: Stable cp Problem: new cp Symptoms: have improved cp Bed/Room Type: Standard cp Room Assignment: 407(01/19/23 20:05) cg Diagnosis - Chest pain, unspecified cp Forms: - Medication Reconciliation Form cp - SBAR form cp Addendum: 01/24/2023 13:42 Co-signature as Attending Physician, Nicolas Llanos MD I agree with the assessment and c grigsby plan of care. 13:42 Co-signature as Attending Physician, Gunner Santos MD I agree with the assessment and c grigsby plan of care. Signatures: Dispatcher [employer] Nicolas Avilez MD MD cha Williams, Irene, RN ROSENDO Nicolas Farfan PA PA cp Asya Olivares RN RN Telma Mercado RN RN hb Slawson, Ashby RN as6 Corrections: (The following items were deleted from the chart) 01/19 20:05 17:18 cp cg 01/20 17:28 01/19 15:00 The chest pain is described as a pressure, intermittent cp cp
--- NOTE | 2023-01-19 17:19 | P.HP ---
Certification for Inpatient With expected LOS: >2 Midnights Practitioner: I am a practitioner with admitting privileges, knowledge of patient current condition, hospital course, and medical plan of care. Services: Services provided to patient in accordance with Admission requirements found in Title 42 Section 412.3 of the Code of Federal Regulations Patient History Date of Service: 01/19/23 Reason for admission: Chest pain History of Present Illness: Patient is 62 years of age complaining of retrosternal chest pain that started yesterday has been intermittent times severe ended up here in the hospital denies any shortness of breath no prior history of coronary artery disease history of diabetes and hypertension Allergies ciprofloxacin Allergy (Severe, Verified 09/08/16 19:39) Swelling to lips, difficulty swallowing Home Medications: Sertraline HCl 50 mg PO DAILY 05/16/16 Aspirin [Aspirin EC 81 MG] 81 mg PO DAILY 04/27/21 Insulin Aspart (Niacinamide) [Fiasp 100 Unit/ml Flextouch] 4 - 14 unit SQ TIDWM 04/27/21 Insulin Glargine,Hum.rec.anlog [Basaglar Kwikpen U-100] 40 unit SQ DAILY 04/27/21 Pantoprazole [Protonix Tab*] 40 mg PO DAILY 04/27/21 Amoxicillin/Potassium Clav [Augmentin 500-125 Tablet] 1 each PO BID #14 tablet 04/28/21 Cholecalciferol (Vitamin D3) [Vitamin D 5,000 IU Cap*] 5,000 unit PO DAILY #30 cap 04/28/21 Docusate [Colace Cap*] 100 mg PO DAILY PRN #15 cap 04/28/21 Multivitamin/Iron/Folic Acid [Multi-Day Plus Iron Tablet] 1 each PO DAILY #30 tablet 04/28/21 - Past Medical/Surgical History Diabetic: Yes -: IDDM -: Htn -: High Cholesterol -: left leg/knee strain -: depression -: Hysterectomy -: Rt carpal tunnel sx -: cholecystectomy Psychosocial/ Personal History: lives at home with and grandkids - Family History Father -: Heart disease, Hypertension Sister -: Cancer Brother -: Cancer mom -: Heart disease, Hypertension - Social History Alcohol use: No CD- Drugs: No Caffeine use: Yes Review of Systems 10-point ROS is otherwise unremarkable Physical Examination - Vital Signs Blood Pressure: 129/63 Pulse: 62 Respirations: 17 Pulse Ox (%): 97 - Physical Exam General: Alert, Oriented x3, Mild distress HEENT: Atraumatic Neck: Supple Respiratory: Clear to auscultation bilaterally Cardiovascular: No edema, Regular rate/rhythm Gastrointestinal: Normal bowel sounds, Soft and benign Musculoskeletal: No clubbing, No swelling - Studies Laboratory Data (last 24 hrs) 01/19/23 15:05: PT 10.4, INR 0.87 01/19/23 15:05: WBC 7.20, Hgb 11.6 L, Hct 34.2 L, Plt Count 222 01/19/23 15:05: Sodium 137, Potassium 3.5, BUN 23 H, Creatinine 1.40 H, Glucose 114 H, Magnesium 1.7, Total Bilirubin 0.4, AST 12 L, ALT 18, Alkaline Phosphatase 90, Lipase 21 Assessment and Plan - Problems (Diagnosis) (1) Unstable angina Current Visit: Yes Status: Acute Plan: Patient is 62 years of age admitted with unstable angina chest pain very suggestive of cardiac ischemia she has risk factors does not smoke underlying diabetes hypertension no prior history of coronary artery disease EKG is normal mild microcytic anemia she also has mild renal failure opponent in the first 1 is negative continue to monitor admit start beta-enzo fully anticoagulate the patient consult cardiology nitroglycerin and morphine as needed telemetry m onitor monitor - Advance Directives Does patient have a Living Will: No Does patient have a Durable POA for Healthcare: No
--- NOTE | 2023-01-19 17:19 | ER ---
Nurse's Notes [facility] Name: Lisa Louis Age: 62 yrs Sex: Female : 1960 Arrival Date: 01/19/2023 Time: 14:44 Bed 7 Private MD: Diagnosis: Chest pain, unspecified Presentation: 01/19 14:45 Chief complaint: Patient states: chest pain since yesterday, intermittent, no radiating iw midsternal pain, last a couple minutes , happens every 30 minutes, feels like someone is stepping on my chest. Coronavirus screen: At this time, the client does not indicate any symptoms associated with coronavirus-19. Ebola Screen: Patient negative for fever greater than or equal to 101.5 degrees Fahrenheit, and additional compatible Ebola Virus Disease symptoms Patient denies exposure to infectious person. Patient denies travel to an Ebola-affected area in the 21 days before illness onset. No symptoms or risks identified at this time. Initial Sepsis Screen: Does the patient meet any 2 criteria? No. Patient's initial sepsis screen is negative. Does the patient have a suspected source of infection? No. Patient's initial sepsis screen is negative. Risk Assessment: Do you want to hurt yourself or someone else? Patient reports no desire to harm self or others. Onset of symptoms was January 18, 2023. 14:45 Method Of Arrival: Ambulatory iw 14:45 Acuity: PATRICE 2 iw Historical: - Allergies: 14:45 Cipro; iw 14:45 GABAPENTIN; iw 14:45 Levaquin; iw - PMHx: 14:45 Diabetes - NIDDM; Hyperlipidemia; Hypertension; iw - Immunization history:: Adult Immunizations up to date. - Social history:: Smoking status: Patient denies any tobacco usage or history of. Screenin:10 [facility] ED Fall Risk Assessment (Adult) Score/Fall Risk Level 0 - 2 = Low Risk hb Oriented to surroundings, Maintained a safe environment, Educated pt \T\ family on fall prevention, incl call for assistance when getting out of bed. Abuse screen: Denies threats or abuse. Denies injuries from another. Nutritional screening: No deficits noted. Tuberculosis screening: No symptoms or risk factors identified. Assessment: 15:11 General: Appears in no apparent distress. Behavior is calm, cooperative. Pain: Pain hb currently is 3 out of 10 on a pain scale. at worst was 10 out of 10 on a pain scale. Neuro: Level of Consciousness is awake, alert, obeys commands, Oriented to person, place, time, situation. Cardiovascular: Reports chest pain, Patient's skin is warm and dry. Rhythm is regular. Respiratory: Respiratory effort is even, unlabored, Respiratory pattern is regular, symmetrical. GI: No signs and/or symptoms were reported involving the gastrointestinal system. : No signs and/or symptoms were reported regarding the genitourinary system. EENT: No signs and/or symptoms were reported regarding the EENT system. Derm: Skin is pink, warm \T\ dry. Musculoskeletal: No signs and/or symptoms reported regarding the musculoskeletal system. 15:56 Reassessment: Patient appears in no apparent distress at this time. Patient and/or hb family updated on plan of care and expected duration. Pain level reassessed. Patient is alert, oriented x 3, equal unlabored respirations, skin warm/dry/pink. 16:43 Reassessment: Patient appears in no apparent distress at this time. Patient and/or hb family updated on plan of care and expected duration. Pain level reassessed. Patient is alert, oriented x 3, equal unlabored respirations, skin warm/dry/pink. 17:58 Reassessment: Patient appears in no apparent distress at this time. Patient and/or hb family updated on plan of care and expected duration. Pain level reassessed. Patient is alert, oriented x 3, equal unlabored respirations, skin warm/dry/pink. 18:17 Reassessment: No changes from previously documented assessment. Patient and/or family ll1 updated on plan of care and expected duration. Pain level reassessed. Report received from ROSENDO Hollis. Vital Signs: 14:45 BP 137 / 70; Pulse 71; Resp 16; Temp 97.8; Pulse Ox 100% on R/A; Weight 76.2 kg; Height iw 5 ft. 4 in. ; Pain 10/10; 15:56 BP 138 / 56; Pulse 67; Resp 18; Pulse Ox 100% on R/A; Pain 8/10; hb 16:42 BP 129 / 63; Pulse 62; Resp 17; Pulse Ox 97% on R/A; Pain 8/10; hb 17:58 BP 129 / 63; Pulse 62; Resp 15; Pulse Ox 100% on R/A; hb 14:45 Body Mass Index 28.84 (76.20 kg, 162.56 cm) iw 14:45 Pain Scale: Adult iw 15:56 Pain Scale: Adult hb 16:42 Pain Scale: Adult hb ED Course: 14:45 Patient arrived in ED. iw 14:46 Triage completed. iw 14:47 Arm band placed on. iw 14:51 Nicolas Farfan PA is PHCP. cp 14:51 Nicolas Llanos MD is Attending Physician. cp 15:10 Telma Mercado, RN is Primary Nurse. hb 15:11 Patient has correct armband on for positive identification. hb 15:13 Initial lab(s) drawn, by me, sent to lab. EKG done, by ED staff, reviewed by Nicolas Llanos MD. Inserted saline lock: 20 gauge in right antecubital area, using aseptic technique. Blood collected. 15:14 Warm blanket given. Client placed on continuous cardiac and pulse oximetry monitoring. mm9 NIBP monitoring applied. ekg monitor on. Pulse ox on. NIBP on. 15:14 Lipase Sent. mm9 15:14 Basic Metabolic Panel Sent. mm9 15:14 CBC with Diff Sent. mm9 15:14 LFT's Sent. mm9 15:14 Magnesium Sent. mm9 15:14 NT PRO-BNP Sent. mm9 15:15 PT-INR Sent. mm9 15:15 Troponin HS Sent. mm9 15:48 XRAY Chest (1 view) In Process Unspecified. EDMS 17:16 Gunner Santos MD is Hospitalizing Provider. cp 18:17 Primary Nurse role handed off by Telma Mercado, RN ll1 18:17 Chrissy Rosales, ROSENDO is Primary Nurse. ll1 20:38 No provider procedures requiring assistance completed. Patient admitted, IV remains in as6 place. Administered Medications: 15:30 Drug: morphine IVP or IV 2 mg Route: IVP; Infused Over: 4 mins; Site: right antecubital;hb 16:15 Follow up: Response: No adverse reaction hb 15:30 Drug: Famotidine IVP 20 mg Route: IVP; Site: right antecubital; hb 16:10 Follow up: Response: No adverse reaction hb 15:30 Drug: Ondansetron IVP 4 mg Route: IVP; Site: right antecubital; hb 16:10 Follow up: Response: No adverse reaction hb 16:39 Drug: morphine IVP or IV 2 mg Route: IVP; Infused Over: 4 mins; Site: right antecubital;hb 17:10 Follow up: Response: No adverse reaction hb 16:39 Drug: Nitroglycerin Transdermal Ointment 2 % 0.5 inches Route: Transdermal; Site: hb anterior chest wall; 17:15 Follow up: Response: No adverse reaction hb 16:39 Drug: NS 0.9% IV 500 ml Route: IV; Rate: bolus; Site: right antecubital; hb 17:10 Follow up: Response: No adverse reaction; IV Status: Completed infusion; IV Intake: hb 500ml 16:39 Drug: NS 0.9% IV 500 ml Route: IV; Rate: 100 ml/hr; Site: right antecubital; hb 20:37 Follow up: Response: No adverse reaction; IV Status: Completed infusion; IV Intake: as6 500ml 16:39 Drug: Aspirin PO Chewable Tablet 324 mg Route: PO; hb 18:10 Follow up: Response: No adverse reaction hb Medication: 15:11 VIS not applicable for this client. hb Intake: 17:10 IV: 500ml; Total: 500ml. hb 20:37 IV: 500ml; Total: 1000ml. as6 Outcome: 17:18 Decision to Hospitalize by Provider. cp 20:38 Admitted to Tele accompanied by nurse, via wheelchair, room 407, with chart, Report as6 called to Allyssa ROBBINS 20:38 Condition: stable 20:38 Instructed on the need for admit. 20:38 Patient left the ED. as6 Signatures: Dispatcher [employer] Jaz Pham RN Nicolas Palacios PA PA Telma Hale RN RN hb Lewis, Lynsay, RN RN ll1 Clifford Aviles RN RN asNatalie Davis 9
[2023-01-19] MEDS ORDERED: INSULIN -REGULAR HUMAN 50 UNIT/0.5 ML ML SQ SCH (18:00)
[2023-01-19 18:49] LABS: Absolute Lymphocytes (CBC) 2.5 K/uL (0.7-4.9); Hematocrit 32.8 % (36.0-45.0); Lymphocytes % 36.6 % (15.3-44.8); MCV 79.2 fL (80-100); MPV 7.6 fL (7.6-11.3); RBC Red Blood Cell Count 4.14 M/uL (3.86-4.86)
[2023-01-19 18:52] LABS: Potassium 3.7 mEq/L (3.5-5.1)
[2023-01-19] MEDS: ENOXAPARIN 80 MG/0.8 ML SQ SCH (20:00)
[2023-01-19] MEDS: METOPROLOL TAR 50 MG TAB PO SCH ×2 (20:00→21:00)
[2023-01-19] MEDS ORDERED: METOPROLOL TAR 25 MG TAB ONE (20:02)
[2023-01-19] MEDS ORDERED: MORPHINE 4 MG/ML SYR ONE (20:02)
[2023-01-19] MEDS ORDERED: ENOXAPARIN 80 MG/0.8 ML SQ ONE (20:02)
[2023-01-19] MEDS: MORPHINE 4 MG/ML SYR IV PRN ×2 (20:05→23:56)
[2023-01-19 20:57] VITALS: BMI 28.8
[2023-01-19] MEDS: ACETAMINOPHEN 325 MG TABLET PO PRN (22:35)
[2023-01-20] MEDS: ENOXAPARIN 80 MG/0.8 ML SQ SCH ×2 (06:24→18:26)
[2023-01-20] MEDS: MORPHINE 4 MG/ML SYR IV PRN ×4 (06:29→20:54)
[2023-01-20] MEDS: INSULIN -REGULAR HUMAN 50 UNIT/0.5 ML ML SQ SCH ×4 (07:30→20:53)
--- NOTE | 2023-01-20 07:51 | P.PN ---
Date of Service: 01/20/23 Subjective: Feeling okay today had alot of chest pain/pressure this morning reports shes had about 3-4 episodes this past week; comes and goes on its own had abdominal pain 2-3 weeks ago; underwent egd 01/09 ROS: 10 point ROS as noted above, otherwise negative Physical Exam: GEN: Alert, oriented, NAD HEENT: Normal conjunctiva, sclera anicteric CV: Regular rate and rhythm, no edema Pulm: Nonlabored respirations on room air ABD: Soft, mild/moderate epigastric tenderness on deep palpation, nondistended MSK: No joint tenderness Integumentary: No rashes Neuro: Normal speech, normal affect vitals reviewed Problem List: Unstable Angina Microcytic Anemia gastritis DM2 insulin dependant Hypertension Hyperlipidemia Depression Unstable Angina EKG normal CXR 01/19 - negative for cardiopulmonary disease Continue beta-enzo Cardio Consult trend troponins - first 2 negative monitor on telemetry pain medication as needed Gastritis EGD performed on 01/09 for abdominal pain - noted chronic gastritis last colonoscopy ~1 year ago reports some epigastric tenderness on palpation today DM2 insulin dependant sliding scale insulin Hypertension Hyperlipidemia Depression continue home medications VTE: Lovenox Code: Full Dispo: Home 24-48hrs
[2023-01-20] MEDS: SUCRALFATE 1GM/10ML UCUP PO SCH ×4 (08:23→20:53)
[2023-01-20] MEDS: PANTOPRAZOLE 40MG TABLET PO SCH ×2 (08:23→16:50)
[2023-01-20] MEDS: METOPROLOL TAR 50 MG TAB PO SCH ×2 (08:25→20:53)
[2023-01-20 10:02] LABS: Albumin 3.2 g/dL (3.4-5.0); Bilirubin Total 0.3 mg/dL (0.2-1.0); Potassium 3.3 mEq/L (3.5-5.1); Protein, Total 6.7 g/dL (6.4-8.2)
[2023-01-20] MEDS: ACETAMINOPHEN 325 MG TABLET PO PRN (16:50)
[2023-01-21 05:02] LABS: Magnesium 1.8 mg/dL (1.6-2.4); Potassium 3.8 mEq/L (3.5-5.1)
[2023-01-21] MEDS: ENOXAPARIN 80 MG/0.8 ML SQ SCH ×2 (06:41→17:08)
--- NOTE | 2023-01-21 07:07 | P.PN ---
Date of Service: 01/21/23 Subjective: Doing okay today complains of headache chest pain persists; pain comes and goes no nausea/vomiting/diarrhea no new problems states spoke with cardiology yesterday and planned for stress testing tomorrow ROS: 10 point ROS as noted above, otherwise negative Physical Exam: GEN: Alert, oriented, NAD HEENT: Normal conjunctiva, sclera anicteric CV: Regular rate and rhythm, no edema Pulm: Nonlabored respirations on room air ABD: Soft, mild/moderate epigastric tenderness on deep palpation, nondistended MSK: No joint tenderness Neuro: Normal speech, normal affect vitals reviewed Problem List: Unstable Angina Microcytic Anemia gastritis DM2 insulin dependant Hypertension Hyperlipidemia Depression Unstable Angina EKG normal CXR 01/19 - negative for cardiopulmonary disease Continue beta-enzo Cardio Consult - Dr. Rene recommends stress test tomorrow 01/22 trop negative x3 monitor on telemetry pain medication as needed Started amlodipine 01/21 Gastritis EGD performed on 01/09 for abdominal pain - noted chronic gastritis last colonoscopy ~1 year ago reports some epigastric tenderness on palpation yesterday DM2 insulin dependant sliding scale insulin Hypertension Hyperlipidemia Depression continue home medications VTE: Lovenox Code: Full Dispo: Home 24-48hrs
[2023-01-21] MEDS: INSULIN -REGULAR HUMAN 50 UNIT/0.5 ML ML SQ SCH ×4 (07:30→20:44)
[2023-01-21] MEDS: PANTOPRAZOLE 40MG TABLET PO SCH ×2 (08:37→17:08)
[2023-01-21] MEDS: METOPROLOL TAR 50 MG TAB PO SCH ×2 (08:37→20:43)
[2023-01-21] MEDS: SUCRALFATE 1GM/10ML UCUP PO SCH ×4 (08:37→20:43)
[2023-01-21] MEDS: MORPHINE 4 MG/ML SYR IV PRN ×4 (08:44→22:16)
[2023-01-21] MEDS: AMLODIPINE 5 MG TAB PO SCH (09:30)
[2023-01-21] MEDS: ACETAMINOPHEN 325 MG TABLET PO PRN (09:30)
[2023-01-21] MEDS ORDERED: HYDROCODONE/APAP 5/325 MG TAB PO ONE (21:28)
[2023-01-22] MEDS: MORPHINE 4 MG/ML SYR IV PRN ×3 (03:52→21:09)
[2023-01-22] MEDS: ENOXAPARIN 80 MG/0.8 ML SQ SCH ×3 (05:21→16:49)
[2023-01-22] MEDS: HYDROCODONE/APAP 5/325 MG TAB PO PRN ×2 (05:59→21:51)
[2023-01-22 06:22] LABS: Magnesium 1.8 mg/dL (1.6-2.4); Potassium 3.4 mEq/L (3.5-5.1)
--- NOTE | 2023-01-22 07:09 | P.PN ---
Date of Service: 01/22/23 Subjective: Feeling alright today; some nausea after stress test no pain reported other than chronic back pain no vomiting/diarrhea no new problems ROS: 10 point ROS as noted above, otherwise negative Physical Exam: GEN: Alert, oriented, NAD HEENT: Normal conjunctiva, sclera anicteric CV: Regular rate and rhythm, no edema Pulm: Nonlabored respirations on room air ABD: Soft, mild/moderate epigastric tenderness on deep palpation, nondistended MSK: No joint tenderness Neuro: Normal speech, normal affect vitals reviewed Problem List: Unstable Angina Microcytic Anemia gastritis DM2 insulin dependant Hypertension Hyperlipidemia Depression Unstable Angina EKG normal CXR 01/19 - negative for cardiopulmonary disease Continue beta-enzo Cardio Consult - Dr. Rene performed stress test 01/22 mild stressed induced ischemia involving LV septum Heart Cath tentative planned for Wednesday 01/24 trop negative x3 monitor on telemetry pain medication as needed Started amlodipine 01/21 Gastritis EGD performed on 01/09 for abdominal pain - noted chronic gastritis last colonoscopy ~1 year ago reports some epigastric tenderness on palpation yesterday DM2 insulin dependant sliding scale insulin Hypertension Hyperlipidemia Depression continue home medications VTE: Lovenox Code: Full Dispo: Home 24-48hrs
[2023-01-22] MEDS: SUCRALFATE 1GM/10ML UCUP PO SCH ×4 (07:30→21:01)
[2023-01-22] MEDS: INSULIN -REGULAR HUMAN 50 UNIT/0.5 ML ML SQ SCH ×4 (07:30→21:00)
[2023-01-22] MEDS: PANTOPRAZOLE 40MG TABLET PO SCH ×2 (07:30→16:49)
[2023-01-22] MEDS ORDERED: REGADENOSON 0.4 MG/5 ML SYR IV ONE (08:55)
[2023-01-22] MEDS: METOPROLOL TAR 50 MG TAB PO SCH ×2 (09:00→21:00)
[2023-01-22] MEDS: AMLODIPINE 5 MG TAB PO SCH ×2 (09:00→11:28)
[2023-01-22] MEDS ORDERED: ONDANSETRON 4 MG/2 ML VIAL IV ONE (10:25)
[2023-01-22] MEDS ORDERED: ONDANSETRON 4 MG/2 ML VIAL ONE (10:46)
[2023-01-22] MEDS ORDERED: NITROGLYCERIN 0.4 MG/TAB SL ONE (10:47)
--- NOTE | 2023-01-22 10:55 | TREADPHA ---
DX: UNSTABLE ANGINA Date of Study: 01/22/2023 Ht: 5' 4 " Wt: 167 lb 15.876 oz Consulting Physician: JANEY MEDICATIONS: TYLENOL, NORCO, NORVASC, LOVENOX, NOVOLIN-R, LOPRESSOR, MORPHINE, NITROSTAT, PROTONIX, CARAFATE HISTORY: 62 YEAR OLD FEMALE WITH COMPLAINTS OF CHEST PAIN. HISTORY OF DIABETES MELLITUS, HYPERTENSION, HYPERLIPIDEMIA, DEPRESSION, NON SMOKER, NON DRINKER. PHYSICIAL EXAMINATION: RESTING B.P.: 148/71 RESTING H.R.: 52 RESTING EKG: SINUS RHYTHM PROTOCOL: PHARMACOLOGIC EXERCISE TIME: 3:30 B.P. AT PEAK STRESS: 162/69 IMPRESSION: LEXISCAN INJECTED, FOLLOWED BY CRDIOLITE PER PROTOCOL. SEE NUCLEAR MEDICINE REPORT. NO SUPAVENTRICULAR TACHYCARDIA, VENTRICULAR TACHYCARDIA, PREMATURE ATRIAL COMPLEXES, PREMATURE VENTRICULAR COMPLEXES. PATIENT BLOOD PRESSURE ELEVATED 181/76 - PATIENT REPORTED CHEST PAIN FOUR OUT OF TEN. GAVE 0.4 mg NITROGLYCERIN SUBLINGUAL. POST BLOOD PRESSURE 168/95 - CHEST PAIN TWO OUT OF TEN. ZOFRAN 4 MG INTRAVENOUS ONCE. PATIENT REPORTED ZERO OUT OF TEN CHEST PAIN IN RECOVERY.
--- NOTE | 2023-01-22 12:37 | RAD REPORT ---
EXAM DESCRIPTION: NM - Rest Stress Cardiac Imaging - 01/22/2023 10:50 am CLINICAL HISTORY: CP Chest pain. COMPARISON: REST STRESS CARDIAC dated 04/27/2014 TECHNIQUE: The patient was administered approximately 10mCi of Tc 99m Sestamibi prior to resting SPE CT imaging of the heart. The patient was then administered approximately 30 mCi of Tc 99m Sestamibi f ollowing exercise or pharmacologic stress. Multiplanar SPECT images were reviewed. FINDINGS: There is moderate sized area of mild stress-induced ischemia is seen involving the LV sept um. No fixed defect is seen to suggest hibernating myocardium or scarred myocardium. The end diastolic volume is 100 ml, the end systolic volume is 36 ml, and the ejection fraction is 64 %. IMPRESSION: Moderate sized area of mild stress-induced ischemia involving the LV septum.
--- NOTE | 2023-01-22 12:45 | EKG ---
Test Date: 2023-01-19 Test Time: 14:55:07 Web Services Manager: MANSI MEASUREMENT RESULTS: Intervals: Rate: 70 HI: 150 QRSD: 98 QT: 376 QTc: 406 Agar: P: 51 HI: 150 QRS: -14 T: 58 INTERPRETIVE STATEMENTS: Normal sinus rhythm Normal ECG Compared to ECG 01/19/2022 00:04:50 No significant changes Electronically Signed On 01-22-23 12:40:03 CDT by Damion Rene
[2023-01-22 13:19] VITALS: O2SAT 99
[2023-01-22] MEDS: ACETAMINOPHEN 325 MG TABLET PO PRN (14:23)
--- NOTE | 2023-01-22 20:37 | PN ---
Date of Progress Note: 01/22/2023 Ms. Louis is the patient with hypertension, diabetes dyslipidemia, came in with chest pain. Stress t est today showed possible ischemia. We will continue her present regimen. Plan to keep her in the h ospital for next day or so. We will plan to do a heart catheterization some time in the next 24 to 4 8 hours. Case was discussed with Dr. Mcgill. KING/ANGELLA Voice ID: [id number] Report ID: [id number]
[2023-01-23] MEDS: ENOXAPARIN 80 MG/0.8 ML SQ SCH ×2 (06:29→17:10)
[2023-01-23] MEDS: INSULIN -REGULAR HUMAN 50 UNIT/0.5 ML ML SQ SCH ×4 (07:30→20:40)
[2023-01-23] MEDS: MORPHINE 4 MG/ML SYR IV PRN ×3 (07:47→22:45)
[2023-01-23] MEDS: PANTOPRAZOLE 40MG TABLET PO SCH ×2 (07:48→17:10)
[2023-01-23] MEDS: AMLODIPINE 5 MG TAB PO SCH (07:48)
[2023-01-23] MEDS: SUCRALFATE 1GM/10ML UCUP PO SCH ×4 (07:48→20:40)
[2023-01-23] MEDS: METOPROLOL TAR 50 MG TAB PO SCH ×2 (07:56→20:39)
--- NOTE | 2023-01-23 16:34 | PN ---
Ms. Louis has a history of hypertension, dyslipidemia, high cholesterol, atypical chest pain, positiv e stress test. Overnight, there were no reports of any chest pain. No report of telemetry changes. Plan for heart catheterization tomorrow. The patient understands the risk and the benefits of the p rocedure. She agrees to proceed. We will follow post cath. KING/ANGELLA Voice ID: [id number] Report ID: [id number]
[2023-01-23] MEDS: HYDROCODONE/APAP 5/325 MG TAB PO PRN (17:12)
[2023-01-24] MEDS: ENOXAPARIN 80 MG/0.8 ML SQ SCH ×2 (05:02→17:57)
[2023-01-24] MEDS: PANTOPRAZOLE 40MG TABLET PO SCH ×2 (07:30→17:57)
[2023-01-24] MEDS: AMLODIPINE 5 MG TAB PO SCH (09:10)
[2023-01-24] MEDS: SUCRALFATE 1GM/10ML UCUP PO SCH ×3 (09:11→17:57)
[2023-01-24] MEDS: METOPROLOL TAR 50 MG TAB PO SCH (09:11)
[2023-01-24] MEDS: INSULIN -REGULAR HUMAN 50 UNIT/0.5 ML ML SQ SCH ×3 (09:11→17:58)
[2023-01-24] MEDS: HYDROCODONE/APAP 5/325 MG TAB PO PRN (13:55)
[2023-01-24 17:04] VITALS: BP 123/55; TEMP 97.5
== END 2023-01-24 19:54 | disposition short-term general hospital (02) | DRG 311 ==
LOC: ER 14:44 → ERHOLD 17:13 → 4TH 20:10
PROVIDERS: ADMIT Internal Medicine Sleep Medicine; ATTEND Hospitalist
DX: I20.0 Unstable angina (principal); E11.9 Type 2 diabetes mellitus without complications; E78.00 Pure hypercholesterolemia, unspecified; D50.9 Iron deficiency anemia, unspecified; F32.A Depression, unspecified; K29.50 Unspecified chronic gastritis without bleeding; I10 Essential (primary) hypertension; G89.29 Other chronic pain; M54.9 Dorsalgia, unspecified; Z88.8 Allergy status to other drugs, medicaments and biological substances; Z88.1 Allergy status to other antibiotic agents; Z79.4 Long term (current) use of insulin; Z79.82 Long term (current) use of aspirin; Z90.49 Acquired absence of other specified parts of digestive tract; Z79.899 Other long term (current) drug therapy; Z90.710 Acquired absence of both cervix and uterus
CPT/HCPCS: 36415; 71045; 78452; 80048; 80053; 80061; 80076; 82947; 83690; 83735; 83880; 84484; 85025; 85379; 85610; 93005; 93017; 96361; 96374; 96375; 99285; A9500; J1815; J2270; J2405; J2785; J7030

== ENCOUNTER 2024-11-05 15:09 | Observation (INO) | payer OTHER ==
[2024-11-05 15:37] LABS: Absolute Basophils 0.1 K/uL (0-0.5); Absolute Eosinophils 0.3 K/uL (0-0.5); Absolute Lymphocytes (CBC) 1.9 K/uL (0.7-4.9); Absolute Monocytes 0.4 K/uL (0.1-1.3); Absolute Neutrophil 4.9 K/uL (1.8-8.0); Basophils % 0.8 % (0-1.3); Eosinophils % 4.4 % (0-4.4); Hematocrit 35.4 % (36.0-45.0); Lymphocytes % 25.5 % (15.3-44.8); MCH 27.4 pg (27.0-35.0); MCV 80.8 fL (80-100); MPV 7.8 fL (7.6-11.3); Monocytes % 4.7 % (3.3-12.3); Neutrophils % 64.6 % (41.7-73.7); Platelets 221 thou/uL (152-406); RBC Red Blood Cell Count 4.38 M/uL (3.86-4.86); Red Cell Distribution Width 13.9 % (12.1-15.2)
[2024-11-05] MEDS ORDERED: ONDANSETRON 4 MG/2 ML VIAL ONE (15:39)
[2024-11-05] MEDS ORDERED: LIDOCAINE VISCOUS 2% 10ML ORAL SOLN ONE (15:40)
[2024-11-05] MEDS ORDERED: MAGNES/ALUMIN/SIMET 30ML UCUP ONE (15:40)
[2024-11-05] MEDS ORDERED: MORPHINE 2 MG/ML SYR ONE (15:41)
--- NOTE | 2024-11-05 15:41 | RAD REPORT ---
EXAMINATION: ONE VIEW CHEST XR CLINICAL INDICATION: Female, 64 years old.,CHEST PAIN TECHNIQUE: Frontal chest projection is submitted. Examination is limited by patient positioning and t echnique. COMPARISON: 01/19/2023 FINDINGS: The lungs are well inflated and clear. No pneumothorax or sizable effusion. The heart is normal in s ize. Mediastinal contours are unremarkable. IMPRESSION: No acute intrathoracic abnormalities.
[2024-11-05 15:57] LABS: Albumin 3.4 g/dL (3.4-5.0); Albumin/Globulin Ratio 0.8 (1.1-1.8); Anion Gap 9.6 mEq/L (5.0-15.0); Bilirubin Total 0.4 mg/dL (0.2-1.0); Globulin 4.1 g/dL (2.3-3.5); Potassium 3.6 mEq/L (3.5-5.1); Protein, Total 7.5 g/dL (6.4-8.2); Troponin High Sensitivity 6.2 pg/mL (<58.9)
--- NOTE | 2024-11-05 16:10 | ER ---
Nurse's Notes [facility] Name: Lisa Louis Age: 64 yrs Sex: Female : 1960 Arrival Date: 11/05/2024 Time: 15:09 Bed 8 Private MD: Diagnosis: Unspecified combined systolic (congestive) and diastolic (congestive) heart failure;Chest pain, unspecified Presentation: 11/05 15:20 Chief complaint: Patient states: Intermittent chest pain since yesterday. Went to ld1 doctor today for check up - reports abnormal EKG. Coronavirus screen: At this time, the client does not indicate any symptoms associated with coronavirus-19. Ebola Screen: No symptoms or risks identified at this time. Initial Sepsis Screen: Does the patient meet any 2 criteria? No. Patient's initial sepsis screen is negative. Does the patient have a suspected source of infection? No. Patient's initial sepsis screen is negative. Risk Assessment: Do you want to hurt yourself or someone else? Patient reports no desire to harm self or others. Onset of symptoms was November 05, 2024 at 15:22. 15:20 Method Of Arrival: Ambulatory ld1 15:20 Acuity: PATRICE 3 ld1 Triage Assessment: 15:22 General: Appears in no apparent distress. comfortable, Behavior is calm, cooperative, ld1 appropriate for age. Pain: Complains of pain in chest Pain does not radiate. Pain currently is 5 out of 10 on a pain scale. Quality of pain is described as throbbing. EENT: No signs and/or symptoms were reported regarding the EENT system. Neuro: Level of Consciousness is awake, alert, obeys commands, Oriented to person, place, time, situation, Appropriate for age. Cardiovascular: Capillary refill < 3 seconds Patient's skin is warm and dry. Respiratory: Airway is patent Respiratory effort is even, unlabored. GI: Abdomen is flat, non-distended. : No signs and/or symptoms were reported regarding the genitourinary system. Derm: No signs and/or symptoms reported regarding the dermatologic system. Musculoskeletal: No signs and/or symptoms reported regarding the musculoskeletal system. Historical: - Allergies: 15:22 Cipro; ld1 15:22 GABAPENTIN; ld1 15:22 Levaquin; ld1 - PMHx: 15:22 Diabetes - NIDDM; Hyperlipidemia; Hypertension; ld1 - Immunization history:: Adult Immunizations up to date. - Infectious Disease History:: Denies. - Social history:: Smoking status: Patient denies any tobacco usage or history of. Screenin:31 [facility] ED Fall Risk Assessment (Adult) History of falling in the last 3 months, jb4 including since admission No falls in past 3 months (0 pts) Confusion or Disorientation No (0 pts) Intoxicated or Sedated No (0 pts) Impaired Gait No (0 pts) Mobility Assist Device Used No (0 pt) Altered Elimination No (0 pt) Score/Fall Risk Level 0 - 2 = Low Risk Oriented to surroundings, Maintained a safe environment. Abuse screen: Denies threats or abuse. Nutritional screening: No deficits noted. Tuberculosis screening: No symptoms or risk factors identified. Assessment: 15:31 General: Appears in no apparent distress. comfortable, Behavior is calm, cooperative, jb4 appropriate for age. Pain: Complains of pain in chest Pain does not radiate. Pain currently is 5 out of 10 on a pain scale. Quality of pain is described as aching, Pain began Is intermittent. Neuro: Level of Consciousness is awake, alert, obeys commands, Oriented to person, place, time, situation, Moves all extremities. Full function Gait is steady, Speech is normal, Facial symmetry appears normal. Cardiovascular: Patient's skin is warm and dry. Respiratory: Airway is compromised Respiratory effort is even, unlabored, Respiratory pattern is regular, symmetrical. GI: Abdomen is flat, non-distended, Reports epigastric pain. Derm: Skin is intact, Skin is pink, warm \T\ dry. Musculoskeletal: Circulation, motion, and sensation intact. Range of motion: intact in all extremities. Vital Signs: 15:20 BP 159 / 58; Pulse 65; Resp 18; Temp 98.1(TE); Pulse Ox 100% on R/A; Weight 83.46 kg; ld1 Height 5 ft. 3 in. ; Pain 5/10; 17:00 BP 154 / 73; Pulse 59; Resp 16; Pulse Ox 100% on R/A; jb4 18:00 BP 167 / 67; Pulse 59; Resp 16; Pulse Ox 100% on R/A; jb4 15:20 Body Mass Index 32.59 (83.46 kg, 160.02 cm) ld1 15:20 Pain Scale: Adult ld1 ED Course: 15:12 Patient arrived in ED. al6 15:16 [facility] 15:17 Malcolm Mcgill MD is Attending Physician. dr5 15:22 Triage completed. ld1 15:22 Arm band placed on right wrist. ld1 15:31 Patient has correct armband on for positive identification. Placed in gown. Bed in low jb4 position. Call light in reach. Side rails up X 1. Provided Education on: plan of care. Client placed on continuous cardiac and pulse oximetry monitoring. NIBP monitoring applied. cold working inspector on. Pulse ox on. 15:31 No provider procedures requiring assistance completed. Inserted saline lock: 18 gauge jb4 in right antecubital area, using aseptic technique. Blood collected. Patient maintains SpO2 saturation greater than 95% on room air. 15:36 XRAY Chest (1 view) In Process Unspecified. EDMS 15:54 NT PRO-BNP Sent. jb4 15:54 Troponin HS Sent. jb4 16:09 Pieter Mcgill MD is Hospitalizing Provider. dr5 18:51 Patient admitted, IV remains in place. jb4 Administered Medications: 15:53 Drug: morphine IVP or IV 2 mg IVP once over 4 mins Route: IVP; Infused Over: 4 mins; jb4 Site: right antecubital; 17:51 Follow up: Response: No adverse reaction; Marked relief of symptoms; Pain is decreased jb4 15:53 Drug: Ondansetron IVP 4 mg IVP once; over 2 minutes Route: IVP; Site: right antecubital;jb4 17:52 Follow up: Response: No adverse reaction; Marked relief of symptoms jb4 15:54 Drug: GI Cocktail without - (Maalox PO 30 ml, Lidocaine Mucous Membrane 2 % 15 jb4 ml) PO once Route: PO; 17:51 Follow up: Response: No adverse reaction; Marked relief of symptoms; Pain is decreased jb4 17:51 Drug: Pantoprazole IVP 40 mg IVP once Route: IVP; Site: right antecubital; jb4 18:20 Follow up: Response: No adverse reaction jb4 Medication: 15:31 VIS not applicable for this client. jb4 Outcome: 16:09 Decision to Hospitalize by Provider. dr5 18:50 Admitted to Med/surg accompanied by nurse, via wheelchair, room 206, jb4 18:50 Condition: stable 18:50 Discharge instructions given to patient, Instructed on the need for admit, Demonstrated understanding of instructions, 19:41 Patient left the ED. jb4 Signatures: Dispatcher [employer] Tez Butt RN RN jb4 Mere Anne RN RN ld1 Navarro Mckeon, [employer] DEBONER-C [employer]-[facility]5 Lisa Morrissey
--- NOTE | 2024-11-05 16:10 | EDPHYS ---
Physician Documentation [facility] Name: Lisa Louis Age: 64 yrs Sex: Female : 1960 Arrival Date: 11/05/2024 Time: 15:09 Bed 8 Private MD: ED Physician Malcolm Mcgill HPI: 11/05 15:35 This 64 yrs old Female presents to ER via Ambulatory with complaints of Chest dr5 Pain, Abnormal Lab Results. 15:35 Onset: The symptoms/episode began/occurred yesterday. Associated signs and symptoms: dr5 Pertinent positives: chest pain. Patient is a 64-year-old female with history of hypertension, diabetes, hyperlipidemia coming in with chest pressure that started yesterday intermittently with burping. Patient went to her primary care doctor today, had an EKG completed and sent to ER for abnormal EKG. Patient reports generalized chest pressure over epigastrium. Patient denies shortness of breath, nausea, vomiting, diarrhea, or abdominal pain.. Historical: - Allergies: 15:22 Cipro; ld1 15:22 GABAPENTIN; ld1 15:22 Levaquin; ld1 - PMHx: 15:22 Diabetes - NIDDM; Hyperlipidemia; Hypertension; ld1 - Immunization history:: Adult Immunizations up to date. - Infectious Disease History:: Denies. - Social history:: Smoking status: Patient denies any tobacco usage or history of. ROS: 15:35 Constitutional: as per hpi dr5 Exam: 15:35 Constitutional: This is a well developed, well nourished patient who is awake, alert, dr5 and in no acute distress. Head/Face: Normocephalic, atraumatic. Eyes: Pupils equal round and reactive to light, extra-ocular motions intact. Lids and lashes normal. Conjunctiva and sclera are non-icteric and not injected. Cornea within normal limits. Periorbital areas with no swelling, redness, or edema. Neck: Trachea midline, no thyromegaly or masses palpated, and no cervical lymphadenopathy. Supple, full range of motion without nuchal rigidity, or vertebral point tenderness. No Meningismus. Chest/axilla: Normal chest wall appearance and motion. Nontender with no deformity. No lesions are appreciated. Cardiovascular: Regular rate and rhythm with a normal S1 and S2. Normal PMI, no JVD. No pulse deficits. Respiratory: Lungs have equal breath sounds bilaterally, clear to auscultation. No rales, rhonchi or wheezes noted. No increased work of breathing, no retractions or nasal flaring. Abdomen/GI: Soft, non-tender, non-distended Back: No spinal tenderness. No costovertebral tenderness. Full range of motion. Skin: Warm, dry with normal turgor. Normal color with no rashes, no lesions, and no evidence of cellulitis. MS/ Extremity: Pulses equal, no cyanosis. Neurovascular intact. Full, normal range of motion. Neuro: Awake and alert, GCS 15, oriented to person, place, time, and situation. Cranial nerves II-XII grossly intact. Motor strength 5/5 in all extremities. Sensory grossly intact. Cerebellar exam normal. Normal gait. Vital Signs: 15:20 BP 159 / 58; Pulse 65; Resp 18; Temp 98.1(TE); Pulse Ox 100% on R/A; Weight 83.46 kg; ld1 Height 5 ft. 3 in. ; Pain 5/10; 17:00 BP 154 / 73; Pulse 59; Resp 16; Pulse Ox 100% on R/A; jb4 18:00 BP 167 / 67; Pulse 59; Resp 16; Pulse Ox 100% on R/A; jb4 15:20 Body Mass Index 32.59 (83.46 kg, 160.02 cm) ld1 15:20 Pain Scale: Adult ld1 MDM: 15:17 Medical Screening Exam initiated dr5 16:34 Differential diagnosis: viral Infection, bronchitis, pneumonia ACS, CHF EXACERBATION. dr5 Data reviewed: vital signs, nurses notes, lab test result(s). I considered the following discharge prescriptions or medication management in the emergency department Medications were administered in the Emergency Department. See MAR. Care significantly affected by the following chronic conditions: Diabetes, Hypertension, Congestive Heart Failure. Care significantly affected by the following Social Determinants of Health: Poor access to healthcare and/or lack of insurance, Poor access to transportation, Problems related to employment. Counseling: I had a detailed discussion with the patient and/or guardian regarding the historical points, exam findings, and any diagnostic results supporting the discharge/admit diagnosis, the presence of at least one elevated blood pressure reading (>120/80) during this emergency department visit, lab results, radiology results, the need for further work-up and treatment in the hospital. ED course: Discussed plan of care with patient. Will admit for ACS rule out. All questions answered.. 11/05 15:19 Order name: CBC with Diff; Complete Time: 15:45 dr5 11/05 15:19 Order name: NT PRO-BNP; Complete Time: 15:59 dr5 11/05 15:19 Order name: Troponin HS; Complete Time: 15:59 [facility] 11/05 15:19 Order name: CMP; Complete Time: 15:59 [facility] 11/05 15:19 Order name: XRAY Chest (1 view); Complete Time: 15:42 dr5 11/05 15:19 Order name: Cardiac monitoring; Complete Time: 15:54 [facility] 11/05 15:19 Order name: EKG - Nurse/Tech; Complete Time: 15:54 [facility] 11/05 15:19 Order name: IV Saline Lock; Complete Time: 15:54 [facility] 11/05 15:19 Order name: Labs collected and sent; Complete Time: 15:54 [facility] 11/05 15:19 Order name: O2 Per Protocol; Complete Time: 15:54 [facility] 11/05 15:19 Order name: O2 Sat Monitoring; Complete Time: 15:54 dr5 EC:48 Rate is 62 beats/min. Rhythm is regular. QRS Winner is Normal. MN interval is normal at dr5 180 msec. QRS interval is normal at 92 msec. QT interval is normal at 400 msec. Administered Medications: 15:53 Drug: morphine IVP or IV 2 mg IVP once over 4 mins Route: IVP; Infused Over: 4 mins; jb4 Site: right antecubital; 17:51 Follow up: Response: No adverse reaction; Marked relief of symptoms; Pain is decreased jb4 15:53 Drug: Ondansetron IVP 4 mg IVP once; over 2 minutes Route: IVP; Site: right antecubital;jb4 17:52 Follow up: Response: No adverse reaction; Marked relief of symptoms jb4 15:54 Drug: GI Cocktail without - (Maalox PO 30 ml, Lidocaine Mucous Membrane 2 % 15 jb4 ml) PO once Route: PO; 17:51 Follow up: Response: No adverse reaction; Marked relief of symptoms; Pain is decreased jb4 17:51 Drug: Pantoprazole IVP 40 mg IVP once Route: IVP; Site: right antecubital; jb4 18:20 Follow up: Response: No adverse reaction jb4 Disposition: 11/06 07:04 Co-signature as Attending Physician, Malcolm Mcgill MD I reviewed the patient's care rn provided by the Advanced Practice Provider and agree with the diagnosis and treatment plan. Disposition Summary: 11/05/24 16:09 Hospitalization Ordered Notes: Hospitalization Status: Inpatient Admission dr5 Provider: Pieter Mcgill Location: Telemetry/MedSurg (Inpatient) dr5 Condition: Stable dr5 Problem: new dr5 Symptoms: are unchanged dr5 Bed/Room Type: Standard dr5 Room Assignment: 206(11/05/24 18:46) bd Diagnosis - Unspecified combined systolic (congestive) and diastolic (congestive) heart failure dr5 - Chest pain, unspecified dr5 Forms: - Medication Reconciliation Form dr5 - SBAR form dr5 - Leadership Thank You Letter dr5 Signatures: Dispatcher [employer] EDMS Xenia Morton Roman, MD MD rn Bryson, James RN RN jb4 Mere Anne RN RN ld1 Navarro Mckeon, FLOOR PERSON-C FLOOR PERSON-Cdr5 Corrections: (The following items were deleted from the chart) 11/05 15:20 15:20 CBC+H.LAB.BRZ ordered. EDMS EDMS 15:20 15:20 PROBNP+C.LAB.BRZ ordered. EDMS EDMS 15:20 15:20 Troponin High Sensitivity+C.LAB.BRZ ordered. EDMS EDMS 15:20 15:20 COMPREHENSIVE METABOLIC PANEL+C.LAB.BRZ ordered. EDMS EDMS 15:20 15:20 Chest Single View+RAD.RAD.BRZ ordered. EDMS EDMS 18:46 16:09 dr5 bd
--- NOTE | 2024-11-05 17:20 | P.HP ---
Certification for Inpatient Patient admitted to: Observation With expected LOS: <2 Midnights Patient will require the following post-hospital care: None Practitioner: I am a practitioner with admitting privileges, knowledge of patient current condition, hospital course, and medical plan of care. Services: Services provided to patient in accordance with Admission requirements found in Title 42 Section 412.3 of the Code of Federal Regulations Patient History Date of Service: 11/05/24 Reason for admission: Chest pain History of Present Illness: 64-year-old female with history of hypertension, insulin-dependent diabetes, hyperlipidemia presents to the emergency department with chief complaint of intermittent chest pain. She reports that she went to a doctor's appointment to establish care with a new PCP and her blood pressure was elevated around 180 systolic, they obtained an EKG and her PCP was concerned as there was some inverted T waves. She reported a history of recent intermittent chest pain and was therefore referred to the emergency department for evaluation. She also reports that over the course of last few days she has had nausea and increasing belching. She was evaluated in the emergency department initial high-sensitivity troponin was normal at 6.21.4 CBC was unremarkable chest x-ray was negative for acute findings. ED provider wishes to admit patient under observation for ACS rule out. She last had a stress test And January 2023 showed a moderate-sized area of mild stress-induced ischemia involving the LV septum she was subsequently transferred to [facility] for further evaluation, patient unclear if she had a heart cath at that time. Allergies ciprofloxacin Allergy (Severe, Verified 09/08/16 19:39) Swelling to lips, difficulty swallowing gabapentin Allergy (Verified 01/19/23 20:59) Itching/Hives/Rash levofloxacin Allergy (Verified 01/19/23 20:59) Itching/Hives/Rash Home Medications: Aspirin [Aspirin EC 81 MG] 81 mg PO DAILY 04/27/21 Insulin Aspart (Niacinamide) [Fiasp 100 Unit/ml Flextouch] 4 - 14 unit SQ TIDWM 04/27/21 Insulin Glargine,Hum.rec.anlog [Basaglar Kwikpen U-100] 60 unit SQ DAILY 04/27/21 Pantoprazole [Protonix Tab*] 40 mg PO DAILY 04/27/21 Cholecalciferol (Vitamin D3) [Vitamin D 5,000 IU Cap*] 5,000 unit PO DAILY #30 cap 04/28/21 Amlodipine [Norvasc] 5 mg PO DAILY 01/20/23 Atorvastatin Calcium [Lipitor] 40 mg PO BEDTIME 01/20/23 - Past Medical/Surgical History Diabetic: Yes -: IDDM -: Htn -: High Cholesterol -: left leg/knee strain -: depression -: Hysterectomy -: Rt carpal tunnel sx -: cholecystectomy -: appendectomy Psychosocial/ Personal History: lives at home with and grandkids - Family History Father -: Heart disease, Hypertension Sister -: Cancer Brother -: Cancer mom -: Heart disease, Hypertension - Social History Alcohol use: No CD- Drugs: No Caffeine use: Yes Place of Residence: Home Review of Systems 10-point ROS is otherwise unremarkable Cardiovascular: Chest Pain Gastrointestinal: Nausea Physical Examination - Physical Exam General: Alert, In no apparent distress, Oriented x3 HEENT: Atraumatic, PERRLA, EOMI Neck: Supple, 2+ carotid pulse no bruit, No LAD Respiratory: Clear to auscultation bilaterally, Normal air movement Cardiovascular: Regular rate/rhythm, Normal S1 S2 Gastrointestinal: Normal bowel sounds, No tenderness Musculoskeletal: No tenderness Integumentary: No rashes Neurological: Normal speech, Normal strength at 5/5 x4 extr, Normal affect - Studies Laboratory Data (last 24 hrs) 11/05/24 11/05/24 15:31 15:31 WBC 7.60 Hgb 12.0 Hct 35.4 L Plt Count 221 Sodium 139 Potassium 3.6 BUN 19 H Creatinine 1.40 H Glucose 90 Total Bilirubin 0.4 AST 11 L ALT 15 Alkaline Phosphatase 96 Assessment and Plan - Plan Assessment: Chest pain rule out ACS Diabetes mellitus type 2insulin-dependent Hypertension Hyperlipidemia Plan: Chest pain rule out ACS Initial high-sensitivity troponin negative Trend troponins and monitor on telemetry overnight Cardiology consultation placed Had stress test in January 2023, with subsequently transferred to [facility]-unclear what further workup she had Patient does not think that she had a heart cath but is not certain Also reports increasing nausea and belching the past 2 days, will try PPI Diabetes mellitus type 2insulin-dependent ACHS Accu-Chek, sliding scale insulin Hypertension Hyperlipidemia Continue home meds when verified DVT PPX: Lovenox Code status: Full Discharge Plan: Home Plan to discharge in: 48 Hours - Advance Directives Does patient have a Living Will: No Does patient have a Durable POA for Healthcare: No - Code Status/Comfort Care Code Status Assessed: Yes (Full code) Critical Care: No Time Spent Managing Pts Care (In Minutes): 62
[2024-11-05] MEDS ORDERED: PANTOPRAZOLE 40 MG INJ ONE (17:40)
[2024-11-05 17:58] VITALS: BMI 31.6
[2024-11-05] MEDS ORDERED: ONDANSETRON 4 MG/2 ML VIAL IV PRN (18:12)
[2024-11-05] MEDS: ENOXAPARIN 40 MG/0.4 ML SQ SCH (19:49)
[2024-11-06] MEDS: ACETAMINOPHEN 325 MG TABLET PO PRN (00:40)
[2024-11-06 05:05] LABS: Absolute Basophils 0.1 K/uL (0-0.5); Absolute Eosinophils 0.3 K/uL (0-0.5); Absolute Lymphocytes (CBC) 3.5 K/uL (0.7-4.9); Absolute Monocytes 0.4 K/uL (0.1-1.3); Absolute Neutrophil 3.5 K/uL (1.8-8.0); Basophils % 0.9 % (0-1.3); Eosinophils % 4.5 % (0-4.4); Hematocrit 32.7 % (36.0-45.0); Hemoglobin 11.1 g/dL (12.0-15.0); Lymphocytes % 44.9 % (15.3-44.8); MCH 27.5 pg (27.0-35.0); MCV 80.9 fL (80-100); MPV 8.3 fL (7.6-11.3); Neutrophils % 44.7 % (41.7-73.7); Nucleated Red Blood Cells % 0.1 % (0-0); Platelets 194 thou/uL (152-406); RBC Red Blood Cell Count 4.04 M/uL (3.86-4.86); Red Cell Distribution Width 14.1 % (12.1-15.2)
[2024-11-06 05:27] LABS: Anion Gap 10.3 mEq/L (5.0-15.0); Potassium 4.3 mEq/L (3.5-5.1); Troponin High Sensitivity 7.3 pg/mL (<58.9)
[2024-11-06] MEDS: AMLODIPINE 5 MG TAB PO SCH (09:29)
[2024-11-06] MEDS: PANTOPRAZOLE 40MG TABLET PO SCH (09:29)
[2024-11-06] MEDS: ASPIRIN EC 81 MG TAB PO SCH (09:29)
[2024-11-06] MEDS: SERTRALINE HCL 50 MG TAB PO SCH (09:30)
[2024-11-06] MEDS: lisinopriL 10 MG TAB PO SCH (09:30)
[2024-11-06] MEDS: PIOGLITAZONE 15 MG TAB PO SCH (09:34)
[2024-11-06 10:07] VITALS: O2SAT 97
--- NOTE | 2024-11-06 11:10 | P.CNS ---
Date of Consult: 11/06/24 Chief Complaint: Chest pain History of Present Illness: Patient with PMH of HTN, DM, mild CAD presented with high BP from her PCP office, abnormal EKF, patient report intermittent chest discomfort, mid chest, no radiation, last for few minutes, denies any other cardiac symptoms. Allergies ciprofloxacin Allergy (Severe, Verified 09/08/16 19:39) Swelling to lips, difficulty swallowing gabapentin Allergy (Verified 01/19/23 20:59) Itching/Hives/Rash levofloxacin Allergy (Verified 01/19/23 20:59) Itching/Hives/Rash Home medications list reviewed: Yes Home Medications: Pantoprazole [Protonix Tab*] 40 mg PO DAILY 04/27/21 Cholecalciferol (Vitamin D3) [Vitamin D 5,000 IU Cap*] 5,000 unit PO DAILY #30 cap 04/28/21 Amlodipine [Norvasc] 5 mg PO DAILY 01/20/23 Atorvastatin Calcium [Lipitor] 40 mg PO BEDTIME 01/20/23 Calcium Carbonate [Calcium] 600 mg PO BID 11/05/24 Dulaglutide [Trulicity] 0.75 mg SQ SEECOM 11/05/24 Empagliflozin [Jardiance] 25 mg PO DAILY 11/05/24 Insulin Degludec [Tresiba Flextouch U-100] 6 unit SQ DAILY 11/05/24 Lisinopril [Zestril] 10 mg PO DAILY 11/05/24 Metformin HCl [Glucophage*] 500 mg PO BIDWM 11/05/24 Pioglitazone [Actos] 15 mg PO DAILY 11/05/24 Sertraline [Zoloft] 25 mg PO DAILY 11/05/24 - Past Medical/Surgical History Diabetic: Yes -: IDDM -: Htn -: High Cholesterol -: left leg/knee strain -: depression -: Hysterectomy -: Rt carpal tunnel sx -: cholecystectomy -: appendectomy Psychosocial/ Personal History: lives at home with and grandkids - Family History Father Medical History: Heart disease, Hypertension Sister Medical History: Cancer Brother Medical History: Cancer mom Medical History: Heart disease, Hypertension - Social History Smoking Status: Never smoker Alcohol use: No CD- Drugs: No Caffeine use: Yes Place of Residence: Home Review of Systems 10-point ROS is otherwise unremarkable Physical Examination Temp Pulse Resp BP Pulse Ox 98.0 F 58 16 120/57 L 97 11/06/24 08:00 11/06/24 09:30 11/06/24 08:00 11/06/24 09:30 11/06/24 08:00 General: Alert, In no apparent distress HEENT: Atraumatic, PERRLA, Mucous membr. moist/pink, EOMI, Sclerae nonicteric Neck: Supple, 2+ carotid pulse no bruit, No LAD, Without JVD or thyroid abnormality Respiratory: Clear to auscultation bilaterally, Normal air movement Cardiovascular: Regular rate/rhythm, Normal S1 S2 Gastrointestinal: Normal bowel sounds, No tenderness Musculoskeletal: No tenderness Integumentary: No rashes Neurological: Normal gait, Normal speech, Normal tone, Normal affect Lymphatics: No axilla or inguinal lymphadenopathy Laboratory Data (last 24 hrs) 11/05/24 11/05/24 15:31 15:31 WBC 7.60 Hgb 12.0 Hct 35.4 L Plt Count 221 Sodium 139 Potassium 3.6 BUN 19 H Creatinine 1.40 H Glucose 90 Total Bilirubin 0.4 AST 11 L ALT 15 Alkaline Phosphatase 96 - Problems (1) Chest pain Current Visit: No Status: Acute Plan: patient enzymes are negative. Patient had a coronary angiogram done at [facility] that shown normal coronaries with significant OM1 disease but small artery on 01/2023 also echo shown normal EF with grade I DD patient chest pain is atypical with recent normal coronary angiogram no further cardiac work up needed. continue ASA 81 mg daily continue lipitor 40 mg daily (2) Hypertension Onset Date: 09/11/16 Current Visit: No Status: Acute Plan: continue lisinopril and Norvasc.
--- NOTE | 2024-11-06 11:31 | P.DS ---
Admission Date: 11/05/24 Discharge Date: 11/06/24 Disposition: ROUTINE DISCHARGE Discharge Condition: GOOD Reason for Admission: Chest pain Brief History of Present Illness: 64-year-old female with history of hypertension, insulin-dependent diabetes, hyperlipidemia presents to the emergency department with chief complaint of intermittent chest pain. She reports that she went to a doctor's appointment to establish care with a new PCP and her blood pressure was elevated around 180 systolic, they obtained an EKG and her PCP was concerned as there was some inverted T waves. She reported a history of recent intermittent chest pain and was therefore referred to the emergency department for evaluation. She also reports that over the course of last few days she has had nausea and increasing belching. She was evaluated in the emergency department initial high-sensitivity troponin was normal at 6.21.4 CBC was unremarkable chest x-ray was negative for acute findings. ED provider wishes to admit patient under observation for ACS rule out. She last had a stress test And January 2023 showed a moderate-sized area of mild stress-induced ischemia involving the LV septum she was subsequently transferred to [facility] for further evaluation, patient unclear if she had a heart cath at that time. Hospital Course: Assessment: Chest pain rule out ACS Diabetes mellitus type 2insulin-dependent Hypertension Hyperlipidemia Patient was admitted to the hospital for chest pain, high blood pressure. She was monitored overnight on telemetry and had no significant arrhythmias, troponins negative x 3, no further episodes of chest pain overnight. Blood pressure has been in the 120s overnight. Patient had a coronary angiogram done at [facility] that shown normal coronaries with significant OM1 disease but small artery on 01/2023 also echo shown normal EF with grade I DD patient chest pain is atypical with recent normal coronary angiogram Patient is stable for discharge and outpatient follow-up with cardiology and her PCP. Continue medications as previously prescribed Follow-up with your primary care doctor and cardiology in 1 to 2 weeks Vital Signs/Physical Exam: Temp Pulse Resp BP Pulse Ox 98.0 F 58 16 120/57 L 97 11/06/24 08:00 11/06/24 09:30 11/06/24 08:00 11/06/24 09:30 11/06/24 08:00 General: Alert, In no apparent distress, Oriented x3 HEENT: Atraumatic, PERRLA Neck: Supple, JVD not distended Respiratory: Clear to auscultation bilaterally, Normal air movement Cardiovascular: Regular rate/rhythm, Normal S1 S2 Gastrointestinal: Normal bowel sounds, No tenderness Musculoskeletal: No tenderness Integumentary: No rashes Neurological: Normal speech, Normal affect Laboratory Data at Discharge: WBC 7.70 thou/uL (4.3-10.9) 11/06/24 04:26 Hgb 11.1 g/dL (12.0-15.0) L 11/06/24 04:26 Hct 32.7 % (36.0-45.0) L 11/06/24 04:26 Plt Count 194 thou/uL (152-406) 11/06/24 04:26 Sodium 143 mEq/L (136-145) 11/06/24 04:26 Potassium 4.3 mEq/L (3.5-5.1) D 11/06/24 04:26 BUN 20 mg/dL (7-18) H 11/06/24 04:26 Creatinine 1.50 mg/dL (0.55-1.02) H 11/06/24 04:26 Glucose 90 mg/dL (74-106) 11/06/24 04:26 Total Bilirubin 0.4 mg/dL (0.2-1.0) 11/05/24 15:31 AST 11 U/L (15-37) L 11/05/24 15:31 ALT 15 U/L (13-56) 11/05/24 15:31 Alkaline Phosphatase 96 U/L (45-117) 11/05/24 15:31 Home Medications: Pantoprazole [Protonix Tab*] 40 mg PO DAILY 04/27/21 Cholecalciferol (Vitamin D3) [Vitamin D 5,000 IU Cap*] 5,000 unit PO DAILY #30 cap 04/28/21 Amlodipine [Norvasc] 5 mg PO DAILY 01/20/23 Atorvastatin Calcium [Lipitor] 40 mg PO BEDTIME 01/20/23 Calcium Carbonate [Calcium] 600 mg PO BID 11/05/24 Dulaglutide [Trulicity] 0.75 mg SQ SEECOM 11/05/24 Empagliflozin [Jardiance] 25 mg PO DAILY 11/05/24 Insulin Degludec [Tresiba Flextouch U-100] 6 unit SQ DAILY 11/05/24 Lisinopril [Zestril] 10 mg PO DAILY 11/05/24 Metformin HCl [Glucophage*] 500 mg PO BIDWM 11/05/24 Pioglitazone [Actos] 15 mg PO DAILY 11/05/24 Sertraline [Zoloft] 25 mg PO DAILY 11/05/24 Physician Discharge Instructions: Patient was admitted to the hospital for chest pain, high blood pressure. She was monitored overnight on telemetry and had no significant arrhythmias, troponins negative x 3, no further episodes of chest pain overnight. Blood pressure has been in the 120s overnight. Patient had a coronary angiogram done at [facility] that shown normal coronaries with significant OM1 disease but small artery on 01/2023 also echo shown normal EF with grade I DD patient chest pain is atypical with recent normal coronary angiogram Patient is stable for discharge and outpatient follow-up with cardiology and her PCP. Continue medications as previously prescribed Follow-up with your primary care doctor and cardiology in 1 to 2 weeks Diet: ADA Activity: Ad julia Followup: Kaila Kumar DO [Primary Care Provider] - Time spent managing pt's care (in minutes): 40
[2024-11-06 12:17] VITALS: BP 117/57; TEMP 98.7
[2024-11-06] MEDS ORDERED: ATORVASTATIN 40 MG TAB PO SCH (21:00)
== END 2024-11-06 13:58 | disposition home or self-care (01) ==
LOC: ER 15:09 → ERHOLD 17:06 → INTOOBSV 17:06 → 2ND 18:49
PROVIDERS: ADMIT Hospitalist; ATTEND Hospitalist
DX: R07.9 Chest pain, unspecified (principal); I10 Essential (primary) hypertension; E11.9 Type 2 diabetes mellitus without complications; E78.5 Hyperlipidemia, unspecified; R11.0 Nausea; Z88.1 Allergy status to other antibiotic agents; Z88.8 Allergy status to other drugs, medicaments and biological substances; Z79.4 Long term (current) use of insulin
CPT/HCPCS: 36415; 71045; 80048; 80053; 82947; 83880; 84484; 85025; 96374; 96375; 99285; G0378; J1650; J2270; J2405; J2470